=== PATIENT | female | born 1940 | race Caucasian/White ===

== ENCOUNTER 2020-09-16 14:15 | Outpatient (REF) | payer MEDICARE, SELFPAY ==
[2020-09-16 15:20] LABS: Anion Gap 13 (12-20); Blood Urea Nitrogen 13 mg/dL (9-16); Calcium 9.6 mg/dL (8.4-10.2); Carbon Dioxide 32 mmol/L (22-29); Chloride 101 mmol/L (96-108); Estimated Glomerular Filt Rate > 60; Glucose Random 81 mg/dL (60-115); Potassium 4.4 mmol/l (3.3-5.1); Sodium 142 mmol/L (135-145)
== END 2020-09-16 14:16 | disposition home or self-care (01) ==
LOC: HO.LAB 14:15
PROVIDERS: Visit Provider Hospitalist
DX: J44.9 Chronic obstructive pulmonary disease, unspecified (principal)
CPT/HCPCS: 80048

== ENCOUNTER 2020-09-23 14:44 | Outpatient (REF) | payer MEDICARE, SELFPAY ==
--- NOTE | 2020-09-23 14:46 | CT_ITS ---
EXAMINATION: CT CHEST WITH CONTRAST CLINICAL INFORMATION: Generalized enlarged lymph nodes. COMPARISON: CTA chest 05/30/2020. TECHNIQUE: Multidetector volumetric CT imaging of the chest was obtained after the administration of 65 mL of Omnipaque 350 intravenous contrast without immediate adverse reactions. Axial MIP volume rendering provided. Sagittal and coronal reformatted images were obtained. This CT examination was performed using dose optimization techniques as appropriate, variously including the following: Automated exposure control. Adjustment of mA and/or kV according to patient size (this includes techniques or standardized protocols for targeted exams where dose is matched to indication/reason for exam; i.e. extremities or head). Use of iterative reconstruction technique. DLP: 148 mGy-cm FINDINGS: [employer]ODUCTION: Well-expanded lungs are unremarkable. LUNGS: The lungs are well expanded and clear of acute pneumonic consolidation. There is a 2 mm calcified nodule right lung apex image 21/8. There is a tumor noncalcified nodule right upper lobe image 155/7. No additional nodules seen. MEDIASTINUM: The heart size and the great vessels are normal. The central trachea and the bronchi are widely patent. There is abnormal mediastinal adenopathy. The largest pretracheal lymph node measures 2.2 x 3.7 cm on axial image 22/3, it appears similar to previous study. A few smaller scattered subcarinal, precarinal and right hilar lymph nodes are noted. The heart size is normal. There are coronary artery and aortic valve calcifications. No pericardial effusion seen. PLEURA: There is no pleural effusion. No pleural mass or thickening. AXILLA: No abnormal lymph nodes or mass seen. The chest wall is unremarkable. UPPER ABDOMEN: Visualized liver, spleen, pancreas and bilateral adrenal glands are stable. OSSEOUS STRUCTURES: No lytic or sclerotic process seen. CT/CT chest w con IMPRESSION: Stable abnormal mediastinal adenopathy. Punctate calcified and noncalcified pulmonary nodules are also stable to previous study from 05/30/2020. No new findings.
[2020-09-23] MEDS: iohexoL 350 MG/ML 100 ML INFUS..BTL IV (15:34)
== END 2020-09-23 14:45 | disposition home or self-care (01) ==
LOC: HO.CT 14:44
PROVIDERS: Visit Provider Hospitalist
DX: R59.1 Generalized enlarged lymph nodes (principal)
CPT/HCPCS: 71260; Q9967

== ENCOUNTER → 2020-10-02 13:17 | Outpatient (BNVA) | payer MEDICARE, SELFPAY | PROVIDERS: PCP Emergency Medicine; Visit Provider Hospitalist | DX: R59.1 Generalized enlarged lymph nodes (principal) | CPT/HCPCS: 99212 ==

== ENCOUNTER → 2020-10-22 14:17 | Outpatient (BNVA) | payer MEDICARE, SELFPAY | PROVIDERS: PCP Emergency Medicine; Visit Provider Internal Medicine | DX: I49.1 Atrial premature depolarization (principal); I47.1 Supraventricular tachycardia; I49.3 Ventricular premature depolarization; I10 Essential (primary) hypertension; J44.9 Chronic obstructive pulmonary disease, unspecified | CPT/HCPCS: 93005; 99212 ==

== ENCOUNTER 2020-11-19 08:25 | Day surgery (SDC) | payer MEDICARE, SELFPAY ==
[2020-11-12 16:12] VITALS: BMI 27.9
--- NOTE | 2020-11-18 10:01 | HO.ANESPROP2 ---
Documented by User: Brinda Gonzalezney 11/18/20 10:17 HPI - Anesthesia Eval Consult details Narrative: 80yo F for Endoscopic Bronchial Ultrasound PMFSH Past Medical History Medical History Atrial tachycardia Chronic obstructive pulmonary disease, unspecified Essential hypertension Hypothyroid Lymphadenopathy Macular degeneration PAC (premature atrial contraction) Pneumonia PVC (premature ventricular contraction) Family History Family History Father No problems noted. Mother No problems noted. Surgical History Surgical History History of tonsillectomy and adenoidectomy Hx of cataract extraction Social History Social History Are you a primary human services care specialist to a significant other at home: No Do you presently have visiting nurse or other home services: No Smoking Status: Former smoker Tobacco Type: Cigarette Years Smoked: 50 years Smoking Quit Date: 2005 Use of substances other than those prescribed or required for medical reasons: No Have you been hit, kicked, punched, or otherwise hurt by someone within the past year? If so, by whom?: No Advance Directives: No Advance Directives Information Provided: No Advance Directives on File: No Recently lost weight without trying: No Narrative Narrative: Recent cardiology OV. Palps better with diltiazem. Stable with 6 month f/u. Meds Allergies Allergy/AdvReac Type Severity Reaction Status Date / Time peanut Allergy Severe Anaphylaxis Verified 11/12/20 16:07 Tetanus Vaccines and Toxoid Allergy Severe Anaphylaxis Verified 11/12/20 16:07 lovastatin AdvReac Severe Leg Cramps Verified 11/12/20 16:07 pravastatin AdvReac Severe Leg Cramps Verified 11/12/20 16:07 Home Medications Medication Instructions Recorded Confirmed Type B-complex with vitamin C 1 tab PO DAILY 10/02/20 11/12/20 History albuterol sulfate 90 mcg/actuation 2 puff INHALATION Q4-6H PRN 10/02/20 11/12/20 History aerosol inhaler diltiazem HCl 120 mg 120 mg PO DAILY 10/02/20 11/12/20 History capsule,extended release 24 hr, controlled flu vacc [id number](65yr up)-PF 240 ml IM 10/02/20 10/03/20 History mcg/0.7 mL intramuscular syringe levothyroxine 50 mcg tablet 50 mcg PO DAILY 10/02/20 11/12/20 History multivitamin 1 tab PO DAILY 10/02/20 11/12/20 History omega 1-thq-lbc-vitamin E 500 1 cap PO DAILY 10/02/20 11/12/20 History mg-139 mg-264 mg-5 unit capsule vit C 250 mg-vit E 200 unit-zinc 1 cap PO DAILY 10/22/20 11/12/20 History ox 12.5 ju-wqfkxv-vswfoo-zeax capsule cholecalciferol (vitamin D3) 25 mcg PO DAILY 11/12/20 11/12/20 History [Vitamin D3] qfuovshjfhr-lhfmqrcsg-waqhoini 1 inh INHALATION DIRECTED 11/12/20 11/12/20 History [Trelegy Ellipta] Exam Exam Date and Time: November 18, 2020 1001 Height,Weight and Vital Signs: Height 5 ft 4 in Weight 73.936 kg Pertinent Lab Results Pertinent Lab Results: EKG 09/2020 SR @ 98, premature supraventricular as well as ventricular complexes; probable LVH Assessment and Plan Assessment Anesthesia Assessment: Chart Reviewed Documented by User: Luis Martínez MD 11/19/20 09:02 [facility] Past Medical History Medical History Atrial tachycardia Chronic obstructive pulmonary disease, unspecified Essential hypertension Hypothyroid Lymphadenopathy Macular degeneration PAC (premature atrial contraction) Pneumonia PVC (premature ventricular contraction) Family History Family History Father No problems noted. Mother No problems noted. Surgical History Surgical History History of tonsillectomy and adenoidectomy Hx of cataract extraction Social History Social History Are you a primary human services care specialist to a significant other at home: No Do you presently have visiting nurse or other home services: No Smoking Status: Former smoker Tobacco Type: Cigarette Years Smoked: 50 years Smoking Quit Date: 2005 Use of substances other than those prescribed or required for medical reasons: No Have you been hit, kicked, punched, or otherwise hurt by someone within the past year? If so, by whom?: No Advance Directives: No Advance Directives Information Provided: No Advance Directives on File: No Recently lost weight without trying: No Meds Allergies Allergy/AdvReac Type Severity Reaction Status Date / Time peanut Allergy Severe Anaphylaxis Verified 11/12/20 16:07 Tetanus Vaccines and Toxoid Allergy Severe Anaphylaxis Verified 11/12/20 16:07 lovastatin AdvReac Severe Leg Cramps Verified 11/12/20 16:07 pravastatin AdvReac Severe Leg Cramps Verified 11/12/20 16:07 Home Medications Medication Instructions Recorded Confirmed Type B-complex with vitamin C 1 tab PO DAILY 10/02/20 11/12/20 History albuterol sulfate 90 mcg/actuation 2 puff INHALATION Q4-6H PRN 10/02/20 11/12/20 History aerosol inhaler diltiazem HCl 120 mg 120 mg PO DAILY 10/02/20 11/12/20 History capsule,extended release 24 hr, controlled flu vacc [id number](65yr up)-PF 240 ml IM 10/02/20 10/03/20 History mcg/0.7 mL intramuscular syringe levothyroxine 50 mcg tablet 50 mcg PO DAILY 10/02/20 11/12/20 History multivitamin 1 tab PO DAILY 10/02/20 11/12/20 History omega 0-mtx-lbw-vitamin E 500 1 cap PO DAILY 10/02/20 11/12/20 History mg-139 mg-264 mg-5 unit capsule vit C 250 mg-vit E 200 unit-zinc 1 cap PO DAILY 10/22/20 11/12/20 History ox 12.5 gw-bmywrv-lssyhy-zeax capsule cholecalciferol (vitamin D3) 25 mcg PO DAILY 11/12/20 11/12/20 History [Vitamin D3] eojujfuiylr-yuqkiubhb-sexdcmcm 1 inh INHALATION DIRECTED 11/12/20 11/12/20 History [Trelegy Ellipta] Exam Airway Mallampati Class: III TM Dist: >3cm Neck ROM: Full Denture: Upper Partial: Lower Loose/Missing/Broken Teeth: No Heart: PVCs, PACs, bigemini Lungs: nonlabored Assessment and Plan Assessment Anesthesia Assessment: Anesthesia Plan Discussed and Chart Reviewed Final Anesthetic Review NPO: Yes ASA Class: III Final Preanesthetic Review: No Changes in Pt Med Stat, Meds/Allgs Chart Reviewed, Consent Obtained/Reviewed and Anes Risks/Benef Reviewed Patient Risk: Intermediate Procedure Risk: Intermediate Anesthetic Plan Anesthetic Plan: GA Disposition: Standard PACU
[2020-11-19] VITALS (8 sets, daily range): BP systolic 133–166; BP diastolic 63–75; PULSE 86–98; RESP 16–20; TEMP 36.2–36.6; O2SAT 93–98
[2020-11-19] MEDS: Lactated Ringers 1,000 ML 50 ML IVCONT (09:30)
--- NOTE | 2020-11-19 09:59 | MHC.SHP ---
Pre-Procedural Eval Section B Chief Complaint: enlarged lymph nodes Allergies: Allergies Allergy/AdvReac Type Severity Reaction Status Date / Time peanut Allergy Severe Anaphylaxis Verified 11/12/20 16:07 Tetanus Vaccines and Toxoid Allergy Severe Anaphylaxis Verified 11/12/20 16:07 lovastatin AdvReac Severe Leg Cramps Verified 11/12/20 16:07 pravastatin AdvReac Severe Leg Cramps Verified 11/12/20 16:07 Plan I have reviewed the history and physical and performed a pertinent physical examination on my patient. No changes have occurred unless specified.
--- NOTE | 2020-11-19 18:17 | PM.OP ---
Brief Operative Note Date of Service: 11/19/20 Pre-op diagnosis: Lymphadenospathy Post-op diagnosis: other (Lymphadenopathy, cancer) Procedure: EBUS with TBNA Surgeon: Rik Kohler MD Anesthesia: GETA Estimated blood loss (mL): 0 Pathology: other (TBNA from station 4R and 7) Condition: stable Disposition: same day
--- NOTE | 2020-11-19 21:46 | OP_ITS ---
SURGEON: Rik Kohler MD PREOPERATIVE DIAGNOSIS: Lymphadenopathy. POSTOPERATIVE DIAGNOSIS: PROCEDURE PERFORMED: Endobronchial ultrasound bronchoscopy with transbronchial needle aspirations. ESTIMATED BLOOD LOSS: COMPLICATIONS: ANESTHESIA: General endotracheal anesthesia provided with an 8.5 ET tube. ASSISTANTS: None. SPECIMENS: POSTOPERATIVE DIAGNOSES: Lymphadenopathy and cancer. DESCRIPTION OF PROCEDURE: After the patient was adequately sedated and intubated, the flexible digital bronchoscope with endobronchial ultrasound bronchoscopy (EBUS) was introduced via the ET tube to the level of the main renée. Using the ultrasound guidance, the different stations were visualized. The patient did have a 2 cm 4R mediastinal lymph node and also had about 1 to 1.5 cm station 7 subcarinal lymph node. The patient also had lymph nodes enlarged in station 10L. Using the ultrasound guidance, the transbronchial needle aspirations were done in station 4R, five passes done. Specimen was given to the pathologist. Subsequent to that, the bronchoscope was navigated to station 7, where another 4 passes of the transbronchial needle aspirate was collected and sent to pathology. At that which point, the pathologist did document lesional cells concerning for cancer. The endobronchial ultrasound bronchoscopy was then removed and replaced with the regular bronchoscopy. The bronchoscope was introduced against the ET tube and the tracheobronchial tree that was examined up to the subsegmental level. No endobronchial lesions or masses noted. The patient did have some slight irritability at the site of the needle aspirations. Otherwise, no endobronchial lesions or masses noted. No evidence of any mucus secretions. Airways were within normal limits. The bronchoscope was then removed. The total endoscopic time approximately 45 minutes. The patient tolerated the procedure well. Vital signs were stable. INTERPRETATION: 1. Successful transbronchial needle aspiration via EBUS at station 4R and station 7 2. Bronchial washings bilaterally. Rik Kohler MD MR/MODL / [id number] MTDD
== END 2020-11-19 13:01 | disposition home or self-care (01) ==
PROVIDERS: Visit Provider Hospitalist
PROC: (CPT 31652; principal; 2020-11-19 10:00)
DX: R59.1 Generalized enlarged lymph nodes (principal); R91.1 Solitary pulmonary nodule; J44.9 Chronic obstructive pulmonary disease, unspecified; I10 Essential (primary) hypertension; I49.1 Atrial premature depolarization; I49.3 Ventricular premature depolarization; Z87.891 Personal history of nicotine dependence; Z87.01 Personal history of pneumonia (recurrent); Z79.51 Long term (current) use of inhaled steroids; Z79.899 Other long term (current) drug therapy; Z91.010 Allergy to peanuts; Z88.7 Allergy status to serum and vaccine; Z91.09 Other allergy status, other than to drugs and biological substances
CPT/HCPCS: 31652; 36415; 87071; 87205; 88112; 88172; 88173; 88177; 88184; 88185; 88300; 88305; 88341; 88342; J0171; J1100; J2370; J2405; J3010

== ENCOUNTER → 2020-11-26 09:42 | Outpatient (BNVA) | payer MEDICARE, SELFPAY | PROVIDERS: PCP Internal Medicine; Visit Provider Hospitalist | DX: Z13.89 Encounter for screening for other disorder (principal) | CPT/HCPCS: Q3014 ==

== ENCOUNTER 2020-12-04 13:13 | Outpatient (REF) | payer MEDICARE, SELFPAY ==
--- NOTE | ~2020-12-04 | MR_ITS ---
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 COMPARISON: None TECHNIQUE: MRI sequences of the brain were obtained without and following intravenous administration of 7.5 mL of Gadavist. FINDINGS: There is no abnormal restricted diffusion seen to suspect any acute ischemic changes. T2 diffuse signal changes are seen in the periventricular white matter of both cerebral hemispheres without mass effect or edema. The lateral ventricles are moderately enlarged but symmetrical. Mild prominence of the cortical sulci is seen. Post gadolinium, there is no abnormal enhancement seen in the brain parenchyma or the extra-axial soft tissues. Normal flow void signal is seen in the major cerebral vasculature. MR/MR head/brain w con IMPRESSION: No acute intracranial process seen. No abnormal enhancement seen to suspect any primary or metastatic lesion. Extensive chronic small vessel ischemic changes in both cerebral hemispheres with underlying mild cerebral volume loss.
== END 2020-12-04 13:14 | disposition home or self-care (01) ==
LOC: HO.MRI 13:13
PROVIDERS: Visit Provider Internal Medicine Medical Oncology
DX: C80.1 Malignant (primary) neoplasm, unspecified (principal)
CPT/HCPCS: 70552; A9585

== ENCOUNTER 2020-12-26 17:49 | Outpatient (REF) | payer MEDICARE, SELFPAY ==
--- NOTE | ~2020-12-26 | MR_ITS ---
EXAMINATION: MR ABDOMEN WITHOUT AND WITH CONTRAST CLINICAL INFORMATION: Right lower pole renal mass seen on PET scan at [facility] COMPARISON: No prior imaging available for comparison. Specifically, the PET CT from [facility] is not available for comparison. TECHNIQUE: MR abdomen was performed without and with use of 7.5 mL intravenous Gadavist gadolinium contrast. Postcontrast images are performed in multiphase dynamic sequences. Imaging was performed in 3 planes. Respiratory motion artifact degrades many of the sequences. FINDINGS: LUNG BASES: The visualized lung bases are unremarkable. LIVER, GALLBLADDER, AND BILIARY TREE: The liver is normal in size, smooth in contour, and normal in signal. No focal hepatic lesion or biliary ductal dilatation is present. The gallbladder is unremarkable with no evidence of gallbladder wall thickening, or obvious pericholecystic inflammatory changes. PANCREAS: The pancreatic duct is upper limits of normal in caliber but nondilated. There are tiny 1-2 mm cystic foci adjacent the pancreatic duct suggestive of ectatic side branches, for example images 9 and 10 of series 5. No solid pancreatic mass or peripancreatic inflammatory changes. SPLEEN: Normal. ADRENAL GLANDS: Normal. KIDNEYS AND URETERS: Symmetric bilateral renal enhancement. 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 There is a contour bulge of the lateral aspect of the right mid-lower kidney which could give the appearance of a pseudomass although there is no underlying mass lesion. GASTROINTESTINAL TRACT: No bowel obstruction. No ascites or fluid collection. ABDOMINAL WALL: No significant hernia is appreciated. LYMPH NODES: Normal sized retroperitoneal lymph nodes are present. No pathologically enlarged lymphadenopathy. VASCULAR: Normal caliber abdominal aorta. OSSEOUS STRUCTURES: Multilevel degenerative disc disease. Multilevel degenerative changes of the thoracolumbar spine. There is multilevel loss of disc height and disc desiccation throughout the visualized thoracolumbar spine. 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 No underlying renal mass.
== END 2020-12-26 17:50 | disposition home or self-care (01) ==
LOC: HO.MRI 17:49
PROVIDERS: Visit Provider Internal Medicine Medical Oncology
DX: N28.89 Other specified disorders of kidney and ureter (principal)
CPT/HCPCS: 74183; A9585

== ENCOUNTER 2021-01-01 06:55 | Day surgery (SDC) | payer MEDICARE, SELFPAY ==
[2021-01-01] VITALS (7 sets, daily range): BP systolic 142–160; BP diastolic 57–87; PULSE 17–108; RESP 17–18; TEMP 36.2–36.3; O2SAT 94–97
--- NOTE | ~2021-01-01 | IR_ITS ---
PROCEDURE: IR INSERTION OF TUNNEL CATHETER CLINICAL INFORMATION: Right lung cancer. Needs long-term IV chemotherapy. COMPARISON: CT chest 09/23/2020. TECHNIQUE: Following explaining ultrasound and fluoroscopy-guided placement of a left jugular inserted port catheter, procedure, benefits and risks, a written consent was obtained from the patient. All elements of maximal sterile barrier technique followed including use of cap, mask, sterile gown, sterile gloves, a sterile full body drape and hand hygiene. Also followed skin preparation with 2% chlorhexidine for cutaneous antisepsis, and sterile ultrasound preparation with sterile gel and probe cover when applicable. Under sterile ultrasound guidance a singlewall needle was utilized in the left jugular vein was punctured above the clavicle. After obtaining venous return, a thin guidewire was advanced over the needle and needle withdrawn. A 5 Serbian dilator sheath was inserted over the wire. The catheter was anchored to the drape with hemostat. Approximately one gauze length away from the next skin incision along the left ventricle chest wall, 1% lidocaine was administered and a small skin incision performed. The area under the incision was bluntly dissected for the port to be positioned within the pocket. The port was anchored in the pocket with two 3-0 nonabsorbable nylon sutures. 1% lidocaine was subsequently inserted from the anterior chest wall incision to the left neck incision. A attached to the catheter was then advanced from the anterior chest wall incision to the left neck incision and the catheter was pulled. The catheter was cut to the desired size. The 5 Serbian dilator was removed from the neck incision and a 0.35 J-wire was advanced through it under fluoroscopy and placed in the IVC. The 5 Serbian catheter was removed and the tract dilated to 7 Serbian dilator. A 7 Serbian dilator with sheath was inserted over the guidewire. The dilator and the guidewire removed. The catheter was then inserted through the peel-away sheath. The peel-away sheath was removed as the catheter was advanced and held in position. The final image was under fluoroscopy and revealed tip of the catheter positioned mid SVC. The anterior chest wall incision was sutured with 4-0 absorbable sutures. The left anterior neck incision was sutured with 3-0 absorbable sutures. Steri-Strips were applied at both sites and dressing placed. The port chamber was flushed. Initially after placing it in the pocket and subsequently at the end of the study, heparin flush was instilled through the catheter. Patient tolerated the procedure extremely well. Conscious sedation was utilized during exam. FINDINGS: On preliminary ultrasound imaging, a widely patent left jugular vein is noted. Ultrasound and fluoroscopy-guided placement of a 6.6 Serbian 24 cm long tunneled catheter insertion performed. IR/IR cvc insert tunnel w prt/stock drier tender IMPRESSION: Successful ultrasound and fluoroscopy-guided placement of a tunneled catheter via the left jugular vein.
[2021-01-01 07:37] LABS: Glucose, Whole Blood 118 mg/dL (60-115)
[2021-01-01 07:53] LABS: INTERNATIONAL NORM RATIO 1.1 (0.9-1.1); Prothrombin Time 12.9 SEC (10.8-13.0)
[2021-01-01 07:55] LABS: Partial Thromboplastin Time 32.7 SEC (24.1-38.0)
[2021-01-01] MEDS: Lidocaine HCl 1 % MPF 5 ML VIAL 10 ML SUBCUT (10:17)
== END 2021-01-01 15:00 ==
LOC: HO.SSS 06:56
PROVIDERS: Visit Provider Radiology Diagnostic Radiology
DX: Z45.2 Encounter for adjustment and management of vascular access device (principal); C34.91 Malignant neoplasm of unspecified part of right bronchus or lung
CPT/HCPCS: 36415; 36561; 76937; 82947; 85610; 85730; 99152; 99153; C1769; C1788; J0690; J1642; J2250; J3010

== ENCOUNTER → 2021-03-26 14:53 | Outpatient (REF) | payer MEDICARE, SELFPAY ==
--- NOTE | 2021-03-26 08:00 | ECG_ITS ---
Hook-up date: 2021-03-26 15:28:00 Duration: 22:01:00 Test Indications: VENTRICULAR PREMATURE BEATS Medications: 901058 QRS complexes 2610 Ventricular ectopics which represent 2 % of total QRS comp. 6224 Supraventricular ectopics which represent 5 % of total QRS comp. * Paced QRS complexs which represent % of total QRS comp. VENTRICULAR ECTOPY 2525 Isolated 3 Bigeminal Cycles 41 Couplets 1 Runs 3 Beats in Runs 3 Beats LONGEST at 120 BPM at 07:47:04 2021-03-27 3 Beats FASTEST at 120 BPM at 07:47:04 2021-03-27 SUPRAVENTRICULAR ECTOPY 3787 Isolated 624 Couplets 330 Runs 1189 Beats in Runs 10 Beats LONGEST at 125 BPM at 23:55:51 2021-03-26 3 Beats FASTEST at 163 BPM at 12:22:47 2021-03-27 HEART RATES 64 MIN at 09:10:08 2021-03-27 96 AVG 167 MAX at 20:50:12 2021-03-26 LONGEST RR 1.3120 secs at 11:08:41 2021-03-27 S-T LEVELS Channel 1 - 128 mm at 15:28:00 2021-03-26 - 128 mm at 15:28:00 2021-03-26 Channel 2 - 128 mm at 15:28:00 2021-03-26 - 128 mm at 15:28:00 2021-03-26 Channel 3 - 128 mm at 03:44:71 -- - 128 mm at 03:44:71 Underlying rhythm is sinus; Average rate 96/min; range 64-167/min; Frequent premature supraventricualr contractions (5%) of total; Mostly isolated beats, with couplets, bigeminy, short runs, longest 10 beats; Frequent premature ventricular contractions (2%) of total; Mostly isolated, some couplets, bigeminy, one run of 3 beats; Patient did not return diary Referred By: Andreas Shirley Overread By: ANDREAS SHIRLEY
== END ==
LOC: HO.CARD 14:53
PROVIDERS: Visit Provider Internal Medicine
DX: I49.3 Ventricular premature depolarization (principal)
CPT/HCPCS: 93226

== ENCOUNTER → 2021-04-16 13:05 | Outpatient (BNVA) | payer MEDICARE, SELFPAY | PROVIDERS: PCP Internal Medicine; Visit Provider Internal Medicine | DX: I49.1 Atrial premature depolarization (principal); I47.1 Supraventricular tachycardia; I49.3 Ventricular premature depolarization; I10 Essential (primary) hypertension; J44.9 Chronic obstructive pulmonary disease, unspecified | CPT/HCPCS: 99212 ==

== ENCOUNTER 2021-04-22 08:11 | Outpatient (REF) | payer MEDICARE, SELFPAY ==
--- NOTE | ~2021-04-22 | CT_ITS ---
EXAMINATION: CT CHEST, ABDOMEN AND PELVIS WITH IV CONTRAST CLINICAL INFORMATION: Small cell lung cancer. Followup after treatment. COMPARISON: Previous chest CT most recent September 2020 and MR of the abdomen December 2020 TECHNIQUE: Axial images through the chest, abdomen and pelvis following oral and 85 mL Omnipaque 350 intravenous contrast. Sagittal and coronal reconstructions on the technologist workstation were performed. Patient dose: 129+375 mGy-cm. This CT examination was performed using dose optimization techniques as appropriate, variously including the following: *Automated exposure control *Adjustment of mA and/or kV according to patient size (this includes techniques or standardized protocols for targeted exams where dose is matched to indication/reason for exam; i.e. extremities or head) *Use of iterative reconstruction technique FINDINGS: CHEST: There is interval decrease in mediastinal lymphadenopathy. Largest precarinal lymph node measures 1.3 x 1.7 cm axial image 26 series 3 compared to 2 x 2.7 cm September 2020 exam. There is interval decrease in the subcarinal mediastinal lymph node measuring 1.1 x 2.3 cm compared to 1.4 x 2.6 cm on previous exam. There are small bilateral hilar lymph nodes that appear stable. The heart does not appear enlarged. There is coronary artery calcification. There is no pericardial effusion. The thoracic aorta is normal in caliber. There is a left jugular port with tip projecting over the SVC. The visualized thyroid gland is unremarkable. There is a 2 mm calcified right upper lobe nodule axial image 108 series 7 that is stable. There is a 2 mm peripheral or subpleural right upper lobe nodule adjacent to the major fissure axial image 225 series 7 that is new. This may represent a subpleural lymph node. The lungs are otherwise clear. There is a trace right pleural effusion. There is no left pleural effusion. No chest wall mass or enlarged axillary lymph nodes are seen. There is a subcutaneous mass in the left posterior chest wall axial image 141 series 3 that measures 1 cm that is stable. There are surgical clips in the left breast. ABDOMEN AND PELVIS: The liver is low in attenuation suggestive of fatty infiltration. No focal liver lesion is seen. The spleen, pancreas, adrenal glands, kidneys and gallbladder are unremarkable. The bladder is not optimally distended. The uterus and adnexa are unremarkable. There is diverticulosis of the colon. Small and large bowel is otherwise unremarkable. The appendix and stomach are unremarkable. There is evidence of atherosclerotic disease. There is a small aneurysm or area of ectasia of the right common iliac artery measuring 1.8 cm. No ascites or adenopathy is seen. There are degenerative changes of the spine. There is a T11 vertebral body compression fracture that is new. CT/CT abdomen pelvis w con IMPRESSION: CHEST: Interval decrease in mediastinal lymphadenopathy. New 2 mm peripheral or subpleural right upper lobe nodule adjacent to the major fissure probably representing a subpleural lymph node. New tiny right pleural effusion. Atherosclerotic disease and coronary artery calcification. ABDOMEN AND PELVIS: Fatty liver. Diverticulosis. No evidence of metastatic disease. New T11 vertebral body compression fracture.
[2021-04-22] MEDS: iohexoL 350 MG/ML 100 ML INFUS..BTL IV (11:42)
== END 2021-04-22 08:12 | disposition home or self-care (01) ==
LOC: HO.CT 08:11
PROVIDERS: Visit Provider Internal Medicine Medical Oncology
DX: C80.1 Malignant (primary) neoplasm, unspecified (principal); K59.00 Constipation, unspecified
CPT/HCPCS: 71260; 74177; Q9967

== ENCOUNTER → 2021-04-30 10:37 | Outpatient (REF) | payer MEDICARE, SELFPAY ==
--- NOTE | ~2021-04-30 | NM_ITS ---
EXAMINATION: NM BONE SCAN OF THE WHOLE BODY CLINICAL INFORMATION: New T11 compression fracture. COMPARISON: CT abdomen and pelvis 04/22/2021. TECHNIQUE: Multiple gamma scintillation camera images of the whole body were performed 3 hours following the intravenous administration of 25 mCi Tc-99m MDP. FINDINGS: In the head, unremarkable. In the thoracic cage and upper extremities, unremarkable. In the spine, there is a horizontal area of abnormal activity in the T11 vertebra consistent with acute compression fracture. There is mild activity visualized in the superior endplate of T12 vertebra as well, likely ongoing or early acute fracture. No additional areas of abnormal activity seen in the rest of the spine. In the pelvis, unremarkable. In the lower extremities, unremarkable. No other definite bony abnormalities are noted. The urinary bladder and faint visualization of both kidneys are noted. NM/NM bone scan whole body IMPRESSION: Horizontal abnormal activity T11 vertebra consistent with acute compression fracture. Suspect early acute superior end plate fracture T12 vertebra.
== END ==
LOC: HO.NUCMED 10:37
PROVIDERS: Visit Provider Internal Medicine Medical Oncology
DX: M48.54XA Collapsed vertebra, not elsewhere classified, thoracic region, initial encounter for fracture (principal)
CPT/HCPCS: 78306; A9503

== ENCOUNTER 2021-05-11 10:38 | Day surgery (SDC) | payer MEDICARE, SELFPAY ==
[2021-05-11] VITALS (14 sets, daily range): BP systolic 111–201; BP diastolic 58–102; PULSE 74–121; RESP 16–19; TEMP 36.7–37.2; O2SAT 88–99; BMI 26.6
--- NOTE | ~2021-05-11 | IR_ITS ---
EXAMINATION: IR THORACIC VERTEBROPLASTY CLINICAL INFORMATION: Acute T11 and T12 compression fractures on recent bone scan 04/30/[address] chest exam 04/22/2021. Patient has significant acute pain with difficulty in mobility. COMPARISON: Bone scan 04/30/[address] chest/abdomen exam 04/22/2021 TECHNIQUE: Following explaining fluoroscopy-guided bipedicle approach T11 and T12 kyphoplasty procedure in details, benefits and risk, a written consent was obtained from the patient. Patient was placed prone on fluoroscopy table and low back area was cleaned and draped in usual sterile manner. 1% lidocaine was administered on the skin overlying the right pedicle T11 vertebra. There are small skin incision a 10-gauge Kyphon needle was inserted from the skin to the level of pedicle and through the pedicle into T11 vertebra. A second needle was advanced in a similar fashion to the left pedicle into posterior one thirds of T11 vertebra subsequently a third and fourth needle was advanced to the right and left T12 pedicles. A simple adrenal was advanced to the right and left T11 pedicle however there was significant resistance. A curet was then advanced through the right and left pedicle. Hypotensive balloons were then inserted to the T11 and T12 bilateral pedicles and inflated to 150 PSI of 5 minutes each. The balloons were deflated and removed and freshly mixed polymethylmethacrylate methacrylate was injected through the right followed by left T11 and right followed by left T12 vertebra. Cement was injected under continuous AP, oblique and lateral fluoroscopy monitoring. After a TV adequate amount of cement and observing no cement leaked after 10 minutes both pedicles were removed. Complete hemostasis achieved at puncture site. Sterile bandage applied at the puncture site. Conscious sedation was provided by anesthesia Department. FINDINGS: There is moderate loss of T11 vertebra at >50%. There is mild loss of superior endplate T12 vertebral height. Successful fluoroscopy-guided bipedicle T11 and T12 kyphoplasty performed without immediate convocations. FLUOROSCOPY TIME: 5 minutes. DOSE AREA PRODUCT: 17 74 uGy-m2 (microgray-meter squared) IR/IR kyphoplasty thoracic IMPRESSION: Successful fluoroscopy-guided bilateral pedicular approach T11-T12 kyphoplasty performed.
--- NOTE | ~2021-05-11 | CT_ITS ---
EXAMINATION: CT THORACIC SPINE CLINICAL INFORMATION: Post T11 and T12 kyphoplasty. COMPARISON: CT abdomen and pelvis 04/22/2021 TECHNIQUE: Axial 2 mm thin and reformatted 2 mm thin sagittal and coronal images of thoracic spine from superior endplate of G66-[id number] disc level are obtained. This CT examination was performed using dose optimization techniques as appropriate, variously including the following: *Automated exposure control *Adjustment of mA and/or kV according to patient size (this includes techniques or standardized protocols for targeted exams where dose is matched to indication/reason for exam; i.e. extremities or head) *Use of iterative reconstruction technique DLP: 197 mGy-cm FINDINGS: On sagittal reconstructed images there is adequate cement occupying the entire T11 and T12 vertebra with no extravasation of cement. Mild superior posterior bony component along the T11 vertebra is unchanged to the previous CT abdomen exam. The paravertebral soft tissues are normal. There is mild improvement in the T11 vertebral height post kyphoplasty. Mild deformity involving T11 and T12 superior endplates are visualized again. The adjacent T10 and L1 vertebral height is normal. The paravertebral soft tissues are normal. Visualized lung bases are clear. CT/CT thoracic spine post vert IMPRESSION: Adequate amount of cement occupying T11 and T12 compression fractures with no cement extravasation. There is no spinal canal compromise or neural foraminal narrowing.
[2021-05-11 12:36] LABS: MANUAL DIFF FLAG NO
[2021-05-11 12:40] LABS: Basophils Absolute Auto 0.1 X10*3/uL (0.0-0.2); Basophils Percent Auto 0.8 % (0-2); Eosinophils Percent Auto 0.1 % (0-4); Hematocrit 44.2 % (37-47); Hemoglobin 13.9 g/dl (12.0-16.0); Imm Gran Abs Auto 0.02 X10*3/uL (0.00-0.03); Imm Gran Pct Auto 0.3 % (0.0-0.4); Lymphocytes Absolute Auto 0.7 X10*3/uL (1.2-4.9); Lymphocytes Percent Auto 8.5 % (20-40); Mean Corpuscular HGB Conc 31.4 g/dl (31.0-35.0); Mean Corpuscular Hemoglobin 30.9 pg (27.0-33.0); Mean Corpuscular Volume 98.2 fL (80-98); Mean Platelet Volume 11.2 fL (9.4-12.3); Monocytes Absolute Auto 0.7 X10*3/uL (0.1-1.2); Monocytes Percent Auto 9.3 % (2-11); Neutrophils Absolute Auto 6.2 X10*3/uL (2.0-8.3); Platelet Count 214 X10*3/uL (160-400); Red Cell Distribution Width 13.3 % (11.0-16.0); White Blood Count 7.6 X10*3/uL (4.8-10.8)
[2021-05-11 12:46] LABS: INTERNATIONAL NORM RATIO 1.1 (0.9-1.1); Prothrombin Time 12.1 SEC (9.9-13.0)
[2021-05-11 12:49] LABS: Partial Thromboplastin Time 35.5 SEC (24.1-38.0)
--- NOTE | 2021-05-11 13:00 | HO.ANESPROP2 ---
[facility] Active Problems Active Problems: All Active Problems (Updated 04/16/21 @ 16:14 by Dougie Suazo MD) Small cell lung carcinoma (Acute) Small cell carcinoma (Acute) Cancer (Acute) Atrial tachycardia (Acute) Chronic obstructive pulmonary disease, unspecified (Acute) Essential hypertension (Acute) PAC (premature atrial contraction) (Acute) PVC (premature ventricular contraction) (Acute) Lymphadenopathy (Acute) Past Medical History Medical History Atrial tachycardia Cancer Chronic obstructive pulmonary disease, unspecified Essential hypertension Hypothyroid Lymphadenopathy Macular degeneration PAC (premature atrial contraction) Pneumonia PVC (premature ventricular contraction) Small cell carcinoma Family History Family History Father No problems noted. Mother No problems noted. Surgical History Surgical History History of tonsillectomy and adenoidectomy Hx of cataract extraction Social History Social History Are you a primary sub acute care nurse to a significant other at home: No Do you presently have visiting nurse or other home services: No Patient Tobacco Use Status: Former Tobacco user Cigarette Packs Per Day: 2 Years Smoked: 50 years Second Hand Smoke Exposure: No Use of substances other than those prescribed or required for medical reasons: No Are you DNR?: No Advance Directives: Yes Advance Directives Information Provided: No Advance Directives on File: Yes Advance Directives Date on File: 05/11/21 Nutrition Risks: No Nutritional Risk Meds Allergies Allergy/AdvReac Type Severity Reaction Status Date / Time peanut Allergy Severe Anaphylaxis Verified 05/11/21 10:15 Tetanus Vaccines and Toxoid Allergy Severe Anaphylaxis Verified 05/11/21 10:15 lovastatin AdvReac Severe Leg Cramps Verified 05/11/21 10:15 pravastatin AdvReac Severe Leg Cramps Verified 05/11/21 10:15 Home Medications Medication Instructions Recorded Confirmed Last Taken Type B-complex with vitamin C 1 tab PO DAILY 10/02/20 04/16/21 Unknown History albuterol sulfate 90 mcg/actuation 2 puff INHALATION Q4-6H PRN 10/02/20 04/16/21 Unknown History aerosol inhaler levothyroxine 50 mcg tablet 50 mcg PO DAILY 10/02/20 04/16/21 01/01/21 History multivitamin 1 tab PO DAILY 10/02/20 04/16/21 Unknown History vit C 250 mg-vit E 200 unit-zinc 1 cap PO BID 10/22/20 04/16/21 Unknown History ox 12.5 ys-hxjzmw-bswluw-zeax capsule cholecalciferol (vitamin D3) 25 mcg PO DAILY 11/12/20 04/16/21 Unknown History [Vitamin D3] omega 9-uaa-ocq-vitamin E [Systane See Rx Instructions .ROUTE .COMPLEX 12/29/20 04/16/21 Unknown History Vitamin] diltiazem HCl [DILT-XR] 1 cap PO DAILY 05/11/21 05/11/21 05/11/21 08:00 History Exam Exam Date and Time: May 11, 2021 1300 Height,Weight and Vital Signs: Height 5 ft 4 in Weight 70.307 kg Last Vital Signs Temp 98.2 F 05/11/21 12:24 Pulse 100 05/11/21 12:24 Resp 18 05/11/21 12:24 BP 180/81 H 05/11/21 12:24 Pulse Ox 93 05/11/21 12:24 Pertinent Lab Results Pertinent Lab Results: Laboratory Tests 05/11/21 05/11/21 12:33 12:33 WBC 7.6 RBC 4.50 Hgb 13.9 Hct 44.2 MCV 98.2 H MCH 30.9 MCHC 31.4 RDW 13.3 Plt Count 214 D MPV 11.2 Immature Gran % (Auto) 0.3 Neut % (Auto) 81.0 H Lymph % (Auto) 8.5 L Isabella % (Auto) 9.3 Eos % (Auto) 0.1 Baso % (Auto) 0.8 Lymph # (Auto) 0.7 L Isabella # (Auto) 0.7 Eos # (Auto) 0.0 Baso # (Auto) 0.1 Abs Immat Gran (auto) 0.02 Absolute Neuts (auto) 6.2 Absolute Nucleated RBC 0.000 Nucleated RBC % (auto) 0.0 PT 12.1 INR 1.1 APTT 35.5 Airway Mallampati Class: II TM Dist: <=3cm Neck ROM: Limited Assessment and Plan Assessment Anesthesia Assessment: Anesthesia Plan Discussed Final Anesthetic Review NPO: Yes ASA Class: III Final Preanesthetic Review: No Changes in Pt Med Stat, Meds/Allgs Chart Reviewed, Consent Obtained/Reviewed and Anes Risks/Benef Reviewed Patient Risk: Intermediate Procedure Risk: Low Assessment/Block/Sedation in SS: Assess/Block/Sedation-SS Anesthetic Plan Anesthetic Plan: MAC: Disposition: Standard PACU
[2021-05-11] MEDS: iohexoL 300 MG/ML 50 ML INFUS..BTL IV (14:54)
[2021-05-11] MEDS: Lidocaine HCl 1 % MPF 5 ML VIAL SUBCUT (14:54)
--- NOTE | 2021-05-11 16:32 | PC.NURSE ---
[id number] LEA FOR DC ORDERS, REPORT TO BRANDON SAINI
[2021-05-11] MEDS: Acetaminophen 325 MG TABLET 650 MG PO (18:02)
== END 2021-05-11 18:14 | disposition home or self-care (01) ==
PROVIDERS: Radiology Diagnostic Radiology; Visit Provider Internal Medicine Medical Oncology
DX: M80.88XA Other osteoporosis with current pathological fracture, vertebra(e), initial encounter for fracture (principal); J44.9 Chronic obstructive pulmonary disease, unspecified; I47.1 Supraventricular tachycardia; I49.1 Atrial premature depolarization; I49.3 Ventricular premature depolarization; C34.90 Malignant neoplasm of unspecified part of unspecified bronchus or lung; I10 Essential (primary) hypertension; Z87.891 Personal history of nicotine dependence; Z79.51 Long term (current) use of inhaled steroids; Z79.899 Other long term (current) drug therapy; Z88.8 Allergy status to other drugs, medicaments and biological substances; Z88.7 Allergy status to serum and vaccine; Z87.01 Personal history of pneumonia (recurrent)
CPT/HCPCS: 22513; 22515; 36415; 72128; 85025; 85610; 85730; 99212; J0690; Q9967

== ENCOUNTER 2021-05-21 11:41 | Outpatient (REF) | payer MEDICARE, SELFPAY ==
--- NOTE | ~2021-05-21 | MM_ITS ---
EXAMINATION: BONE DENSITOMETRY CLINICAL INDICATION: New T11 compression fracture. Status post vertebral augmentation T11 and T12. COMPARISON: None (current study represents initial baseline exam). TECHNIQUE: Using a uSamp DXA System (software version: 13.1) manufactured by [employer], dual-energy x-ray absorptiometry was performed of the lumbar spine and left hip. The images are of good technical quality. Summary results are attached. FINDINGS: AP SPINE L1-L4: BMD 1.096 g/cm2, Z-score 1.1, T-score -0.7, normal. LEFT FEMUR, NECK: BMD 0.682 g/cm2, Z-score -0.4, T-score -2.6, osteoporosis. LEFT FEMUR, TOTAL: BMD 0.807 g/cm2, Z-score 0.4, T-score -1.6, osteopenia. IDENTIFIED RISK FACTORS: Height loss, history of fracture (adult). Early menopause, secondary osteoporosis. HISTORY OF FRACTURE: Spine. MEDICATIONS: Calcium supplements or multivitamin, vitamin D. MM/XR DEXA axial skeleton IMPRESSION: 1. DIAGNOSIS: Severe osteoporosis based on the lowest T-score value of -2.6 in the femoral neck and fracture history applying World Health Organization criteria. 2. 10-YEAR FRACTURE RISK PREDICTION, FRAX: Major osteoporotic fracture (clinical spine, forearm, hip or shoulder) 28.6%. Hip fracture 9.7%. 3. Treatment Recommendations: NOF guidelines recommend consideration for treatment in postmenopausal women and men age 50 and older presenting with the following: -A hip or vertebral (clinical or morphometric) fracture. -T-score less than or equal to -2.5 at the femoral neck or spine after appropriate evaluation to exclude secondary causes. -Low bone mass at the hip or spine and a 10-year fracture probability by FRAX of greater than or equal to 3% for hip fracture or greater than or equal to 20% for major osteoporotic fracture based on the [place] adapted WHO algorithm. 4. Other Recommendations: All treatment decisions require clinical judgment and consideration of individual patient factors, including patient preferences, comorbidities, previous drug use, risk factors not captured in the FRAX model (e.g. frailty, falls, vitamin D deficiency, increased bone turnover, interval significant decline in bone density) and possible under or overestimation of fracture risk by FRAX. Additional medical evaluation for secondary cause of low bone mineral density may be appropriate. FUTURE SCAN RECOMMENDATION: People with diagnosed cases of osteoporosis or at high risk for fracture should have regular bone mineral density tests. For patients eligible for Medicare, routine testing is allowed once every 2 years. The testing frequency can be increased to one year for patients who have rapidly progressing disease, those who are receiving or discontinuing medical therapy to restore bone mass, or have additional risk factors.
== END 2021-05-21 11:42 | disposition home or self-care (01) ==
LOC: HO.MAMMO 11:41
PROVIDERS: Visit Provider Internal Medicine Medical Oncology
DX: Z13.820 Encounter for screening for osteoporosis (principal); M81.0 Age-related osteoporosis without current pathological fracture; M48.54XA Collapsed vertebra, not elsewhere classified, thoracic region, initial encounter for fracture; Z78.0 Asymptomatic menopausal state; Z79.899 Other long term (current) drug therapy; Z87.81 Personal history of (healed) traumatic fracture
CPT/HCPCS: 77080

== ENCOUNTER 2021-06-09 13:44 | Outpatient (REF) | payer MEDICARE, SELFPAY ==
[2021-06-09 14:45] LABS: D Dimer 387 NG/ML
[2021-06-09 15:09] LABS: Erythrocyte Sedimentation Rate 16 MM/HR (0-20)
[2021-06-09 15:29] LABS: B Type Natriuretic Peptide 571 pg/mL (<100); Troponin-I High Sensitivity 35.2 ng/L (<3.5-17.0)
== END 2021-06-09 13:45 | disposition home or self-care (01) ==
LOC: HO.LAB 13:44
PROVIDERS: Visit Provider Hospitalist
DX: M79.89 Other specified soft tissue disorders (principal)
CPT/HCPCS: 36415; 83880; 84484; 85379; 85652

== ENCOUNTER 2021-06-09 18:04 | Inpatient (IN) | payer MEDICARE, SELFPAY ==
--- NOTE | ~2021-06-09 | CT_ITS ---
EXAMINATION: CT ANGIOGRAM OF THE CHEST WITH AND WITHOUT CONTRAST (CT PULMONARY ANGIOGRAM FOR PE) CLINICAL INFORMATION: Reason for Exam Elevated D-dimer. FARIAS. On chemotherapy. Recent surgery COMPARISON: CT chest 04/22/2021 TECHNIQUE: Prior to contrast administration, noncontrast localization images were obtained. Subsequently, multidetector volumetric imaging was performed from the thoracic inlet to below the diaphragms following the administration of 80 mL Omnipaque 350 intravenous contrast. No contrast reaction reported Sagittal, coronal, and MIP oblique sagittal reformatted images were obtained on the CT workstation, uploaded to PACS, and reviewed. This CT examination was performed using dose optimization techniques as appropriate, variously including the following: *Automated exposure control *Adjustment of mA and/or kV according to patient size (this includes techniques or standardized protocols for targeted exams where dose is matched to indication/reason for exam; i.e. extremities or head) *Use of iterative reconstruction technique Total exam dose-length product of 248 mGy-cm FINDINGS: QUALITY OF STUDY/CONTRAST BOLUS: Satisfactory. PULMONARY ARTERIES: No central or segmental pulmonary emboli. THORACIC AORTA: No aneurysm or dissection. LUNG: Motion artifact degrades image quality. There is some mild bronchial wall thickening suggesting small airways disease. No dense consolidation. Some interlobular septal thickening is present. Some areas of patchy atelectasis. PLEURA: No pleural effusion or pneumothorax. MEDIASTINUM: Normal heart size, no pericardial effusion. There is some ill-defined soft tissue thickening in the right suprahilar region which is at the level of the azygos vein which is more conspicuous compared with prior, unclear if this represents true soft tissue versus unopacified azygous vein. Mediastinal lymph nodes appear similar to prior. No evidence of septal bowing or right heart strain. CHEST WALL/AXILLA: No axillary or internal mammary lymphadenopathy. Left-sided port OSSEOUS STRUCTURES: Status post vertebral augmentation at T11 and T12. There is a new compression deformity in the T10 vertebral body with some bony sclerosis. UPPER ABDOMEN: Small hiatal hernia. Diffusely decreased liver attenuation. No reflux of contrast into the hepatic veins to suggest elevated right heart pressures. CT/CT angio chest PE protocol IMPRESSION: 1. No evidence of pulmonary embolism. 2. There is a new compression deformity in the T10 vertebral body when compared with the thoracic spine CT following kyphoplasty on 05/11/2021. Some increased sclerosis suggests this may be subacute. Correlate with clinical exam to assess acuity. If clinically indicated, MRI could help to better assess acuity. 3. Mild bronchial wall thickening suggesting small airways disease. 4 Similar appearance to the mediastinal lymphadenopathy 5. Small hiatal hernia. Hepatic steatosis. VTE: negative
--- NOTE | ~2021-06-09 | XR_ITS ---
EXAMINATION: XR chest 1V CLINICAL INFORMATION: Shortness of breath COMPARISON: Prior chest x-ray 04/21/2020 TECHNIQUE: XR chest 1V Tubes and lines: Port-A-Cath embedded in the left chest wall properly positioned with its tip projecting over the SVC/RA junction. Lungs and pleura: There is mild vascular congestion, hazy opacity at left lung base obscuring the cardiac silhouette could be a pericardial fat pad. Heart and mediastinum: The mediastinum is within normal limits.. Bones/soft tissue: Skeletal structures included are normal for patient's age. XR/XR chest 1V IMPRESSION: Mild vascular congestion. Hazy opacity at left lung base obscuring the cardiophrenic angle might be a pericardial fat pad unchanged. Port-A-Cath remain in place properly positioned.
[2021-06-09 18:26] VITALS: BP 152/79; PULSE 145; RESP 24; TEMP 36.8; O2SAT 91; BMI 24.9
[2021-06-09 18:31] VITALS: O2SAT 96
--- NOTE | 2021-06-09 18:36 | ECG_ITS ---
Test Reason : SHORTNESS OF BREATH Blood Pressure : / mmHG Vent. Rate : 123 BPM Atrial Rate : 104 BPM P-R Int : 168 ms QRS Dur : 080 ms QT Int : 318 ms P-R-T Axes : 050 063 019 degrees QTc Int : 455 ms Sinus tachycardia with frequent Premature ventricular complexes Left ventricular hypertrophy with repolarization abnormality Abnormal ECG No previous ECGs available Referred By: Generic ED Physician Electronically Signed By:CECILY BUNDY
--- NOTE | 2021-06-09 19:44 | ED_ITS ---
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 Kohler for abnormal labs including troponin, BNP, and D- dimer. Patient reports increasing bilateral LE edema and FARIAS x6 weeks. Also reports abdominal bloating. Denies CP, fever, chills, cough, abdominal pain, nausea/vomiting, COVID-19 exposure, recent travel, history of blood clots Onset (ago): week(s) Related Data Home Medications Medication Instructions Recorded Confirmed albuterol sulfate 90 mcg/actuation 2 puff INHALATION Q4-6H PRN 10/02/20 06/09/21 aerosol inhaler levothyroxine 50 mcg tablet 50 mcg PO DAILY 10/02/20 06/09/21 diltiazem HCl 120 mg 1 cap PO DAILY 05/11/21 06/09/21 capsule,extended release 24 hr, controlled (DILT-XR) cyclobenzaprine 10 mg tablet 1 tab PO TID PRN 06/09/21 06/09/21 furosemide 20 mg tablet 1 tab PO DAILY 06/09/21 06/09/21 ibuprofen 200 mg tablet (Motrin IB) 400 mg PO TID 06/09/21 06/09/21 vit C 250 mg-vit E 200 unit-zinc 1 tab PO BID 06/09/21 06/09/21 12.5 mg-copper 1 [id number] tablet (ICaps AREDS2 (copper citrate)) Previous Rx's Medication Instructions Recorded umeclidinium 62.5 mcg-vilanterol 1 inh INHALATION DAILY #60 ea 05/11/21 25 mcg/actuation powdr for inhalation (Anoro Ellipta) Allergies Allergy/AdvReac Type Severity Reaction Status Date / Time peanut Allergy Severe Anaphylaxis Verified 06/09/21 18:24 Tetanus Vaccines and Toxoid Allergy Severe Anaphylaxis Verified 06/09/21 18:24 lovastatin AdvReac Severe Leg Cramps Verified 06/09/21 18:24 pravastatin AdvReac Severe Leg Cramps Verified 06/09/21 18:24 Review of Systems Review of Systems: Constitutional: No Fever, No Chills, No Night Sweats, No Fatigue, No Malaise ENT/Mouth: No Ear Pain, No Nasal Congestion, No sore throat, No Rhinorrhea, No Swallowing Difficulty Eyes: No Eye Pain, No Vision Changes Cardiovascular: No Chest Pain, + SOB, N+o Dyspnea on Exertion, No Orthopnea, + Edema, No Palpitations Respiratory: No Cough, No Sputum, No Dyspnea Gastrointestinal: No Nausea, No Vomiting, No Diarrhea, No Constipation, No Abdominal pain Genitourinary: No Dysuria, No Urinary Frequency, No Hematuria, No Flank Pain Musculoskeletal: No joint pain, No Myalgias Skin: No Skin Lesions, No rash Neuro: No Weakness, No Numbness, No Dizziness, No Headache Yes all other systems are reviewed and are negative [facility], [facility] Past Medical History Attestation statement: The following information was validated with the patient. Medical History (Updated 06/09/21 @ 22:45 by ABIODUN Garcia) Atrial tachycardia Cancer Chronic obstructive pulmonary disease, unspecified Essential hypertension Hypothyroid Limb swelling Lymphadenopathy Macular degeneration PAC (premature atrial contraction) Pneumonia Pulmonary nodule PVC (premature ventricular contraction) Small cell carcinoma Surgical History History of tonsillectomy and adenoidectomy Hx of cataract extraction Family History Family History (Updated 05/25/21 @ 14:50 by Manoj Bentley) Father Diabetes Mother Osteoporosis Social History Social History Are you a primary care transport nurse to a significant other at home: No Do you presently have visiting nurse or other home services: No Patient Tobacco Use Status: Former Tobacco user Cigarette Packs Per Day: 2 Years Smoked: 50 years Second Hand Smoke Exposure: No Advance Directives: Yes Advance Directives on File: Yes Advance Directives Date on File: 05/11/21 Physical Exam Vital Signs: Vital Signs: Last Vital Signs Temp 97.9 F 06/09/21 22:49 Pulse 94 06/09/21 22:49 Resp 20 06/09/21 22:49 BP 131/87 06/09/21 22:49 Pulse Ox 96 06/09/21 22:49 Body Mass Index 24.9 Const: General: cooperative and well developed Orientation/consciousness: patient oriented x3 Limitations: no limitations HENMT: Head: Yes normal to inspection Ears: hearing grossly normal bilaterally General nose exam: Normal external nose present Face and sinus: Yes normal facial exam Eyes: General: appearance normal, both eyes and all related structures EOM: EOMs intact bilaterally Neck: Neck: Yes normal visual inspection Resp: Effort & Inspection: normal respiratory effort Auscultation: clear to auscultation bilaterally and no wheezes Cardio: Rate: tachycardic Heart sounds: S1 normal heart sound present and S2 normal heart sound present GI: Inspection: Yes normal to inspection Palpation (GI): Soft to palpation, nontender, no guarding and not rigid : General: Yes no CVA tenderness Back/Spine/Pelvis: Back: no CVA tenderness Skin: Rashes: no rashes Wounds: no wounds Neuro: General: patient oriented x3, gait normal, tone normal and moves all extremities Extrem: General: Yes edema (+ bilateral lower extremity pitting edema) Course Course Course Narrative: -1953--no leukocytosis, H&H stable, D-dimer elevated to 387 > will obtain CTA to rule out PE -AST/ALT chronically elevated. Troponin 35.2 > will obtain 3 hour repeat, BNP elevated to 571 > 40mg IV Lasix ordered -lactic acid WNL -2125--repeat troponin without 50% rise, [place] unlikely XR chest 1V IMPRESSION: Mild vascular congestion. Hazy opacity at left lung base obscuring the cardiophrenic angle might be a pericardial fat pad unchanged. Port-A-Cath remain in place properly positioned. >> still low suspicion for severe sepsis/infectious etiology 2153--CT angio chest PE protocol IMPRESSION: 1. No evidence of pulmonary embolism. 2. There is a new compression deformity in the T10 vertebral body when compared with the thoracic spine CT following kyphoplasty on 05/11/2021. Some increased sclerosis suggests this may be subacute. Correlate with clinical exam to assess acuity. If clinically indicated, MRI could help to better assess acuity. 3. Mild bronchial wall thickening suggesting small airways disease. 4? Similar appearance to the mediastinal lymphadenopathy 5. Small hiatal hernia. Hepatic steatosis. 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 Kohler for abnormal labs including troponin, BNP, and D-dimer. Patient reports increasing bilateral LE edema and FARIAS x6 weeks. On exam initially tachycardic, tachypneic, satting 91% on RA, lungs CTA, bilateral LE pitting edema noted. Concern for CHF vs PE. Rule out ACS and infectious etiology including viral syndrome/COVID-19 Low concern for severe sepsis Plan: EKG, labs, CXR, COVID-19 testing, CTA to rule out PE Lab Data Labs: Lab Results 06/09/21 06/09/21 06/09/21 Range/Units 20:24 20:24 20:24 PT (9.9-13.0) SEC INR (0.9-1.1) APTT (24.1-38.0) SEC Lactic Acid 1.2 (0.5-2.0) mmol/L Troponin I High Sens 44.8 H* (<3.5-17.0) ng/L TSH (0.32-4.0) uIU/mL Urine Color Urine Appearance Urine pH (5.0-8.0) Ur Specific Hensley (1.005-1.025) Urine Protein (NEG-TRACE) MG/DL Urine Glucose (UA) (NEG) MG/DL Urine Ketones (NEG) MG/DL Urine Blood (NEG) Urine Nitrite (NEG) Ur Leukocyte Esterase (NEG) COVID-19 ([facility]) Negative (Negative) COVID-19 Clin Com See Note 06/09/21 06/09/21 06/09/21 Range/Units 20:24 20:24 22:38 PT 11.9 (9.9-13.0) SEC INR 1.0 (0.9-1.1) APTT 29.3 (24.1-38.0) SEC Lactic Acid (0.5-2.0) mmol/L Troponin I High Sens (<3.5-17.0) ng/L TSH 0.86 (0.32-4.0) uIU/mL Urine Color YELLOW Urine Appearance CLEAR Urine pH 5.5 (5.0-8.0) Ur Specific Hensley 1.010 (1.005-1.025) Urine Protein NEG (NEG-TRACE) MG/DL Urine Glucose (UA) NEG (NEG) MG/DL Urine Ketones NEG (NEG) MG/DL Urine Blood NEG (NEG) Urine Nitrite NEG (NEG) Ur Leukocyte Esterase NEG (NEG) COVID-19 ([facility]) (Negative) COVID-19 Clin Com ECG Data Attestation: I personally reviewed and interpreted this ECG as follows: Interpretation: EKG showing sinus tachycardia with frequent PVCs at a rate of 123, nonischemic/no STEMI Discharge Plan Discharge Clinical Impression: Atrial fibrillation, new onset, Congestive heart failure Patient Disposition: Admitted As Inpatient
--- NOTE | 2021-06-09 19:44 | PHA.MEDREC ---
Pharmacy Consult ? Medication Reconciliation Pharmacy has completed the medication reconciliation.
[2021-06-09] MEDS: Furosemide 40 MG/4 ML VIAL IVPUSH (20:35)
[2021-06-09] MEDS: iohexoL 350 MG/ML 100 ML INFUS..BTL IV (20:42)
--- NOTE | 2021-06-09 20:51 | PC.NURSE ---
IV PLACED TO RAC, LABS DRAWN TO LAB. PT RETURNS FROM CT. AND PT UP TO RESTROOM. WILL CONTINUE TO MONITOR PT. PT REMAINS ON MONITOR.
[2021-06-09 20:54] LABS: COVID-19 Test Negative (Negative)
[2021-06-09 20:55] LABS: Prothrombin Time 11.9 SEC (9.9-13.0)
[2021-06-09 20:57] LABS: Partial Thromboplastin Time 29.3 SEC (24.1-38.0)
[2021-06-09 20:59] LABS: Lactic Acid 1.2 mmol/L (0.5-2.0)
[2021-06-09 21:18] LABS: Troponin-I High Sensitivity 44.8 ng/L (<3.5-17.0)
[2021-06-09 21:37] VITALS: BP 174/97; PULSE 116; RESP 18; TEMP 36.6; O2SAT 94
--- NOTE | 2021-06-09 21:51 | ECG_ITS ---
Test Reason : REPEAT Blood Pressure : / mmHG Vent. Rate : 135 BPM Atrial Rate : 170 BPM P-R Int : 000 ms QRS Dur : 076 ms QT Int : 276 ms P-R-T Axes : 000 049 -43 degrees QTc Int : 414 ms Atrial fibrillation with rapid ventricular response with premature ventricular or aberrantly conducted complexes ST & T wave abnormality, consider inferior ischemia Abnormal ECG When compared with ECG of 09-JUN-2021 19:28, Atrial fibrillation has replaced Sinus rhythm Referred By: Allison Leonard Electronically Signed By:CECILY BUNDY
[2021-06-09 22:25] VITALS: BP 165/98; PULSE 120
[2021-06-09] MEDS: dilTIAZem HCL 50 MG/10 ML VIAL 16.44275 MG IVPUSH (22:25)
--- NOTE | 2021-06-09 22:30 | PC.NURSE ---
PT MEDICATED FOR IRREGULAR HR WHICH RANGES BETWEEN 101-140'S. NOW HR RANGING AROUND 89-109. PT DENIES CP OR SOB WITH PO 94% WITH 2L NC. PT USING C-PAP AT NIGHT D/T SLEEP APNEA. PT AGREEING TO GET ADMITTED AT THIS TIME. AWAITING FOR HOSPITALIST FOR EVAL. PT ALSO REQUESTING RECLINER CHAIR IN ROOM FOR ADMISSION. WILL CONTINUE TO MONITOR PT.
--- NOTE | 2021-06-09 22:34 | PC.NURSE ---
PT UP TO COMMODE AND URINE SAMPLE TO LAB.
[2021-06-09 22:46] LABS: TSH reflex Free T4 0.86 uIU/mL (0.32-4.0)
[2021-06-09 22:49] VITALS: BP 131/87; PULSE 94; RESP 20; TEMP 36.6; O2SAT 96
[2021-06-09 22:57] LABS: Appearance Urine CLEAR; Color Urine YELLOW; Glucose Urine UA NEG (NEG); Leukocyte Esterase Urine NEG (NEG); Nitrite Urine NEG (NEG); PH 5.5 (5.0-8.0); Urine Blood NEG (NEG); Urine Ketones NEG (NEG); Urine Protein NEG (NEG-TRACE)
[2021-06-10] VITALS (12 sets, daily range): BP systolic 115–154; BP diastolic 57–92; PULSE 80–144; RESP 18–20; TEMP 36.1–37; O2SAT 90–97; BMI 25.1
[2021-06-10] MEDS: dilTIAZem HCL 50 MG/10 ML VIAL 20 MG IVPUSH (00:12)
--- NOTE | 2021-06-10 02:49 | P.HPHOSP_ITS ---
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 History is from ED notes and from patient. Patient endorses that she has been experiencing bilateral lower extremity swelling for the past 6 weeks. She states she has been trying to seek medical attention for this from various doctors, but feels like nobody has taken her concerns seriously. Finally, she went to see her public transportation inspector (Dr. Kohler), who did perform some blood work. Patient endorses she got a call from Dr. Kohler office at about 430 on 06/09/2021, and was told to come to the ED because of lab abnormalities (including elevated D-dimer). Subsequently, she came to the ED. Otherwise, she endorses some nausea, chronic chills, back pain for the past 3-4 weeks. She denies chest pain, shortness of breath, fever, vomiting, abdominal pain. She states she has a history of chronic arrhythmias, which had been described as ?regularly regular ?, and specifically told that it is not atrial fibrillation. She followed with Dr. Lugo (cardiology) in the past. Review of Systems Constitutional: Constitutional: Denies chills, Denies fatigue, Denies fever(s), Denies headache(s), Denies weakness and Denies weight loss Eyes: Eyes: Denies blurry vision, Denies change in vision, Denies diplopia and Denies loss of vision ENT: Denies dysphagia, Denies vertigo, Denies dizziness, Denies headache(s), Denies hearing loss, Denies lip swelling and Denies sore throat Cardiovascular: Cardiovascular: Denies chest pain, Reports leg edema, Denies lightheadedness, Denies palpitations and Denies dyspnea Respiratory: Respiratory: Denies no additional respiratory complaints, Denies cough, Denies dyspnea and Denies wheezing Gastrointestinal: Gastrointestinal: Denies coffee ground emesis, Denies constipation, Denies dysphagia, Denies diarrhea, Denies nausea and Denies vomiting Genitourinary: Genitourinary: Denies dysuria Musculoskeletal: Musculoskeletal: Denies arthralgias, Denies muscle weakness, Denies numbness and Denies tingling Integumentary/Breasts: Skin/Breast: Denies bleeding lesions, Denies new lesions and Denies rash Neurologic: Denies vertigo, Denies dizziness, Denies headache(s), Denies loss of vision, Denies numbness, Denies tingling and Denies weakness Psychiatric: Psychiatric: Denies anxiety and Denies depression Endocrine: Endocrine: Denies cold intolerance, Denies fatigue, Denies heat intolerance and Denies palpitations Hematologic/Lymphatic: Hematologic/Lymphatic: Denies easy bleeding, Denies easy bruising and Denies lymphadenopathy Allergic/Immunologic: Allergic/Immunologic: Denies lip swelling and Denies wheezing [facility] Medical History Atrial tachycardia Cancer Chronic obstructive pulmonary disease, unspecified Essential hypertension Hypothyroid Limb swelling Lymphadenopathy Macular degeneration PAC (premature atrial contraction) Pneumonia Pulmonary nodule PVC (premature ventricular contraction) Small cell carcinoma Family History Father Diabetes Mother Osteoporosis Pertinent family history: Father with diabetes mellitus. Mother with osteoporo sis. Family history: reviewed and not pertinent Surgical History History of tonsillectomy and adenoidectomy Hx of cataract extraction Social History Are you a primary healthcare applications analyst to a significant other at home: No Do you presently have visiting nurse or other home services: No Patient Tobacco Use Status: Former Tobacco user Cigarette Packs Per Day: 2 Years Smoked: 50 years Second Hand Smoke Exposure: No Advance Directives: Yes Advance Directives on File: Yes Advance Directives Date on File: 05/11/21 Meds Allergies Allergy/AdvReac Type Severity Reaction Status Date / Time peanut Allergy Severe Anaphylaxis Verified 06/09/21 18:24 Tetanus Vaccines and Toxoid Allergy Severe Anaphylaxis Verified 06/09/21 18:24 lovastatin AdvReac Severe Leg Cramps Verified 06/09/21 18:24 pravastatin AdvReac Severe Leg Cramps Verified 06/09/21 18:24 Active Medications: Current Medications Generic Name Dose Route Start Last Admin Trade Name Freq PRN Reason Stop Dose Admin Acetaminophen 650 mg 06/10/21 02:18 Acetaminophen 325 Mg Tablet PO Q6H PRN Pain, Mild (Pain Scale 1-3) Albuterol Sulfate 2 puff 06/10/21 02:22 Albuterol Sulfate 90 Mcg 8 Gm Inhaler INHALE Q4H PRN Wheezing Cyclobenzaprine HCl 10 mg 06/10/21 02:22 Cyclobenzaprine Hcl 10 Mg Tablet PO TID PRN muscle spasm Diltiazem HCl 120 mg 06/10/21 09:00 Diltiazem Hcl Cd 120 Mg Cap.Er.Deg PO DAILY [facility] Protocol Enoxaparin Sodium 60 mg 06/10/21 08:00 Enoxaparin Sodium 80 Mg/0.8 Ml Syringe SUBCUT BID@0800,1500 [facility] Furosemide 20 mg 06/10/21 09:00 Furosemide 20 Mg Tablet PO DAILY [facility] Protocol Levothyroxine Sodium 50 mcg 06/10/21 09:00 Levothyroxine Sodium 50 Mcg Tablet PO DAILY [facility] Non-Formulary Medication 1 inhalation 06/10/21 09:00 Umeclidinium-Vilanterol [Anoro Ellipta] INHALE DAILY [facility] Pharmacy Consult 1 each 06/09/21 19:14 Consult Rx Perform Med Rec MISCELLANE ONCE PRN Consult order Sodium Chloride 3 ml 06/10/21 08:00 0.9 % Sodium Chloride Flush 3 Ml Syringe IVFLUSH QSHIFT [facility] Home Medications Medication Instructions Recorded Confirmed Last Taken Type albuterol sulfate 90 mcg/actuation 2 puff INHALATION Q4-6H PRN 10/02/20 06/09/21 Unknown History aerosol inhaler levothyroxine 50 mcg tablet 50 mcg PO DAILY 10/02/20 06/09/21 01/01/21 History diltiazem HCl 120 mg 1 cap PO DAILY 05/11/21 06/09/21 05/11/21 08:00 History capsule,extended release 24 hr, controlled (DILT-XR) cyclobenzaprine 10 mg tablet 1 tab PO TID PRN 06/09/21 06/09/21 Unknown History furosemide 20 mg tablet 1 tab PO DAILY 06/09/21 06/09/21 Unknown History ibuprofen 200 mg tablet (Motrin IB) 400 mg PO TID 06/09/21 06/09/21 Unknown History vit C 250 mg-vit E 200 unit-zinc 1 tab PO BID 06/09/21 06/09/21 Unknown History 12.5 mg-copper 1 [id number] tablet (ICaps AREDS2 (copper citrate)) Physical Exam Vital Signs and Narrative: Vital Signs: Last Vital Signs Temp 97.9 F 06/09/21 22:49 Pulse 144 H 06/10/21 00:12 Resp 20 06/09/21 22:49 BP 152/92 H 06/10/21 00:12 Pulse Ox 96 06/09/21 22:49 Body Mass Index 24.9 Const: General: no acute distress, well developed and alert HENMT: Face and sinus: Yes normal facial exam and Yes face symmetric Mouth: Normal oral and palatal mucosa present and moist mucous membranes Throat: Yes posterior oropharynx normal and Yes tonsils normal Eyes: General: appearance normal, both eyes and all related structures Alignment and Position: alignment normal and position normal Sclerae: sclerae normal Pupils: Equal, round and reactive pupils present EOM: EOMs intact bilaterally Neck: Yes normal visual inspection, Yes full ROM and Yes no lymphadenopathy Lymphatic: no lymphadenopathy noted Resp: Effort & Inspection: normal respiratory effort and able to speak in complete sentences Auscultation: clear to auscultation bilaterally, no crackles, no rales, no rhonchi and no wheezes Cardio: Rate: tachycardic Rhythm: abnormal rhythm irregularly irregular Heart sounds: S1 normal heart sound present, S2 normal heart sound present, no murmurs and no rubs GI: Inspection: No distended Palpation (GI): Soft to palpation and nontender Percussion: No tympanic to percussion Auscultation: normal bowel sounds Skin: Rashes: no rashes Trauma: no lacerations or abrasions Wounds: no wounds Neuro: Cranial nerves: Yes CN's II-XII intact bilaterally, Yes Equal, round and reactive pupils present and Yes Bilaterally intact EOM present Extrem: General: Yes full ROM and Yes pedal edema Right lower extremity: edema Left lower extremity: edema Psych: Appearance: grossly normal Mental Status: mental status grossly normal Speech and movement: Normal speech and movement present Affect: normal affect Thought process: Normal thought process present Results Labs Labs: Laboratory Results - last 24 hr 06/09/21 06/09/21 06/09/21 20:24 20:24 20:24 PT INR APTT Lactic Acid 1.2 Troponin I High Sens 44.8 H* TSH Urine Color Urine Appearance Urine pH Ur Specific [place] Urine Protein Urine Glucose (UA) Urine Ketones Urine Blood Urine Nitrite Ur Leukocyte Esterase COVID-19 ([facility]) Negative COVID-19 Clin Com See Note 06/09/21 06/09/21 06/09/21 20:24 20:24 22:38 PT 11.9 INR 1.0 APTT 29.3 Lactic Acid Troponin I High Sens TSH 0.86 Urine Color YELLOW Urine Appearance CLEAR Urine pH 5.5 Ur Specific [place] 1.010 Urine Protein NEG Urine Glucose (UA) NEG Urine Ketones NEG Urine Blood NEG Urine Nitrite NEG Ur Leukocyte Esterase NEG COVID-19 ([facility]) COVID-19 Clin Com ECG Interpretation: EKG with atrial fibrillation with RVR Imaging Radiologist's Impressions: Impressions Chest CTA 06/09/21 19:37 IMPRESSION: 1. No evidence of pulmonary embolism. 2. There is a new compression deformity in the T10 vertebral body when compared with the thoracic spine CT following kyphoplasty on 05/11/2021. Some increased sclerosis suggests this may be subacute. Correlate with clinical exam to assess acuity. If clinically indicated, MRI could help to better assess acuity. 3. Mild bronchial wall thickening suggesting small airways disease. 4 Similar appearance to the mediastinal lymphadenopathy 5. Small hiatal hernia. Hepatic steatosis. VTE: negative Chest X-Ray 06/09/21 19:41 IMPRESSION: Mild vascular congestion. Hazy opacity at left lung base obscuring the cardiophrenic angle might be a pericardial fat pad unchanged. Port-A-Cath remain in place properly positioned. Assessment and Plan (1) Atrial fibrillation, new onset: Status: Acute -in the ED, patient with atrial fibrillation with RVR, status post 2 doses of diltiazem -patient does not have a history of atrial fibrillation. Instead, she does have a history of atrial tachycardia and PACs -continue home diltiazem -cardiology consult placed -echocardiogram ordered -TSH within normal limits. -magnesium and phosphorus levels ordered for the morning -start patient on Lovenox 1 mg/kg b.i.d. (2) Elevated brain natriuretic peptide (BNP) level: Status: Acute -patient does not have a history of congestive heart failure up to this point -elevated BNP and lower extremity swelling could be secondary to atrial fibr illation with RVR, could also be new onset CHF -echocardiogram ordered -cardiology consult placed line-status post Lasix in the ED. -will wrap and elevate bilateral lower extremities to promote intravascular flow of subcutaneous fluid -2 troponin levels in the ED were performed with negative delta (3) Swelling of lower extremity: Status: Acute -likely secondary to above, with treatment and workup as per above (4) Compression fracture of T10 vertebra: Status: Acute -CT revealed: There is a new compression deformity in the T10 vertebral body when compared with the thoracic spine CT following kyphoplasty on 021. Some increased sclerosis suggests this may be subacute.Correlate with clinical exam to assess acuity. If clinically indicated, MRI could help to better assess acuity. -patient is complaining of some back pain, but likely can follow up with Neurosurgery as an outpatient (defer to morning team if Neurosurgery consult required) (5) Atrial tachycardia: Status: Acute -patient with known history of atrial tachycardia, continue home medications (6) PAC (premature atrial contraction): Status: Acute -patient with known history of PACs, continue home medications (7) Essential hypertension: Status: Acute -continue home medications (8) Chronic obstructive pulmonary disease, unspecified: Qualifiers: COPD type: unspecified COPD Qualified Code(s): J44.9 - Chronic obstructive pulmonary disease, unspecified Status: Acute -continue home medications (9) Small cell lung carcinoma: Status: Acute -patient follows with oncologist (Dr. Odom) all; last chemotherapy session was yesterday -morning team can consider Oncology consult (10) Osteoporosis: Status: Acute -noted, continue home medications FEN: Cardiac diet CODE STATUS: FULL CODE DISPO: Admit to Observation Quality Stroke Does the patient have a stroke diagnosis?: No VTE Prior VTE?: No VTE Risk Level:: Medical - moderate - high VTE Device Contraindication: Treatment Not Indicated VTE Drug Contraindication: N/A - Med Ordered
--- NOTE | 2021-06-10 03:00 | PC.NURSE ---
REPORT GIVEN TO FLOOR. AWAITING FOR TRANSFER TO FLOOR. PT EATING A SANDWICH AND DRINKING JUICE. PT DENIES ANY PAIN/CP. IV FLUSHES EASILY WITHOUT RESISTENCE. WILL CONTINUE TO MONITOR PT.
[2021-06-10 03:43] LABS: Hematocrit 42.8 % (37-47); Hemoglobin 13.8 g/dl (12.0-16.0); Mean Corpuscular HGB Conc 32.2 g/dl (31.0-35.0); Mean Corpuscular Hemoglobin 29.9 pg (27.0-33.0); Mean Corpuscular Volume 92.6 fL (80-98); Mean Platelet Volume 11.4 fL (9.4-12.3); Platelet Count 204 X10*3/uL (160-400); Red Blood Count 4.62 X10*6/uL (4.20-5.50); Red Cell Distribution Width 13.2 % (11.0-16.0); White Blood Count 6.6 X10*3/uL (4.8-10.8)
[2021-06-10 03:55] LABS: INTERNATIONAL NORM RATIO 1.1 (0.9-1.1); Prothrombin Time 12.1 SEC (9.9-13.0)
[2021-06-10 03:57] LABS: Partial Thromboplastin Time 33.1 SEC (24.1-38.0)
[2021-06-10 04:12] LABS: Anion Gap 13 (12-20); Blood Urea Nitrogen 7 mg/dL (9-16); Calcium 9.3 mg/dL (8.4-10.2); Carbon Dioxide 31 mmol/L (22-29); Chloride 103 mmol/L (96-108); Creatinine Clr Calc Pharmacy 61.5; Estimated Glomerular Filt Rate > 60; Glucose Random 139 mg/dL (60-115); Magnesium 1.8 mg/dL (1.6-2.6); Potassium 3.1 mmol/L (3.3-5.1); Sodium 144 mmol/L (135-145)
[2021-06-10 04:33] LABS: Thyroid Stimulating Hormone 1.13 uIU/mL (0.32-4.0)
[2021-06-10] MEDS: dilTIAZem HCL CD 120 MG CAP.ER.DEG PO (07:57)
[2021-06-10] MEDS: Levothyroxine Sodium 50 MCG TABLET PO (07:57)
[2021-06-10] MEDS: 0.9 % Sodium Chloride Flush 3 ML SYRINGE IVFLUSH ×3 (07:58→23:27)
[2021-06-10] MEDS: Cyclobenzaprine HCl 10 MG TABLET PO (07:58)
[2021-06-10] MEDS: Furosemide 20 MG TABLET PO (07:58)
[2021-06-10] MEDS: Enoxaparin Sodium 60 MG/0.6 ML SYRINGE SUBCUT ×2 (07:58→16:31)
--- NOTE | 2021-06-10 09:00 | CA_ITS ---
Transthoracic Echocardiogram Patient (Last, First, Middle): Lora Meadows E Gender: Female Date of : 1940 Age: 81 Procedure Date: 06/10/2021 Procedure Type: Transthoracic Echocardiogram [place] [facility] [place] Height: 162.56 cm Weight: 66.23 kg BSA: 1.71 m2 Heart Rate: bpm BP: 140 / 88 mmHg Retail Merchandising Manager: ERASTO Referring MD: Derrick Jenkins MD Symptoms: New Atrial fibrillation with RVR, New lower extremity swell Study Quality: Fair ECG Rhythm: Sinus tachycardia/PACs Conclusions: - Visually estimated LVEF about 40%. - There is mild posterior mitral annular calcification. - There is mild calcification of the aortic valve. Findings Left Ventricle Normal left ventricular cavity size. There is mildly increased left ventricular wall thickness. The left ventricular systolic function is mild to moderately decreased. Visually estimated LVEF about 40%. Globally hypokinetic. Right Ventricle Normal right ventricular cavity size and systolic function. TAPSE 2.8cm. Atria The left atrium is mildly dilated. The right atrium is normal in size. Aortic Valve There is a normal trileaflet aortic valve. There is mild calcification of the aortic valve. There is no aortic valve stenosis. There is trace (trivial) aortic valve regurgitation. Mitral Valve There is mild posterior mitral annular calcification. There is trace mitral valve regurgitation. There is no mitral valve stenosis. Pulmonic Valve The pulmonic valve was not well visualized. Tricuspid Valve Normal tricuspid valve structure. There is trace tricuspid valve regurgitation. Tricuspid regurgitation envelope is inadequate for calculation of right ventricular systolic pressure. Great Vessels The aortic annulus and sinuses of valsalva are normal in size. Venous The inferior vena cava is normal in size and collapses greater than 50% with inspiration. Pericardium/Pleural There is a trivial pericardial effusion. Prior Study Comparison Changes noted compared to prior study dated: 06/25/2020. LVEF reduced. Measurements 2D Linear Measurements IVSd: 1.02 0.6-0.9/0.6-1.0 cm LVIDd: 4.99 3.9-5.3/4.2-5.9 cm LVIDd Index: 2.92 2.4-3.2/2.2-3.1 cm/m2 LVIDs: 3.93 2.0-3.6 cm LVPWd: 1.06 0.7-1.1 cm Ao Root: 2.80 2.1-3.5 cm LA Diam: 4.20 2.7-3.8/3.0-4.0 cm LAIDs Index: 2.46 1.5-2.3 cm/m2 LV Mass: 238.31 67-162/88-224 g LV Mass Index: 139.36 43-95/49-115 g/m2 LVOT Diam: 2.10 3.0+(-)1.3 cm Aortic Valve AoV Pk Lenin: 1.12 AoV Mn Lenin: 0.71 AoV VTI: 0.22 AoV Pk Grad: 5.00 Aov Mn Grad: 2.00 VITA Cont.VTI: 2.40 LVOT LVOT Pk Lenin: 0.66 LVOT Mn Lenin: 0.43 LVOT VTI: 0.15 LVOT Pk Grad: 2.00 LVOT Mn Grad: 1.00 LVOT Diam: 2.10 LVOT Area: 3.46 Right Ventricle TAPSE (mm): 2.82 Tricuspid Valve RA Press: 3.00 Great Vessels Aorta Ao Root-2D: 2.80 2.0-3.7 cm Ao Asc: 3.30 2.1-3.4 cm Ao Arch: 2.40 Updated in Other Vendor System with Status of Final Dougie Suazo MD electronically signed on 06/10/2021 11:35:49 AM with status of Final
[2021-06-10] MEDS: Potassium Chloride Packet 20 MEQ PACKET 40 MEQ PO (09:29)
--- NOTE | 2021-06-10 09:41 | P.CONPL_ITS ---
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 In addition to that she has been noticing some increased dyspnea and nausea. She is very concerned because the symptoms are getting worse. She did consider going to the ER. She called our pulmonary office. Based on her symptoms the patient went to get blood work and did have critical result including an elevated brain atretic peptide, elevated cardiac enzymes and a significantly elevated D-dimer. Therefore, the patient was sent to the ER where she was found to have new onset atrial fibrillation. She did have a CTA that was personally viewed by me demonstrating some evidence mosaic pattern which is likely the beginning of pulmonary edema from the congestive heart failure and the atrial fibrillation. She also has a new compression fracture that needs to be addressed specially with history of lung cancer. At this point she is doing well from a respiratory status so therefore she will not need any additional pulmonary interventions. She will have an echocardiogram and also undergo further cardiac evaluation. Review of Systems Constitutional: Constitutional: Denies chills, Denies fatigue, Denies fever(s), Denies headache(s), Denies weakness and Denies weight loss Eyes: Eyes: Denies blurry vision, Denies change in vision, Denies diplopia and Denies loss of vision ENT: Denies dysphagia, Denies vertigo, Denies dizziness, Denies headache(s), Denies hearing loss, Denies lip swelling and Denies sore throat Cardiovascular: Cardiovascular: Denies chest pain, Reports leg edema, Denies lightheadedness, Denies palpitations and Denies dyspnea Respiratory: Respiratory: Denies no additional respiratory complaints, Denies cough, Denies dyspnea and Denies wheezing Gastrointestinal: Gastrointestinal: Denies coffee ground emesis, Denies constipation, Denies dysphagia, Denies diarrhea, Denies nausea and Denies vomiting Genitourinary: Genitourinary: Denies dysuria Musculoskeletal: Musculoskeletal: Denies arthralgias, Denies muscle weakness, Denies numbness and Denies tingling Integumentary/Breasts: Skin/Breast: Denies bleeding lesions, Denies new lesions and Denies rash Neurologic: Denies vertigo, Denies dizziness, Denies headache(s), Denies loss of vision, Denies numbness, Denies tingling and Denies weakness Psychiatric: Psychiatric: Denies anxiety and Denies depression Endocrine: Endocrine: Denies cold intolerance, Denies fatigue, Denies heat intolerance and Denies palpitations Hematologic/Lymphatic: Hematologic/Lymphatic: Denies easy bleeding, Denies ea sy bruising and Denies lymphadenopathy Allergic/Immunologic: Allergic/Immunologic: Denies lip swelling and Denies wheezing PMFSH Past Medical History Medical History Atrial tachycardia Cancer Chronic obstructive pulmonary disease, unspecified Essential hypertension Hypothyroid Limb swelling Lymphadenopathy Macular degeneration PAC (premature atrial contraction) Pneumonia Pulmonary nodule PVC (premature ventricular contraction) Small cell carcinoma Family History Family History Father Diabetes Mother Osteoporosis Family history: reviewed and not pertinent Surgical History Surgical History History of tonsillectomy and adenoidectomy Hx of cataract extraction Social History Social History Household Members: None Housing: House Are you a primary patient care secretary to a significant other at home: No Do you presently have visiting nurse or other home services: No Patient Tobacco Use Status: Former Tobacco user Quit Date: about 20 years ago Cigarette Packs Per Day: 2 Years Smoked: 50 years Second Hand Smoke Exposure: No Use of substances other than those prescribed or required for medical reasons: No Have you been hit, kicked, punched, or otherwise hurt by someone within the past year? If so, by whom?: No Do you feel safe in your current relationship?: No Current Relationship Is there a partner from a previous relationship who is making you feel unsafe n ow?: No Are you made to feel afraid or neglected: No Advance Directives: Yes Advance Directives on File: Yes Advance Directives Date on File: 05/11/21 Do you have thoughts of harming others: None Do you have a plan to hurt others: No Plan Recently lost weight without trying: Yes How much weight loss: 14-23 pounds Eating poorly because of decreased appetite: Yes Nutrition screen score: 5 Nutrition Risks: Poor intake 0-25% >4 days Patient : No : No Poor oral hygiene: No Meds Allergies Allergy/AdvReac Type Severity Reaction Status Date / Time peanut Allergy Severe Anaphylaxis Verified 06/09/21 18:24 Tetanus Vaccines and Toxoid Allergy Severe Anaphylaxis Verified 06/09/21 18:24 lovastatin AdvReac Severe Leg Cramps Verified 06/09/21 18:24 pravastatin AdvReac Severe Leg Cramps Verified 06/09/21 18:24 Active Medications: Current Medications Generic Name Dose Route Start Last Admin Trade Name Freq PRN Reason Stop Dose Admin Acetaminophen 650 mg 06/10/21 02:18 Acetaminophen 325 Mg Tablet PO Q6H PRN Pain, Mild (Pain Scale 1-3) Albuterol Sulfate 2 puff 06/10/21 02:22 Albuterol Sulfate 90 Mcg 8 Gm Inhaler INHALE Q4H PRN Wheezing Cyclobenzaprine HCl 10 mg 06/10/21 02:22 06/10/21 07:58 Cyclobenzaprine Hcl 10 Mg Tablet PO 10 mg TID PRN Administration muscle spasm Diltiazem HCl 120 mg 06/10/21 09:00 06/10/21 07:57 Diltiazem Hcl Cd 120 Mg Cap.Er.Deg PO 120 mg DAILY [facility] Administration Protocol Enoxaparin Sodium 60 mg 06/10/21 08:00 06/10/21 07:58 Enoxaparin Sodium 60 Mg/0.6 Ml Syringe SUBCUT 60 mg BID@0800,1500 [facility] Administration Furosemide 20 mg 06/10/21 09:00 06/10/21 07:58 Furosemide 20 Mg Tablet PO 20 mg DAILY [facility] Administration Protocol Levothyroxine Sodium 50 mcg 06/10/21 09:00 06/10/21 07:57 Levothyroxine Sodium 50 Mcg Tablet PO 50 mcg DAILY [facility] Administration Non-Formulary Medication 1 inhalation 06/10/21 09:00 Umeclidinium-Vilanterol [Anoro Ellipta] INHALE DAILY [facility] Pharmacy Consult 1 each 06/09/21 19:14 Consult Rx Perform Med Rec MISCELLANE ONCE PRN Consult order Sodium Chloride 3 ml 06/10/21 08:00 06/10/21 07:58 0.9 % Sodium Chloride Flush 3 Ml Syringe IVFLUSH 3 ml QSHIFT [facility] Administration Home Medications Medication Instructions Recorded Confirmed Last Taken Type albuterol sulfate 90 mcg/actuation 2 puff INHALATION Q4-6H PRN 10/02/20 06/09/21 Unknown History aerosol inhaler levothyroxine 50 mcg tablet 50 mcg PO DAILY 10/02/20 06/09/21 01/01/21 History diltiazem HCl 120 mg 1 cap PO DAILY 05/11/21 06/09/21 05/11/21 08:00 History capsule,extended release 24 hr, controlled (DILT-XR) cyclobenzaprine 10 mg tablet 1 tab PO TID PRN 06/09/21 06/09/21 Unknown History furosemide 20 mg tablet 1 tab PO DAILY 06/09/21 06/09/21 Unknown History ibuprofen 200 mg tablet (Motrin IB) 400 mg PO TID 06/09/21 06/09/21 Unknown History vit C 250 mg-vit E 200 unit-zinc 1 tab PO BID 06/09/21 06/09/21 Unknown History 12.5 mg-copper 1 [id number] tablet (ICaps AREDS2 (copper citrate)) Physical Exam Vital Signs: Vital Signs: Last Vital Signs Temp 98.6 F 06/10/21 07:45 Pulse 120 H 06/10/21 07:57 Resp 20 06/10/21 07:45 BP 150/70 H 06/10/21 07:57 Pulse Ox 97 06/10/21 07:45 Body Mass Index 25.1 Const: General: alert Neck: Neck: Yes normal visual inspection, Yes full ROM and Yes no lymphadenopathy Chest: Chest palpation & inspection: normal inspection of the chest Resp: Auscultation: diminished lung sounds Cardio: Rhythm: regular rhythm and abnormal rhythm Heart sounds: S1 normal heart sound present and S2 normal heart sound present GI: Palpation (GI): Soft to palpation and nontender Auscultation: normal bowel sounds Skin: General skin exam: rashes and/or lesions noted Extrem: Right upper extremity: edema Results Laboratory Findings CBC and BMP: 06/10/21 03:34 06/10/21 03:34 ABG, PT/INR, D-dimer: PT/INR, D-dimer PT 12.1 SEC (9.9-13.0) 06/10/21 03:34 INR 1.1 (0.9-1.1) 08/18/21 03:34 Abnormal lab findings: Abnormal Labs 06/09/21 06/10/21 20:24 03:34 Potassium 3.1 L Carbon Dioxide 31 H BUN 7 L Random Glucose 139 H Troponin I High Sens 44.8 H* Assessment and Plan (1) Swelling of lower extremity: Status: Acute (2) Small cell lung carcinoma: Status: Acute (3) Chronic obstructive pulmonary disease, unspecified: Qualifiers: COPD type: unspecified COPD Qualified Code(s): J44.9 - Chronic obstructive pulmonary disease, unspecified Status: Acute Continue with cardiac evaluation Continue Anoro The reasons as tolerated Will follow-up as needed Procedures Date of Service Date of Service: 06/10/21
--- NOTE | 2021-06-10 10:11 | P.CDIC_ITS ---
CDI Concurrent Query Service Date: 06/10/21 Documentation Clarification: Please clarify if you are treating a proba ble/suspected/likely or confirmed: Hypokalemia, treated Hypokalemia, ruled out Provider Response: Acute-Chronic Diastolic CHF PLEASE DO NOT DELETE/MODIFY EXISTING CONTENT Additional information is needed in order to code to the highest accuracy and appropriate Severity of Illness (SOI). Please clarify the information noted below in your progress notes and discharge summary. Risk Factors/Clinical Indicators/Treatments Potassium 3.1 Treated with Klor Con 40 meq po oral x1 CDS: Damaris Marquez RN Contact Number: [phone] Please Review the information above and exercise your independent professional judgment in responding to the query. If you concur, pleas document in the [facility] NOTES and DISCHARGE SUMMARY. If you do not agree with the query, please document in the query above. THIS QUERY IS PART OF THE PERMANENT MEDICAL RECORD
--- NOTE | 2021-06-10 10:57 | PM.CNCAR ---
History of Present Illness History of Present Illness Date of Service: 06/10/21 Consult reason: atrial fibrillation Chief complaint: New onset atrial fibrillation with RVR Narrative: This is a cardiology consultation regarding atrial arrhythmias. Current admission is for symptoms including lower extremity swelling and she was apparently asked by her aws developer to come to the ER for further workup. She has been having increasing leg swelling for the last few weeks. Otherwise, she also has some shortness of breath with activity but that is not new. No anginal-type symptoms. She has thought to have atrial fibrillation but based on our own documents she primarily has frequent PACs but not atrial fibrillation. We have been asked to follow her up and make further recommendations. Review of Systems Review of Systems: Yes all other systems are reviewed and are negative Cardiovascular: Cardiovascular: Reports as per HPI, Reports no additional cardiovascular complaints, Denies acrocyanosis, Denies cool extremities, Denies painful fingertips, Denies chest pain, Denies chest pain at rest, Denies diaphoresis, Denies syncope, Denies irregular heart rhythm, Denies claudication, Reports leg edema, Denies lightheadedness, Denies palpitations and Reports dyspnea Respiratory: Respiratory: Reports dyspnea Neurologic: Denies syncope Endocrine: Endocrine: Denies palpitations PMFSH Past Medical History Medical History Atrial tachycardia Cancer Chronic obstructive pulmonary disease, unspecified Essential hypertension Hypothyroid Limb swelling Lymphadenopathy Macular degeneration PAC (premature atrial contraction) Pneumonia Pulmonary nodule PVC (premature ventricular contraction) Small cell carcinoma Family History Family History Father Diabetes Mother Osteoporosis Family history: reviewed and not pertinent Surgical History Surgical History History of tonsillectomy and adenoidectomy Hx of cataract extraction Social History Social History Household Members: None Housing: House Are you a primary primary care pediatrician to a significant other at home: No Do you presently have visiting nurse or other home services: No Patient Tobacco Use Status: Former Tobacco user Quit Date: about 20 years ago Cigarette Packs Per Day: 2 Years Smoked: 50 years Second Hand Smoke Exposure: No Use of substances other than those prescribed or required for medical reasons: No Currently Displaying Signs/Symptoms of Drug Intoxication Withdrawal: No Have you been hit, kicked, punched, or otherwise hurt by someone within the past year? If so, by whom?: No Do you feel safe in your current relationship?: No Current Relationship Is there a partner from a previous relationship who is making you feel unsafe now?: No Are you made to feel afraid or neglected: No Advance Directives: Yes Advance Directives on File: Yes Advance Directives Date on File: 05/11/21 Do you have thoughts of harming others: None Do you have a plan to hurt others: No Plan Recently lost weight without trying: Yes How much weight loss: 14-23 pounds Eating poorly because of decreased appetite: Yes Nutrition screen score: 5 Nutrition Risks: Poor intake 0-25% >4 days Patient : No : No Poor oral hygiene: No Meds Allergies Allergy/AdvReac Type Severity Reaction Status Date / Time peanut Allergy Severe Anaphylaxis Verified 06/09/21 18:24 Tetanus Vaccines and Toxoid Allergy Severe Anaphylaxis Verified 06/09/21 18:24 lovastatin AdvReac Severe Leg Cramps Verified 06/09/21 18:24 pravastatin AdvReac Severe Leg Cramps Verified 06/09/21 18:24 Active Medications: Current Medications Generic Name Dose Route Start Last Admin Trade Name Freq PRN Reason Stop Dose Admin Acetaminophen 650 mg 06/10/21 02:18 Acetaminophen 325 Mg Tablet PO Q6H PRN Pain, Mild (Pain Scale 1-3) Albuterol Sulfate 2 puff 06/10/21 02:22 Albuterol Sulfate 90 Mcg 8 Gm Inhaler INHALE Q4H PRN Wheezing Cyclobenzaprine HCl 10 mg 06/10/21 02:22 06/10/21 07:58 Cyclobenzaprine Hcl 10 Mg Tablet PO 10 mg TID PRN Administration muscle spasm Diltiazem HCl 120 mg 06/10/21 09:00 06/10/21 07:57 Diltiazem Hcl Cd 120 Mg Cap.Er.Deg PO 120 mg DAILY [facility] Administration Protocol Enoxaparin Sodium 60 mg 06/10/21 08:00 06/10/21 07:58 Enoxaparin Sodium 60 Mg/0.6 Ml Syringe SUBCUT 60 mg BID@0800,1500 EUGEN[facility] Administration Furosemide 20 mg 06/10/21 09:00 06/10/21 07:58 Furosemide 20 Mg Tablet PO 20 mg DAILY [facility] Administration Protocol Levothyroxine Sodium 50 mcg 06/10/21 09:00 06/10/21 07:57 Levothyroxine Sodium 50 Mcg Tablet PO 50 mcg DAILY [facility] Administration Non-Formulary Medication 1 inhalation 06/10/21 09:00 Umeclidinium-Vilanterol [Anoro Ellipta] INHALE DAILY [facility] Pharmacy Consult 1 each 06/09/21 19:14 Consult Rx Perform Med Rec MISCELLANE ONCE PRN Consult order Sodium Chloride 3 ml 06/10/21 08:00 06/10/21 07:58 0.9 % Sodium Chloride Flush 3 Ml Syringe IVFLUSH 3 ml QSHIFT [facility] Administration Home Medications Medication Instructions Recorded Confirmed Last Taken Type albuterol sulfate 90 mcg/actuation 2 puff INHALATION Q4-6H PRN 10/02/20 06/09/21 Unknown History aerosol inhaler levothyroxine 50 mcg tablet 50 mcg PO DAILY 10/02/20 06/09/21 01/01/21 History diltiazem HCl 120 mg 1 cap PO DAILY 05/11/21 06/09/21 05/11/21 08:00 History capsule,extended release 24 hr, controlled (DILT-XR) cyclobenzaprine 10 mg tablet 1 tab PO TID PRN 06/09/21 06/09/21 Unknown History furosemide 20 mg tablet 1 tab PO DAILY 06/09/21 06/09/21 Unknown History ibuprofen 200 mg tablet (Motrin IB) 400 mg PO TID 06/09/21 06/09/21 Unknown History vit C 250 mg-vit E 200 unit-zinc 1 tab PO BID 06/09/21 06/09/21 Unknown History 12.5 mg-copper 1 [id number] tablet (ICaps AREDS2 (copper citrate)) Physical Exam Vital Signs: Vital Signs: Last Vital Signs Temp 98.6 F 06/10/21 07:45 Pulse 120 H 06/10/21 07:57 Resp 20 06/10/21 07:45 BP 150/70 H 06/10/21 07:57 Pulse Ox 97 06/10/21 07:45 Body Mass Index 25.1 Const: General: cooperative and no acute distress HENMT: Other: Unremarkable Neck: Neck: Yes normal visual inspection Chest: Chest palpation & inspection: normal inspection of the chest Resp: Auscultation: no crackles, no wheezes and diminished lung sounds Cardio: Jugular venous distension: no JVD Palpation: normal PMI Heart sounds: S1 normal heart sound present, S2 normal heart sound present, no gallops, no murmurs and no rubs GI: Palpation (GI): Soft to palpation Back/Spine/Pelvis: Other: unremarkable Skin: General skin exam: no rashes or lesions noted Neuro: Cranial nerves: Yes Other cranial nerve findings present Extrem: General: Yes pedal edema (1+ bilateral) Psych: Mental Status: other Results Labs and Meds Result diagrams: 06/10/21 03:34 06/10/21 03:34 Lab results: Laboratory Results - last 24 hr 06/09/21 06/09/21 06/09/21 20:24 20:24 20:24 WBC RBC Hgb Hct MCV MCH MCHC RDW Plt Count MPV Absolute Nucleated RBC Nucleated RBC % (auto) PT INR APTT Sodium Potassium Chloride Carbon Dioxide Anion Gap BUN Creatinine Estim Creat Clear Calc Estimated GFR Random Glucose Lactic Acid 1.2 Calcium Magnesium Troponin I High Sens 44.8 H* TSH Urine Color Urine Appearance Urine pH Ur Specific [place] Urine Protein Urine Glucose (UA) Urine Ketones Urine Blood Urine Nitrite Ur Leukocyte Esterase COVID-19 ([facility]) Negative COVID-19 Clin Com See Note 06/09/21 06/09/21 06/09/21 20:24 20:24 22:38 WBC RBC Hgb Hct MCV MCH MCHC RDW Plt Count MPV Absolute Nucleated RBC Nucleated RBC % (auto) PT 11.9 INR 1.0 APTT 29.3 Sodium Potassium Chloride Carbon Dioxide Anion Gap BUN Creatinine Estim Creat Clear Calc Estimated GFR Random Glucose Lactic Acid Calcium Magnesium Troponin I High Sens TSH 0.86 Urine Color YELLOW Urine Appearance CLEAR Urine pH 5.5 Ur Specific [place] 1.010 Urine Protein NEG Urine Glucose (UA) NEG Urine Ketones NEG Urine Blood NEG Urine Nitrite NEG Ur Leukocyte Esterase NEG COVID-19 ([facility]) COVID-19 Clin Com 06/10/21 06/10/21 06/10/21 03:34 03:34 03:34 WBC 6.6 RBC 4.62 Hgb 13.8 Hct 42.8 MCV 92.6 MCH 29.9 MCHC 32.2 RDW 13.2 Plt Count 204 MPV 11.4 Absolute Nucleated RBC 0.000 Nucleated RBC % (auto) 0.0 PT 12.1 INR 1.1 APTT 33.1 Sodium 144 Potassium 3.1 L Chloride 103 Carbon Dioxide 31 H Anion Gap 13 BUN 7 L Creatinine 0.68 Estim Creat Clear Calc 61.5 Estimated GFR > 60 Random Glucose 139 H Lactic Acid Calcium 9.3 Magnesium 1.8 Troponin I High Sens TSH 1.13 Urine Color Urine Appearance Urine pH Ur Specific [place] Urine Protein Urine Glucose (UA) Urine Ketones Urine Blood Urine Nitrite Ur Leukocyte Esterase COVID-19 ([facility]) COVID-19 Clin Com ECG Interpretation: EKGs reviewed. It primarilyshows sinus tachycardia with frequent premature atrial contractions. This could be multifocal atrial tachycardia. Imaging Radiologist's impression: Impressions Chest CTA 06/09/21 19:37 IMPRESSION: 1. No evidence of pulmonary embolism. 2. There is a new compression deformity in the T10 vertebral body when compared with the thoracic spine CT following kyphoplasty on 05/11/2021. Some increased sclerosis suggests this may be subacute. Correlate with clinical exam to assess acuity. If clinically indicated, MRI could help to better assess acuity. 3. Mild bronchial wall thickening suggesting small airways disease. 4 Similar appearance to the mediastinal lymphadenopathy 5. Small hiatal hernia. Hepatic steatosis. VTE: negative Chest X-Ray 06/09/21 19:41 IMPRESSION: Mild vascular congestion. Hazy opacity at left lung base obscuring the cardiophrenic angle might be a pericardial fat pad unchanged. Port-A-Cath remain in place properly positioned. Assessment and Plan (1) Acute congestive heart failure: Status: Acute (2) Atrial tachycardia: Status: Acute Leg swelling might be indicated of congestive heart failure are +/-venous insufficiency. With regard to atrial arrhythmias, I believe it is atrial tachycardia and not atrial fibrillation. Her rate is still in the faster side. Will review the echocardiogram that has been just completed. Then will adjustment of medications. Otherwise, empiric diuretics. Will follow up with you. Procedures Date of Service Date of Service: 06/10/21
--- NOTE | 2021-06-10 13:18 | MHC.CM.PN ---
khloe with pt pt reports not having services prior to admission ,she has been independent ,her car is in the parking lot she agrees to a referral to [facility] to help with the housework pt has a hcp at her home she says her nephew is her agent randal lacey she does not remember his phone number she has it at home he lives [facility]..dc plan home with new referral to [facility] ,she will drive herself home
[2021-06-10] MEDS: Digoxin 0.25 MG TABLET PO ×3 (13:20→23:27)
[2021-06-10] MEDS: Acetaminophen 325 MG TABLET 650 MG PO (13:27)
--- NOTE | 2021-06-10 13:42 | MHC.CM.PN ---
pts referral will go to [facility] as she lives in [place]
--- NOTE | 2021-06-10 14:31 | HO.PM.IMPN ---
Subjective Subjective Date of Service: 06/10/21 Interval History: acute on ch chf Review of Systems Patient shortness of breath seems improving denies any chest pain. Physical Exam Vital Signs: Vital Signs: Last Vital Signs Temp 97.0 F 06/10/21 11:17 Pulse 116 H 06/10/21 13:20 Resp 20 06/10/21 11:17 BP 154/84 H 06/10/21 11:17 Pulse Ox 95 06/10/21 11:17 Body Mass Index 25.1 Physical exam: Cvs: rrr, [id number] , no murmur res: clear to auscultation ,no rhonchii or wheezing abd: no rebound or guarding ,nt, bs present. ext pulses present , no cyanosis neuro: axo3 , nonfocal. Objective Data Current Medications Generic Name Dose Route Start Last Admin Trade Name Freq PRN Reason Stop Dose Admin Acetaminophen 650 mg 06/10/21 02:18 06/10/21 13:27 Acetaminophen 325 Mg Tablet PO 650 mg Q6H PRN Administration Pain, Mild (Pain Scale 1-3) Albuterol Sulfate 2 puff 06/10/21 02:22 Albuterol Sulfate 90 Mcg 8 Gm Inhaler INHALE Q4H PRN Wheezing Carvedilol 6.25 mg 06/10/21 21:00 Carvedilol 6.25 Mg Tablet PO BID [facility] Protocol Cyclobenzaprine HCl 10 mg 06/10/21 02:22 06/10/21 07:58 Cyclobenzaprine Hcl 10 Mg Tablet PO 10 mg TID PRN Administration muscle spasm Digoxin 0.25 mg 06/10/21 12:15 06/10/21 13:20 Digoxin 0.25 Mg Tablet PO 0.25 mg Q6H EUGENIO Administration Enoxaparin Sodium 60 mg 06/10/21 08:00 06/10/21 07:58 Enoxaparin Sodium 60 Mg/0.6 Ml Syringe SUBCUT 60 mg BID@0800,1500 EUGENIO Administration Furosemide 20 mg 06/10/21 09:00 06/10/21 07:58 Furosemide 20 Mg Tablet PO 20 mg DAILY EUGENIO Administration Protocol Furosemide 20 mg 06/11/21 09:00 Furosemide 20 Mg/2 Ml Vial IVPUSH DAILY [facility] Protocol Levothyroxine Sodium 50 mcg 06/10/21 09:00 06/10/21 07:57 Levothyroxine Sodium 50 Mcg Tablet PO 50 mcg DAILY [facility] Administration Non-Formulary Medication 1 inhalation 06/10/21 09:00 Umeclidinium-Vilanterol [Anoro Ellipta] INHALE DAILY [facility] Pharmacy Consult 1 each 06/09/21 19:14 Consult Rx Perform Med Rec MISCELLANE ONCE PRN Consult order Sodium Chloride 3 ml 06/10/21 08:00 06/10/21 07:58 0.9 % Sodium Chloride Flush 3 Ml Syringe IVFLUSH 3 ml QSHIFT [facility] Administration Labs CBC & Chem 7: 06/10/21 03:34 06/10/21 03:34 Labs: Laboratory Results - last 24 hr 06/09/21 06/09/21 06/09/21 20:24 20:24 20:24 MCV MCH MCHC RDW Plt Count MPV Absolute Nucleated RBC Nucleated RBC % (auto) PT INR APTT Anion Gap Estim Creat Clear Calc Estimated GFR Random Glucose Lactic Acid 1.2 Calcium Magnesium Troponin I High Sens 44.8 H* TSH Urine Color Urine Appearance Urine pH Ur Specific [place] Urine Protein Urine Glucose (UA) Urine Ketones Urine Blood Urine Nitrite Ur Leukocyte Esterase COVID-19 ([facility]) Negative COVID-19 Clin Com See Note 06/09/21 06/09/21 06/09/21 20:24 20:24 22:38 MCV MCH MCHC RDW Plt Count MPV Absolute Nucleated RBC Nucleated RBC % (auto) PT 11.9 INR 1.0 APTT 29.3 Anion Gap Estim Creat Clear Calc Estimated GFR Random Glucose Lactic Acid Calcium Magnesium Troponin I High Sens TSH 0.86 Urine Color YELLOW Urine Appearance CLEAR Urine pH 5.5 Ur Specific [place] 1.010 Urine Protein NEG Urine Glucose (UA) NEG Urine Ketones NEG Urine Blood NEG Urine Nitrite NEG Ur Leukocyte Esterase NEG COVID-19 ([facility]) COVID-19 Clin Com 06/10/21 06/10/21 06/10/21 03:34 03:34 03:34 MCV 92.6 MCH 29.9 MCHC 32.2 RDW 13.2 Plt Count 204 MPV 11.4 Absolute Nucleated RBC 0.000 Nucleated RBC % (auto) 0.0 PT 12.1 INR 1.1 APTT 33.1 Anion Gap 13 Estim Creat Clear Calc 61.5 Estimated GFR > 60 Random Glucose 139 H Lactic Acid Calcium 9.3 Magnesium 1.8 Troponin I High Sens TSH 1.13 Urine Color Urine Appearance Urine pH Ur Specific [place] Urine Protein Urine Glucose (UA) Urine Ketones Urine Blood Urine Nitrite Ur Leukocyte Esterase COVID-19 ([facility]) COVID-19 Clin Com Assessment and Plan (1) Acute congestive heart failure: Status: Acute Assessment and Plan: (1) Atrial fibrillation, new onset: ? ED-patient with atrial fibrillation with RVR, status post 2 doses of diltiazem TSH within normal limits. patient does not have a history of atrial fibrillation.? cardiology consult -hypokalemia replacement ordered, magnesium within normal limit. Added Coreg/p.o. digoxin lovenox (2) Elevated brain natriuretic peptide (BNP) level, leg edema : ? chf eiology unclear echo pending TROPS FLAT-probably related to chf/afib Received Lasix in the ED Continue the trial IV Lasix Echo pending (3) Compression fracture of T10 vertebra: ? ? ? -CT revealed:?There is a new compression deformity in the T10 vertebral body when compared with the thoracic spine CT following kyphoplasty on 05/11/2021. Some increased sclerosis suggests this may be subacute.Correlate with clinical exam to assess acuity. If clinically indicated, MRI could help to better assess acuity. -patient is complaining of some back pain, but likely can follow up with Neurosurgery as an outpatient (defer to morning team if Neurosurgery consult required) (4) Essential hypertension: ? -continue coreg. (5) Chronic obstructive pulmonary disease, unspecified: ? ? continue albuterol ? ? 6.?Small cell lung carcinoma -patient follows with oncologist (Dr. Odom) all; last chemotherapy session was 2 Days back. (7) Osteoporosis: ?Status:?Acute ? ? ? -noted, continue home medications Quality Stroke Does the patient have a stroke diagnosis?: No VTE Prior VTE?: No VTE Risk Level:: Medical - moderate - high VTE Device Contraindication: Treatment Not Indicated VTE Drug Contraindication: N/A - Med Ordered
--- NOTE | 2021-06-10 14:56 | MHC.CLN ---
RE; CONSULT PT TRIGGERS FOR 12% SIGNIFICANT WT LOSS X 6 MONTHS R/T CHEMO TX PT REPORTS POOR PO AND NAUSEA X 3 WEEKS DIET RX: CARDIAC-APPROPRIATE RECOMMEND ADDING ENSURE BID TO INCREASE KCALS SUPPLEMENT TO PROVIDE 700KCALS, 40G PROTEIN MONITOR PO INTAKE CLOSELY SEE ALSO CLINICAL NUTRITION ASSESSMENT
[2021-06-10] MEDS: Ibuprofen 200 MG TABLET PO (17:04)
[2021-06-10] MEDS: Lidocaine 4 % Patch ADH..PATCH 1 PATCH TRANSDERMA (17:04)
[2021-06-10] MEDS: Magnesium Sulfate/D5W 1 GM/100 ML PIGGYBACK IV (17:05)
[2021-06-10] MEDS: carvediloL 6.25 MG TABLET PO (20:28)
[2021-06-10] MEDS: Acetaminophen 325 MG TABLET 875 MG PO (23:25)
[2021-06-11 02:31] LABS: INTERNATIONAL NORM RATIO 1.1 (0.9-1.1); Prothrombin Time 12.5 SEC (9.9-13.0)
[2021-06-11 04:00] VITALS: BP 135/70; PULSE 80; RESP 20; TEMP 36.8; O2SAT 92
[2021-06-11 04:56] VITALS: PULSE 84
[2021-06-11] MEDS: Digoxin 0.25 MG TABLET PO (04:56)
[2021-06-11 06:00] VITALS: BMI 25.4
[2021-06-11 07:14] VITALS: BP 143/75; PULSE 92; RESP 20; TEMP 36.5; O2SAT 93
[2021-06-11 07:15] LABS: Hematocrit 39.4 % (37-47); Hemoglobin 12.6 g/dl (12.0-16.0); Mean Corpuscular Hemoglobin 29.7 pg (27.0-33.0); Mean Corpuscular Volume 92.9 fL (80-98); Mean Platelet Volume 12.5 fL (9.4-12.3); Platelet Count 181 X10*3/uL (160-400); Red Blood Count 4.24 X10*6/uL (4.20-5.50); Red Cell Distribution Width 13.2 % (11.0-16.0); White Blood Count 3.4 X10*3/uL (4.8-10.8)
[2021-06-11] MEDS: 0.9 % Sodium Chloride Flush 3 ML SYRINGE IVFLUSH (07:17)
[2021-06-11] MEDS: Lidocaine 4 % Patch ADH..PATCH 1 PATCH TRANSDERMA (07:20)
[2021-06-11] MEDS: Enoxaparin Sodium 60 MG/0.6 ML SYRINGE SUBCUT (07:22)
[2021-06-11] MEDS: Acetaminophen 325 MG TABLET 875 MG PO (07:24)
[2021-06-11 07:26] VITALS: BP 143/75; PULSE 92
[2021-06-11] MEDS: carvediloL 6.25 MG TABLET PO (07:26)
[2021-06-11] MEDS: Levothyroxine Sodium 50 MCG TABLET PO (07:27)
[2021-06-11] MEDS: Furosemide 20 MG TABLET PO (07:27)
[2021-06-11 07:43] LABS: Anion Gap 10 (12-20); Blood Urea Nitrogen 10 mg/dL (9-16); Calcium 8.9 mg/dL (8.4-10.2); Carbon Dioxide 31 mmol/L (22-29); Chloride 103 mmol/L (96-108); Creatinine Clr Calc Pharmacy 74.1; Estimated Glomerular Filt Rate > 60; Glucose Random 104 mg/dL (60-115); Potassium 3.7 mmol/L (3.3-5.1); Sodium 140 mmol/L (135-145)
[2021-06-11 07:44] LABS: B Type Natriuretic Peptide 358 pg/mL (<100)
--- NOTE | 2021-06-11 10:20 | PM.PNCARD ---
Subjective Subjective Date of Service: 06/11/21 Interval history: States that she is feeling better. No new complaints. Review of Systems Review of Systems Yes all other systems are reviewed and are negative Cardiovascular: Reports as per HPI, Reports no additional cardiovascular complaints, Denies acrocyanosis, Denies cool extremities, Denies painful fingertips, Denies chest pain, Denies chest pain at rest, Denies diaphoresis, Denies syncope, Denies irregular heart rhythm, Denies claudication, Reports leg edema, Denies lightheadedness, Denies palpitations and Reports dyspnea Respiratory: Reports dyspnea Denies syncope Endocrine: Denies palpitations Physical Exam Vital Signs: Last Vital Signs Temp 97.7 F 06/11/21 07:14 Pulse 92 06/11/21 07:26 Resp 20 06/11/21 07:14 BP 143/75 H 06/11/21 07:26 Pulse Ox 93 06/11/21 07:14 Body Mass Index 25.4 Const General: cooperative and no acute distress HENOR Other: Unremarkable Neck Neck: Yes normal visual inspection Chest Chest palpation & inspection: normal inspection of the chest Resp Auscultation: no crackles, no wheezes and diminished lung sounds Cardio Jugular venous distension: no JVD Palpation: normal PMI Heart sounds: S1 normal heart sound present, S2 normal heart sound present, no gallops, no murmurs and no rubs GI Palpation (GI): Soft to palpation Back/Spine/Pelvis Other: unremarkable Skin General skin exam: no rashes or lesions noted Neuro Cranial nerves: Yes Other cranial nerve findings present Extrem General: Yes pedal edema (1+ bilateral) Psych Mental Status: other Results Labs and Meds Result diagrams: 06/11/21 06:00 06/11/21 06:01 Lab results: Laboratory Results - last 24 hr 06/11/21 06/11/21 06/11/21 02:13 06:00 06:01 WBC 3.4 L RBC 4.24 Hgb 12.6 Hct 39.4 MCV 92.9 MCH 29.7 MCHC 32.0 RDW 13.2 Plt Count 181 MPV 12.5 H Absolute Nucleated RBC 0.000 Nucleated RBC % (auto) 0.0 PT 12.5 INR 1.1 Sodium 140 Potassium 3.7 Chloride 103 Carbon Dioxide 31 H Anion Gap 10 L BUN 10 Creatinine 0.57 Estim Creat Clear Calc 74.1 Estimated GFR > 60 Random Glucose 104 Calcium 8.9 B-Natriuretic Peptide 06/11/21 06:01 WBC RBC Hgb Hct MCV MCH MCHC RDW Plt Count MPV Absolute Nucleated RBC Nucleated RBC % (auto) PT INR Sodium Potassium Chloride Carbon Dioxide Anion Gap BUN Creatinine Estim Creat Clear Calc Estimated GFR Random Glucose Calcium B-Natriuretic Peptide 358 H Progress Note: A&P Assessment and plan (1) Acute congestive heart failure: Status: Acute (2) Atrial tachycardia: Status: Acute Assessment and Plan: Leg swelling might be indicative of congestive heart failure are +/-venous insufficiency. With regard to atrial arrhythmias, I believe it is atrial tachycardia and not atrial fibrillation. Seems improved from symptoms standpoint. May switch to oral diuretics. With regard to the atrial tachycardia/frequent PACs, off diltiazem. She had problems tolerating metoprolol. Now on carvedilol 6.25 mg b.i.d.. May remain on this. Also received digoxin load as today. Maintenance 125 mcg daily. Discharge planning. Digoxin level in a few days time. Follow-up in office. Fall Risk Details Current Medications: Current Medications Generic Name Dose Route Start Last Admin Trade Name Freq PRN Reason Stop Dose Admin Acetaminophen 875 mg 06/10/21 16:45 06/11/21 07:24 Acetaminophen 325 Mg Tablet PO 875 mg Q8H EUGENIO Administration Albuterol Sulfate 2 puff 06/10/21 02:22 Albuterol Sulfate 90 Mcg 8 Gm Inhaler INHALE Q4H PRN Wheezing Carvedilol 6.25 mg 06/10/21 21:00 06/11/21 07:26 Carvedilol 6.25 Mg Tablet PO 6.25 mg BID EUGENIO Administration Protocol Cyclobenzaprine HCl 10 mg 06/10/21 02:22 06/10/21 07:58 Cyclobenzaprine Hcl 10 Mg Tablet PO 10 mg TID PRN Administration muscle spasm Digoxin 0.25 mg 06/10/21 12:15 06/11/21 04:56 Digoxin 0.25 Mg Tablet PO 0.25 mg Q6H EUGENIO Administration Enoxaparin Sodium 60 mg 06/10/21 08:00 06/11/21 07:22 Enoxaparin Sodium 60 Mg/0.6 Ml Syringe SUBCUT 60 mg BID@0800,1500 EUGENIO Administration Furosemide 20 mg 06/10/21 09:00 06/11/21 07:27 Furosemide 20 Mg Tablet PO 20 mg DAILY EUGENIO Administration Protocol Furosemide 20 mg 06/11/21 09:00 06/11/21 07:48 Furosemide 20 Mg/2 Ml Vial IVPUSH Not Given DAILY EUGENIO Protocol Levothyroxine Sodium 50 mcg 06/10/21 09:00 06/11/21 07:27 Levothyroxine Sodium 50 Mcg Tablet PO 50 mcg DAILY EUGENIO Administration Lidocaine 1 patch 06/10/21 16:45 06/11/21 07:20 Lidocaine 4 % Patch Adh..Patch TRANSDERMA 1 patch DAILY EUGENIO Administration Protocol Non-Formulary Medication 1 inhalation 06/10/21 09:00 Umeclidinium-Vilanterol [Anoro Ellipta] INHALE DAILY [facility] Pharmacy Consult 1 each 06/09/21 19:14 Consult Rx Perform Med Rec MISCELLANE ONCE PRN Consult order Sodium Chloride 3 ml 06/10/21 08:00 06/11/21 07:17 0.9 % Sodium Chloride Flush 3 Ml Syringe IVFLUSH 3 ml QSHIFT EUGENIO Administration Time Spent With Patient Time: Total time spent is greater than 50% in coordination of care (as documented) at patient's floor/unit and/or counseling patient: Time with patient: less than 15 minutes Progress Note: Quality Stroke Does the patient have a stroke diagnosis?: No Procedures Date of Service Date of Service: 06/11/21
[2021-06-11 11:19] VITALS: BP 157/88; PULSE 80; RESP 20; TEMP 36.9; O2SAT 93
--- NOTE | 2021-06-11 12:35 | P.DS_ITS ---
DS: Providers Provider Date of Service: 06/11/21 Date of admission: 06/10/21 02:18 Primary care physician: Rik Kohler MD Consults: 06/10/21 02:21 Consult to Cardiology Routine Consulting Provider: Dougie Suazo Reason for consultation: New onset AFIB RVR, ? new CHF Has provider been notified: No DS: Diagnosis Discharge Diagnosis (1) Acute congestive heart failure: Status: Acute (2) Atrial tachycardia: Status: Acute DS: Medications Discharge Medications Home Medications: Home Medications Medication Instructions Recorded Confirmed albuterol sulfate 90 mcg/actuation 2 puff INHALATION Q4-6H PRN 10/02/20 06/09/21 aerosol inhaler levothyroxine 50 mcg tablet 50 mcg PO DAILY 10/02/20 06/09/21 cyclobenzaprine 10 mg tablet 1 tab PO TID PRN 06/09/21 06/09/21 furosemide 20 mg tablet 1 tab PO DAILY 06/09/21 06/09/21 ibuprofen 200 mg tablet (Motrin IB) 400 mg PO TID 06/09/21 06/09/21 vit C 250 mg-vit E 200 unit-zinc 1 tab PO BID 06/09/21 06/09/21 12.5 mg-copper 1 [id number] tablet (ICaps AREDS2 (copper citrate)) Previous Rx's Medication Instructions Recorded umeclidinium 62.5 mcg-vilanterol 1 inh INHALATION DAILY #60 ea 05/11/21 25 mcg/actuation powdr for inhalation (Anoro Ellipta) carvedilol 6.25 mg tablet 6.25 mg PO BID #60 tab 06/11/21 digoxin 125 mcg (0.125 mg) tablet 125 mcg PO DAILY #30 tab 06/11/21 DS: Summary Hospital Course Hospital Course: History of presenting illness Date of Service: 06/10/21 Chief Complaint: Lower extremity swelling 81-year-old female with history of atrial tachycardia, premature atrial contractions, small-cell carcinoma (currently undergoing chemotherapy with Dr. Odom), COPD, hypertension, hypothyroidism, macular degeneration, who presented because of lower extremity swelling and because her computer network and systems engineer told her to come to the ED for further workup.? History is from ED notes and from patient. Patient endorses that she has been experiencing bilateral lower extremity swelling for the past 6 weeks.? She states she has been trying to seek medical attention for this from various doctors, but feels like nobody has taken her concerns seriously.? Finally, she went to see her computer network and systems engineer (Dr.? Kohler), who did perform some blood work.? Patient endorses she got a call from Dr. Kohler office at about 430 on 06/09/2021, and was told to come to the ED because of lab abnormalities (including elevated D-dimer).? Subsequently, she came to the ED. Otherwise, she endorses some nausea, chronic chills, back pain for the past 3-4 weeks.? She denies chest pain, shortness of breath, fever, vomiting, abdominal pain.? She states she has a history of chronic arrhythmias, which had been described as ?regularly regular ?, and specifically told that it is not atrial fibrillation.? She followed with Dr. Lugo (cardiology) in the past. PMHX Atrial tachycardia Cancer Chronic obstructive pulmonary disease, unspecified Essential hypertension Hypothyroid Limb swelling Lymphadenopathy Macular degeneration PAC (premature atrial contraction) Pneumonia Pulmonary nodule PVC (premature ventricular contraction) Small cell carcinoma Hospital course Patient presented with symptoms of shortness of breath and lower extremity edema, EKG showed atrial tachycardia, initially read as atrial fibrillation, patient admitted with a diagnosis of acute congestive heart failure, treated with IV Lasix, Coreg and digoxin load, atrial tachycardia and CHF improved, and echocardiogram obtained today showed EF 40% with global hypokinesis, patient seen by Dr. Suazo he recommend to discharge patient on digoxin 0.125 mg daily, Coreg 6.25 mg b.i.d. and to discontinue diltiazem, patient has been recommended to continue Lasix 20 mg daily and to follow low-salt diet, recommend to check digoxin level in 1 week. CTA chest showed a new compression deformity in T10 vertebral body with some bony sclerosis, however patient denies any worsening of chronic back pain, she is status post vertebral augmentation of T11 and T12 vertebra in the past, and wants to follow-up with her PCP as outpatient regarding these new findings. Time Spent with Patient Time attestation: Total time spent providing and/or coordinating discharge services: Discharge coordination time: Greater than 30 minutes Quality: Stroke Does the patient have a stroke diagnosis?: No Physical Exam Vital Signs: Vital Signs: Last Vital Signs Temp 98.5 F 06/11/21 11:19 Pulse 80 08/19/21 11:19 Resp 20 06/11/21 11:19 BP 157/88 H 06/11/21 11:19 Pulse Ox 93 06/11/21 11:19 Body Mass Index 25.4 General no acute distress. Neck supple no JVD. CVS regular rate rhythm, Respiratory lungs clear to auscultation, no respiratory distress, no wheeze, no rhonchi. Gastrointestinal abdomen soft, nontender, bowel sounds audible Extremities b/l edema. Neuro nonfocal Skin no rash DS: Data Data Completed and Pending Labs on day of discharge: Laboratory Results - last 24 hr 06/11/21 06/11/21 06/11/21 02:13 06:00 06:01 WBC 3.4 L RBC 4.24 Hgb 12.6 Hct 39.4 MCV 92.9 MCH 29.7 MCHC 32.0 RDW 13.2 Plt Count 181 MPV 12.5 H Absolute Nucleated RBC 0.000 Nucleated RBC % (auto) 0.0 PT 12.5 INR 1.1 Sodium 140 Potassium 3.7 Chloride 103 Carbon Dioxide 31 H Anion Gap 10 L BUN 10 Creatinine 0.57 Estim Creat Clear Calc 74.1 Estimated GFR > 60 Random Glucose 104 Calcium 8.9 B-Natriuretic Peptide 06/11/21 06:01 WBC RBC Hgb Hct MCV MCH MCHC RDW Plt Count MPV Absolute Nucleated RBC Nucleated RBC % (auto) PT INR Sodium Potassium Chloride Carbon Dioxide Anion Gap BUN Creatinine Estim Creat Clear Calc Estimated GFR Random Glucose Calcium B-Natriuretic Peptide 358 H Preliminary micro results at discharge 06/09/21 20:24 Blood Culture - Preliminary Blood - Venous No growth after 24 hours. 06/09/21 20:24 Blood Culture - Preliminary Blood - Venous No growth after 24 hours. Discharge Plan Discharge Patient Disposition: Home, Self-Care Discharge Diagnosis: Acute systolic congestive heart failure Atrial tachycardia COPD Referrals: Rik Kohler MD [Primary Care Provider] - 1 Week Discharge Medications: New carvedilol 6.25 mg Tablet 6.25 mg PO BID Qty: 60 RF: 0 digoxin 125 mcg (0.125 mg) tablet 125 mcg PO DAILY Qty: 30 RF: 0 Continued cyclobenzaprine 10 mg tablet 1 tab PO TID PRN (Reason: muscle spasm) RF: 0 furosemide 20 mg tablet 1 tab PO DAILY RF: 0 ICaps AREDS2 (copper citrate) 250 mg-200 unit -12.5 mg-1 mg Tablet 1 tab PO BID RF: 0 ibuprofen [Motrin IB] 200 mg tablet 400 mg PO TID RF: 0 levothyroxine 50 mcg tablet 50 mcg PO DAILY RF: 0 albuterol sulfate 90 mcg/actuation HFA aerosol inhaler 2 puff inhalation Q4-6H PRN (Reason: Wheezing) RF: 0 Anoro Ellipta 62.5-25 mcg/actuation blister with device 1 inh inhalation DAILY Qty: 60 RF: 11 Discontinued diltiazem HCl [DILT-XR] 120 mg capsule,ext.rel 24h degradable 1 cap PO DAILY RF: 0 Discharge Orders: Discharge Order (Routine); Ordered 06/11/21 Ordered By: Tamara Boland Diet: low fat, low cholesterol Activity on Discharge: As tolerated Stand Alone Forms: Patient Portal Discharge page Other Ambulatory Orders: Digoxin (Routine) Timeframe: [id number] Facility: [facility] - Location: Laboratory Ordered By: Tamara Boland Care Plan Goals: Take digoxin 0.125 mg daily, check digoxin level in 1 week, start taking Coreg and stop Cardizem Health Concerns: COPD/CHF follow low-salt diet continue all home medication Plan of Treatment: Outpatient follow-up with primary care physician and Cardiology in next 7-10 days Assessment: As above
--- NOTE | 2021-06-11 13:19 | MHC.CM.PN ---
Patient has been medically cleared for dc to home today, no services. Last IMM addressed yesterday.
== END 2021-06-11 13:07 | disposition home or self-care (01) | DRG 292 ==
LOC: HO.ED 22:46 → HO.IMC 06-10 02:48
PROVIDERS: Internal Medicine; Physician Assistant; Admitting Provider Internal Medicine; Emergency Provider Student in an Organized Health Care Education/Training Program; PCP Hospitalist; Visit Provider Hospitalist
DX: I50.33 Acute on chronic diastolic (congestive) heart failure (principal); C34.90 Malignant neoplasm of unspecified part of unspecified bronchus or lung; M48.54XA Collapsed vertebra, not elsewhere classified, thoracic region, initial encounter for fracture; I47.1 Supraventricular tachycardia; I48.91 Unspecified atrial fibrillation; J44.9 Chronic obstructive pulmonary disease, unspecified; M81.0 Age-related osteoporosis without current pathological fracture; I49.1 Atrial premature depolarization; Z20.822 Contact with and (suspected) exposure to COVID-19; Z87.891 Personal history of nicotine dependence; Z79.1 Long term (current) use of non-steroidal anti-inflammatories (NSAID); Z79.890 Hormone replacement therapy; Z79.899 Other long term (current) drug therapy
CPT/HCPCS: 36415; 71045; 71275; 80048; 81003; 83605; 83735; 83880; 84443; 84484; 85027; 85379; 85610; 85652; 85730; 87040; 87635; 93005; 93306; 99220; 99284; J1650; J1940; J3475; Q9967

== ENCOUNTER 2021-06-22 14:00 | Outpatient (RCR) | payer MEDICARE, SELFPAY ==
--- NOTE | 2021-05-29 11:30 | MHC.PT.EP ---
[facility] [place] Office [place] Office [place] Office [address] Kyle Whitten [address] [phone] F: [phone] F: [phone] F: [phone] F: [phone] Physical Therapy Plan of Care Date of Evaluation: Date of Surgery: 05/11/21 Diagnosis: S/P kyphoplasty T11-12 Assessment: Lora presents s/p kyphoplasty following T11-12 compression fracture. She was recently diagnosed with cancer (lymphoma) and has undergone chemo and radiation treatment. She is currently on maintenance chemo every three weeks. Upon exam impairments include decreased trunk mobility, decreased upper extremity and upper back strength, altered posture, increased soft tissue tension and pain. Functional limitations include decreased ability to perform homemaking and self care tasks, decreased ability to perform lifting reaching, pushing and pulling, decreased ability to participate in community and recreational activities and disrupted sleep. Frequency and Duration: The patient will be seen 2 x week for 6 weeks Short Term Goals: initiate HEP and promote self management of symptoms in 2 visits Breaker Table Worker Goals: To perform all homemaking activities without pain greater than 2/10 in 6 weeks To return to sleeping in bed versus couch with minimally decreased sleep in [address] 5# object on shelf above shoulder height without pain greater than 2/10 in 6 weeks. Treatment Plan: Modalities to reduce pain, spasms and effusion. Manual therapy to restore motion and function. Therapeutic exercise to improve strength and flexibility. Neuromuscular re-education for posture and balance. Therapeutic activities to return to functional activities of daily living. Electronically signed by: Lisa Lemus PT, DPT Please sign and return to therapist. Thank you for your referral.
== END 2021-07-03 10:51 | disposition home or self-care (01) ==
LOC: HO.PT 14:00
PROVIDERS: Visit Provider Internal Medicine Medical Oncology
DX: M54.6 Pain in thoracic spine (principal); Z98.890 Other specified postprocedural states
CPT/HCPCS: 97110; 97140; 97162; 97535

== ENCOUNTER → 2021-06-24 15:00 | Outpatient (REF) | payer MEDICARE, SELFPAY ==
--- NOTE | 2021-06-24 15:35 | HM_ITS ---
Total monitoring time 3 days and 21 hours. Underlying rhythm is sinus. Minimum heart rate 47/Min. Maximum 125/Min. Average 89/Min. About 16% of the time, rate >100/Min. No atrial fibrillation or flutter. Frequent supraventricular ectopy with a burden of almost 10%. Longest run was about 11 beats. Occasional ventricular ectopy with a burden of about 2%. 3 morphologies noted. 2-3 beat runs but nothing sustained. No patient events. MTDD
== END ==
LOC: HO.CARD 15:00
PROVIDERS: Visit Provider Internal Medicine
DX: I47.1 Supraventricular tachycardia (principal)
CPT/HCPCS: 93242

== ENCOUNTER → 2021-07-07 12:33 | Outpatient (BNVA) | payer MEDICARE, SELFPAY | PROVIDERS: PCP Hospitalist; Visit Provider Internal Medicine | DX: I47.1 Supraventricular tachycardia (principal); I49.3 Ventricular premature depolarization; I50.32 Chronic diastolic (congestive) heart failure | CPT/HCPCS: 93005; 99212 ==

== ENCOUNTER 2021-07-09 15:54 | Outpatient (REF) | payer MEDICARE, SELFPAY ==
[2021-07-09 16:33] LABS: Anion Gap 16 (12-20); Blood Urea Nitrogen 9 mg/dL (9-16); Calcium 9.7 mg/dL (8.4-10.2); Carbon Dioxide 27 mmol/L (22-29); Chloride 104 mmol/L (96-108); Estimated Glomerular Filt Rate > 60; Glucose Random 119 mg/dL (60-115); Potassium 3.5 mmol/L (3.3-5.1); Sodium 143 mmol/L (135-145)
[2021-07-09 16:57] LABS: Digoxin < 0.3 ng/mL (0.8-2.0)
== END 2021-07-09 15:55 | disposition home or self-care (01) ==
LOC: HO.LAB 15:54
PROVIDERS: Visit Provider Internal Medicine
DX: I47.1 Supraventricular tachycardia (principal)
CPT/HCPCS: 36415; 80048; 80162

== ENCOUNTER 2021-07-23 06:48 | Day surgery (SDC) | payer MEDICARE, SELFPAY ==
[2021-07-20 10:42] VITALS: BMI 23.3
--- NOTE | 2021-07-22 09:30 | P.CONAN_ITS ---
Documented by User: Brinda Mcmahan NP 07/22/21 10:49 HPI - Anesthesia Eval Consult details Narrative: 81yo F for Kyphoplasty Recent cardiac visit - digoxin d/c'd carvedilol increased s/p kypho 04/2021 with MAC (anesth record unavail) K low @ 2.7 07/21/21. Given PO supplement at Dr Odom appointment. Also rx sent for supplement. Case reviewed with Dr Carranza. OK to proceed if K wnl DOS. Pt to have IV K+ at oncology 07/22/21 with recheck of labs. PMFSH Active Problems Active Problems: All Active Problems (Updated 07/21/21 @ 13:11 by Dontae Odom MD) Small cell lung carcinoma (Acute) Osteoporosis (Acute) Congestive heart failure (Acute) Elevated brain natriuretic peptide (BNP) level (Acute) Swelling of lower extremity (Acute) Compression fracture of T10 vertebra (Acute) Chronic diastolic (congestive) heart failure (Acute) Limb swelling (Acute) Pulmonary nodule (Acute) Small cell carcinoma (Acute) Cancer (Acute) PVC (premature ventricular contraction) (Acute) Lymphadenopathy (Acute) Past Medical History Medical History Atrial tachycardia Cancer Chronic obstructive pulmonary disease, unspecified Essential hypertension Hypothyroid Limb swelling Lymphadenopathy Macular degeneration PAC (premature atrial contraction) Pneumonia Port-A-Cath in place Pulmonary nodule PVC (premature ventricular contraction) Small cell carcinoma Family History Family History Father Diabetes Mother Osteoporosis Surgical History Surgical History History of kyphoplasty History of surgery History of tonsillectomy and adenoidectomy Hx of cataract extraction Social History Social History Household Members: None Housing: House Are you a primary personal care home administrator to a significant other at home: No Do you presently have visiting nurse or other home services: No Patient Tobacco Use Status: Former Tobacco user Quit Date: about 20 years ago Cigarette Packs Per Day: 2 Years Smoked: 50 years Second Hand Smoke Exposure: No Use of substances other than those prescribed or required for medical reasons: No Are you DNR?: No Advance Directives: Yes Advance Directives on File: Yes Advance Directives Date on File: 05/11/21 service: No Meds Allergies Allergy/AdvReac Type Severity Reaction Status Date / Time peanut Allergy Severe Anaphylaxis Verified 07/23/21 07:05 Tetanus Vaccines and Toxoid Allergy Severe Anaphylaxis Verified 07/23/21 07:05 lovastatin AdvReac Severe Leg Cramps Verified 07/23/21 07:05 pravastatin AdvReac Severe Leg Cramps Verified 07/23/21 07:05 Home Medications Medication Instructions Recorded Confirmed Last Taken Type albuterol sulfate 90 mcg/actuation 2 puff INHALATION Q4-6H PRN 10/02/20 07/20/21 Unknown History aerosol inhaler levothyroxine 50 mcg tablet 50 mcg PO DAILY 10/02/20 07/20/21 07/23/21 06:00 History cyclobenzaprine 10 mg tablet 1 tab PO TID PRN 06/09/21 07/20/21 Unknown History ibuprofen 200 mg tablet (Motrin IB) 400 mg PO TID 06/09/21 07/20/21 07/18/21 09:00 History vit C 250 mg-vit E 200 unit-zinc 1 tab PO BID 06/09/21 07/20/21 Unknown History 12.5 mg-copper 1 [id number] tablet (ICaps AREDS2 (copper citrate)) furosemide 20 mg tablet 20 mg PO DAILY 07/07/21 07/20/21 Unknown History umeclidinium 62.5 mcg-vilanterol 1 puff INHALATION DAILY 07/23/21 07/23/21 Unknown History 25 mcg/actuation powdr for inhalation (Anoro Ellipta) Exam Exam Date and Time: July 22, 2021 0930 Height,Weight and Vital Signs: Height 5 ft 4 in Weight 61.689 kg Pertinent Lab Results Pertinent Lab Results: Laboratory Tests 07/21/21 07/21/21 13:31 13:31 WBC 7.2 Hgb 15.3 Hct 47.3 H Plt Count 197 Sodium 144 Potassium 2.7 L D Chloride 102 Carbon Dioxide 30 H BUN 9 Creatinine 0.67 Narrative Narrative: EKG 06/2021 sinus tachycardia at 127/Min; premature atrial contractions; inferior, lateral downsloping STs; possible digoxin effect Echocardiogram-05/2021-LVEF 40%? Echocardiogram-06/2020-LVEF 60-65%; moderate aortic valve calcification but no stenosis; mild mitral annular calcification Holter-03/2021-sinus rhythm with an average rate of 96/Min; frequent PACs-5% burden; frequent PVCs-2% burden Holter-06/2020-frequent PACs-11% burden; frequent Myocardial perfusion imaging-06/2020- normal perfusion Assessment and Plan Assessment Anesthesia Assessment: Chart Reviewed Documented by User: Kay Patten MD 07/23/21 10:19 [facility] Active Problems Active Problems: All Active Problems (Updated 07/21/21 @ 13:11 by Dontae Odom MD) Small cell lung carcinoma (Acute) Osteoporosis (Acute) Congestive heart failure (Acute) Elevated brain natriuretic peptide (BNP) level (Acute) Swelling of lower extremity (Acute) Compression fracture of T10 vertebra (Acute) Chronic diastolic (congestive) heart failure (Acute) Limb swelling (Acute) Pulmonary nodule (Acute) Small cell carcinoma (Acute) Cancer (Acute) PVC (premature ventricular contraction) (Acute) Lymphadenopathy (Acute) Atrial tachycardia- Seen in 05/2021 in heart failure ?atrial fibrillation/ flutter. Holter monitor showed underlying sinus rhythm. No flutter/fibrillation. Runs of SVT/VT Problems with rate control -up to 140s today. Not sustained. BP 160s/90s Hypoxia with high of 91 in room air. Not on O2 @ home. Sats increased to 95% with 2L O2 Hypokalemia 2.7 on 07/21- received IV K+ yesterday. K+ today 3.5 Past Medical History Medical History Atrial tachycardia Cancer Chronic obstructive pulmonary disease, unspecified Essential hypertension Hypothyroid Limb swelling Lymphadenopathy Macular degeneration PAC (premature atrial contraction) Pneumonia Port-A-Cath in place Pulmonary nodule PVC (premature ventricular contraction) Small cell carcinoma Family History Family History Father Diabetes Mother Osteoporosis Family history of problems with anesthesia: No Surgical History Surgical History History of kyphoplasty History of surgery History of tonsillectomy and adenoidectomy Hx of cataract extraction History of Problems with Anesthesia: No Social History Social History Household Members: None Housing: House Are you a primary personal care home administrator to a significant other at home: No Do you presently have visiting nurse or other home services: No Patient Tobacco Use Status: Former Tobacco user Quit Date: about 20 years ago Cigarette Packs Per Day: 2 Years Smoked: 50 years Second Hand Smoke Exposure: No Use of substances other than those prescribed or required for medical reasons: No Are you DNR?: No Advance Directives: Yes Advance Directives on File: Yes Advance Directives Date on File: 05/11/21 service: No Meds Allergies Allergy/AdvReac Type Severity Reaction Status Date / Time peanut Allergy Severe Anaphylaxis Verified 07/23/21 07:05 Tetanus Vaccines and Toxoid Allergy Severe Anaphylaxis Verified 07/23/21 07:05 lovastatin AdvReac Severe Leg Cramps Verified 07/23/21 07:05 pravastatin AdvReac Severe Leg Cramps Verified 07/23/21 07:05 Home Medications Medication Instructions Recorded Confirmed Last Taken Type albuterol sulfate 90 mcg/actuation 2 puff INHALATION Q4-6H PRN 10/02/20 07/20/21 Unknown History aerosol inhaler levothyroxine 50 mcg tablet 50 mcg PO DAILY 10/02/20 07/20/21 07/23/21 06:00 History cyclobenzaprine 10 mg tablet 1 tab PO TID PRN 06/09/21 07/20/21 Unknown History ibuprofen 200 mg tablet (Motrin IB) 400 mg PO TID 06/09/21 07/20/21 07/18/21 09:00 History vit C 250 mg-vit E 200 unit-zinc 1 tab PO BID 06/09/21 07/20/21 Unknown History 12.5 mg-copper 1 [id number]-[id number]-vrkzhj tablet (ICaps AREDS2 (copper citrate)) furosemide 20 mg tablet 20 mg PO DAILY 07/07/21 07/20/21 Unknown History umeclidinium 62.5 mcg-vilanterol 1 puff INHALATION DAILY 07/23/21 07/23/21 Unknown History 25 mcg/actuation powdr for inhalation (Anoro Ellipta) Exam Height,Weight and Vital Signs: Height 5 ft 4 in Weight 61.689 kg Vital Signs Temp Pulse Resp BP Pulse Ox 07/23/21 07:31 97.4 F 128 H 18 160/74 H 91 L Pertinent Lab Results Pertinent Lab Results: Laboratory Tests 07/21/21 07/21/21 13:31 13:31 WBC 7.2 Hgb 15.3 Hct 47.3 H Plt Count 197 Sodium 144 Potassium 2.7 L D Chloride 102 Carbon Dioxide 30 H BUN 9 Creatinine 0.67 Lab Results 07/23/21 07/23/21 Range/Units 07:09 07:09 PT 11.2 (9.9-13.0) SEC INR 1.0 (0.9-1.1) APTT 32.4 (24.1-38.0) SEC Sodium 144 (135-145) mmol/L Potassium 3.5 D (3.3-5.1) mmol/L Chloride 103 (96-108) mmol/L Carbon Dioxide 31 H (22-29) mmol/L Anion Gap 14 (12-20) Narrative Narrative: EKG 06/2021 sinus tachycardia at 127/Min; premature atrial contractions; inferior, lateral downsloping STs; possible digoxin effect Echocardiogram-05/2021-LVEF 40%? Echocardiogram-06/2020-LVEF 60-65%; moderate aortic valve calcification but no stenosis; mild mitral annular calcification Holter-03/2021-sinus rhythm with an average rate of 96/Min; frequent PACs-5% burden; frequent PVCs-2% burden Holter-06/2020-frequent PACs-11% burden; frequent Myocardial perfusion imaging-06/2020- normal perfusion Patient with conpression fracture T10. In a lot of pain. Seen by cardiology- stable from cardiac standpoint Airway Mallampati Class: III TM Dist: >3cm Neck ROM: Full Denture: Upper and Lower Heart: Irregular Lungs: Diminished. No crackles Assessment and Plan Assessment Anesthesia Assessment: Anesthesia Plan Discussed Final Anesthetic Review Family History of Problems with Anesthesia: No History of Problems with Anesthesia: No NPO: Yes ASA Class: IV Final Preanesthetic Review: No Changes in Pt Med Stat, Meds/Allgs Chart Reviewed, Consent Obtained/Reviewed and Anes Risks/Benef Reviewed Patient Risk: High Procedure Risk: Intermediate Assessment/Block/Sedation in SS: Assess/Block/Sedation-SS Anesthetic Plan Anesthetic Plan: MAC: and Other Disposition: Extended PACU
[2021-07-23] VITALS (8 sets, daily range): BP systolic 136–164; BP diastolic 52–97; PULSE 81–128; RESP 16–18; TEMP 36.3–37.4; O2SAT 91–97
--- NOTE | ~2021-07-23 | IR_ITS ---
EXAMINATION: IR THORACIC VERTEBROPLASTY CLINICAL INFORMATION: Compression fracture T10 vertebra COMPARISON: None TECHNIQUE: Following explaining fluoroscopy-guided T12 bipedicle approach kyphoplasty procedure, benefits and risks, a written consent was obtained. Patient was placed prone on fluoroscopy table and T10 vertebra is identified on the posterior thoracic cavity. 1% lidocaine was injected at the puncture site overlying the right T10 pedicle. A 25-gauge spinal needle was then inserted from the skin to the level of pedicle and 0.25% Marcaine was injected and needle withdrawn. A small skin incision a 10-gauge Kyphon needle was inserted from the skin through the pedicle into posterior one-third of T10 vertebra. A second needle was advanced in a similar fashion. Initially hand drill was advanced through the right and left needle. However, the bone was felt to be hard hence advanced to the right and left pedicle and cavity created. The curette was removed and high tensile balloons were inserted through the right and left needle and balloon inflated to 500 psi for 5 minutes. The balloons were deflated and removed and freshly prepared polymethylmethacrylate was initial injection left side followed by right side under continuous AP, oblique and lateral fluoroscopy monitoring. After achieving adequate amount of cement and observing no cement leak, both needles were withdrawn after 10 minutes. Complete hemostasis achieved at puncture site. Sterile dressing applied postprocedure. Patient tolerated procedure extremely well. Sedation was provided by anesthesia department. FINDINGS: On preliminary fluoroscopy imaging, there is evidence of previous T11 and T12 compression fracture with cement augmentation. There is a T10 compression fracture Fluoroscopy-guided bi-pedicle approach T10 needle insertion followed by hand drill, curette and high tensile balloons, a cavity was created. Polymethylmethacrylate was injected through the left and right needles and adequate cement was achieved. No cement extravasation seen. FLUOROSCOPY TIME: 12.6 minutes DOSE AREA PRODUCT: 1967 uGy-m2 (microgray-meter squared) IR/IR kyphoplasty thoracic IMPRESSION: Successful bi-pedicular approach T10 kyphoplasty performed without immediate complications.
--- NOTE | ~2021-07-23 | CT_ITS ---
EXAMINATION: CT THORACIC SPINE CLINICAL INFORMATION: Post T10 kyphoplasty COMPARISON: CT thoracic spine pre-kyphoplasty performed earlier today. TECHNIQUE: 2 mm thin and reformatted 2 mm thin sagittal and coronal images of thoracic spine were obtained without contrast. This CT examination was performed using dose optimization techniques as appropriate, variously including the following: *Automated exposure control *Adjustment of mA and/or kV according to patient size (this includes techniques or standardized protocols for targeted exams where dose is matched to indication/reason for exam; i.e. extremities or head) *Use of iterative reconstruction technique DLP: 158 mGy-cm FINDINGS: On sagittal reconstructed images, there is maintained thoracic kyphosis. Mild loss of T10, T11, and T12 vertebral height with cement augmentation seen. There is no extravasation cement seen at any of the disc levels including newly placed cement at the T10 vertebra. There are degenerative disc changes of vacuum disc phenomena at T10-T11, T11-T12 disc levels. No lytic or sclerotic process seen. Incidental finding of a small right pleural effusion is noted. CT/CT thoracic spine post vert IMPRESSION: 1. Adequate amount of cement occupying the T10 vertebra post cement kyphoplasty. No cement extravasation seen. 2. There is a small right pleural effusion.
--- NOTE | ~2021-07-23 | CT_ITS ---
EXAMINATION: CT THORACIC SPINE WITHOUT CONTRAST CLINICAL INFORMATION: Acute compression fracture T10 vertebra with significant back pain. Pre-kyphoplasty evaluation. COMPARISON: None. TECHNIQUE: Axial 2 mm thin and reformatted 2 mm thin images of thoracic spine from mid T8-T12-L1 disc level were obtained. This CT examination was performed using dose optimization techniques as appropriate, variously including the following: *Automated exposure control *Adjustment of mA and/or kV according to patient size (this includes techniques or standardized protocols for targeted exams where dose is matched to indication/reason for exam; i.e. extremities or head) *Use of iterative reconstruction technique DLP: 195 mGy-cm. FINDINGS: On sagittal reconstructed images, there is normal thoracic kyphosis. There is loss of T10 vertebral height, approximately 25%. There are old compression fractures T11 and T12 vertebrae with cement augmentation. The T9 and partially visualized T8 vertebral heights are normal. There is mild posterior spondylosis T8-T9, T9-T10 and T10-T11 disc levels. No spinal canal stenosis seen. The neural foramina are patent bilaterally. There is a small right pleural effusion. CT/CT thoracic spine wo con IMPRESSION: T10 acute compression fracture with approximately 25% loss of vertebral height. There is no spinal canal stenosis or posterior bony fragment. No other fracture seen. There are old T11 and T12 compression fractures with cement augmentation. Moderate posterior spondylosis T8-T9 through T10-T11 disc levels.
[2021-07-23 07:21] LABS: Prothrombin Time 11.2 SEC (9.9-13.0)
[2021-07-23 07:23] LABS: Partial Thromboplastin Time 32.4 SEC (24.1-38.0)
[2021-07-23 07:27] LABS: Anion Gap 14 (12-20); Carbon Dioxide 31 mmol/L (22-29); Chloride 103 mmol/L (96-108); Potassium 3.5 mmol/L (3.3-5.1); Sodium 144 mmol/L (135-145)
[2021-07-23] MEDS: Lactated Ringers 1,000 ML 20 ML IVCONT (07:49)
[2021-07-23] MEDS: Acetaminophen 325 MG TABLET 650 MG PO (11:51)
[2021-07-23] MEDS: fentaNYL citrate/PF 100 MCG/2 ML VIAL 25 MCG IVPUSH (11:55)
== END 2021-07-23 13:28 | disposition home or self-care (01) ==
PROVIDERS: Nurse Practitioner; Visit Provider Radiology Diagnostic Radiology
DX: M80.88XA Other osteoporosis with current pathological fracture, vertebra(e), initial encounter for fracture (principal); M54.9 Dorsalgia, unspecified; J44.9 Chronic obstructive pulmonary disease, unspecified; I11.0 Hypertensive heart disease with heart failure; I50.32 Chronic diastolic (congestive) heart failure; Z79.899 Other long term (current) drug therapy
CPT/HCPCS: 22513; 36415; 72128; 80051; 85610; 85730; J0690; J3010; Q9967

== ENCOUNTER → 2021-07-28 13:07 | Outpatient (BNVA) | payer MEDICARE, SELFPAY | PROVIDERS: PCP Internal Medicine; Visit Provider Hospitalist | DX: J44.9 Chronic obstructive pulmonary disease, unspecified (principal); R59.1 Generalized enlarged lymph nodes; R91.1 Solitary pulmonary nodule; C34.90 Malignant neoplasm of unspecified part of unspecified bronchus or lung | CPT/HCPCS: 99212 ==

== ENCOUNTER → 2021-08-10 13:54 | Outpatient (BNVA) | payer MEDICARE, SELFPAY | PROVIDERS: Visit Provider Internal Medicine | DX: I47.1 Supraventricular tachycardia (principal); I49.3 Ventricular premature depolarization; I50.32 Chronic diastolic (congestive) heart failure | CPT/HCPCS: 93005; 99212 ==

== ENCOUNTER → 2021-08-14 09:53 | Outpatient (BNVA) | payer MEDICARE, SELFPAY | PROVIDERS: PCP Internal Medicine; Visit Provider Internal Medicine | DX: R94.31 Abnormal electrocardiogram [ECG] [EKG] (principal) | CPT/HCPCS: 93005 ==

== ENCOUNTER 2021-08-31 07:37 | Outpatient (REF) | payer MEDICARE, SELFPAY ==
--- NOTE | ~2021-08-31 | CT_ITS ---
EXAMINATION: CT THORACIC SPINE WITHOUT CONTRAST CLINICAL INFORMATION: Back pain in the thoracic region. History of fracture. COMPARISON: Chest CT from 06/09/2021. Limited CT images through the thoracic spine obtained on 07/23/2021. TECHNIQUE: Noncontrast multidetector CT imaging examination of the thoracic spine. Axial images and multiplanar reformatted images are reviewed. This CT examination was performed using dose optimization techniques as appropriate, variously including the following: *Automated exposure control *Adjustment of mA and/or kV according to patient size (this includes techniques or standardized protocols for targeted exams where dose is matched to indication/reason for exam; i.e. extremities or head) *Use of iterative reconstruction technique DLP: 359 mGy-cm FINDINGS: The bones are diffusely osteoporotic. Again noted are old compression fractures and cement augmentation of T10, T11 and T12 vertebral bodies. No cement extrusion. There has been interval development of a T6 vertebral body compression fracture with approximately 40% anterior height loss and 25% posterior height loss. There is no significant retropulsion of the posterior vertebral body wall. A fracture line that involves the superior endplate of T6 contains gas, and small amount of gas also present within the mildly degenerated T5-T6 disc. The thoracic vertebral alignment is maintained. No other new abnormalities within the degenerated thoracic spine. No lytic destructive lesion or paraspinal soft tissue mass. There is degenerative disc disease of the partially visualized lower cervical spine. There is an old L1 vertebral body compression fracture. A fracture line (just inferior to the L1 superior endplate) was present on 06/09/2021. There has been interval development of approximately 20% anterior height loss of the L1 vertebral body. No acute abnormalities in the partially visualized lungs. No pleural effusion or pneumothorax. There is three-vessel coronary artery atherosclerotic calcification. There is atherosclerosis of the thoracic aorta without aneurysm. No pericardial effusion. A precarinal lymph node that measures approximately 1.2 cm AP is unchanged compared to 06/09/2021. No enlarging lymph nodes. CT/CT thoracic spine wo con IMPRESSION: * Bones are diffusely osteoporotic. * Again noted is cement augmentation of prior compression fractures of T10, T11 and T12 vertebral bodies. * Interval development of mild anterior height loss of the previously fractured L1 vertebral body. * Compared to 06/09/2021, there is a new T6 compression fracture with approximately 40% anterior height loss.
== END 2021-08-31 07:38 | disposition home or self-care (01) ==
LOC: HO.CT 07:37
PROVIDERS: Visit Provider Internal Medicine Medical Oncology
DX: S22.070A Wedge compression fracture of T9-T10 vertebra, initial encounter for closed fracture (principal); M81.0 Age-related osteoporosis without current pathological fracture
CPT/HCPCS: 72128

== ENCOUNTER → 2021-09-07 11:05 | Outpatient (BNVA) | payer MEDICARE, SELFPAY | PROVIDERS: PCP Internal Medicine; Visit Provider Hospitalist | DX: J44.9 Chronic obstructive pulmonary disease, unspecified (principal); C34.90 Malignant neoplasm of unspecified part of unspecified bronchus or lung; R59.1 Generalized enlarged lymph nodes; R91.1 Solitary pulmonary nodule | CPT/HCPCS: 99212 ==

== ENCOUNTER 2021-09-10 06:50 | Day surgery (SDC) | payer MEDICARE, SELFPAY ==
[2021-09-09 11:57] VITALS: BMI 23.8
[2021-09-10] VITALS (11 sets, daily range): BP systolic 114–154; BP diastolic 54–77; PULSE 63–115; RESP 18–20; TEMP 36.9–37.1; O2SAT 91–99
--- NOTE | ~2021-09-10 | CT_ITS ---
EXAMINATION: CT THORACIC SPINE WITHOUT CONTRAST (LIMITED) CLINICAL INFORMATION: Acute fracture of T5 and T6. COMPARISON: CT thoracic spine from 08/31/2021. TECHNIQUE: Multidetector helical imaging of a limited dissection of the thoracic spine was obtained from T4-T7 without intravenous contrast. Multiple axial reformats and coronal/sagittal reconstructions were created the technologist workstation for review. This CT examination was performed using dose optimization techniques as appropriate, variously including the following: *Automated exposure control *Adjustment of mA and/or kV according to patient size (this includes techniques or standardized protocols for targeted exams where dose is matched to indication/reason for exam; i.e. extremities or head) *Use of iterative reconstruction technique DLP: 77 mGy-cm FINDINGS: Generalized demineralization. Redemonstrated anterior wedge deformity of the T6 vertebral body with 40% loss of anterior body height and 20% loss of posterior body height. Similar to prior exam, there is a linear region of intraosseous gas beneath the superior endplate of T6. No demonstrated significant retropulsion of the posterior body wall. Mild degenerative disc disease at T5-T6 and T6-T7. No evidence of additional acute fracture or traumatic subluxation. [employer] imaging redemonstrated anterior wedge deformities of T10-L1 with vertebral augmentation cement in place within the T10, T11, and T12 vertebral bodies. Moderate calcific atherosclerotic disease of the visualized aortic arch and descending thoracic aorta. Mild central peribronchial wall thickening. No additional demonstrated significant abnormalities of the visualized structures of the chest. CT/CT thoracic spine wo con IMPRESSION: Anterior wedge deformity of the T6 vertebral body with 40% loss of anterior body height. No significant change compared to exam from 08/31/2021.
--- NOTE | ~2021-09-10 | IR_ITS ---
EXAMINATION: IR THORACIC VERTEBROPLASTY CLINICAL INFORMATION: Acute T6 compression fracture. COMPARISON: CT thoracic spine performed 09/10/2021 and 09/12/2021. TECHNIQUE: Following explaining fluoroscopy-guided bipedicle approach T6 kyphoplasty procedure, benefits and risk, a written consent was obtained. Patient was placed prone on fluoroscopy table and T6 pedicles were localized on the skin. 1% lidocaine was injected at puncture site initially in the right side. A 22-gauge spinal needle was then advanced from the skin to the level of right periosteum of T6 pedicle and 0.25% Sensorcaine injected. Through a small skin incision a 10-gauge Kyphon needle was advanced from the skin to the level of right pedicle and through the pedicle into the posterior one thirds of T6 vertebra. A second 10-gauge needle was advanced in a similar fashion from the left pedicle into the posterior one thirds of T6 vertebra. The stylet was removed and drill introduced to the right followed by left needle and a tract was created. Subsequently high tensile balloons were inserted and inflated to 250 psi for 5 minutes. The balloons were deflated and freshly prepared polymethyl methacrylate was injected through the right needle followed by the left needle under continuous AP, oblique and lateral fluoroscopy. After achieving adequate amount of cement concentration in the T6 vertebra and observing no cement leak, both needles were withdrawn and complete hemostasis achieved at puncture site. FINDINGS: There is moderate compression fracture T6 vertebra approximately 50% loss of vertebral height. There is adequate amount of cement occupying the T6 vertebra with no extravasation identified. The adjacent T5, T7, T8 and T9 vertebra are normal. There is previous cement augmentation of T10, T11 and T12 vertebra for fractures. FLUOROSCOPY TIME: 13.6 minutes DOSE AREA PRODUCT: 1724 uGy-m2 (microgray-meter squared) IR/IR kyphoplasty thoracic IMPRESSION: Successful fluoroscopy-guided bipedicle approach T6 kyphoplasty performed without immediate complications.
--- NOTE | ~2021-09-10 | CT_ITS ---
EXAMINATION: CT THORACIC SPINE CLINICAL INFORMATION: Post kyphoplasty T6. COMPARISON: Thoracic spine CT 09/10/2021. TECHNIQUE: Limited CT of the mid thoracic spine was performed. Multiplanar reformats were rendered and reviewed. This CT examination was performed using dose optimization techniques as appropriate, variously including the following: *Automated exposure control *Adjustment of mA and/or kV according to patient size (this includes techniques or standardized protocols for targeted exams where dose is matched to indication/reason for exam; i.e. extremities or head) *Use of iterative reconstruction technique DLP: 102 mGy-cm FINDINGS: A compression fracture is demonstrated within a thoracic vertebral body which is now status post vertebral augmentation. Cement is seen throughout the anterior and midportion of the vertebral body. There is no extraosseous cement. The alignment appears normal. There is no significant retropulsion. No spinal canal or neural foraminal stenosis is seen on these images. The visualized portions of the lungs are clear. CT/CT thoracic spine post vert IMPRESSION: Status post vertebral augmentation of a fractured thoracic vertebral body. No acute abnormality.
--- NOTE | 2021-09-10 06:55 | P.CONAN_ITS ---
HPI - Anesthesia Eval Consult details Narrative: 81 F p/f kyphoplasty. Medically at baseline; being treated for atrial tachycardia [facility] Active Problems Active Problems: All Active Problems (Updated 09/07/21 @ 21:51 by Rik Kohler MD) COPD (chronic obstructive pulmonary disease) (Acute) Small cell lung carcinoma (Acute) Osteoporosis (Acute) Congestive heart failure (Acute) Elevated brain natriuretic peptide (BNP) level (Acute) Swelling of lower extremity (Acute) Compression fracture of T10 vertebra (Acute) Chronic diastolic (congestive) heart failure (Acute) Limb swelling (Acute) Pulmonary nodule (Acute) Small cell carcinoma (Acute) Cancer (Acute) PVC (premature ventricular contraction) (Acute) Lymphadenopathy (Acute) Past Medical History Medical History Atrial tachycardia Cancer Chronic obstructive pulmonary disease, unspecified COPD (chronic obstructive pulmonary disease) Essential hypertension Hypothyroid Limb swelling Lymphadenopathy Macular degeneration PAC (premature atrial contraction) Pneumonia Port-A-Cath in place Pulmonary nodule PVC (premature ventricular contraction) Small cell carcinoma Family History Family History Father Diabetes Mother Osteoporosis Family history of problems with anesthesia: No Surgical History Surgical History History of kyphoplasty History of surgery History of tonsillectomy and adenoidectomy Hx of cataract extraction History of Problems with Anesthesia: No Social History Social History Household Members: None Housing: House Are you a primary rn home care to a significant other at home: No Do you presently have visiting nurse or other home services: No Patient Tobacco Use Status: Former Tobacco user Quit Date: 17 yrs ago Cigarette Packs Per Day: 2 Years Smoked: 50 years Second Hand Smoke Exposure: No Use of substances other than those prescribed or required for medical reasons: No Are you DNR?: No Advance Directives: Yes Advance Directives on File: Yes Advance Directives Date on File: 05/11/21 service: No Meds Allergies Allergy/AdvReac Type Severity Reaction Status Date / Time peanut Allergy Severe Anaphylaxis Verified 09/10/21 07:22 Tetanus Vaccines and Toxoid Allergy Severe Anaphylaxis Verified 09/10/21 07:22 lovastatin AdvReac Severe Leg Cramps Verified 09/10/21 07:22 pravastatin AdvReac Severe Leg Cramps Verified 09/10/21 07:22 Home Medications Medication Instructions Recorded Confirmed Last Taken Type albuterol sulfate 90 mcg/actuation 2 puff INHALATION Q4-6H PRN 10/02/20 09/01/21 Unknown History aerosol inhaler levothyroxine 50 mcg tablet 50 mcg PO DAILY 10/02/20 09/01/21 07/23/21 06:00 History ibuprofen 200 mg tablet (Motrin IB) 400 mg PO TID PRN 06/09/21 09/01/21 09/07/21 History vit C 250 mg-vit E 200 unit-zinc 1 tab PO BID 06/09/21 09/01/21 Unknown History 12.5 mg-copper 1 [id number] tablet (ICaps AREDS2 (copper citrate)) umeclidinium 62.5 mcg-vilanterol 1 puff INHALATION DAILY 07/23/21 09/01/21 Unknown History 25 mcg/actuation powdr for inhalation (Anoro Ellipta) diltiazem HCl 120 mg 240 mg PO BID 09/01/21 09/01/21 09/07/21 History capsule,extended release 12 hr Exam Exam Date and Time: September 10, 2021 0655 Height,Weight and Vital Signs: Height 5 ft 2 in Weight 58.967 kg Airway Mallampati Class: II TM Dist: >3cm Neck ROM: Full Denture: Upper and Lower Assessment and Plan Assessment Anesthesia Assessment: Anesthesia Plan Discussed and Chart Reviewed Final Anesthetic Review Family History of Problems with Anesthesia: No History of Problems with Anesthesia: No NPO: Yes ASA Class: III Final Preanesthetic Review: No Changes in Pt Med Stat, Meds/Allgs Chart Reviewed, Consent Obtained/Reviewed and Anes Risks/Benef Reviewed Patient Risk: Low Procedure Risk: Low Anesthetic Plan Anesthetic Plan: MAC: Disposition: Standard PACU
[2021-09-10 07:24] LABS: MANUAL DIFF FLAG NO
[2021-09-10 07:27] LABS: Basophils Absolute Auto 0.1 X10*3/uL (0.0-0.2); Basophils Percent Auto 1.5 % (0-2); Eosinophils Percent Auto 0.4 % (0-4); Hematocrit 47.8 % (37.0-47.0); Hemoglobin 15.7 g/dl (12.0-16.0); Imm Gran Abs Auto 0.01 X10*3/uL (0.00-0.03); Imm Gran Pct Auto 0.2 % (0.0-0.4); Lymphocytes Absolute Auto 0.8 X10*3/uL (1.2-4.9); Lymphocytes Percent Auto 16.6 % (20-40); Mean Corpuscular HGB Conc 32.8 g/dl (31.0-35.0); Mean Corpuscular Hemoglobin 29.7 pg (27.0-33.0); Mean Corpuscular Volume 90.4 fL (80.0-98.0); Mean Platelet Volume 10.3 fL (9.4-12.3); Monocytes Absolute Auto 0.6 X10*3/uL (0.1-1.2); Monocytes Percent Auto 12.4 % (2-11); Neutrophils Absolute Auto 3.1 x10*3/uL (2.0-8.3); Neutrophils Percent Auto 68.9 % (45-73); Platelet Count 233 X10*3/uL (160-400); Red Blood Count 5.29 X10*6/uL (4.20-5.50); Red Cell Distribution Width 16.5 % (11.0-16.0); White Blood Count 4.5 X10*3/uL (4.8-10.8)
[2021-09-10 07:46] LABS: Prothrombin Time 10.9 SEC (9.9-13.0)
[2021-09-10 07:49] LABS: Partial Thromboplastin Time 32.6 SEC (24.1-38.0)
== END 2021-09-10 15:05 | disposition home or self-care (01) ==
PROVIDERS: Visit Provider Radiology Diagnostic Radiology
DX: S22.050A Wedge compression fracture of T5-T6 vertebra, initial encounter for closed fracture (principal); M81.0 Age-related osteoporosis without current pathological fracture; R60.0 Localized edema; C34.90 Malignant neoplasm of unspecified part of unspecified bronchus or lung; R59.0 Localized enlarged lymph nodes; I10 Essential (primary) hypertension; J44.9 Chronic obstructive pulmonary disease, unspecified; Z92.3 Personal history of irradiation; Z87.891 Personal history of nicotine dependence; Z79.1 Long term (current) use of non-steroidal anti-inflammatories (NSAID); Z79.899 Other long term (current) drug therapy; Z88.8 Allergy status to other drugs, medicaments and biological substances
CPT/HCPCS: 22513; 36415; 72128; 85025; 85610; 85730; J0690; J2250; J2370; J3010; Q9967

== ENCOUNTER → 2021-09-29 15:01 | Outpatient (BNVA) | payer MEDICARE, SELFPAY | PROVIDERS: PCP Internal Medicine; Visit Provider Internal Medicine | DX: I50.32 Chronic diastolic (congestive) heart failure (principal); I49.3 Ventricular premature depolarization; I47.1 Supraventricular tachycardia | CPT/HCPCS: 99212 ==

== ENCOUNTER → 2021-10-08 12:43 | Outpatient (BNVA) | payer MEDICARE, SELFPAY | PROVIDERS: PCP Internal Medicine; Visit Provider Nurse Practitioner Family | DX: I47.1 Supraventricular tachycardia (principal); I49.3 Ventricular premature depolarization; I50.9 Heart failure, unspecified | CPT/HCPCS: 93005; 99212 ==

== ENCOUNTER 2021-12-03 11:18 | Outpatient (REF) | payer MEDICARE, SELFPAY ==
[2021-12-03 13:21] LABS: MANUAL DIFF FLAG NO
[2021-12-03 13:27] LABS: Basophils Percent Auto 0.9 % (0-2); Eosinophils Percent Auto 0.7 % (0-4); Hematocrit 51.4 % (37.0-47.0); Hemoglobin 16.4 g/dl (12.0-16.0); Lymphocytes Absolute Auto 0.5 X10*3/uL (1.2-4.9); Lymphocytes Percent Auto 12.3 % (20-40); Mean Corpuscular HGB Conc 31.9 g/dl (31.0-35.0); Mean Corpuscular Hemoglobin 30.1 pg (27.0-33.0); Mean Corpuscular Volume 94.3 fL (80.0-98.0); Monocytes Absolute Auto 0.5 X10*3/uL (0.1-1.2); Monocytes Percent Auto 11.6 % (2-11); Neutrophils Absolute Auto 3.2 x10*3/uL (2.0-8.3); Neutrophils Percent Auto 74.5 % (45-73); Platelet Count 197 X10*3/uL (160-400); Red Blood Count 5.45 X10*6/uL (4.20-5.50); Red Cell Distribution Width 14.7 % (11.0-16.0); White Blood Count 4.3 X10*3/uL (4.8-10.8)
[2021-12-03 14:00] LABS: Estimated Average Glucose 117 mg/dL; Hemoglobin A1c % 5.7 %
[2021-12-03 14:01] LABS: B Type Natriuretic Peptide 451 pg/mL (<100)
[2021-12-03 14:12] LABS: Alanine Aminotransferase 35 U/L (0-31); Albumin Level 4.1 g/dL (3.5-5.0); Alkaline Phosphatase 60 U/L (39-117); Anion Gap 15 (12-20); Aspartate Amino Transferase 40 U/L (5-31); Blood Urea Nitrogen 9 mg/dL (9-16); Calcium 9.5 mg/dL (8.4-10.2); Carbon Dioxide 29 mmol/L (22-29); Chloride 102 mmol/L (96-108); Cholesterol 222 mg/dL; Estimated Glomerular Filt Rate > 60; Glucose Random 105 mg/dL (60-115); HDL Cholesterol 71 mg/dL; LDL Cholesterol Calculated 131 mg/dl; Potassium 3.9 mmol/L (3.3-5.1); Sodium 142 mmol/L (135-145); Total Protein 6.9 g/dL (6.5-8.0); Triglycerides 103 mg/dL; Uric Acid 5.4 mg/dL (2.4-5.7)
[2021-12-03 14:25] LABS: Free T4 (Free Thyroxine) 1.29 ng/dL (0.71-1.85); Thyroid Stimulating Hormone 1.19 uIU/mL (0.32-4.0); Vitamin D 25-OH Total 25.4 ng/mL (>30)
[2021-12-03 14:43] LABS: Folate 7.3 ng/mL (> or = 4.0); Vitamin B12 296 pg/mL (200-900)
== END 2021-12-03 11:19 | disposition home or self-care (01) ==
LOC: HO.10HDL 11:18
PROVIDERS: Visit Provider Internal Medicine
DX: E78.00 Pure hypercholesterolemia, unspecified (principal); G62.9 Polyneuropathy, unspecified
CPT/HCPCS: 36415; 80053; 80061; 82306; 82607; 82746; 83036; 83880; 84439; 84443; 84550; 85025

== ENCOUNTER 2021-12-17 13:13 | Outpatient (REF) | payer MEDICARE, SELFPAY ==
--- NOTE | 2021-12-17 17:26 | PFT_ITS ---
INDICATION: Dyspnea. SPIROMETRY: FEV1 to FVC of 49% with FEV1 of 0.71 L, which is 37% predicted and an FVC of 1.45 L, which is 56% predicted. No significant response to bronchodilators noted. The patient's small airways are significantly decreased at 18% predicted. Maximum voluntary ventilation 37% predicted. LUNG VOLUMES: Total lung capacity 92% predicted with a residual volume 130% predicted. DIFFUSION CAPACITY: DLCO 42% predicted. COMPARISONS: None available. INTERPRETATION: There is an obstructive ventilatory defect consistent with severe COPD. No significant response to bronchodilators noted. Significant small airways disease noted. Severe decrease in maximum voluntary ventilation secondary to deconditioning and also worsening dynamic inspiratory capacity. Lung volumes demonstrate significant air trapping due to the COPD and there is also severe diffusion impairment. Clinical correlation warranted. Rik Kohler MD MR/MODL / [id number]
== END 2021-12-17 13:14 | disposition home or self-care (01) ==
LOC: HO.RESP 13:13
PROVIDERS: PCP Internal Medicine; Visit Provider Hospitalist
DX: R06.00 Dyspnea, unspecified (principal); J44.9 Chronic obstructive pulmonary disease, unspecified
CPT/HCPCS: 94060; 94727; 94729

== ENCOUNTER → 2021-12-23 14:12 | Outpatient (BNVA) | payer MEDICARE, SELFPAY | PROVIDERS: PCP Internal Medicine; Visit Provider Nurse Practitioner Family | DX: I47.1 Supraventricular tachycardia (principal); I49.3 Ventricular premature depolarization; I50.9 Heart failure, unspecified; I49.1 Atrial premature depolarization; I42.9 Cardiomyopathy, unspecified | CPT/HCPCS: 99212 ==

== ENCOUNTER 2022-01-01 09:50 | Outpatient (REF) | payer MEDICARE, SELFPAY | END 2022-01-01 09:51 | disposition home or self-care (01) | LOC: HO.XRAY 09:50 | PROVIDERS: PCP Internal Medicine; Visit Provider Internal Medicine | DX: Z13.89 Encounter for screening for other disorder (principal) ==

== ENCOUNTER 2022-01-06 13:00 | Outpatient (RCR) | payer MEDICARE, SELFPAY ==
[2021-12-21 13:00] VITALS: BP 152/73; PULSE 94
--- NOTE | 2021-12-21 14:01 | MHC.PT.EP ---
[facility] [place] Office [place] Office [place] Office [address] Kyle Whitten [address] [phone] F: [phone] F: [phone] F: [phone] F: [phone] Physical Therapy Plan of Care Date of Evaluation: Date of Surgery: 09/10/21 Diagnosis: Wedge compression fracture of T9 and T10 vertebra, initial encounter for closed fracture Assessment: Lora is a 81 year old female who is referred to PT for Wedge compression fracture of T9 and T10 vertebra, initial encounter for closed fracture . She has had 3 cement surgery- at T6, T10-11, T11-12 level. Her last surgery was on 09/10/21. On PT examination she reported of having 6/10 soreness in her back, no TTP, decreased trunk and B shoulder ROM, decreased muscle strength, altered posture, and gait. Due to these impairments she notes of increased fatigue with standing and walking, and tiredness with ADLS requiring her to lift heavy weights. She is retired. She is a good candidate for PT based on her age, goals, structural impairments and functional limitations. She would benefit from skilled PT to address the aforementioned impairments and improve tolerance to functional activities. Frequency and Duration: The patient will be seen 2/week for 5 weeks Short Term Goals: 1. Pt will have 50% decrease in pain which will enable her to stand and cook in 2 weeks 2. Pt will be able to move trunk through all planes of motion without limitation in 3 weeks Shelter Goals: 1. Pt will be demonstrate an increase in muscle strength by 1 grade which will enable her to carry weights in 4 weeks. 2. Pt will be independent with HEP for symptom management and maintenance following d/c in 5 weeks. Treatment Plan: Modalities to reduce pain, spasms and effusion. Manual therapy to restore motion and function. Therapeutic exercise to improve strength and flexibility. Neuromuscular re-education for posture and balance. Therapeutic activities to return to functional activities of daily living. Electronically signed by: Estefania Slater PT DPT Please sign and return to therapist. Thank you for your referral.
--- NOTE | 2022-02-04 08:17 | MHC.PT.DC ---
[facility] [place] Office [place] Office [place] Office [address] Kyle Whitten [address] [phone] F: [phone] F: [phone] F: [phone] F: [phone] Physical Therapy Discharge Report Diagnosis: Wedge compression fracture of T9 and T10 vertebra, initial encounter for closed fracture Date of Surgery: 09/10/21 Date of Evaluation: 12/21/21 Date of Discharge: 02/04/22 Treatments to Date: 0 Cancellations to Date: 2 No Shows to Date: Discharge Status: Discharge Summary: Lora has been having difficulty breathing and other health issues. Due to this PT has been d/c and she was advised to perform her HEP as tolerated for her back pain. Electronically signed by: Estefania Slater PT DPT Please sign and return to therapist. Thank you for your referral.
== END 2022-02-04 08:17 | disposition home or self-care (01) ==
LOC: HO.PT 13:00
PROVIDERS: PCP Internal Medicine; Visit Provider Internal Medicine
DX: S22.070D Wedge compression fracture of T9-T10 vertebra, subsequent encounter for fracture with routine healing (principal)
CPT/HCPCS: 97110; 97112; 97161

== ENCOUNTER → 2022-01-08 12:33 | Outpatient (BNVA) | payer MEDICARE, SELFPAY | PROVIDERS: PCP Internal Medicine; Visit Provider Hospitalist | DX: J41.8 Mixed simple and mucopurulent chronic bronchitis (principal); R91.1 Solitary pulmonary nodule; R59.1 Generalized enlarged lymph nodes; C34.90 Malignant neoplasm of unspecified part of unspecified bronchus or lung | CPT/HCPCS: 99212 ==

== ENCOUNTER → 2022-01-19 13:51 | Outpatient (BNVA) | payer MEDICARE, SELFPAY | PROVIDERS: PCP Internal Medicine; Referring Provider Internal Medicine; Visit Provider Nurse Practitioner Family | DX: R06.00 Dyspnea, unspecified (principal); R00.0 Tachycardia, unspecified; I49.3 Ventricular premature depolarization; I49.1 Atrial premature depolarization; I50.32 Chronic diastolic (congestive) heart failure; I42.9 Cardiomyopathy, unspecified; I10 Essential (primary) hypertension; J44.9 Chronic obstructive pulmonary disease, unspecified; Z87.891 Personal history of nicotine dependence; Z88.7 Allergy status to serum and vaccine; Z88.8 Allergy status to other drugs, medicaments and biological substances; Z91.010 Allergy to peanuts; Z79.899 Other long term (current) drug therapy | CPT/HCPCS: 99212 ==

== ENCOUNTER 2022-01-21 10:48 | Outpatient (REF) | payer MEDICARE, SELFPAY ==
--- NOTE | ~2022-01-21 | CT_ITS ---
EXAMINATION: CT CHEST WITHOUT CONTRAST CLINICAL INFORMATION: Generalized enlarged lymph nodes COMPARISON: Previous chest CT May 2021 TECHNIQUE: Multidetector volumetric CT imaging of the chest was done. Axial MIP volume rendering provided. Sagittal and coronal reformatted images were obtained. This CT examination was performed using dose optimization techniques as appropriate, variously including the following: *Automated exposure control *Adjustment of mA and/or kV according to patient size (this includes techniques or standardized protocols for targeted exams where dose is matched to indication/reason for exam; i.e. extremities or head) *Use of iterative reconstruction technique DLP: 120 mGy-cm FINDINGS: LUNGS: There are several small clustered 1 to 2 mm nodules in the left upper lobe for example axial image 128 and 153 series 7. This is similar to previous exam. There is slight soft tissue thickening seen surrounding the right mainstem bronchus. Similar to previous exam as well. No endobronchial or endotracheal lesion is seen. MEDIASTINUM: No enlarged mediastinal lymph nodes are seen. Evaluation for hilar adenopathy is limited without contrast. The heart is upper normal in size. There is a small pericardial effusion. This is similar to previous exam. There is coronary artery calcification. Thoracic aorta is normal in caliber. There is a left jugular port with tip projecting over the SVC. PLEURA: There is a new small right pleural effusion. There is no left pleural effusion. AXILLA: There is a subcutaneous nodule in the left posterior lateral chest wall measuring 1.6 cm. This is low in attenuation and may represent a sebaceous cyst or epidermoid. This is gradually increasing in size compared to older exams. No breast mass or enlarged axillary lymph nodes. UPPER ABDOMEN: Unremarkable. OSSEOUS STRUCTURES: There are kyphoplasty changes of the T6, T10 and T11 and T12 vertebral bodies. T6 and T10 kyphoplasty changes are new in the interval from May 2021. There is increased sclerosis of the T7 vertebral body and mild compression fracture. It is uncertain whether this represents a benign or pathologic compression fracture. There is a new mild compression fracture of the inferior endplate of the T5 vertebral body as well. There is a mild compression fracture of the superior endplate of the L1 vertebral body that is new CT/CT chest wo con IMPRESSION: No hilar or mediastinal adenopathy. Stable small left upper lobe nodules. Stable prominent soft tissue surrounding the right mainstem bronchus. Atherosclerotic disease. Stable small pericardial effusion. New small right pleural effusion. Multiple vertebral body compression fractures and kyphoplasty changes as described above. It is uncertain whether a new T7 vertebral body compression fracture could represent a pathologic fracture or represents a benign compression fracture.. Fleischner guidelines were followed.
== END 2022-01-21 10:49 | disposition home or self-care (01) ==
LOC: HO.CT 10:48
PROVIDERS: Visit Provider Hospitalist
DX: C34.90 Malignant neoplasm of unspecified part of unspecified bronchus or lung (principal); R59.1 Generalized enlarged lymph nodes
CPT/HCPCS: 71250

== ENCOUNTER 2022-02-01 10:09 | Outpatient (REF) | payer MEDICARE, SELFPAY ==
--- NOTE | ~2022-02-01 | FL_ITS ---
EXAMINATION: FL UPPER GI AIR WITH BARIUM SWALLOW CLINICAL INFORMATION: Dysphagia. COMPARISON: None TECHNIQUE: Routine upper GI air-contrast study was performed in upright and lying position. In addition, barium-coated turkey was administered orally in upright standing view. FINDINGS: Following oral administration of thick barium and effervescent granules in upright view, there is normal propagation of bolus from the oral cavity through the pharynx, esophagus into the stomach without any evidence of obstruction, narrowing or stricture. On placing patient supine and prone lying, the course, caliber and peristalsis of the stomach, duodenal bulb and sweep are normal. The mucosal pattern of the esophagus, stomach and the duodenum is normal. There is no gastroesophageal reflux or hiatal hernia. On oral administration of thick barium in upright view, there is normal but slow propagation of solid food such as turkey with barium from the oral cavity through the pharynx, esophagus into stomach. No esophageal obstruction seen. FL/FL upper GI w air w Ba Swallow IMPRESSION: Unremarkable upper GI exam. Unremarkable barium swallow with thick barium and barium-coated turkey.
--- NOTE | 2022-02-01 11:15 | CA_ITS ---
Transthoracic Echocardiogram Patient (Last, First, Middle): Lora Meadows E Gender: Female Date of : 1940 Age: 82 Procedure Date: 02/01/2022 Procedure Type: Transthoracic Echocardiogram Location: OP Height: 162.56 cm Weight: 58.97 kg BSA: 1.63 m2 Heart Rate: bpm BP: 142 / 70 mmHg Health And Safety Inspector: YR/TO Referring MD: Melissa Ocasio CASINO MANAGERMoodyC Symptoms: I42.9 - Cardiomyopathy, unspecified Study Quality: Fair ECG Rhythm: Sinus, PACs Conclusions: - The left ventricular systolic function is mildly decreased. The calculated ejection fraction is 49% by biplane method - There is mild calcification of the aortic valve. - There is moderate mitral annular calcification. - There is a small pericardial effusion. Findings Left Ventricle Normal left ventricular cavity size. There is normal left ventricular wall thickness. The left ventricular systolic function is mildly decreased. The calculated ejection fraction is 49% by biplane method. There is mild global hypokinesis. Evidence suggests grade I (mild) diastolic dysfunction. Right Ventricle Normal right ventricular cavity size and systolic function. Atria Both atria are normal in size. Aortic Valve There is a normal trileaflet aortic valve. There is mild calcification of the aortic valve. There is no aortic valve stenosis. There is trace (trivial) aortic valve regurgitation. Mitral Valve There is moderate mitral annular calcification. There is trace mitral valve regurgitation. There is no mitral valve stenosis. Pulmonic Valve The pulmonic valve is likely normal. Tricuspid Valve Normal tricuspid valve structure. There is no tricuspid valve regurgitation. The pulmonary artery systolic pressure is normal. Great Vessels The aortic annulus, sinuses of valsalva, and asc aorta are normal in size. Venous The inferior vena cava is normal in size and collapses greater than 50% with inspiration. Pericardium/Pleural There is a small pericardial effusion. Prior Study Comparison Changes noted compared to prior study dated: 06/10/2021. LVEF slightly higher. Pericardial effusion with minimal increase in size. Measurements 2D Linear Measurements IVSd: 0.94 0.6-0.9/0.6-1.0 cm LVIDd: 5.08 3.9-5.3/4.2-5.9 cm LVIDd Index: 3.12 2.4-3.2/2.2-3.1 cm/m2 LVIDs: 3.96 2.0-3.6 cm LVPWd: 0.95 0.7-1.1 cm LA Diam: 4.80 2.7-3.8/3.0-4.0 cm LAIDs Index: 2.94 1.5-2.3 cm/m2 LV Mass: 214.75 67-162/88-224 g LV Mass Index: 131.75 43-95/49-115 g/m2 LVOT Diam: 2.10 3.0+(-)1.3 cm 2D Systolic Function EF 4C: 48.40 >55% EF 2C: 46.70 >55% EF BiP: 48.60 >55% Aortic Valve AoV Pk Lenin: 1.42 AoV Mn Lenin: 0.94 AoV VTI: 0.27 AoV Pk Grad: 8.00 Aov Mn Grad: 4.00 VITA Cont.VTI: 1.91 LVOT LVOT Pk Lenin: 0.79 LVOT Mn Lenin: 0.57 LVOT VTI: 0.15 LVOT Pk Grad: 2.00 LVOT Mn Grad: 1.00 LVOT Diam: 2.10 LVOT Area: 3.46 Right Ventricle TAPSE (mm): 22.20 TVS' Lenin: 15.60 Tricuspid Valve RA Press: 3.00 Great Vessels Aorta Ao Asc: 2.90 2.1-3.4 cm Updated in Other Vendor System with Status of Final Dougie Suazo MD electronically signed on 02/02/2022 11:50:53 AM with status of Final
== END 2022-02-01 10:10 | disposition home or self-care (01) ==
LOC: HO.XRAY 10:09
PROVIDERS: Visit Provider Nurse Practitioner Family
DX: R13.10 Dysphagia, unspecified (principal); I42.9 Cardiomyopathy, unspecified
CPT/HCPCS: 74246; 93306

== ENCOUNTER → 2022-02-16 10:31 | Outpatient (BNVA) | payer MEDICARE, SELFPAY | PROVIDERS: PCP Internal Medicine; Visit Provider Hospitalist | DX: J41.8 Mixed simple and mucopurulent chronic bronchitis (principal); R59.1 Generalized enlarged lymph nodes; C34.90 Malignant neoplasm of unspecified part of unspecified bronchus or lung; I47.1 Supraventricular tachycardia; R91.1 Solitary pulmonary nodule | CPT/HCPCS: 94618; 99212 ==

== ENCOUNTER 2022-02-18 13:00 | Outpatient (RCR) | payer MEDICARE, SELFPAY ==
[2020-11-27 09:06] VITALS: BP 161/70; PULSE 98; RESP 18; TEMP 36.9; O2SAT 96; BMI 28.2
--- NOTE | 2020-11-27 09:15 | P.CNHO_ITS ---
Subjective - Subjective Chief complaint: Consult for: Small cell cancer. Patient: new to practice Consult date: 11/27/20 Requesting Physician: Rik Kohler Primary Care Provider: Ina Kc MD Medical Summary: DIAGNOSIS: SMALL CELL CARCINOMA OF THE LUNG. HPI - Consult Narrative Reason for consult: CONSULT FOR SMALL CELL CARCINOMA OF THE LUNG. Narrative: Lora Meadows is a pleasant 80 year old lady, with a known history of COPD history of tobacco use in the past and quit 15 years ago. In September 2019, she started developing worsening shortness of breath and she went to an urgent care. She was found to be hypoxic and she was admitted to [facility] which was placed on oxygen. She also required BiPAP briefly.She was then given a diagnosis of COPD exacerbation. Patient has been followed closely there. She started pulmonary rehabilitation as an outpatient 3 times a week. She was able to get off the oxygen. Subsequently, COVID was discovered, in October. So looking back she must have had that infection. She had some lingering symptoms over the past year. She saw Dr. Gifford, for allergies/sinus infection. He referred her to Dr. Kohler. In May, she presented to Pulmonary with significant shortness of breath with minimal activity. She also feels significant palpitations. In the office, a brief walking oximetry was done. She maintain initially a pulse ox above 90% but then at the end of the walk she became very short of breath and dyspneic. She did desaturate below 88% and heart rate was 150 beats per minute. It appeared to be irregular. EKG revealed sinus tach with multiple PVCs along with what appears to be ST depressions in the precordial lateral leads and also in the inferior leads. The patient denied chest pain at the time, denied any palpitations at this time. ER referral was offered, with her abnormal EKG, but she did not want to do that. She was advised to take aspirin on a daily basis and was referred for urgent cardiac consultation. She was under the care of Dr. Suazo. 07/03/2020 she was seen by pulmonary. Overall she felt better. She seem to be responding to the inhaler. She stated that she does get episodes of the shortness of breath and tachycardia. She did undergo a CT scan of the chest which revealed: Mediastinal adenopathy. There is a 2.5 cm lymph node in the subcarina. There is an enlarged pretracheal retro vascular lymph node and a right pretracheal lymph node. 1.3 cm peripherally calcified nodule in the right lobe of thyroid. Impression: 1. No evidence of pulmonary embolism. 2. Mediastinal lymphadenopathy. Significant lymphadenopathy with a station 7 lymph node measuring more than 3 cm and station 4R lymph node measuring 2.5 cm. It was explained to her that this is concerning because of the size. She was recovering from her cardiac issues and was being worked up from a cardiac standpoint regarding the tachyarrhythmia. Therefore, it was deemed reasonable to wait. The plan was if the patient developed any constitutional symptoms of any concern or new symptom whatsoever she was to call back and then consider sampling this lymph nodes sooner rather later. To proceed with transbronchial needle aspiration via EBUS . 10/02/2020 the patient went for pulmonary follow-up. Overall she felt a lot better. Her respiratory status had improved dramatically. She was able to do the activities of daily living including laundry and going up and down the stairs. She would get a little winded but not much. Her pulse ox was stable. In the meantime she did have a repeat CT scan of the chest to assess her lymphadenopathy. It appeared that the lungs were expanding just fine. She had a small 2 mm calcified nodule still. However, she continued to have enlarged medi astinal lymph nodes. These were pretty much unchanged from 3 months prior. Therefore the different ial including malignancy/ lymphoma, were discussed. At this point she was willing to undergo a endobronchial ultrasound bronchoscopy. However, because of the pandemic it was pushed out. 11/26/2020 the patient had a telephone visit. She is status post bronchoscopy with endobronchial ultrasound transbronchial needle aspirations. Initially sampling the station 4R and also station 7. Indeed she did have some lesional cells concerning for malignancy. We did call pathology to get further data but the immunohistochemical stainings are still pending. This point the patient has cancer within unclear primary. The immunohistochemical stainings are consistent with small cell cancer. I did talk to the patient she is aware of the findings. 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 REVIEW OF SYSTEMS: She denies easy fatigability. No fever nor chills. Her appetite is way too good. Her weight has been stable. After her stay at [facility] she lost about 12 lb but she was able to regain it over the past year. She used to get headaches but not any more. No dizziness. She denies chest pain. She gets shortness of breath but she attributes that to her allergies. No cough nor sputum. She denies abdominal pain nausea vomiting heartburn indigestion. Her bowels are working without any gross blood in it. She enjoys a good appetite. Weight is stable. She has frequency of micturition. The patient denies any major joint pain however she does complain of significant back pain. Moderate severity. Sometimes radiating into her left hip Denies any focal weakness. Denies depression. . Review of Systems - Constitutional Reports system reviewed and no additional complaints, except as documented, Den ies night sweats, Denies weakness, Denies weight loss - Eyes Reports system reviewed and no additional complaints, except as documented - ENT Reports system reviewed and no additional complaints, except as documented - Cardiovascular Reports system reviewed and no additional complaints, except as documented, Reports shortness of breath, Denies chest pain at rest, Denies chest pain with activity - Respiratory Reports no additional respiratory complaints, Denies cough - Gastrointestinal Reports system reviewed and no additional complaints, except as documented, Maxx es abdominal pain, Denies black, tarry stools - Genitourinary Reports no additional female genitourinary complaints, Denies abnormal periods - Musculoskeletal Reports system reviewed and no additional complaints, except as documented, Reports back pain, Denies abnormal walking - Integumentary/Breasts Skin/Breast: Reports no additional skin complaints - Neurologic Reports system reviewed and no additional complaints, except as documented - Psychiatric Reports system reviewed and no additional complaints, except as documented - Endocrine Reports no additional endocrine complaints - Hematologic/Lymphatic Reports system reviewed and no additional complaints, except as documented - Allergic/Immunologic Reports system reviewed and no additional complaints, except as documented PMFSH Medical History: Medical History (Last Updated 11/26/20 @ 18:36 by Rik Kohler MD) Atrial tachycardia Cancer Chronic obstructive pulmonary disease, unspecified Essential hypertension Hypothyroid Lymphadenopathy Macular degeneration PAC (premature atrial contraction) Pneumonia PVC (premature ventricular contraction) Small cell carcinoma Functional capacity: independent ambulation Patient : No Family History: Family History (Last Reviewed 11/19/20 @ 09:00 by Luis Martínez MD) Father No problems noted. Mother No problems noted. Surgical History: Surgical History (Last Reviewed 11/19/20 @ 09:00 by Luis Martínez MD) History of tonsillectomy and adenoidectomy Hx of cataract extraction Social History: Social History (Last Updated 11/27/20 @ 09:26 by Riya Livingston RN) Tobacco History: Smoking Status: Former smoker Tobacco Type: Cigarette Smokeless Tobacco Use: Former smokeless tobacco user: Yes Packs Per Day: 2 Years Smoked: 50 years Smoked in Last 30 Days: No Smoking Quit Date: 15 years ago Nutrition Assessment: Patient : No Home Medications and Allergies Home Medications Medication Instructions Recorded Confirmed Type B-complex with vitamin C 1 tab PO DAILY 10/02/20 11/27/20 History albuterol sulfate 90 mcg/actuation 2 puff INHALATION Q4-6H PRN 10/02/20 11/27/20 History aerosol inhaler levothyroxine 50 mcg tablet 50 mcg PO DAILY 10/02/20 11/27/20 History multivitamin 1 tab PO DAILY 10/02/20 11/27/20 History vit C 250 mg-vit E 200 unit-zinc 1 cap PO BID 10/22/20 11/27/20 History ox 12.5 kt-dmcjxb-lreffa-zeax capsule cholecalciferol (vitamin D3) 25 mcg PO DAILY 11/12/20 11/27/20 History [Vitamin D3] uyuansgjyds-thhznrkjs-seraitdu 1 inh INHALATION DIRECTED 11/12/20 11/27/20 History [Trelegy Ellipta] Allergies Allergy/AdvReac Type Severity Reaction Status Date / Time peanut Allergy Severe Anaphylaxis Verified 11/26/20 18:33 Tetanus Vaccines and Toxoid Allergy Severe Anaphylaxis Verified 11/26/20 18:33 lovastatin AdvReac Severe Leg Cramps Verified 11/26/20 18:33 pravastatin AdvReac Severe Leg Cramps Verified 11/26/20 18:33 Physical Exam Vital signs: Vital Signs Temp 98.4 F 11/27/20 09:06 Pulse 98 11/27/20 09:06 Resp 18 11/27/20 09:06 BP 161/70 H 11/27/20 09:06 Pulse Ox 96 11/27/20 09:06 Intake & Output 11/26/20 11/27/20 11/27/20 18:59 06:59 18:59 Other: Weight 74.6 kg Weight 74.6 kg - Constitutional Present: no acute distress - Routine HEENT Exam Head: Present: normal inspection ENT: Present: mucous membranes moist - Routine Neck Exam Present: supple - Routine Respiratory Exam Present: CTAB - Routine Cardiovascular Exam Cardiovascular: Present: RRR, S1, S2 - Routine Abdominal Exam Present: normal bowel sounds, nontender - Routine Rectal Exam Patient deferred: digital exam - Routine Extremities Exam Present: nontender - Routine Skin Exam Present: intact - Routine Neurological Exam Present: alert, oriented X3 - Detailed Neurological Exam: Coma Scale Eye Opening: Spontaneous (4) Verbal Response: Oriented (5) Motor Response: Obeys commands (6) Brandi Coma Scale Total: 15 - Routine Psychiatric Exam Present: normal affect Hem/Onc Consult Result - Labs CBC & Chem 7: 11/27/20 10:05 11/27/20 10:05 Assessment and Plan (1) Small cell carcinoma Status: Acute This is a pleasant 80-year-old lady, with recent diagnosis of small cell carcinoma of the lung. She underwent EBUS on November 19. Pathology: Station 4 lymph node: Negative. Station 7 lymph node: Positive for malignant cells consistent with small-cell carcinoma. Immuno stains: Positive for synaptophysin, chromogranin, CD 56 and ann cytokeratin. Negative for chromogranin and CD 45. I shared the details of the pathology with her today. I went over the disease course and treatment options including systemic chemotherapy, with or without radiation based upon her exact stage. PLAN: To proceed with staging workup. I will check baseline labs including LDH which is a tumor marker for small cell. (199.) Will check a PET scan to see if there is any evidence of metastatic disease especially with history of chronic back and hip pain. Will check MRI of the brain, to look for any possible brain metastases. She will return in a couple of weeks for a follow-up visit. Will decide about treatment based upon the above workup. Thank you, CC: Dr. Ina Kc. Dr. Rik Kohler.
[2020-11-27 10:10] LABS: MANUAL DIFF FLAG NO
[2020-11-27 10:19] LABS: Basophils Absolute Auto 0.1 X10*3/uL (0.0-0.2); Basophils Percent Auto 0.6 % (0-2); Eosinophils Percent Auto 0.4 % (0-4); Hematocrit 44.9 % (37-47); Hemoglobin 15.2 g/dl (12.0-16.0); Imm Gran Abs Auto 0.03 X10*3/uL (0.00-0.03); Imm Gran Pct Auto 0.4 % (0.0-0.4); Lymphocytes Absolute Auto 1.5 X10*3/uL (1.2-4.9); Lymphocytes Percent Auto 19.3 % (20-40); Mean Corpuscular HGB Conc 33.9 g/dl (31.0-35.0); Mean Corpuscular Hemoglobin 31.3 pg (27.0-33.0); Mean Corpuscular Volume 92.4 fL (80-98); Mean Platelet Volume 10.9 fL (9.4-12.3); Monocytes Absolute Auto 0.7 X10*3/uL (0.1-1.2); Monocytes Percent Auto 8.7 % (2-11); Neutrophils Absolute Auto 5.6 X10*3/uL (2.0-8.3); Neutrophils Percent Auto 70.6 % (45-73); Platelet Count 233 X10*3/uL (160-400); Red Blood Count 4.86 X10*6/uL (4.20-5.50); Red Cell Distribution Width 13.2 % (11.0-16.0)
--- NOTE | 2020-11-27 10:38 | MHC.HEMONCSW ---
KARLIE BLUNT FAXED MD ORDERS/CLINICALS FOR SCAN 12/02/20. MEDICARE INSURANCE. THEY WILL SCHEDULE PATIENT.
--- NOTE | 2020-11-27 10:39 | MHC.HEMONCSW ---
MRI BRAIN W&WO C IS PLACED IN O.F FOR ONE WEEK.
[2020-11-27 10:53] LABS: Alanine Aminotransferase 54 U/L (0-31); Albumin Level 4.3 g/dL (3.5-5.0); Alkaline Phosphatase 69 U/L (39-117); Anion Gap 15 (12-20); Aspartate Amino Transferase 36 U/L (5-31); Bilirubin Total 0.6 mg/dL (0.0-1.0); Blood Urea Nitrogen 13 mg/dL (9-16); Calcium 9.4 mg/dL (8.4-10.2); Carbon Dioxide 27 mmol/L (22-29); Chloride 101 mmol/L (96-108); Creatinine Clr Calc Pharmacy 64.4; Estimated Glomerular Filt Rate > 60; Glucose Random 125 mg/dL (60-115); Lactate Dehydrogenase 199 U/L (122-220); Potassium 4.1 mmol/L (3.3-5.1); Sodium 139 mmol/L (135-145); Total Protein 7.3 g/dL (6.5-8.0)
--- NOTE | 2020-11-27 15:39 | MHC.HEMONC ---
Oncology consult completed. Plan for MRI and PET scan. Cynthia given order for PA. Follow up in two weeks. Labs obtained. Patient prefers [facility] Radiation if possible.
--- NOTE | 2020-11-27 16:15 | MHC.HEMONCSW ---
PATIENT IS A SINGLE 80 YEAR OLD FEMALE. INDEPENDENT, ABLE TO MAKE NEEDS KNOWN. DIAGNOSIS IS LUNG CANCER. REPORTS COPING FAIRLY WELL BECAUSE MD TOLD HER IT IS TREATABLE RESIDES ALONE, NO CHILDREN. HAS A BEST FRIEND WHO IS ALSO A HEALTH CARE PROXY MEDICAL WORK UP CONTINUES. TREATMENT WILL DEPEND ON OUTCOME. REASSURANCE, GUIDANCE, EDUCATION AND SUPPORT PROVIDED. SHE IS AWARE OF MY AVAILABILITY.
[2020-12-16 14:24] VITALS: BP 140/82; PULSE 110; RESP 12; TEMP 37.6; O2SAT 92; BMI 28.1
--- NOTE | 2020-12-16 15:01 | P.PNHO_ITS ---
Medical Summary - Medical Summary Date of Service: 12/16/20 Date of Service: 12/16/20 Chief complaint: F/U for Small cell Lung Cancer Medical Summary: DIAGNOSIS: SMALL CELL CARCINOMA OF THE LUNG. Undergoing staging work up. Interval History Interval history: Lora Meadows is a pleasant 80 year old lady, here for a follow up visit. She has had a pain, on the right side of chest, into the shoulder, into the muscles of the spine, into the back of leg. She had the MRI of the brain which was negative. Unfortunately, the PET scan got resheduled, two weeks in a row, on account of the weather. Previous History: with a known history of COPD history of tobacco use in the past and quit 15 years ago. In September 2019, she started developing worsening shortness of breath and she went to an urgent care. She was found to be hypoxic and she was admitted to [facility] which was placed on oxygen. She also required BiPAP briefly.She was then given a diagnosis of COPD exacerbation. Patient has been followed closely there. She started pulmonary rehabilitation as an outpatient 3 times a week. She was able to get off the oxygen. Subsequently, COVID was discovered, in October. So looking back she must have had that infection. She had some lingering symptoms over the past year. She saw Dr. Gifford, for allergies/sinus infection. He referred her to Dr. Kohler. In May, she presented to Pulmonary with significant shortness of breath with minimal activity. She also feels significant palpitations. In the office, a brief walking oximetry was done. She maintain initially a pulse ox above 90% but then at the end of the walk she became very short of breath and dyspneic. She did desaturate below 88% and heart rate was 150 beats per minute. It appeared to be irregular. EKG revealed sinus tach with multiple PVCs along with what appears to be ST depressions in the precordial lateral leads and also in the inferior leads. The patient denied chest pain at the time, denied any palpitations at this time. ER referral was offered, with her abnormal EKG, but she did not want to do that. She was advised to take aspirin on a daily basis and was referred for urge nt cardiac consultation. She was under the care of Dr. Suazo. 07/03/2020 she was seen by pulmonary. Overall she felt better. She seem to be responding to the inhaler. She stated that she does get episodes of the shortness of breath and tachycardia. She did undergo a CT scan of the chest which revealed: Mediastinal adenopathy. There is a 2.5 cm lymph node in the subcarina. There is an enlarged pretracheal retro vascular lymph node and a right pretracheal lymph node. 1.3 cm peripherally calcified nodule in the right lobe of thyroid. Impression: 1. No evidence of pulmonary embolism. 2. Mediastinal lymphadenopathy. Significant lymphadenopathy with a station 7 lymph node measuring more than 3 cm and station 4R lymph node measuring 2.5 cm. It was explained to her that this is concerning because of the size. She was recovering from her cardiac issues and was being worked up from a cardiac standpoint regarding the tachyarrhythmia. Therefore, it was deemed reasonable to wait. The plan was if the patient developed any constitutional symptoms of any concern or new symptom whatsoever she was to call back and then consider sampling this lymph nodes sooner rather later. To proceed with transbronchial needle aspiration via EBUS . 10/02/2020 the patient went for pulmonary follow-up. Overall she felt a lot better. Her respiratory status had improved dramatically. She was able to do the activities of daily living including laundry and going up and down the stairs. She would get a little winded but not much. Her pulse ox was stable. In the meantime she did have a repeat CT scan of the chest to assess her lymphadenopathy. It appeared that the lungs were expanding just fine. She had a small 2 mm calcified nodule still. However, she continued to have enlarged mediastinal lymph nodes. These were pretty much unchanged from 3 months prior. Therefore the differential including malignancy/ lymphoma, were discussed. At this point she was willing to undergo a endobronchial ultrasound bronchoscopy. However, because of the pandemic it was pushed out. 11/26/2020 the patient had a telephone visit. She is status post bronchoscopy with endobronchial ultrasound transbronchial needle aspirations. Initially sampling the station 4R and also station 7. Indeed she did have some lesional cells concerning for malignancy. We did call pathology to get further data but the immunohistochemical stainings are still pending. This point the patient has cancer within unclear primary. The immunohistochemical stainings are consistent with small cell cancer. I did talk to the patient she is aware of the findings. 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 REVIEW OF SYSTEMS: She denies easy fatigability. No fever nor chills. Her appetite is way too go od. Her weight has been stable. After her stay at [facility] she lost about 12 lb but she was able to regain it over the past year. She used to get headaches but not any more. No dizziness. She denies chest pain. She gets shortness of breath but she attributes that to her allergies. No cough nor sputum. She denies abdominal pain nausea vomiting heartburn indigestion. Her bowels are working without any gross blood in it. She enjoys a good appetite. Weight is stable. She has frequency of micturition. The patient denies any major joint pain however she does complain of significant back pain. Moderate severity. Sometimes radiating into her left hip Denies any focal weakness. Denies depression. . Review of Systems - Constitutional Reports system reviewed and no additional complaints, except as documented, Denies body ache(s) - Eyes Reports system reviewed and no additional complaints, except as documented, Denies blurry vision - ENT Reports system reviewed and no additional complaints, except as documented - Cardiovascular Reports system reviewed and no additional complaints, except as documented, Reports chest pain at rest, Reports leg pain with activity - Respiratory Reports no additional respiratory complaints, Reports cough - Gastrointestinal Reports system reviewed and no additional complaints, except as documented, Denies abdominal pain, Denies black, tarry stools - Genitourinary Reports no additional female genitourinary complaints, Denies abnormal vaginal bleeding - Musculoskeletal Reports system reviewed and no additional complaints, except as documented, Reports back pain - Integumentary/Breasts Skin/Breast: Reports no additional skin complaints, Denies bleeding lesions - Neurologic Reports system reviewed and no additional complaints, except as documented, Denies abnormal gait, Denies weakness - Psychiatric Reports system reviewed and no additional complaints, except as documented - Endocrine Reports no additional endocrine complaints - Hematologic/Lymphatic Reports system reviewed and no additional complaints, except as documented - Allergic/Immunologic Reports system reviewed and no additional complaints, except as documented [facility] Medical History: Medical History (Last Updated 11/26/20 @ 18:36 by Rik Kohler MD) Atrial tachycardia Cancer Chronic obstructive pulmonary disease, unspecified Essential hypertension Hypothyroid Lymphadenopathy Macular degeneration PAC (premature atrial contraction) Pneumonia PVC (premature ventricular contraction) Small cell carcinoma Functional capacity: independent ambulation Patient : No Family History: Family History (Last Reviewed 11/19/20 @ 09:00 by Luis Martínez MD) Father No problems noted. Mother No problems noted. Surgical History: Surgical History (Last Reviewed 11/19/20 @ 09:00 by Luis Martínez MD) History of tonsillectomy and adenoidectomy Hx of cataract extraction Social History: Social History (Last Updated 11/27/20 @ 09:26 by Riya Livingston RN) Tobacco History: Tobacco Type: Cigarette Packs Per Day: 2 Advance Directives: Advance Directives: No Advance Directives Information Provided: Yes Smoking status: Former smoker Oncology Screenings - ECOG Performance Status ECOG Performance Status: 0 Home Medications and Allergies Home Medications Medication Instructions Recorded Confirmed Type B-complex with vitamin C 1 tab PO DAILY 10/02/20 11/27/20 History albuterol sulfate 90 mcg/actuation 2 puff INHALATION Q4-6H PRN 10/02/20 11/27/20 History aerosol inhaler levothyroxine 50 mcg tablet 50 mcg PO DAILY 10/02/20 11/27/20 History multivitamin 1 tab PO DAILY 10/02/20 11/27/20 History vit C 250 mg-vit E 200 unit-zinc 1 cap PO BID 10/22/20 11/27/20 History ox 12.5 bh-bxbwkd-juquxh-zeax capsule cholecalciferol (vitamin D3) 25 mcg PO DAILY 11/12/20 11/27/20 History [Vitamin D3] aayjvvxeqnf-lptvaddij-gpawjnjn 1 inh INHALATION DIRECTED 11/12/20 11/27/20 History [Trelegy Ellipta] omega 1-yxl-gxh-vitamin E [Systane See Rx Instructions .ROUTE .COMPLEX 12/29/20 12/29/20 History Vitamin] Allergies Allergy/AdvReac Type Severity Reaction Status Date / Time peanut Allergy Severe Anaphylaxis Verified 01/01/21 07:07 Tetanus Vaccines and Toxoid Allergy Severe Anaphylaxis Verified 01/01/21 07:07 lovastatin AdvReac Severe Leg Cramps Verified 01/01/21 07:07 pravastatin AdvReac Severe Leg Cramps Verified 01/01/21 07:07 Exam Vital signs: Vital Signs Temp 99.6 F 12/16/20 14:24 Pulse 110 H 12/16/20 14:24 Resp 12 12/16/20 14:24 BP 140/82 H 12/16/20 14:24 Pulse Ox 92 12/16/20 14:24 Intake & Output 12/15/20 12/16/20 12/16/20 18:59 06:59 18:59 Other: Weight 74.5 kg [place] Weight in Grams 00319 Weight 74.5 kg Body Mass Index 28.1 - Constitutional Present: no acute distress - Routine HEENT Exam Head: Present: normal inspection Eye: Present: normal appearance ENT: Present: mucous membranes moist - Routine Neck Exam Present: full ROM - Routine Respiratory Exam Present: CTAB - Routine Cardiovascular Exam Cardiovascular: Present: RRR, S1, S2 - Routine Abdominal Exam Present: normal bowel sounds, nontender - Routine Rectal Exam Patient deferred: digital exam - Routine Extremities Exam Present: nontender - Routine Back/Spine/Pelvis Exam Back/Spine: Present: full ROM - Routine Skin Exam Present: intact - Routine Neurological Exam Present: alert, oriented X3 - Detailed Neurological Exam: Coma Scale Eye Opening: Spontaneous (4) - Routine Psychiatric Exam Present: normal affect Data - Labs CBC & Chem 7: 12/29/20 09:27 12/29/20 09:27 Labs: 11/27/20 10:05 Complete Blood Count Auto Diff Routine Comprehensive Met. Panel Routine LDH [Lactate Dehydrogenase] Routine Laboratory Last Values WBC 8.0 X10*3/uL (4.8-10.8) 11/27/20 10:05 RBC 4.86 X10*6/uL (4.20-5.50) 11/27/20 10:05 Hgb 15.2 g/dl (12.0-16.0) 11/27/20 10:05 Hct 44.9 % (37-47) 11/27/20 10:05 MCV 92.4 fL (80-98) 11/27/20 10:05 MCH 31.3 pg (27.0-33.0) 11/27/20 10:05 MCHC 33.9 g/dl (31.0-35.0) 11/27/20 10:05 RDW 13.2 % (11.0-16.0) 11/27/20 10:05 Plt Count 233 X10*3/uL (160-400) 11/27/20 10:05 MPV 10.9 fL (9.4-12.3) 11/27/20 10:05 Immature Gran % (Auto) 0.4 % (0.0-0.4) 11/27/20 10:05 Neut % (Auto) 70.6 % (45-73) 11/27/20 10:05 Lymph % (Auto) 19.3 % (20-40) L 11/27/20 10:05 [place] % (Auto) 8.7 % (2-11) 11/27/20 10:05 Eos % (Auto) 0.4 % (0-4) 11/27/20 10:05 Baso % (Auto) 0.6 % (0-2) 11/27/20 10:05 Lymph # (Auto) 1.5 X10*3/uL (1.2-4.9) 11/27/20 10:05 [place] # (Auto) 0.7 X10*3/uL (0.1-1.2) 11/27/20 10:05 Eos # (Auto) 0.0 X10*3/uL (0.0-0.4) 11/27/20 10:05 Baso # (Auto) 0.1 X10*3/uL (0.0-0.2) 11/27/20 10:05 Abs Immat Gran (auto) 0.03 X10*3/uL (0.00-0.03) 11/27/20 10:05 Absolute Neuts (auto) 5.6 X10*3/uL (2.0-8.3) 11/27/20 10:05 Absolute Nucleated RBC 0.000 X10*3/uL (0.0-0.012) 11/27/20 10:05 Nucleated RBC % (auto) 0.0 /100WBC (0.0-0.2) 11/27/20 10:05 Sodium 139 mmol/L (135-145) 11/27/20 10:05 Potassium 4.1 mmol/L (3.3-5.1) 11/27/20 10:05 Chloride 101 mmol/L (96-108) 11/27/20 10:05 Carbon Dioxide 27 mmol/L (22-29) 11/27/20 10:05 Anion Gap 15 (12-20) 11/27/20 10:05 BUN 13 mg/dL (9-16) 11/27/20 10:05 Creatinine 0.70 mg/dL (0.5-1.4) 11/27/20 10:05 Estim Creat Clear Calc 64.4 11/27/20 10:05 Estimated GFR > 60 11/27/20 10:05 Random Glucose 125 mg/dL (60-115) H D 11/27/20 10:05 Calcium 9.4 mg/dL (8.4-10.2) 11/27/20 10:05 Total Bilirubin 0.6 mg/dL (0.0-1.0) 11/27/20 10:05 AST 36 U/L (5-31) H 11/27/20 10:05 ALT 54 U/L (0-31) H 11/27/20 10:05 Alkaline Phosphatase 69 U/L (39-117) 11/27/20 10:05 Lactate Dehydrogenase 199 U/L (122-220) 11/27/20 10:05 Total Protein 7.3 g/dL (6.5-8.0) 11/27/20 10:05 Albumin 4.3 g/dL (3.5-5.0) 11/27/20 10:05 Progress Note: A/P (1) Small cell carcinoma Status: Acute Assessment and plan: This is a pleasant 80-year-old lady, with recent diagnosis of small cell carcinoma of the lung. She underwent EBUS on November 19. Pathology: Station 4 lymph node: Negative. Station 7 lymph node: Positive for malignant cells consistent with small-cell carcinoma. Immuno stains: Positive for synaptophysin, chromogranin, CD 56 and ann cytokeratin. Negative for chromogranin and CD 45. I shared the details of the pathology with her today. I went over the disease course and treatment options including systemic chemotherapy, with or without radiation based upon her exact stage. PLAN: To proceed with staging workup. I will check baseline labs including LDH which is a tumor marker for small cell. (199.) Will check a PET scan to see if there is any evidence of metastatic disease especially with history of chronic back and hip pain. It had to postponed twice, due to the weather. This was done at [facility] on 12/22 and revealed: FDG avid mediastinal adenopathy, compatible with malignancy. There is no evidence of FDG avid lung cancer outside of the mediastinum. Possible right lower pole renal mass. Recommend correlation with outside imaging of the abdomen. If none is available consider renal ultrasound/dedicated renal mass MRI for further evaluation. Will check MRI of the brain, to look for any possible brain metastases. This revealed: No acute intracranial process seen. No abnormal enhancement seen to suspect any primary or metastatic lesion. Extensive chronic small vessel ischemic changes in both cerebral hemispheres with underlying mild cerebral volume loss. PLAN: She will return in a couple of weeks for a follow-up visit. Will decide about treatment based upon the above workup. If she proves to have limited stage disease, will recommend combined modality therapy. Will use Carbo/Etoposide and Atezolizumab. Would like to start RT, with second cycle of treatment. Will refer to [facility] RT, as per her request. 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 No underlying renal mass. Thank you, CC: Dr. Ina Kc. Dr. Rik Kohler. - Time Spent With Patient Total time spent is greater than 50% in coordination of care (as documented) at patient's floor/unit and/or counseling patient: 25 - 35 minutes
--- NOTE | 2020-12-16 15:27 | MHC.HEMONCMA ---
Patient present to follow up on lymphadenopathy and cancer. History reviewed and patient didn't need labs drawn today.
--- NOTE | 2020-12-17 09:06 | MHC.HEMONCSW ---
PET REQUEST FOR SHEILDS INSTEAD OF KARLIE. FAXED MD ORDER/CLINICALS TO [facility], THEY WILL SCHEDULE PATIENT.
--- NOTE | 2020-12-17 14:25 | MHC.HEMONCSW ---
[facility] PET SCAN WILL BE 12/22/20 AT 6:30PM. THEY NOTIFIED PATIENT.
--- NOTE | 2020-12-25 15:18 | MHC.HEMONCMA ---
Order printed and given to Kiya for PA and order fascilitator.
[2020-12-29 09:22] VITALS: BP 173/85; PULSE 105; RESP 12; TEMP 36.6; O2SAT 96; BMI 27.8
[2020-12-29 09:59] LABS: MANUAL DIFF FLAG NO
[2020-12-29 10:07] LABS: Basophils Absolute Auto 0.1 X10*3/uL (0.0-0.2); Basophils Percent Auto 0.8 % (0-2); Eosinophils Percent Auto 0.4 % (0-4); Hematocrit 46.4 % (37-47); Hemoglobin 15.5 g/dl (12.0-16.0); Imm Gran Abs Auto 0.03 X10*3/uL (0.00-0.03); Imm Gran Pct Auto 0.4 % (0.0-0.4); Lymphocytes Absolute Auto 1.6 X10*3/uL (1.2-4.9); Lymphocytes Percent Auto 21.5 % (20-40); Mean Corpuscular HGB Conc 33.4 g/dl (31.0-35.0); Mean Corpuscular Hemoglobin 30.9 pg (27.0-33.0); Mean Corpuscular Volume 92.4 fL (80-98); Monocytes Absolute Auto 0.6 X10*3/uL (0.1-1.2); Monocytes Percent Auto 8.3 % (2-11); Neutrophils Percent Auto 68.6 % (45-73); Platelet Count 248 X10*3/uL (160-400); Red Blood Count 5.02 X10*6/uL (4.20-5.50); Red Cell Distribution Width 12.9 % (11.0-16.0); White Blood Count 7.3 X10*3/uL (4.8-10.8)
[2020-12-29 10:26] LABS: Alanine Aminotransferase 52 U/L (0-31); Albumin Level 4.2 g/dL (3.5-5.0); Alkaline Phosphatase 60 U/L (39-117); Anion Gap 11 (12-20); Aspartate Amino Transferase 38 U/L (5-31); Blood Urea Nitrogen 9 mg/dL (9-16); Calcium 9.5 mg/dL (8.4-10.2); Carbon Dioxide 31 mmol/L (22-29); Chloride 100 mmol/L (96-108); Creatinine Clr Calc Pharmacy 61.5; Estimated Glomerular Filt Rate > 60; Glucose Random 123 mg/dL (60-115); Lactate Dehydrogenase 189 U/L (122-220); Potassium 3.8 mmol/L (3.3-5.1); Sodium 138 mmol/L (135-145); Total Protein 7.2 g/dL (6.5-8.0)
--- NOTE | 2020-12-29 11:16 | P.PNHO_ITS ---
Medical Summary - Medical Summary Date of Service: 12/29/20 Chief complaint: Follow-up for small cell carcinoma. Medical Summary: DIAGNOSIS: SMALL CELL CARCINOMA OF THE LUNG. Undergoing staging work up. Interval History Interval history: Lora Meadows is a pleasant 80 year old lady, here for a follow up visit. She has had a pain, on the right side of chest, into the shoulder, into the muscles of the spine, into the back of leg. Sometimes she has to sit down because of it. She has not taken any analgesics. She denies easy fatigability. Appetite is good. Weight is stable. He denies headache no dizziness. She had the MRI of the brain which was negative. Unfortunately, the PET scan got resheduled, two weeks in a row, on account of the weather. No trouble breathing. She is in good spirits. Rest of the review of systems is unremarkable. REVIEW OF SYSTEMS: She denies easy fatigability. No fever nor chills. Her appetite is way too good. Her weight has been stable. After her stay at [facility] she lost about 12 lb but she was able to regain it over the past year. She used to get headaches but not any more. No dizziness. She denies chest pain. She gets shortness of breath but she attributes that to her allergies. No cough nor sputum. She denies abdominal pain nausea vomiting heartburn indigestion. Her bowels are working without any gross blood in it. She enjoys a good appetite. Weight is stable. She has frequency of micturition. The patient denies any major joint pain however she does complain of significant back pain. Moderate severity. Sometimes radiating into her left hip Denies any focal weakness. Denies depression. Previous History: with a known history of COPD history of tobacco use in the past and quit 15 years ago. In September 2019, she started developing worsening shortness of breath and she went to an urgent care. She was found to be hypoxic and she was admitted to [facility] which was placed on oxygen. She also required BiPAP briefly.She was then given a diagnosis of COPD exacerbation. Patient has been fo llowed closely there. She started pulmonary rehabilitation as an outpatient 3 times a week. She was able to get off the oxygen. Subsequently, COVID was discovered, in October. So looking back she must have had that infection. She had some lingering symptoms over the past year. She saw Dr. Gifford, for allergies/sinus infection. He referred her to Dr. Kohler. In May, she presented to Pulmonary with significant shortness of breath with minimal activity. She also feels significant palpitations. In the office, a brief walking oximetry was done. She maintain initially a pulse ox above 90% but then at the end of the walk she became very short of breath and dyspneic. She did desaturate below 88% and heart rate was 150 beats per minute. It appeared to be irregular. EKG revealed sinus tach with multiple PVCs along with what appears to be ST depressions in the precordial lateral leads and also in the inferior leads. The patient denied chest pain at the time, denied any palpitations at this time. ER referral was offered, with her abnormal EKG, but she did not want to do that. She was advised to take aspirin on a daily basis and was referred for urgent cardiac consultation. She was under the care of Dr. Suazo. 07/03/2020 she was seen by pulmonary. Overall she felt better. She seem to be responding to the inhaler. She stated that she does get episodes of the shortness of breath and tachycardia. She did undergo a CT scan of the chest which revealed: Mediastinal adenopathy. There is a 2.5 cm lymph node in the subcarina. There is an enlarged pretracheal retro vascular lymph node and a right pretracheal lymph node. 1.3 cm peripherally calcified nodule in the right lobe of thyroid. Impression: 1. No evidence of pulmonary embolism. 2. Mediastinal lymphadenopathy. Significant lymphadenopathy with a station 7 lymph node measuring more than 3 cm and station 4R lymph node measuring 2.5 cm. It was explained to her that this is concerning because of the size. She was recovering from her cardiac issues and was being worked up from a cardiac standpoint regarding the tachyarrhythmia. Therefore, it was deemed reasonable to wait. The plan was if the patient developed any constitutional symptoms of any concern or new symptom whatsoever she was to call back and then consider sampling this lymph nodes sooner rather later. To proceed with transbronchial needle asp iration via EBUS . 10/02/2020 the patient went for pulmonary follow-up. Overall she felt a lot better. Her respiratory status had improved dramatically. She was able to do the activities of daily living including laundry and going up and down the stairs. She would get a little winded but not much. Her pulse ox was stable. In the meantime she did have a repeat CT scan of the chest to assess her lymphadenopathy. It appeared that the lungs were expanding just fine. She had a small 2 mm calcified nodule still. However, she continued to have enlarged mediastinal lymph nodes. These were pretty much unchanged from 3 months prior. Therefore the differential including malignancy/ lymphoma, were discussed. At this point she was willing to undergo a endobronchial ultrasound bronchoscopy. However, because of the pandemic it was pushed out. 11/26/2020 the patient had a telephone visit. She is status post bronchoscopy with endobronchial ultrasound transbronchial needle aspirations. Initially sampling the station 4R and also station 7. Indeed she did have some lesional cells concerning for malignancy. We did call pathology to get further data but the immunohistochemical stainings are still pending. This point the patient has cancer within unclear primary. The immunohistochemical stainings are consistent with small cell cancer. I did talk to the patient she is aware of the findings. 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 . Review of Systems - Constitutional Reports no additional constitutional complaints, Reports weakness, Reports weight loss - Eyes Reports no additional eye complaints - ENT Reports no additional ear, nose, mouth, and throat complaints - Cardiovascular Reports no additional cardiovascular complaints, Reports chest pain - Respiratory Reports no additional respiratory complaints, Denies cough - Gastrointestinal Reports no additional gastrointestinal complaints - Genitourinary Reports no additional female genitourinary complaints - Musculoskeletal Reports no additional musculoskeletal complaints - Integumentary/Breasts Skin/Breast: Reports no additional skin complaints - Neurologic Reports no additional neurologic complaints, Denies abnormal gait, Denies weakness - Psychiatric Reports no additional psychiatric complaints - Endocrine Reports no additional endocrine complaints - Hematologic/Lymphatic Reports no additional hematologic/lymphatic complaints - Allergic/Immunologic Reports no additional allergic/immunologic complaints [facility] Medical History: Medical History (Last Updated 11/26/20 @ 18:36 by Rik Kohler MD) Atrial tachycardia Cancer Chronic obstructive pulmonary disease, unspecified Essential hypertension Hypothyroid Lymphadenopathy Macular degeneration PAC (premature atrial contraction) Pneumonia PVC (premature ventricular contraction) Small cell carcinoma Functional capacity: independent ambulation Patient : No Family History: Family History (Last Reviewed 11/19/20 @ 09:00 by Luis Martínez MD) Father No problems noted. Mother No problems noted. Surgical History: Surgical History (Last Reviewed 11/19/20 @ 09:00 by Luis Martínez MD) History of tonsillectomy and adenoidectomy Hx of cataract extraction Social History: Social History (Last Updated 11/27/20 @ 09:26 by Riya Livingston RN) Tobacco History: Tobacco Type: Cigarette Packs Per Day: 2 Smoking status: Former smoker Oncology Screenings - ECOG Performance Status ECOG Performance Status: 0 Home Medications and Allergies Home Medications Medication Instructions Recorded Confirmed Type B-complex with vitamin C 1 tab PO DAILY 10/02/20 11/27/20 History albuterol sulfate 90 mcg/actuation 2 puff INHALATION Q4-6H PRN 10/02/20 11/27/20 History aerosol inhaler levothyroxine 50 mcg tablet 50 mcg PO DAILY 10/02/20 11/27/20 History multivitamin 1 tab PO DAILY 10/02/20 11/27/20 History vit C 250 mg-vit E 200 unit-zinc 1 cap PO BID 10/22/20 11/27/20 History ox 12.5 jf-ccedtt-vhukcl-zeax capsule cholecalciferol (vitamin D3) 25 mcg PO DAILY 11/12/20 11/27/20 History [Vitamin D3] efwnhdrlhhk-xaehsyenl-ctlyxttw 1 inh INHALATION DIRECTED 11/12/20 11/27/20 History [Trelegy Ellipta] omega 4-qcx-oad-vitamin E [Systane See Rx Instructions .ROUTE .COMPLEX 12/29/20 12/29/20 History Vitamin] Allergies Allergy/AdvReac Type Severity Reaction Status Date / Time peanut Allergy Severe Anaphylaxis Verified 11/26/20 18:33 Tetanus Vaccines and Toxoid Allergy Severe Anaphylaxis Verified 11/26/20 18:33 lovastatin AdvReac Severe Leg Cramps Verified 11/26/20 18:33 pravastatin AdvReac Severe Leg Cramps Verified 11/26/20 18:33 Exam Vital signs: Vital Signs Temp 97.8 F 12/29/20 09:22 Pulse 105 H 12/29/20 09:22 Resp 12 12/29/20 09:22 BP 173/85 H 12/29/20 09:22 Pulse Ox 96 12/29/20 09:22 Intake & Output 12/28/20 12/29/20 12/29/20 18:59 06:59 18:59 Other: Weight 73.7 kg Weight in Grams [id number] Weight 73.7 kg Body Mass Index 27.8 - Constitutional Present: no acute distress - Routine HEENT Exam Head: Present: normal inspection Eye: Present: normal appearance ENT: Present: mucous membranes moist - Routine Neck Exam Present: full ROM - Routine Respiratory Exam Present: CTAB - Routine Cardiovascular Exam Cardiovascular: Present: RRR, S1, S2 - Routine Abdominal Exam Present: normal bowel sounds, nontender - Routine Rectal Exam Patient deferred: digital exam - Routine Extremities Exam Present: nontender - Routine Back/Spine/Pelvis Exam Back/Spine: Present: full ROM - Routine Skin Exam Present: intact - Routine Neurological Exam Present: alert, oriented X3 - Detailed Neurological Exam: Coma Scale Eye Opening: Spontaneous (4) - Routine Psychiatric Exam Present: normal affect Data - Labs CBC & Chem 7: 12/29/20 09:27 12/29/20 09:27 Labs: 11/27/20 10:05 Complete Blood Count Auto Diff Routine Comprehensive Met. Panel Routine LDH [Lactate Dehydrogenase] Routine Laboratory Last Values WBC 8.0 X10*3/uL (4.8-10.8) 11/27/20 10:05 RBC 4.86 X10*6/uL (4.20-5.50) 11/27/20 10:05 Hgb 15.2 g/dl (12.0-16.0) 11/27/20 10:05 Hct 44.9 % (37-47) 11/27/20 10:05 MCV 92.4 fL (80-98) 11/27/20 10:05 MCH 31.3 pg (27.0-33.0) 11/27/20 10:05 MCHC 33.9 g/dl (31.0-35.0) 11/27/20 10:05 RDW 13.2 % (11.0-16.0) 11/27/20 10:05 Plt Count 233 X10*3/uL (160-400) 11/27/20 10:05 MPV 10.9 fL (9.4-12.3) 11/27/20 10:05 Immature Gran % (Auto) 0.4 % (0.0-0.4) 11/27/20 10:05 Neut % (Auto) 70.6 % (45-73) 11/27/20 10:05 Lymph % (Auto) 19.3 % (20-40) L 11/27/20 10:05 [place] % (Auto) 8.7 % (2-11) 11/27/20 10:05 Eos % (Auto) 0.4 % (0-4) 11/27/20 10:05 Baso % (Auto) 0.6 % (0-2) 11/27/20 10:05 Lymph # (Auto) 1.5 X10*3/uL (1.2-4.9) 11/27/20 10:05 [place] # (Auto) 0.7 X10*3/uL (0.1-1.2) 11/27/20 10:05 Eos # (Auto) 0.0 X10*3/uL (0.0-0.4) 11/27/20 10:05 Baso # (Auto) 0.1 X10*3/uL (0.0-0.2) 11/27/20 10:05 Abs Immat Gran (auto) 0.03 X10*3/uL (0.00-0.03) 11/27/20 10:05 Absolute Neuts (auto) 5.6 X10*3/uL (2.0-8.3) 11/27/20 10:05 Absolute Nucleated RBC 0.000 X10*3/uL (0.0-0.012) 11/27/20 10:05 Nucleated RBC % (auto) 0.0 /100WBC (0.0-0.2) 11/27/20 10:05 Sodium 139 mmol/L (135-145) 11/27/20 10:05 Potassium 4.1 mmol/L (3.3-5.1) 11/27/20 10:05 Chloride 101 mmol/L (96-108) 11/27/20 10:05 Carbon Dioxide 27 mmol/L (22-29) 11/27/20 10:05 Anion Gap 15 (12-20) 11/27/20 10:05 BUN 13 mg/dL (9-16) 11/27/20 10:05 Creatinine 0.70 mg/dL (0.5-1.4) 11/27/20 10:05 Estim Creat Clear Calc 64.4 11/27/20 10:05 Estimated GFR > 60 11/27/20 10:05 Random Glucose 125 mg/dL (60-115) H D 11/27/20 10:05 Calcium 9.4 mg/dL (8.4-10.2) 11/27/20 10:05 Total Bilirubin 0.6 mg/dL (0.0-1.0) 11/27/20 10:05 AST 36 U/L (5-31) H 11/27/20 10:05 ALT 54 U/L (0-31) H 11/27/20 10:05 Alkaline Phosphatase 69 U/L (39-117) 11/27/20 10:05 Lactate Dehydrogenase 199 U/L (122-220) 11/27/20 10:05 Total Protein 7.3 g/dL (6.5-8.0) 11/27/20 10:05 Albumin 4.3 g/dL (3.5-5.0) 11/27/20 10:05 Progress Note: A/P (1) Small cell carcinoma Status: Acute Assessment and plan: This is a pleasant 80-year-old lady, with recent diagnosis of small cell carcinoma of the lung. She underwent EBUS on November 19. Pathology: Station 4 lymph node: Negative. Station 7 lymph node: Positive for malignant cells consistent with small-cell carcinoma. Immuno stains: Positive for synaptophysin, chromogranin, CD 56 and ann cytokeratin. Negative for chromogranin and CD 45. I shared the details of the pathology with her. I went over the disease course and treatment options including systemic chemotherapy, with radiation based upon her limited stage. Her baseline labs including LDH, a tumor marker for small cell: 199. l checked a PET scan to see if there is any evidence of metastatic disease especially with history of chronic back and hip pain. It had to postponed twice, due to the weather. This was finally done at [facility] on 12/22 and revealed: FDG avid mediastinal adenopathy, compatible with malignancy. There is no evidence of FDG avid lung cancer outside of the mediastinum. Possible right lower pole renal mass. Recommend correlation with outside imaging of the abdomen. If none is available consider renal ultrasound/dedicated renal mass MRI for further evaluation. 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 No underlying renal mass. l checked MRI of the brain, to look for any possible brain metastases. This was done on 12/04 and revealed: No acute intracranial process seen. No abnormal enhancement seen to suspect any primary or metastatic lesion. Extensive chronic small vessel ischemic changes in both cerebral hemispheres with underlying mild cerebral volume loss. PLAN: She appears to have limited stage disease, so will recommend combined modality therapy. Will use Carbo/Etoposide and Atezolizumab. She underwent chemotherapy teaching today. Would like to start RT, with second cycle of treatment. Will refer to [facility] RT, as per her request. Will arrange for a Port-A-Cath placement to facilitate the treatment. She will get started on the treatment, Friday 01/05. Thank you, CC: Dr. Ina Kc. Dr. Rik Kohler. Dr. Nimesh Morales. - Time Spent With Patient Total time spent is greater than 50% in coordination of care (as documented) at patient's floor/unit and/or counseling patient: 25 - 35 minutes
--- NOTE | 2020-12-29 11:16 | MHC.HEMONCMA ---
Patient presents to f/u on recent MRI results. History reviewed, labs drawn and pt will be referred to radiation therapy at [facility] per pts request and also set up port placement. I will notify patient of this when scheduled.
--- NOTE | 2020-12-29 12:19 | MHC.HEMONC ---
Pt seen by Charu Lam and Dr Avalos. At Dr Odom request I did chemo education on Atezolizumab, Carboplatin and Etoposide. I reviewed plan, common side effects of drugs and when to call Clinic. She was given written information and educational book and she signed consent. She is awaiting appt for port and Radiation Consult.
--- NOTE | 2020-12-29 13:45 | MHC.HEMONCMA ---
Radiation therapy scheduled with Dr Funez at the [facility]. on 01/07/21 @ 10 am pt notified.
--- NOTE | 2020-12-29 14:01 | MHC.HEMONCMA ---
Request for port placement made and nurse will call me back with information.
--- NOTE | 2020-12-29 16:07 | MHC.HEMONCMA ---
Port appointment has been scheduled for 01/01/21 @ 8:30. Pt was given information and instructions not to eat 6 hrs prior to procedure.
--- NOTE | 2020-12-29 16:24 | MHC.HEMONCSW ---
PATIENT HAD CHEMO TEACH TODAY AND REFERRAL MADE TO [facility] [place]. REPORTS COPING FAIRLY WELL. EDUCATION AND SUPPORT PROVIDED.
--- NOTE | 2021-01-02 15:50 | MHC.HEMONCSW ---
NO PA REQUIRED FOR CHEMO OR RELATED MEDS INSURANCE IS MEDICARE PRIMARY.
[2021-01-12 09:04] LABS: MANUAL DIFF FLAG NO
[2021-01-12 09:11] VITALS: BMI 27.1
[2021-01-12 09:12] VITALS: BP 158/72; PULSE 106; RESP 18; TEMP 37.1; O2SAT 96
[2021-01-12 09:17] LABS: Basophils Absolute Auto 0.1 X10*3/uL (0.0-0.2); Basophils Percent Auto 0.9 % (0-2); Eosinophils Percent Auto 0.4 % (0-4); Hematocrit 46.7 % (37-47); Hemoglobin 15.2 g/dl (12.0-16.0); Imm Gran Abs Auto 0.02 X10*3/uL (0.00-0.03); Imm Gran Pct Auto 0.3 % (0.0-0.4); Lymphocytes Absolute Auto 1.3 X10*3/uL (1.2-4.9); Lymphocytes Percent Auto 17.1 % (20-40); Mean Corpuscular HGB Conc 32.5 g/dl (31.0-35.0); Mean Corpuscular Hemoglobin 30.6 pg (27.0-33.0); Mean Platelet Volume 10.9 fL (9.4-12.3); Monocytes Absolute Auto 0.6 X10*3/uL (0.1-1.2); Monocytes Percent Auto 7.8 % (2-11); Neutrophils Absolute Auto 5.7 X10*3/uL (2.0-8.3); Neutrophils Percent Auto 73.5 % (45-73); Platelet Count 229 X10*3/uL (160-400); Red Blood Count 4.97 X10*6/uL (4.20-5.50); Red Cell Distribution Width 12.7 % (11.0-16.0); White Blood Count 7.8 X10*3/uL (4.8-10.8)
[2021-01-12 09:40] LABS: Alanine Aminotransferase 41 U/L (0-31); Albumin Level 4.2 g/dL (3.5-5.0); Alkaline Phosphatase 58 U/L (39-117); Anion Gap 12 (12-20); Aspartate Amino Transferase 33 U/L (5-31); Bilirubin Total 0.6 mg/dL (0.0-1.0); Blood Urea Nitrogen 7 mg/dL (9-16); Calcium 9.2 mg/dL (8.4-10.2); Carbon Dioxide 32 mmol/L (22-29); Chloride 100 mmol/L (96-108); Creatinine Clr Calc Pharmacy 59.7; Estimated Glomerular Filt Rate > 60; Glucose Random 161 mg/dL (60-115); Lactate Dehydrogenase 198 U/L (122-220); Potassium 3.9 mmol/L (3.3-5.1); Sodium 140 mmol/L (135-145); Total Protein 7.1 g/dL (6.5-8.0)
[2021-01-12] MEDS: ondansetron HCL/NS 16 MG/50 ML PIGGYBACK 200 MG IV (10:48)
[2021-01-12] MEDS: dexAMETHasone sod phosphate/NS 12 MG/50 ML PIGGYBACK 200 MG IV (11:07)
[2021-01-12] MEDS: Atezolizumab 1,200 MG in 0.9 % Sodium Chloride 250 ML 270 MG IV (11:36)
--- NOTE | 2021-01-12 15:39 | MHC.HEMONC ---
CYCLE 1 DAY 1: ATEZOLIZUMAB/CARBO/ETOPOSIDE well tolerated, no signs of transfusion reaction noted. Port accessed, steri strips still in place, site clean and dry. Positive blood return, labs reviewed. VSS. Port remains accessed for day #2. All questions and concerns addressed with patient. Patient verbalizes understanding. Chemotherapy plan faxed to [facility]. Patient is scheduled for SIM on 01/30/21 at 1130. phone # [phone].
[2021-01-13 13:08] VITALS: BMI 27.4
[2021-01-13 13:09] VITALS: BP 131/92; PULSE 131; RESP 18; TEMP 36.3; O2SAT 95
[2021-01-13] MEDS: dexAMETHasone 4 MG TABLET 8 MG PO (13:16)
--- NOTE | 2021-01-13 15:59 | MHC.HEMONC ---
Pt here for Cycle 1 day 2 Etoposide IV. Port accessed yesterday 01/12/21, flushes easily with NS. 0.9% NS infusing. Pt states she feels well today. Labs drawn 01/12/21 reviewed. Pre medicated with zofran 8mg, decadron 8mg orally. Etoposide IV given as ordered. Pt has appointment tomorrow 01/14/21. Port capped and taped. Pt declined discharge instructions
[2021-01-14] MEDS: dexAMETHasone 4 MG TABLET 8 MG PO (13:07)
[2021-01-14 13:17] VITALS: BP 190/77; PULSE 114; RESP 18; TEMP 35.9; O2SAT 96
[2021-01-14 13:31] VITALS: BP 148/71; PULSE 76; RESP 18
[2021-01-14] MEDS: Heparin Sodium,Porcine Flush 500 UNIT/5 ML SYRINGE IVFLUSH (14:52)
--- NOTE | 2021-01-14 15:29 | MHC.HEMONC ---
CYCLE 1 DAY 3: ETOPOSIDE well tolerated. VSS. No complaints at this time. Port de-accessed with heparin. Patient to return next week for follow up labs.
--- NOTE | 2021-01-15 16:17 | MHC.HEMONC ---
pt has RT consult on 01/30/21 at 11:30 at [facility].
--- NOTE | 2021-01-16 12:01 | MHC.HEMONC ---
pt called to c/o constipation x 3 days. No other c/o. Is not uncomfortable. Suggested Senna and stool softener daily. She may also try Miralax which she has on hand. She will call later if needed and was told to feel free to call over weekend if no results.
[2021-01-20 13:33] LABS: Neutrophils Absolute Auto 4.1 X10*3/uL (2.0-8.3)
[2021-01-20 13:35] LABS: Basophils Percent Auto 0.6 % (0-2); Eosinophils Percent Auto 0.8 % (0-4); Hematocrit 41.6 % (37-47); Imm Gran Abs Auto 0.09 X10*3/uL (0.00-0.03); Imm Gran Pct Auto 1.7 % (0.0-0.4); Lymphocytes Absolute Auto 0.9 X10*3/uL (1.2-4.9); Lymphocytes Percent Auto 17.1 % (20-40); Mean Corpuscular HGB Conc 33.7 g/dl (31.0-35.0); Mean Corpuscular Hemoglobin 31.2 pg (27.0-33.0); Mean Corpuscular Volume 92.7 fL (80-98); Mean Platelet Volume 10.9 fL (9.4-12.3); Monocytes Absolute Auto 0.1 X10*3/uL (0.1-1.2); Neutrophils Percent Auto 78.8 % (45-73); Red Blood Count 4.49 X10*6/uL (4.20-5.50); Red Cell Distribution Width 12.3 % (11.0-16.0); White Blood Count 5.2 X10*3/uL (4.8-10.8)
[2021-01-20 13:40] LABS: MANUAL DIFF FLAG NO; Platelet Count 130 X10*3/uL (160-400)
[2021-01-20 14:01] LABS: Alanine Aminotransferase 54 U/L (0-31); Albumin Level 4.1 g/dL (3.5-5.0); Alkaline Phosphatase 67 U/L (39-117); Anion Gap 15 (12-20); Aspartate Amino Transferase 32 U/L (5-31); Bilirubin Total 0.8 mg/dL (0.0-1.0); Blood Urea Nitrogen 12 mg/dL (9-16); Calcium 9.5 mg/dL (8.4-10.2); Carbon Dioxide 31 mmol/L (22-29); Chloride 97 mmol/L (96-108); Creatinine Clr Calc Pharmacy 57.5; Estimated Glomerular Filt Rate > 60; Glucose Random 116 mg/dL (60-115); Potassium 4.3 mmol/L (3.3-5.1); Sodium 139 mmol/L (135-145); Total Protein 6.7 g/dL (6.5-8.0)
--- NOTE | 2021-01-26 14:36 | MHC.HEMONC ---
pt in for weekly labs day#14 in cycle. She reports urinary sx over weekend with pain on urination. She called PCP and was started on antibiotic. She is feeling better. No fevers. Will monitor labs.
[2021-01-26 14:41] LABS: Basophils Percent Auto 1.4 % (0-2); Eosinophils Percent Auto 1.9 % (0-4); Hematocrit 41.6 % (37-47); Hemoglobin 13.7 g/dl (12.0-16.0); Imm Gran Abs Auto 0.01 X10*3/uL (0.00-0.03); Imm Gran Pct Auto 0.5 % (0.0-0.4); Lymphocytes Absolute Auto 1.1 X10*3/uL (1.2-4.9); Lymphocytes Percent Auto 49.8 % (20-40); MANUAL DIFF FLAG SCAN; Mean Corpuscular HGB Conc 32.9 g/dl (31.0-35.0); Mean Corpuscular Hemoglobin 30.6 pg (27.0-33.0); Mean Corpuscular Volume 93.1 fL (80-98); Monocytes Absolute Auto 0.6 X10*3/uL (0.1-1.2); Monocytes Percent Auto 29.1 % (2-11); Neutrophils Absolute Auto 0.4 X10*3/uL (2.0-8.3); Neutrophils Percent Auto 17.3 % (45-73); Platelet Count 171 X10*3/uL (160-400); Red Blood Count 4.47 X10*6/uL (4.20-5.50); Red Cell Distribution Width 12.5 % (11.0-16.0); SCAN SMEAR FLAG 1
[2021-01-26 14:45] LABS: White Blood Count 2.1 X10*3/uL (4.8-10.8)
[2021-01-26 15:01] LABS: SLIDE REVIEW VERIFIED
[2021-01-26 15:08] LABS: Alanine Aminotransferase 42 U/L (0-31); Albumin Level 4.3 g/dL (3.5-5.0); Alkaline Phosphatase 79 U/L (39-117); Anion Gap 12 (12-20); Aspartate Amino Transferase 30 U/L (5-31); Bilirubin Total 0.3 mg/dL (0.0-1.0); Blood Urea Nitrogen 8 mg/dL (9-16); Calcium 9.1 mg/dL (8.4-10.2); Carbon Dioxide 32 mmol/L (22-29); Chloride 98 mmol/L (96-108); Creatinine Clr Calc Pharmacy 57.5; Estimated Glomerular Filt Rate > 60; Glucose Random 107 mg/dL (60-115); Potassium 3.7 mmol/L (3.3-5.1); Sodium 138 mmol/L (135-145); Total Protein 7.2 g/dL (6.5-8.0)
[2021-02-02 08:44] VITALS: BP 199/83; PULSE 102; RESP 18; TEMP 37; O2SAT 94; BMI 27.1
[2021-02-02 10:03] LABS: MANUAL DIFF FLAG NO
[2021-02-02 10:04] LABS: Basophils Percent Auto 0.6 % (0-2); Hematocrit 40.9 % (37-47); Hemoglobin 13.8 g/dl (12.0-16.0); Imm Gran Abs Auto 0.03 X10*3/uL (0.00-0.03); Imm Gran Pct Auto 0.6 % (0.0-0.4); Lymphocytes Absolute Auto 1.1 X10*3/uL (1.2-4.9); Lymphocytes Percent Auto 22.4 % (20-40); Mean Corpuscular HGB Conc 33.7 g/dl (31.0-35.0); Mean Corpuscular Hemoglobin 31.4 pg (27.0-33.0); Mean Platelet Volume 9.7 fL (9.4-12.3); Monocytes Absolute Auto 0.6 X10*3/uL (0.1-1.2); Neutrophils Absolute Auto 3.3 X10*3/uL (2.0-8.3); Neutrophils Percent Auto 65.4 % (45-73); Platelet Count 261 X10*3/uL (160-400); Red Cell Distribution Width 13.2 % (11.0-16.0)
[2021-02-02] MEDS: Alteplase Cath Clear 2 MG VIAL INTRAARTER (10:25)
[2021-02-02 10:36] LABS: Alanine Aminotransferase 66 U/L (0-31); Albumin Level 4.1 g/dL (3.5-5.0); Alkaline Phosphatase 64 U/L (39-117); Anion Gap 15 (12-20); Aspartate Amino Transferase 51 U/L (5-31); Bilirubin Total 0.4 mg/dL (0.0-1.0); Blood Urea Nitrogen 7 mg/dL (9-16); Calcium 9.2 mg/dL (8.4-10.2); Carbon Dioxide 30 mmol/L (22-29); Chloride 100 mmol/L (96-108); Creatinine Clr Calc Pharmacy 63.1; Estimated Glomerular Filt Rate > 60; Glucose Random 109 mg/dL (60-115); Potassium 4.1 mmol/L (3.3-5.1); Sodium 141 mmol/L (135-145); Total Protein 6.8 g/dL (6.5-8.0)
[2021-02-02 10:55] VITALS: BP 154/60
[2021-02-02] MEDS: ondansetron HCL/NS 16 MG/50 ML PIGGYBACK 200 MG IV (11:04)
[2021-02-02] MEDS: dexAMETHasone sod phosphate/NS 12 MG/50 ML PIGGYBACK 200 MG IV (11:21)
[2021-02-02] MEDS: Atezolizumab 1,200 MG in 0.9 % Sodium Chloride 250 ML 540 MG IV (11:56)
[2021-02-02 11:59] LABS: Thyroid Stimulating Hormone 0.55 uIU/mL (0.32-4.0)
--- NOTE | 2021-02-02 13:42 | MHC.HEMONCSW ---
MET WITH PATIENT WHILE RECEIVING TREATMENT. REPORTS COPING WELL. BEGINS RADIATION AT [facility] TODAY, SLIGHTLY ANXIOUS. DISCUSSED LIVING WITH CANCER, AND EMOTIONAL HEALTH. DENIED ANY DISTRESS, NO CONCERNS AT THIS TIME. PATIENT IS AWARE OF MY AVAILABILITY.
--- NOTE | 2021-02-02 15:07 | MHC.HEMONC ---
Pt here for c2d1 chemo. She had recently been rx for UTI. No further sx. Appetite is good. Labs drawn peripherally whil waiting for CathFlo to work on port with no blood return. She had good blood return prior to chemo. She melly all of meds today. Port capped for use tomorrow. She has [place] first appt [place] [facility] this [place]. I faxed labs to [facility].
[2021-02-03 13:06] VITALS: BP 161/88; PULSE 101; RESP 20; TEMP 36.4; O2SAT 97; BMI 27.0
[2021-02-03] MEDS: dexAMETHasone 4 MG TABLET PO (13:09)
--- NOTE | 2021-02-03 16:05 | PM.HEMONCPN ---
Medical Summary - Medical Summary Date of Service: 02/03/21 Chief complaint: Follow-up for: Small cell carcinoma of the lung. Medical Summary: DIAGNOSIS: SMALL CELL CARCINOMA OF THE LUNG. CURRENT THERAPY: Carbo etoposide and atezolizumab here for cycle 2, day 2. Interval History Interval history: Lora Meadows is a pleasant 80 year old lady, here for a follow up visit. She has been doing very well. The pain, she used to have on the right side of chest, into the muscles of the spine, and then into the back of leg, has resolved. She is tolerating the chemotherapy very well. She denies easy fatigability, although sometimes she gets it in spurts. No fever nor chills. She is sleeping well. After her stay at [facility] she lost about 12 lb but she was able to regain it over the past year. She used to get headaches but not any more. No dizziness. She denies chest pain. She gets shortness of breath but she attributes that to her allergies. No cough nor sputum. She denies abdominal pain nausea vomiting heartburn indigestion. Her bowels are working without any gross blood in it. Her appetite is way too good. Her weight has been stable. She has frequency of micturition. She actually came down with a UTI over the weekend. She was started on antibiotic by her primary. The patient denies any major joint pain however she does complain of significant back pain. Moderate severity. Sometimes radiating into her left hip Denies any focal weakness. Denies depression. Previous History: with a known history of COPD history of tobacco use in the past and quit 15 years ago. In September 2019, she started developing worsening shortness of breath and she went to an urgent care. She was found to be hypoxic and she was admitted to [facility] which was placed on oxygen. She also required BiPAP briefly.She was then given a diagnosis of COPD exacerbation. Patient has been followed closely there. She started pulmonary rehabilitation as an outpatient 3 times a week. She was able to get off the oxygen. Subsequently, COVID was discovered, in October. So looking back she must have had that infection. She had some lingering symptoms over the past year. She saw Dr. Gifford, for allergies/sinus infection. He referred her to Dr. Kohler. In May, she presented to Pulmonary with significant shortness of breath with minimal activity. She also feels significant palpitations. In the office, a brief walking oximetry was done. She maintain initially a pulse ox above 90% but then at the end of the walk she became very short of breath and dyspneic. She did desaturate below 88% and heart rate was 150 beats per minute. It appeared to be irregular. EKG revealed sinus tach with multiple PVCs along with what appears to be ST depressions in the precordial lateral leads and also in the inferior leads. The patient denied chest pain at the time, denied any palpitations at this time. ER referral was offered, with her abnormal EKG, but she did not want to do that. She was advised to take aspirin on a daily basis and was referred for urgent cardiac consultation. She was under the care of Dr. Suazo. 07/03/2020 she was seen by pulmonary. Overall she felt better. She seem to be responding to the inhaler. She stated that she does get episodes of the shortness of breath and tachycardia. She did undergo a CT scan of the chest which revealed: Mediastinal adenopathy. There is a 2.5 cm lymph node in the subcarina. There is an enlarged pretracheal retro vascular lymph node and a right pretracheal lymph node. 1.3 cm peripherally calcified nodule in the right lobe of thyroid. Impression: 1. No evidence of pulmonary embolism. 2. Mediastinal lymphadenopathy. Significant lymphadenopathy with a station 7 lymph node measuring more than 3 cm and station 4R lymph node measuring 2.5 cm. It was explained to her that this is concerning because of the size. She was recovering from her cardiac issues and was being worked up from a cardiac standpoint regarding the tachyarrhythmia. Therefore, it was deemed reasonable to wait. The plan was if the patient developed any constitutional symptoms of any concern or new symptom whatsoever she was to call back and then consider sampling this lymph nodes sooner rather later. To proceed with transbronchial needle aspiration via EBUS . 10/02/2020 the patient went for pulmonary follow-up. Overall she felt a lot better. Her respiratory status had improved dramatically. She was able to do the activities of daily living including laundry and going up and down the stairs. She would get a little winded but not much. Her pulse ox was stable. In the meantime she did have a repeat CT scan of the chest to assess her lymphadenopathy. It appeared that the lungs were expanding just fine. She had a small 2 mm calcified nodule still. However, she continued to have enlarged mediastinal lymph nodes. These were pretty much unchanged from 3 months prior. Therefore the differential including malignancy/ lymphoma, were discussed. At this point she was willing to undergo a endobronchial ultrasound bronchoscopy. However, because of the pandemic it was pushed out. 11/26/2020 the patient had a telephone visit. She is status post bronchoscopy with endobronchial ultrasound transbronchial needle aspirations. Initially sampling the station 4R and also station 7. Indeed she did have some lesional cells concerning for malignancy. We did call pathology to get further data but the immunohistochemical stainings are still pending. This point the patient has cancer within unclear primary. The immunohistochemical stainings are consistent with small cell cancer. I did talk to the patient she is aware of the findings. 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 She had the MRI of the brain which was negative. Unfortunately, the PET scan got resheduled, two weeks in a row, on account of the weather. . Review of Systems - Constitutional Reports system reviewed and no additional complaints, except as documented - Eyes Reports system reviewed and no additional complaints, except as documented - ENT Reports system reviewed and no additional complaints, except as documented - Cardiovascular Reports system reviewed and no additional complaints, except as documented - Respiratory Reports no additional respiratory complaints - Gastrointestinal Reports system reviewed and no additional complaints, except as documented - Genitourinary Reports no additional female genitourinary complaints - Musculoskeletal Reports system reviewed and no additional complaints, except as documented - Integumentary/Breasts Skin/Breast: Reports no additional skin complaints - Neurologic Reports system reviewed and no additional complaints, except as documented, Reports weakness, Denies abnormal gait - Psychiatric Reports system reviewed and no additional complaints, except as documented - Endocrine Reports no additional endocrine complaints - Hematologic/Lymphatic Reports system reviewed and no additional complaints, except as documented - Allergic/Immunologic Reports system reviewed and no additional complaints, except as documented [facility] Medical History: Medical History (Last Updated 11/26/20 @ 18:36 by Rik Kohler MD) Atrial tachycardia Cancer Chronic obstructive pulmonary disease, unspecified Essential hypertension Hypothyroid Lymphadenopathy Macular degeneration PAC (premature atrial contraction) Pneumonia PVC (premature ventricular contraction) Small cell carcinoma Functional capacity: independent ambulation Patient : No Family History: Family History (Last Reviewed 11/19/20 @ 09:00 by Luis Martínez MD) Father No problems noted. Mother No problems noted. Surgical History: Surgical History (Last Reviewed 11/19/20 @ 09:00 by Luis Martínez MD) History of tonsillectomy and adenoidectomy Hx of cataract extraction Social History: Social History (Last Updated 11/27/20 @ 09:26 by Riya Livingston RN) Tobacco History: Smoking Status: Former smoker Tobacco Type: Cigarette Smokeless Tobacco Use: Former smokeless tobacco user: Yes Packs Per Day: 2 Years Smoked: 50 years Smoked in Last 30 Days: No Smoking Quit Date: 15 years ago Nutrition Assessment: Patient : No Smoking status: Former smoker Oncology Screenings - ECOG Performance Status ECOG Performance Status: 0 Home Medications and Allergies Current Medications: Current Medications Generic Name Dose Route Start Last Admin Trade Name Freq PRN Reason Stop Dose Admin Heparin Sodium (Porcine) 500 unit 02/03/21 00:00 Heparin Sodium,Porcine Flush 500 Unit/5 Ml Syringe IVFLUSH 02/03/21 23:59 ONCE EUGENIO Etoposide 180 mg/ Sodium 509 mls @ 509 mls/hr 02/03/21 00:00 02/03/21 14:55 Chloride IV 02/03/21 23:59 Infused ONCE EUGENIO Infusion Home Medications Medication Instructions Recorded Confirmed Type B-complex with vitamin C 1 tab PO DAILY 10/02/20 11/27/20 History albuterol sulfate 90 mcg/actuation 2 puff INHALATION Q4-6H PRN 10/02/20 11/27/20 History aerosol inhaler levothyroxine 50 mcg tablet 50 mcg PO DAILY 10/02/20 11/27/20 History multivitamin 1 tab PO DAILY 10/02/20 11/27/20 History vit C 250 mg-vit E 200 unit-zinc 1 cap PO BID 10/22/20 11/27/20 History ox 12.5 vw-imykfl-jifkuf-zeax capsule cholecalciferol (vitamin D3) 25 mcg PO DAILY 11/12/20 11/27/20 History [Vitamin D3] ohgysfrlcnx-fxvmhlhpd-rtwrdpax 1 inh INHALATION DIRECTED 11/12/20 11/27/20 History [Trelegy Ellipta] omega 5-qbt-ddv-vitamin E [Systane See Rx Instructions .ROUTE .COMPLEX 12/29/20 12/29/20 History Vitamin] Allergies Allergy/AdvReac Type Severity Reaction Status Date / Time peanut Allergy Severe Anaphylaxis Verified 01/01/21 07:07 Tetanus Vaccines and Toxoid Allergy Severe Anaphylaxis Verified 01/01/21 07:07 lovastatin AdvReac Severe Leg Cramps Verified 01/01/21 07:07 pravastatin AdvReac Severe Leg Cramps Verified 01/01/21 07:07 Exam Vital signs: Vital Signs Temp 97.6 F 02/03/21 13:06 Pulse 101 H 02/03/21 13:06 Resp 20 02/03/21 13:06 BP 161/88 H 02/03/21 13:06 Pulse Ox 97 02/03/21 13:06 Intake & Output 02/02/21 02/03/21 02/03/21 18:59 06:59 18:59 Intake Total 1175 / 1175 509 / 509 Balance 1175 / 1175 509 / 509 Intake: Intake, IV Amount 1175 / 1175 509 / 509 Atezolizumab 1,200 mg In 0.9 % 270 / 270 Sodium Chloride 250 ml @ 540 mls/hr IV ONCE EUGENIO Rx#: [id number] CARBOplatin 460 mg In 0.9 % 296 / 296 Sodium Chloride 250 ml @ 592 mls/hr IV ONCE EUGENIO Rx#: [id number] Etoposide 180 mg In 0.9 % 509 / 509 509 / 509 Sodium Chloride PVC Free 500 ml @ 509 mls/hr IV ONCE EUGENIO Rx#: [id number] dexAMETHasone sod phosphate/NS 50 / 50 12 mg In 50 ml @ 200 mls/hr IV ONCE EUGENIO Rx#:[id number] ondansetron HCL/NS 16 mg In 50 50 / 50 ml @ 200 mls/hr IV ONCE EUGENIO Rx# :[id number] Other: Weight 71.6 kg 71.5 kg [place] Weight in Grams [id number] Weight 71.5 kg Body Mass Index 27.0 - Constitutional Present: no acute distress - Routine HEENT Exam Head: Present: normal inspection Eye: Present: normal appearance ENT: Present: mucous membranes moist - Routine Neck Exam Present: full ROM - Routine Respiratory Exam Present: CTAB - Routine Cardiovascular Exam Cardiovascular: Present: RRR, S1, S2 - Routine Abdominal Exam Present: normal bowel sounds, nontender - Routine Rectal Exam Patient deferred: digital exam - Routine Extremities Exam Present: nontender - Routine Back/Spine/Pelvis Exam Back/Spine: Present: full ROM - Routine Skin Exam Present: intact - Routine Neurological Exam Present: alert, oriented X3 - Detailed Neurological Exam: Coma Scale Eye Opening: Spontaneous (4) - Routine Psychiatric Exam Present: normal affect Data - Labs CBC & Chem 7: 02/02/21 09:55 02/02/21 09:55 Labs: 11/27/20 10:05 Complete Blood Count Auto Diff Routine Comprehensive Met. Panel Routine LDH [Lactate Dehydrogenase] Routine Laboratory Last Values WBC 8.0 X10*3/uL (4.8-10.8) 11/27/20 10:05 RBC 4.86 X10*6/uL (4.20-5.50) 11/27/20 10:05 Hgb 15.2 g/dl (12.0-16.0) 11/27/20 10:05 Hct 44.9 % (37-47) 11/27/20 10:05 MCV 92.4 fL (80-98) 11/27/20 10:05 MCH 31.3 pg (27.0-33.0) 11/27/20 10:05 MCHC 33.9 g/dl (31.0-35.0) 11/27/20 10:05 RDW 13.2 % (11.0-16.0) 11/27/20 10:05 Plt Count 233 X10*3/uL (160-400) 11/27/20 10:05 MPV 10.9 fL (9.4-12.3) 11/27/20 10:05 Immature Gran % (Auto) 0.4 % (0.0-0.4) 11/27/20 10:05 Neut % (Auto) 70.6 % (45-73) 11/27/20 10:05 Lymph % (Auto) 19.3 % (20-40) L 11/27/20 10:05 Carver % (Auto) 8.7 % (2-11) 11/27/20 10:05 Eos % (Auto) 0.4 % (0-4) 11/27/20 10:05 Baso % (Auto) 0.6 % (0-2) 11/27/20 10:05 Lymph # (Auto) 1.5 X10*3/uL (1.2-4.9) 11/27/20 10:05 Carver # (Auto) 0.7 X10*3/uL (0.1-1.2) 11/27/20 10:05 Eos # (Auto) 0.0 X10*3/uL (0.0-0.4) 11/27/20 10:05 Baso # (Auto) 0.1 X10*3/uL (0.0-0.2) 11/27/20 10:05 Abs Immat Gran (auto) 0.03 X10*3/uL (0.00-0.03) 11/27/20 10:05 Absolute Neuts (auto) 5.6 X10*3/uL (2.0-8.3) 11/27/20 10:05 Absolute Nucleated RBC 0.000 X10*3/uL (0.0-0.012) 11/27/20 10:05 Nucleated RBC % (auto) 0.0 /100WBC (0.0-0.2) 11/27/20 10:05 Sodium 139 mmol/L (135-145) 11/27/20 10:05 Potassium 4.1 mmol/L (3.3-5.1) 11/27/20 10:05 Chloride 101 mmol/L (96-108) 11/27/20 10:05 Carbon Dioxide 27 mmol/L (22-29) 11/27/20 10:05 Anion Gap 15 (12-20) 11/27/20 10:05 BUN 13 mg/dL (9-16) 11/27/20 10:05 Creatinine 0.70 mg/dL (0.5-1.4) 11/27/20 10:05 Estim Creat Clear Calc 64.4 11/27/20 10:05 Estimated GFR > 60 11/27/20 10:05 Random Glucose 125 mg/dL (60-115) H D 11/27/20 10:05 Calcium 9.4 mg/dL (8.4-10.2) 11/27/20 10:05 Total Bilirubin 0.6 mg/dL (0.0-1.0) 11/27/20 10:05 AST 36 U/L (5-31) H 11/27/20 10:05 ALT 54 U/L (0-31) H 11/27/20 10:05 Alkaline Phosphatase 69 U/L (39-117) 11/27/20 10:05 Lactate Dehydrogenase 199 U/L (122-220) 11/27/20 10:05 Total Protein 7.3 g/dL (6.5-8.0) 11/27/20 10:05 Albumin 4.3 g/dL (3.5-5.0) 11/27/20 10:05 Progress Note: A/P (1) Small cell carcinoma Status: Acute Assessment and plan: This is a pleasant 81 year-old lady, with recent diagnosis of small cell carcinoma of the lung. She underwent EBUS on November 19. Pathology: Station 4 lymph node: Negative. Station 7 lymph node: Positive for malignant cells consistent with small-cell carcinoma. Immuno stains: Positive for synaptophysin, chromogranin, CD 56 and ann cytokeratin. Negative for chromogranin and CD 45. I shared the details of the pathology with her. I went over the disease course and treatment options including systemic chemotherapy, with or without radiation based upon her exact stage. I proceeded with staging workup. I checked baseline labs including LDH: 199. Check a PET scan to see if there is any evidence of metastatic disease especially with history of chronic back and hip pain. (It had to postponed twice, due to the weather). This was done at [facility] on 12/22 and revealed: FDG avid mediastinal adenopathy, compatible with malignancy. There is no evidence of FDG avid lung cancer outside of the mediastinum. Possible right lower pole renal mass. Recommend correlation with outside imaging of the abdomen. If none is available consider renal ultrasound/dedicated renal mass MRI for further evaluation. 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 No underlying renal mass. l checked MRI of the brain, to look for any possible brain metastases. This revealed: No acute intracranial process seen. No abnormal enhancement seen to suspect any primary or metastatic lesion. Extensive chronic small vessel ischemic changes in both cerebral hemispheres with underlying mild cerebral volume loss. She was started on carbo etoposide and Atizolizumab.. She is tolerating it well. She is on cycle 2 day 2. She has been started on radiation since yesterday. PLAN: To give her another couple of cycles and then re-stage her with imaging. Will continue to monitor labs. I am so glad she is tolerating the treatment very well. Thank you, CC: Dr. Ina Kc. Dr. Rik Kohler. - Time Spent With Patient Total time spent is greater than 50% in coordination of care (as documented) at patient's floor/unit and/or counseling patient: 25 - 35 minutes
[2021-02-04 13:10] VITALS: BP 139/66; PULSE 88; RESP 18; TEMP 36.6; O2SAT 94; BMI 27.3
[2021-02-04] MEDS: dexAMETHasone 4 MG TABLET PO (13:16)
[2021-02-04] MEDS: Heparin Sodium,Porcine Flush 500 UNIT/5 ML SYRINGE IVFLUSH (14:47)
[2021-02-10 11:23] LABS: MANUAL DIFF FLAG NO
[2021-02-10 11:27] LABS: Basophils Absolute Auto 0.1 X10*3/uL (0.0-0.2); Basophils Percent Auto 1.8 % (0-2); Eosinophils Percent Auto 0.3 % (0-4); Hematocrit 39.1 % (37-47); Hemoglobin 12.9 g/dl (12.0-16.0); Imm Gran Abs Auto 0.09 X10*3/uL (0.00-0.03); Imm Gran Pct Auto 2.3 % (0.0-0.4); Lymphocytes Absolute Auto 0.7 X10*3/uL (1.2-4.9); Lymphocytes Percent Auto 17.8 % (20-40); Mean Corpuscular Hemoglobin 30.6 pg (27.0-33.0); Mean Corpuscular Volume 92.9 fL (80-98); Mean Platelet Volume 10.5 fL (9.4-12.3); Monocytes Absolute Auto 0.1 X10*3/uL (0.1-1.2); Neutrophils Percent Auto 75.8 % (45-73); Platelet Count 205 X10*3/uL (160-400); Red Blood Count 4.21 X10*6/uL (4.20-5.50); Red Cell Distribution Width 12.8 % (11.0-16.0)
[2021-02-10 11:53] LABS: Alanine Aminotransferase 73 U/L (0-31); Albumin Level 4.1 g/dL (3.5-5.0); Alkaline Phosphatase 72 U/L (39-117); Anion Gap 12 (12-20); Aspartate Amino Transferase 35 U/L (5-31); Bilirubin Total 1.4 mg/dL (0.0-1.0); Blood Urea Nitrogen 11 mg/dL (9-16); Calcium 9.4 mg/dL (8.4-10.2); Carbon Dioxide 30 mmol/L (22-29); Chloride 100 mmol/L (96-108); Creatinine Clr Calc Pharmacy 66.3; Estimated Glomerular Filt Rate > 60; Glucose Random 119 mg/dL (60-115); Potassium 4.3 mmol/L (3.3-5.1); Sodium 138 mmol/L (135-145); Total Protein 6.7 g/dL (6.5-8.0)
--- NOTE | 2021-02-10 16:08 | MHC.HEMONC ---
pt labs reviewed on d8 of cycle and WNL. LFT elevated. Will re-check next week.
[2021-02-16 11:38] LABS: Basophils Percent Auto 2.1 % (0-2); Hematocrit 38.4 % (37-47); Hemoglobin 12.6 g/dl (12.0-16.0); Imm Gran Abs Auto 0.01 X10*3/uL (0.00-0.03); Lymphocytes Absolute Auto 0.6 X10*3/uL (1.2-4.9); Lymphocytes Percent Auto 57.7 % (20-40); MANUAL DIFF FLAG SCAN; Mean Corpuscular HGB Conc 32.8 g/dl (31.0-35.0); Mean Corpuscular Hemoglobin 30.7 pg (27.0-33.0); Mean Corpuscular Volume 93.4 fL (80-98); Mean Platelet Volume 10.1 fL (9.4-12.3); Monocytes Absolute Auto 0.2 X10*3/uL (0.1-1.2); Monocytes Percent Auto 16.5 % (2-11); Neutrophils Absolute Auto 0.2 X10*3/uL (2.0-8.3); Neutrophils Percent Auto 21.7 % (45-73); Red Blood Count 4.11 X10*6/uL (4.20-5.50); Red Cell Distribution Width 12.8 % (11.0-16.0); SCAN SMEAR FLAG 1
[2021-02-16 11:58] LABS: Alanine Aminotransferase 44 U/L (0-31); Albumin Level 4.2 g/dL (3.5-5.0); Alkaline Phosphatase 67 U/L (39-117); Anion Gap 13 (12-20); Aspartate Amino Transferase 31 U/L (5-31); Bilirubin Total 0.9 mg/dL (0.0-1.0); Blood Urea Nitrogen 8 mg/dL (9-16); Calcium 9.3 mg/dL (8.4-10.2); Carbon Dioxide 29 mmol/L (22-29); Chloride 102 mmol/L (96-108); Creatinine Clr Calc Pharmacy 62.5; Estimated Glomerular Filt Rate > 60; Glucose Random 154 mg/dL (60-115); Lactate Dehydrogenase 183 U/L (122-220); Platelet Count 92 X10*3/uL (160-400); Potassium 3.7 mmol/L (3.3-5.1); Sodium 140 mmol/L (135-145); Total Protein 6.9 g/dL (6.5-8.0)
[2021-02-16 12:15] LABS: SLIDE REVIEW VERIFIED
--- NOTE | 2021-02-16 15:46 | MHC.HEMONC ---
Labs reviewed, Dr. Odom aware. Patient called with results, instructed on neutropenic precautions and to call with any signs of possible infection. Patient is asymptomatic and offers no complaints at this time. Faxed labs to [facility].
[2021-02-23 08:59] VITALS: BP 148/62; PULSE 88; RESP 18; TEMP 36.8; O2SAT 95; BMI 26.8
[2021-02-23 09:22] LABS: Basophils Percent Auto 0.6 % (0-2); Eosinophils Percent Auto 0.3 % (0-4); Hematocrit 37.3 % (37-47); Hemoglobin 12.3 g/dl (12.0-16.0); Imm Gran Abs Auto 0.03 X10*3/uL (0.00-0.03); Imm Gran Pct Auto 0.9 % (0.0-0.4); Lymphocytes Absolute Auto 0.6 X10*3/uL (1.2-4.9); Lymphocytes Percent Auto 18.2 % (20-40); MANUAL DIFF FLAG SCAN; Mean Corpuscular Hemoglobin 31.1 pg (27.0-33.0); Mean Corpuscular Volume 94.2 fL (80-98); Mean Platelet Volume 9.6 fL (9.4-12.3); Monocytes Absolute Auto 0.5 X10*3/uL (0.1-1.2); Monocytes Percent Auto 14.8 % (2-11); Neutrophils Absolute Auto 2.2 X10*3/uL (2.0-8.3); Neutrophils Percent Auto 65.2 % (45-73); Platelet Count 274 X10*3/uL (160-400); Red Blood Count 3.96 X10*6/uL (4.20-5.50); Red Cell Distribution Width 14.6 % (11.0-16.0); SCAN SMEAR FLAG 1; White Blood Count 3.3 X10*3/uL (4.8-10.8)
[2021-02-23 09:48] LABS: Alanine Aminotransferase 47 U/L (0-31); Albumin Level 4.1 g/dL (3.5-5.0); Alkaline Phosphatase 63 U/L (39-117); Anion Gap 15 (12-20); Aspartate Amino Transferase 44 U/L (5-31); Bilirubin Total 0.4 mg/dL (0.0-1.0); Blood Urea Nitrogen 7 mg/dL (9-16); Calcium 9.7 mg/dL (8.4-10.2); Carbon Dioxide 28 mmol/L (22-29); Chloride 102 mmol/L (96-108); Creatinine Clr Calc Pharmacy 60.2; Estimated Glomerular Filt Rate > 60; Glucose Random 141 mg/dL (60-115); Sodium 141 mmol/L (135-145); Total Protein 6.9 g/dL (6.5-8.0)
[2021-02-23 10:08] LABS: SLIDE REVIEW VERIFIED
--- NOTE | 2021-02-23 10:13 | HE.PHANOTE ---
[facility] RECALCULATED CARBOPLATIN DOSE TO BE 425MG USING ADJUSTED BODY WEIGHT. [facility] DOES NOT ACCOUNT FOR ADJBW IN CALCULATIONS; CURRENT DOSE OF 425MG IS 100% OF DOSE, NOT 89% MEDITECH IS SHOWING.
[2021-02-23] MEDS: ondansetron HCL/NS 16 MG/50 ML PIGGYBACK 200 MG IV (11:26)
[2021-02-23] MEDS: Alteplase Cath Clear 2 MG VIAL INTRACATH (11:49)
[2021-02-23] MEDS: dexAMETHasone sod phosphate/NS 12 MG/50 ML PIGGYBACK 200 MG IV (11:50)
[2021-02-23] MEDS: Atezolizumab 1,200 MG in 0.9 % Sodium Chloride 250 ML 540 MG IV (12:28)
--- NOTE | 2021-02-23 15:10 | MHC.HEMONC ---
Pt here for C3 D1 of treatment. Labs drawn and reviewed. Port accessed, no blood return. Flushes well. Reported to Dr Odom. Cathflo ordered and injected into port. IV started right forearm for premeds. After 30 min, good blood return noted. Treatment infused and pt tolerated well. Now going to [facility] for radiation treatment. Will return tomorrow for D2.
[2021-02-24 12:57] VITALS: BP 195/81; PULSE 119; RESP 12; TEMP 36.8; O2SAT 95; BMI 27.1
[2021-02-24] MEDS: ondansetron HCL/NS 16 MG/50 ML PIGGYBACK 200 MG IV (14:01)
[2021-02-24] MEDS: dexAMETHasone sod phosphate/NS 12 MG/50 ML PIGGYBACK 200 MG IV (14:26)
--- NOTE | 2021-02-24 16:18 | MHC.HEMONC ---
Pt here for C3 D2 of treatment. States had a good night last night, feels good today. Port flushed, good blood return noted. Premeds given as ordered. Etoposide given and pt tolerated well. Will return 02/25 for D3. Lab results from 02/23 faxed to [facility].
[2021-02-25 13:04] VITALS: BP 140/88; PULSE 90; RESP 18; TEMP 36.7; O2SAT 94; BMI 27.5
[2021-02-25] MEDS: ondansetron HCL/NS 16 MG/50 ML PIGGYBACK 200 MG IV (13:10)
[2021-02-25] MEDS: dexAMETHasone sod phosphate/NS 12 MG/50 ML PIGGYBACK 200 MG IV (13:10)
[2021-02-25] MEDS: Heparin Sodium,Porcine Flush 500 UNIT/5 ML SYRINGE IVFLUSH (13:10)
[2021-03-02 11:20] VITALS: BP 159/83; PULSE 91; RESP 12; TEMP 36.2; O2SAT 100; BMI 27.1
[2021-03-02 11:41] LABS: Basophils Percent Auto 0.8 % (0-2); Eosinophils Percent Auto 0.3 % (0-4); Hematocrit 36.3 % (37-47); Hemoglobin 11.8 g/dl (12.0-16.0); Imm Gran Abs Auto 0.16 X10*3/uL (0.00-0.03); Imm Gran Pct Auto 4.4 % (0.0-0.4); Lymphocytes Absolute Auto 0.3 X10*3/uL (1.2-4.9); Lymphocytes Percent Auto 9.4 % (20-40); MANUAL DIFF FLAG SCAN; Mean Corpuscular HGB Conc 32.5 g/dl (31.0-35.0); Mean Corpuscular Hemoglobin 30.9 pg (27.0-33.0); Mean Platelet Volume 10.3 fL (9.4-12.3); Monocytes Percent Auto 0.8 % (2-11); Neutrophils Absolute Auto 3.1 X10*3/uL (2.0-8.3); Neutrophils Percent Auto 84.3 % (45-73); Platelet Count 225 X10*3/uL (160-400); Red Blood Count 3.82 X10*6/uL (4.20-5.50); Red Cell Distribution Width 14.5 % (11.0-16.0); SCAN SMEAR FLAG 1; White Blood Count 3.6 X10*3/uL (4.8-10.8)
--- NOTE | 2021-03-02 11:52 | MHC.HEMONC ---
in for labs one week following chemo. Results of cbc wnl. Will fax to [facility]
[2021-03-02 12:01] LABS: Alanine Aminotransferase 99 U/L (0-31); Alkaline Phosphatase 64 U/L (39-117); Anion Gap 11 (12-20); Aspartate Amino Transferase 57 U/L (5-31); Bilirubin Total 0.9 mg/dL (0.0-1.0); Blood Urea Nitrogen 10 mg/dL (9-16); Calcium 9.3 mg/dL (8.4-10.2); Carbon Dioxide 31 mmol/L (22-29); Chloride 101 mmol/L (96-108); Creatinine Clr Calc Pharmacy 70.3; Estimated Glomerular Filt Rate > 60; Glucose Random 104 mg/dL (60-115); Potassium 4.2 mmol/L (3.3-5.1); Sodium 139 mmol/L (135-145); Total Protein 6.5 g/dL (6.5-8.0)
[2021-03-02 12:25] LABS: SLIDE REVIEW VERIFIED
[2021-03-09 11:45] LABS: Basophils Percent Auto 1.2 % (0-2); Eosinophils Percent Auto 1.2 % (0-4); Hematocrit 35.8 % (37-47); Hemoglobin 11.9 g/dl (12.0-16.0); Imm Gran Abs Auto 0.01 X10*3/uL (0.00-0.03); Imm Gran Pct Auto 1.2 % (0.0-0.4); Lymphocytes Absolute Auto 0.3 X10*3/uL (1.2-4.9); Lymphocytes Percent Auto 32.1 % (20-40); MANUAL DIFF FLAG SCAN; Mean Corpuscular HGB Conc 33.2 g/dl (31.0-35.0); Mean Corpuscular Hemoglobin 32.1 pg (27.0-33.0); Mean Corpuscular Volume 96.5 fL (80-98); Mean Platelet Volume 10.4 fL (9.4-12.3); Monocytes Absolute Auto 0.3 X10*3/uL (0.1-1.2); Monocytes Percent Auto 35.8 % (2-11); Neutrophils Absolute Auto 0.2 X10*3/uL (2.0-8.3); Neutrophils Percent Auto 28.5 % (45-73); Red Blood Count 3.71 X10*6/uL (4.20-5.50); Red Cell Distribution Width 15.6 % (11.0-16.0); SCAN SMEAR FLAG 1
[2021-03-09 11:50] LABS: Platelet Count 92 X10*3/uL (160-400); White Blood Count 0.8 X10*3/uL (4.8-10.8)
[2021-03-09 12:10] LABS: Alanine Aminotransferase 44 U/L (0-31); Albumin Level 4.2 g/dL (3.5-5.0); Alkaline Phosphatase 62 U/L (39-117); Anion Gap 12 (12-20); Aspartate Amino Transferase 30 U/L (5-31); Bilirubin Total 0.5 mg/dL (0.0-1.0); Blood Urea Nitrogen 7 mg/dL (9-16); Calcium 9.3 mg/dL (8.4-10.2); Carbon Dioxide 30 mmol/L (22-29); Chloride 103 mmol/L (96-108); Creatinine Clr Calc Pharmacy 62.3; Estimated Glomerular Filt Rate > 60; Glucose Random 119 mg/dL (60-115); Potassium 4.2 mmol/L (3.3-5.1); Sodium 141 mmol/L (135-145); Total Protein 6.8 g/dL (6.5-8.0)
[2021-03-09 12:20] LABS: SLIDE REVIEW VERIFIED
--- NOTE | 2021-03-09 12:31 | MHC.HEMONC ---
pt called and RT at [facility] called with critically low wbc0.8. anc 0.2. Awaiting pt call back. All labs faxed to [facility].
[2021-03-16 09:00] VITALS: BP 155/86; PULSE 112; RESP 20; TEMP 36.9; O2SAT 95; BMI 26.6
[2021-03-16 10:38] LABS: Alanine Aminotransferase 30 U/L (0-31); Albumin Level 3.9 g/dL (3.5-5.0); Alkaline Phosphatase 60 U/L (39-117); Anion Gap 14 (12-20); Aspartate Amino Transferase 32 U/L (5-31); Bilirubin Total 0.6 mg/dL (0.0-1.0); Blood Urea Nitrogen 8 mg/dL (9-16); Calcium 8.9 mg/dL (8.4-10.2); Carbon Dioxide 26 mmol/L (22-29); Chloride 105 mmol/L (96-108); Creatinine Clr Calc Pharmacy 67.5; Estimated Glomerular Filt Rate > 60; Glucose Random 129 mg/dL (60-115); Potassium 3.7 mmol/L (3.3-5.1); Sodium 141 mmol/L (135-145); Total Protein 6.4 g/dL (6.5-8.0)
[2021-03-16 10:49] LABS: Basophils Percent Auto 0.6 % (0-2); Eosinophils Percent Auto 0.3 % (0-4); Hematocrit 31.9 % (37-47); Hemoglobin 10.5 g/dl (12.0-16.0); Imm Gran Abs Auto 0.03 X10*3/uL (0.00-0.03); Imm Gran Pct Auto 0.8 % (0.0-0.4); Lymphocytes Absolute Auto 0.5 X10*3/uL (1.2-4.9); Lymphocytes Percent Auto 15.3 % (20-40); MANUAL DIFF FLAG SCAN; Mean Corpuscular HGB Conc 32.9 g/dl (31.0-35.0); Mean Corpuscular Hemoglobin 31.6 pg (27.0-33.0); Mean Corpuscular Volume 96.1 fL (80-98); Monocytes Absolute Auto 0.6 X10*3/uL (0.1-1.2); Neutrophils Absolute Auto 2.3 X10*3/uL (2.0-8.3); Platelet Count 223 X10*3/uL (160-400); Red Blood Count 3.32 X10*6/uL (4.20-5.50); Red Cell Distribution Width 16.4 % (11.0-16.0); SCAN SMEAR FLAG 1; White Blood Count 3.5 X10*3/uL (4.8-10.8)
[2021-03-16] MEDS: Acetaminophen 325 MG TABLET 650 MG PO (11:23)
[2021-03-16] MEDS: ondansetron HCL/NS 16 MG/50 ML PIGGYBACK 200 MG IV (11:24)
[2021-03-16] MEDS: dexAMETHasone sod phosphate/NS 12 MG/50 ML PIGGYBACK 200 MG IV (11:24)
[2021-03-16] MEDS: diphenhydrAMINE HCL 50 MG/ML VIAL 25 MG IVPUSH (11:24)
[2021-03-16] MEDS: Atezolizumab 1,200 MG in 0.9 % Sodium Chloride 250 ML 540 MG IV (12:58)
[2021-03-16 13:29] LABS: SLIDE REVIEW VERIFIED
[2021-03-17 12:31] VITALS: BP 149/82; PULSE 116; RESP 18; TEMP 37; O2SAT 97; BMI 27.0
[2021-03-17] MEDS: dexAMETHasone sod phosphate/NS 12 MG/50 ML PIGGYBACK 200 MG IV (13:21)
[2021-03-17] MEDS: ondansetron HCL/NS 16 MG/50 ML PIGGYBACK 200 MG IV (13:42)
--- NOTE | 2021-03-17 14:38 | MHC.HEMONC ---
Pt here for Cycle 4 day 2 Etoposide IV. Labs drawn 03/16/21 reviewed. Port uncapped and flushed with 0.9% NS-Patent with blood return. 0.9% NS infusing at 100ml hour. Pt states she feels well today-however states did not sleep well last pm. Pre medicated with zofran 16mg IV and decadron 12mg IV. Etoposide IV given as ordered. Tolerated well. Pt to return tomorrow 03/18/21 for chemotherapy. Port capped and taped in place. Declines discharge chemo literature. Discharged home.
[2021-03-18] MEDS: ondansetron HCL/NS 16 MG/50 ML PIGGYBACK 200 MG IV (13:08)
[2021-03-18] MEDS: Heparin Sodium,Porcine Flush 500 UNIT/5 ML SYRINGE IVFLUSH (13:09)
[2021-03-18] MEDS: dexAMETHasone sod phosphate/NS 12 MG/50 ML PIGGYBACK 200 MG IV (13:29)
--- NOTE | 2021-03-18 13:37 | PM.HEMONCPN ---
Medical Summary - Medical Summary Date of Service: 03/18/21 Chief complaint: Follow-up for: Small cell carcinoma of the lung. Medical Summary: DIAGNOSIS: SMALL CELL CARCINOMA OF THE LUNG. CURRENT THERAPY: Carboplatin/Etoposide and Atezolizumab, here for cycle 4, day 3. Completed radiation, today. Received 33 sessions. Interval History Interval history: Lora Meadows is a pleasant 81 year old lady, here for a follow up visit. She has been doing extremely well. She tells me she graduated from radiation today. She denies easy fatigability. The pain, she used to have on the right side of chest, into the muscles of the spine, and then into the back of leg, has resolved. She is tolerating the chemotherapy very well. No fever nor chills. She is sleeping well. She used to get headaches but not any more. No dizziness. She denies chest pain. She gets shortness of breath but she attributes that to her allergies. No cough nor sputum. She denies abdominal pain nausea vomiting heartburn indigestion. Her bowels are working without any gross blood in it. Her appetite is way too good. Her weight has been stable. She has frequency of micturition. She actually came down with a UTI over the weekend. She was started on antibiotic by her primary. The patient denies any major joint pain however she does complain of significant back pain. Moderate severity. Sometimes radiating into her left hip Denies any focal weakness. Denies depression. After her stay at [facility] she lost about 12 lb but she was able to regain it over the past year. Previous History: with a known history of COPD history of tobacco use in the past and quit 15 years ago. In September 2019, she started developing worsening shortness of breath and she went to an urgent care. She was found to be hypoxic and she was admitted to [facility] which was placed on oxygen. She also required BiPAP briefly.She was then given a diagnosis of COPD exacerbation. Patient has been followed closely there. She started pulmonary rehabilitation as an outpatient 3 times a week. She was able to get off the oxygen. Subsequently, COVID was discovered, in October. So looking back she must have had that infection. She had some lingering symptoms over the past year. She saw Dr. Gifford, for allergies/sinus infection. He referred her to Dr. Kohler. In May, she presented to Pulmonary with significant shortness of breath with minimal activity. She also feels significant palpitations. In the office, a brief walking oximetry was done. She maintain initially a pulse ox above 90% but then at the end of the walk she became very short of breath and dyspneic. She did desaturate below 88% and heart rate was 150 beats per minute. It appeared to be irregular. EKG revealed sinus tach with multiple PVCs along with what appears to be ST depressions in the precordial lateral leads and also in the inferior leads. The patient denied chest pain at the time, denied any palpitations at this time. ER referral was offered, with her abnormal EKG, but she did not want to do that. She was advised to take aspirin on a daily basis and was referred for urgent cardiac consultation. She was under the care of Dr. Suazo. 07/03/2020 she was seen by pulmonary. Overall she felt better. She seem to be responding to the inhaler. She stated that she does get episodes of the shortness of breath and tachycardia. She did undergo a CT scan of the chest which revealed: Mediastinal adenopathy. There is a 2.5 cm lymph node in the subcarina. There is an enlarged pretracheal retro vascular lymph node and a right pretracheal lymph node. 1.3 cm peripherally calcified nodule in the right lobe of thyroid. Impression: 1. No evidence of pulmonary embolism. 2. Mediastinal lymphadenopathy. Significant lymphadenopathy with a station 7 lymph node measuring more than 3 cm and station 4R lymph node measuring 2.5 cm. It was explained to her that this is concerning because of the size. She was recovering from her cardiac issues and was being worked up from a cardiac standpoint regarding the tachyarrhythmia. Therefore, it was deemed reasonable to wait. The plan was if the patient developed any constitutional symptoms of any concern or new symptom whatsoever she was to call back and then consider sampling this lymph nodes sooner rather later. To proceed with transbronchial needle aspiration via EBUS . 10/02/2020 the patient went for pulmonary follow-up. Overall she felt a lot better. Her respiratory status had improved dramatically. She was able to do the activities of daily living including laundry and going up and down the stairs. She would get a little winded but not much. Her pulse ox was stable. In the meantime she did have a repeat CT scan of the chest to assess her lymphadenopathy. It appeared that the lungs were expanding just fine. She had a small 2 mm calcified nodule still. However, she continued to have enlarged mediastinal lymph nodes. These were pretty much unchanged from 3 months prior. Therefore the differential including malignancy/ lymphoma, were discussed. At this point she was willing to undergo a endobronchial ultrasound bronchoscopy. However, because of the pandemic it was pushed out. 11/26/2020 the patient had a telephone visit. She is status post bronchoscopy with endobronchial ultrasound transbronchial needle aspirations. Initially sampling the station 4R and also station 7. Indeed she did have some lesional cells concerning for malignancy. We did call pathology to get further data but the immunohistochemical stainings are still pending. This point the patient has cancer within unclear primary. The immunohistochemical stainings are consistent with small cell cancer. I did talk to the patient she is aware of the findings. 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 She had the MRI of the brain which was negative. Unfortunately, the PET scan got resheduled, two weeks in a row, on account of the weather. . Review of Systems - Constitutional Reports no additional constitutional complaints - Eyes Reports no additional eye complaints - ENT Reports no additional ear, nose, mouth, and throat complaints - Cardiovascular Reports no additional cardiovascular complaints - Respiratory Reports no additional respiratory complaints - Gastrointestinal Reports no additional gastrointestinal complaints - Genitourinary Reports no additional female genitourinary complaints - Musculoskeletal Reports no additional musculoskeletal complaints - Integumentary/Breasts Skin/Breast: Reports no additional skin complaints - Neurologic Reports no additional neurologic complaints, Denies abnormal gait, Reports weakness - Psychiatric Reports no additional psychiatric complaints - Endocrine Reports no additional endocrine complaints - Hematologic/Lymphatic Reports no additional hematologic/lymphatic complaints - Allergic/Immunologic Reports no additional allergic/immunologic complaints [facility] Medical History: Medical History (Last Updated 11/26/20 @ 18:36 by Rik Kohler MD) Atrial tachycardia Cancer Chronic obstructive pulmonary disease, unspecified Essential hypertension Hypothyroid Lymphadenopathy Macular degeneration PAC (premature atrial contraction) Pneumonia PVC (premature ventricular contraction) Small cell carcinoma Functional capacity: independent ambulation Patient : No Family History: Family History (Last Reviewed 11/19/20 @ 09:00 by Luis Martínez MD) Father No problems noted. Mother No problems noted. Surgical History: Surgical History (Last Reviewed 11/19/20 @ 09:00 by Luis Martínez MD) History of tonsillectomy and adenoidectomy Hx of cataract extraction Social History: Social History (Last Updated 11/27/20 @ 09:26 by Riya Livingston RN) Living Situation History: Are you a primary career and guidance counselor to a significant other at home: No Do you presently have visiting nurse or other home services: No Tobacco History: Cigarette Packs Per Day: 2 Years Smoked: 50 years Smoked in Last 30 Days: No Nutrition Assessment: Patient : No Oncology Screenings - ECOG Performance Status ECOG Performance Status: 0 Home Medications and Allergies Current Medications: Current Medications Generic Name Dose Route Start Last Admin Trade Name Freq PRN Reason Stop Dose Admin Heparin Sodium (Porcine) 500 unit 03/18/21 00:00 03/18/21 13:09 Heparin Sodium,Porcine Flush 500 Unit/5 Ml Syringe IVFLUSH 03/18/21 23:59 500 unit ONCE EUGENIO Administration Ondansetron HCl 16 mg in 50 mls @ 200 mls/hr 02/24/21 14:00 02/24/21 14:16 Zofran IV Infused ONCE EUGENIO Infusion Ondansetron HCl 16 mg in 50 mls @ 200 mls/hr 02/25/21 09:30 02/25/21 13:25 Zofran IV Infused ONCE EUGENIO Infusion Ondansetron HCl 16 mg in 50 mls @ 200 mls/hr 03/17/21 13:15 03/17/21 13:57 Zofran IV Infused ONCE EUGENIO Infusion Ondansetron HCl 16 mg in 50 mls @ 200 mls/hr 03/19/21 11:00 03/18/21 13:23 Zofran IV 03/19/21 11:14 Infused ONCE EUGENIO Infusion Dexamethasone Sodium Phosphate 12 mg in 50 mls @ 200 mls/hr 03/19/21 11:00 03/18/21 13:29 Decadron IV 03/19/21 11:14 200 mls/hr ONCE EUGENIO Administration Etoposide 180 mg/ Sodium 509 mls @ 509 mls/hr 03/18/21 00:00 Chloride IV 03/18/21 23:59 ONCE EUGENIO Home Medications Medication Instructions Recorded Confirmed Type B-complex with vitamin C 1 tab PO DAILY 10/02/20 03/16/21 History albuterol sulfate 90 mcg/actuation 2 puff INHALATION Q4-6H PRN 10/02/20 03/16/21 History aerosol inhaler levothyroxine 50 mcg tablet 50 mcg PO DAILY 10/02/20 03/16/21 History multivitamin 1 tab PO DAILY 10/02/20 03/16/21 History vit C 250 mg-vit E 200 unit-zinc 1 cap PO BID 10/22/20 03/16/21 History ox 12.5 [id number]-uryved-zeax capsule cholecalciferol (vitamin D3) 25 mcg PO DAILY 11/12/20 03/16/21 History [Vitamin D3] vpjtibiepiw-oquchmulc-ukqelvvl 1 inh INHALATION DIRECTED 11/12/20 03/16/21 History [Trelegy Ellipta] omega 3-cis-dge-vitamin E [Systane See Rx Instructions .ROUTE .COMPLEX 12/29/20 03/16/21 History Vitamin] Allergies Allergy/AdvReac Type Severity Reaction Status Date / Time peanut Allergy Severe Anaphylaxis Verified 01/01/21 07:07 Tetanus Vaccines and Toxoid Allergy Severe Anaphylaxis Verified 01/01/21 07:07 lovastatin AdvReac Severe Leg Cramps Verified 01/01/21 07:07 pravastatin AdvReac Severe Leg Cramps Verified 01/01/21 07:07 Exam Vital signs: Vital Signs Temp 98.6 F 03/17/21 12:31 Pulse 116 H 03/17/21 12:31 Resp 18 03/17/21 12:31 BP 149/82 H 03/17/21 12:31 Pulse Ox 97 03/17/21 12:31 Intake & Output 03/17/21 03/18/21 03/18/21 18:59 06:59 18:59 Intake Total 609 / 609 50 / 50 Balance 609 / 609 50 / 50 Intake: Intake, IV Amount 609 / 609 50 / 50 Etoposide 180 mg In 0.9 % 509 / 509 Sodium Chloride PVC Free 500 ml @ 509 mls/hr IV ONCE [facility] Rx#: [id number] dexAMETHasone sod phosphate/NS 50 / 50 12 mg In 50 ml @ 200 mls/hr IV ONCE EUGENIO Rx#:[id number] ondansetron HCL/NS 16 mg In 50 50 / 50 50 / 50 ml @ 200 mls/hr IV ONCE EUGENIO Rx# :[id number] Other: Weight 71.5 kg [place] Weight in Grams 65460 Weight 71.5 kg Body Mass Index 27.0 - Constitutional Present: no acute distress - Routine HEENT Exam Head: Present: normal inspection Eye: Present: normal appearance ENT: Present: mucous membranes moist - Routine Neck Exam Present: full ROM - Routine Respiratory Exam Present: CTAB - Routine Cardiovascular Exam Cardiovascular: Present: RRR, S1, S2 - Routine Abdominal Exam Present: normal bowel sounds, nontender - Routine Rectal Exam Patient deferred: digital exam - Routine Extremities Exam Present: nontender - Routine Back/Spine/Pelvis Exam Back/Spine: Present: full ROM - Routine Skin Exam Present: intact - Routine Neurological Exam Present: alert, oriented X3 - Detailed Neurological Exam: Coma Scale Eye Opening: Spontaneous (4) - Routine Psychiatric Exam Present: normal affect Data - Labs CBC & Chem 7: 03/16/21 10:40 03/16/21 09:00 Labs: 11/27/20 10:05 Complete Blood Count Auto Diff Routine Comprehensive Met. Panel Routine LDH [Lactate Dehydrogenase] Routine Laboratory Last Values WBC 8.0 X10*3/uL (4.8-10.8) 11/27/20 10:05 RBC 4.86 X10*6/uL (4.20-5.50) 11/27/20 10:05 Hgb 15.2 g/dl (12.0-16.0) 11/27/20 10:05 Hct 44.9 % (37-47) 11/27/20 10:05 MCV 92.4 fL (80-98) 11/27/20 10:05 MCH 31.3 pg (27.0-33.0) 11/27/20 10:05 MCHC 33.9 g/dl (31.0-35.0) 11/27/20 10:05 RDW 13.2 % (11.0-16.0) 11/27/20 10:05 Plt Count 233 X10*3/uL (160-400) 11/27/20 10:05 MPV 10.9 fL (9.4-12.3) 11/27/20 10:05 Immature Gran % (Auto) 0.4 % (0.0-0.4) 11/27/20 10:05 Neut % (Auto) 70.6 % (45-73) 11/27/20 10:05 Lymph % (Auto) 19.3 % (20-40) L 11/27/20 10:05 [place] % (Auto) 8.7 % (2-11) 11/27/20 10:05 Eos % (Auto) 0.4 % (0-4) 11/27/20 10:05 Baso % (Auto) 0.6 % (0-2) 11/27/20 10:05 Lymph # (Auto) 1.5 X10*3/uL (1.2-4.9) 11/27/20 10:05 [place] # (Auto) 0.7 X10*3/uL (0.1-1.2) 11/27/20 10:05 Eos # (Auto) 0.0 X10*3/uL (0.0-0.4) 11/27/20 10:05 Baso # (Auto) 0.1 X10*3/uL (0.0-0.2) 11/27/20 10:05 Abs Immat Gran (auto) 0.03 X10*3/uL (0.00-0.03) 11/27/20 10:05 Absolute Neuts (auto) 5.6 X10*3/uL (2.0-8.3) 11/27/20 10:05 Absolute Nucleated RBC 0.000 X10*3/uL (0.0-0.012) 11/27/20 10:05 Nucleated RBC % (auto) 0.0 /100WBC (0.0-0.2) 11/27/20 10:05 Sodium 139 mmol/L (135-145) 11/27/20 10:05 Potassium 4.1 mmol/L (3.3-5.1) 11/27/20 10:05 Chloride 101 mmol/L (96-108) 11/27/20 10:05 Carbon Dioxide 27 mmol/L (22-29) 11/27/20 10:05 Anion Gap 15 (12-20) 11/27/20 10:05 BUN 13 mg/dL (9-16) 11/27/20 10:05 Creatinine 0.70 mg/dL (0.5-1.4) 11/27/20 10:05 Estim Creat Clear Calc 64.4 11/27/20 10:05 Estimated GFR > 60 11/27/20 10:05 Random Glucose 125 mg/dL (60-115) H D 11/27/20 10:05 Calcium 9.4 mg/dL (8.4-10.2) 11/27/20 10:05 Total Bilirubin 0.6 mg/dL (0.0-1.0) 11/27/20 10:05 AST 36 U/L (5-31) H 11/27/20 10:05 ALT 54 U/L (0-31) H 11/27/20 10:05 Alkaline Phosphatase 69 U/L (39-117) 11/27/20 10:05 Lactate Dehydrogenase 199 U/L (122-220) 11/27/20 10:05 Total Protein 7.3 g/dL (6.5-8.0) 11/27/20 10:05 Albumin 4.3 g/dL (3.5-5.0) 11/27/20 10:05 Progress Note: A/P (1) Small cell carcinoma Status: Acute Assessment and plan: This is a pleasant 81 year-old lady, with recent diagnosis of small cell carcinoma of the lung. She underwent EBUS on November 19. Pathology: Station 4 lymph node: Negative. Station 7 lymph node: Positive for malignant cells consistent with small-cell carcinoma. Immuno stains: Positive for synaptophysin, chromogranin, CD 56 and ann cytokeratin. Negative for chromogranin and CD 45. I shared the details of the pathology with her. I went over the disease course and treatment options including systemic chemotherapy, with or without radiation based upon her exact stage. I proceeded with staging workup. I checked baseline labs including LDH: 199. Check a PET scan to see if there is any evidence of metastatic disease especially with history of chronic back and hip pain. (It had to postponed twice, due to the weather). This was done at [facility] on 12/22 and revealed: FDG avid mediastinal adenopathy, compatible with malignancy. There is no evidence of FDG avid lung cancer outside of the mediastinum. Possible right lower pole renal mass. Recommend correlation with outside imaging of the abdomen. If none is available consider renal ultrasound/dedicated renal mass MRI for further evaluation. 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 No underlying renal mass. l checked MRI of the brain, to look for any possible brain metastases. This revealed: No acute intracranial process seen. No abnormal enhancement seen to suspect any primary or metastatic lesion. Extensive chronic small vessel ischemic changes in both cerebral hemispheres with underlying mild cerebral volume loss. She was started on carbo etoposide and Atizolizumab.. She is tolerating it well. She is on cycle 4 day 3. She has completed radiation therapy today. She has done very well. PLAN: To wait a month and then re-stage her with imaging. She will now go on to the maintenance phase with Atizolizumab, q 2 weeks. Will continue to monitor labs. I am so glad she has tolerated the treatment very well. Thank you, CC: Dr. Ina Kc. Dr. Rik Kohler. - Time Spent With Patient Total time spent is greater than 50% in coordination of care (as documented) at patient's floor/unit and/or counseling patient: 25 - 35 minutes
[2021-03-18 14:35] VITALS: BP 164/71; PULSE 104; RESP 18; TEMP 36.9; O2SAT 93
[2021-03-18 14:40] VITALS: BMI 27.1
--- NOTE | 2021-03-18 15:32 | MHC.HEMONC ---
Cycle 4 Day 3: Etoposide well tolerated. Port was accessed, positive blood return. VSS. Exam with Dr. Odom. Patient will return in 2 weeks for maintenance Atezolizumab. Labs scheduled for next week.
[2021-03-25 13:32] LABS: Basophils Absolute Auto 0.1 X10*3/uL (0.0-0.2); Basophils Percent Auto 2.6 % (0-2); Eosinophils Percent Auto 0.9 % (0-4); Hematocrit 32.2 % (37-47); Hemoglobin 10.8 g/dl (12.0-16.0); Imm Gran Abs Auto 0.02 X10*3/uL (0.00-0.03); Imm Gran Pct Auto 0.9 % (0.0-0.4); Lymphocytes Absolute Auto 0.4 X10*3/uL (1.2-4.9); Lymphocytes Percent Auto 15.5 % (20-40); MANUAL DIFF FLAG SCAN; Mean Corpuscular HGB Conc 33.5 g/dl (31.0-35.0); Mean Corpuscular Hemoglobin 32.3 pg (27.0-33.0); Mean Corpuscular Volume 96.4 fL (80-98); Mean Platelet Volume 10.3 fL (9.4-12.3); Monocytes Absolute Auto 0.2 X10*3/uL (0.1-1.2); Monocytes Percent Auto 6.4 % (2-11); Neutrophils Absolute Auto 1.7 X10*3/uL (2.0-8.3); Neutrophils Percent Auto 73.7 % (45-73); Platelet Count 175 X10*3/uL (160-400); Red Blood Count 3.34 X10*6/uL (4.20-5.50); Red Cell Distribution Width 15.7 % (11.0-16.0); SCAN SMEAR FLAG 1
[2021-03-25 13:35] LABS: White Blood Count 2.3 X10*3/uL (4.8-10.8)
[2021-03-25 13:53] LABS: Alanine Aminotransferase 74 U/L (0-31); Albumin Level 4.1 g/dL (3.5-5.0); Alkaline Phosphatase 73 U/L (39-117); Anion Gap 11 (12-20); Aspartate Amino Transferase 50 U/L (5-31); Bilirubin Total 0.7 mg/dL (0.0-1.0); Blood Urea Nitrogen 10 mg/dL (9-16); Calcium 9.8 mg/dL (8.4-10.2); Carbon Dioxide 32 mmol/L (22-29); Chloride 102 mmol/L (96-108); Creatinine Clr Calc Pharmacy 54.5; Estimated Glomerular Filt Rate > 60; Glucose Random 114 mg/dL (60-115); Potassium 4.4 mmol/L (3.3-5.1); Sodium 141 mmol/L (135-145); Total Protein 6.6 g/dL (6.5-8.0)
[2021-03-25 13:55] LABS: SLIDE REVIEW VERIFIED
--- NOTE | 2021-03-30 08:45 | MHC.HEMONC ---
pt called to c/o constipation x 5 days. She tried suppository yesterday per Dr Funez at [facility] without results. She has been also on Mirilax. She is eating and drinking and is afebrile. She is due in this afternoon for maintenance Atezolizumab. I recommended she get Mag Citrate and take 1/2 bottle followed by other half if no results after 6 hr. She will try.
--- NOTE | 2021-03-30 09:59 | MHC.HEMONC ---
Telephone call from pharmacist Usman. Pt is not due for her chemo treatment until 04/06 due to change in dose ordered. Pt called and rescheduled to next week.
--- NOTE | 2021-04-01 14:15 | MHC.HEMONC ---
Pt called with excellent results from Miralax, however she is having some lower back pain that feels muscular . It is now more on one side but is bothersome. It does hurt more when she twists or gets up from chair. I suggested she try Alleve or Ibuprofen with food for a couple of days and to call if it worsens or she develops fever. She is not having any difficulty or changes with urination. She will try this and call us prn. Pt coming in for treatment on Tuesday.
[2021-04-06 13:25] VITALS: BP 151/80; PULSE 110; RESP 17; TEMP 36.8; O2SAT 94; BMI 26.6
[2021-04-06 13:30] LABS: Basophils Percent Auto 0.7 % (0-2); Eosinophils Percent Auto 0.7 % (0-4); Hematocrit 35.2 % (37-47); Hemoglobin 11.5 g/dl (12.0-16.0); Imm Gran Abs Auto 0.05 X10*3/uL (0.00-0.03); Imm Gran Pct Auto 1.2 % (0.0-0.4); Lymphocytes Absolute Auto 0.6 X10*3/uL (1.2-4.9); Lymphocytes Percent Auto 13.6 % (20-40); MANUAL DIFF FLAG SCAN; Mean Corpuscular HGB Conc 32.7 g/dl (31.0-35.0); Mean Corpuscular Hemoglobin 31.9 pg (27.0-33.0); Mean Corpuscular Volume 97.8 fL (80-98); Monocytes Absolute Auto 0.9 X10*3/uL (0.1-1.2); Monocytes Percent Auto 20.8 % (2-11); Neutrophils Absolute Auto 2.7 X10*3/uL (2.0-8.3); Platelet Count 289 X10*3/uL (160-400); Red Cell Distribution Width 16.3 % (11.0-16.0); SCAN SMEAR FLAG 1; White Blood Count 4.3 X10*3/uL (4.8-10.8)
[2021-04-06 13:50] LABS: SLIDE REVIEW VERIFIED
[2021-04-06 13:57] LABS: Anion Gap 14 (12-20)
--- NOTE | 2021-04-06 14:00 | PM.HEMONCPN ---
Medical Summary - Medical Summary Date of Service: 04/06/21 Chief complaint: Follow-up for: Small cell carcinoma of the lung. Medical Summary: DIAGNOSIS: SMALL CELL CARCINOMA OF THE LUNG. CURRENT THERAPY: Carboplatin/Etoposide and Atezolizumab, here for cycle 4, day 3. Completed radiation 03/18. Received 33 sessions. Here for Atezolizumab. Interval History Interval history: Lora Meadows is a pleasant 81 year old lady, here for a follow up visit. She has not been doing too well. She has been bothered by constipation lately. She was rather bloated. Mag citrate did not work too well. She has been taking MiraLax and suppository. Finally Dulcolax tablets worked. She tells me she graduated from radiation today. She has had some low back pain. Has tried local heat and Motrin. They do appear to be helping. She is feeling somewhat fatigued. No fever nor chills. She is sleeping well. She denies headaches. No dizziness. She denies chest pain. She gets shortness of breath but she attributes that to her allergies. No cough nor sputum. She denies abdominal pain nausea vomiting heartburn indigestion. Her appetite is way too good. Her weight has been stable. Denies any focal weakness. Denies depression. She has noted some lower extremity edema. Previous History: with a known history of COPD history of tobacco use in the past and quit 15 years ago. In September 2019, she started developing worsening shortness of breath and she went to an urgent care. She was found to be hypoxic and she was admitted to [facility] which was placed on oxygen. She also required BiPAP briefly.She was then given a diagnosis of COPD exacerbation. Patient has been followed closely there. She started pulmonary rehabilitation as an outpatient 3 times a week. She was able to get off the oxygen. Subsequently, COVID was discovered, in October. So looking back she must have had that infection. She had some lingering symptoms over the past year. She saw Dr. Gifford, for allergies/sinus infection. He referred her to Dr. Kohler. In May, she presented to Pulmonary with significant shortness of breath with minimal activity. She also feels significant palpitations. In the office, a brief walking oximetry was done. She maintain initially a pulse ox above 90% but then at the end of the walk she became very short of breath and dyspneic. She did desaturate below 88% and heart rate was 150 beats per minute. It appeared to be irregular. EKG revealed sinus tach with multiple PVCs along with what appears to be ST depressions in the precordial lateral leads and also in the inferior leads. The patient denied chest pain at the time, denied any palpitations at this time. ER referral was offered, with her abnormal EKG, but she did not want to do that. She was advised to take aspirin on a daily basis and was referred for urgent cardiac consultation. She was under the care of Dr. Suazo. 07/03/2020 she was seen by pulmonary. Overall she felt better. She seem to be responding to the inhaler. She stated that she does get episodes of the shortness of breath and tachycardia. She did undergo a CT scan of the chest which revealed: Mediastinal adenopathy. There is a 2.5 cm lymph node in the subcarina. There is an enlarged pretracheal retro vascular lymph node and a right pretracheal lymph node. 1.3 cm peripherally calcified nodule in the right lobe of thyroid. Impression: 1. No evidence of pulmonary embolism. 2. Mediastinal lymphadenopathy. Significant lymphadenopathy with a station 7 lymph node measuring more than 3 cm and station 4R lymph node measuring 2.5 cm. It was explained to her that this is concerning because of the size. She was recovering from her cardiac issues and was being worked up from a cardiac standpoint regarding the tachyarrhythmia. Therefore, it was deemed reasonable to wait. The plan was if the patient developed any constitutional symptoms of any concern or new symptom whatsoever she was to call back and then consider sampling this lymph nodes sooner rather later. To proceed with transbronchial needle aspiration via EBUS . 10/02/2020 the patient went for pulmonary follow-up. Overall she felt a lot better. Her respiratory status had improved dramatically. She was able to do the activities of daily living including laundry and going up and down the stairs. She would get a little winded but not much. Her pulse ox was stable. In the meantime she did have a repeat CT scan of the chest to assess her lymphadenopathy. It appeared that the lungs were expanding just fine. She had a small 2 mm calcified nodule still. However, she continued to have enlarged mediastinal lymph nodes. These were pretty much unchanged from 3 months prior. Therefore the differential including malignancy/ lymphoma, were discussed. At this point she was willing to undergo a endobronchial ultrasound bronchoscopy. However, because of the pandemic it was pushed out. 11/26/2020 the patient had a telephone visit. She is status post bronchoscopy with endobronchial ultrasound transbronchial needle aspirations. Initially sampling the station 4R and also station 7. Indeed she did have some lesional cells concerning for malignancy. We did call pathology to get further data but the immunohistochemical stainings are still pending. This point the patient has cancer within unclear primary. The immunohistochemical stainings are consistent with small cell cancer. I did talk to the patient she is aware of the findings. 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 She had the MRI of the brain which was negative. Unfortunately, the PET scan got resheduled, two weeks in a row, on account of the weather. . Review of Systems - Constitutional Reports system reviewed and no additional complaints, except as documented - Eyes Reports system reviewed and no additional complaints, except as documented, Denies change in vision - ENT Reports system reviewed and no additional complaints, except as documented - Cardiovascular Reports system reviewed and no additional complaints, except as documented, Denies chest pain with activity - Respiratory Reports no additional respiratory complaints, Denies change in phlegm color - Gastrointestinal Reports system reviewed and no additional complaints, except as documented, Reports constipation, Denies abdominal pain - Genitourinary Reports no additional female genitourinary complaints, Denies abnormal vaginal bleeding - Musculoskeletal Reports system reviewed and no additional complaints, except as documented, Reports back pain, Denies body aches - Integumentary/Breasts Skin/Breast: Reports no additional skin complaints - Neurologic Reports system reviewed and no additional complaints, except as documented, Reports weakness, Denies abnormal gait - Psychiatric Reports system reviewed and no additional complaints, except as documented, Denies abnormal sleep pattern - Endocrine Reports no additional endocrine complaints, Denies excessive sweating - Hematologic/Lymphatic Reports system reviewed and no additional complaints, except as documented, Denies easy bruising - Allergic/Immunologic Reports system reviewed and no additional complaints, except as documented, Denies lip swelling PMFSH Medical History: Medical History (Last Updated 11/26/20 @ 18:36 by Rik Kohler MD) Atrial tachycardia Cancer Chronic obstructive pulmonary disease, unspecified Essential hypertension Hypothyroid Lymphadenopathy Macular degeneration PAC (premature atrial contraction) Pneumonia PVC (premature ventricular contraction) Small cell carcinoma Functional capacity: independent ambulation Family History: Family History (Last Reviewed 11/19/20 @ 09:00 by Luis Martínez MD) Father No problems noted. Mother No problems noted. Surgical History: Surgical History (Last Reviewed 11/19/20 @ 09:00 by Luis Martínez MD) History of tonsillectomy and adenoidectomy Hx of cataract extraction Social History: Social History (Last Updated 11/27/20 @ 09:26 by Riya Livingston RN) Living Situation History: Are you a primary rn progressive care unit to a significant other at home: No Do you presently have visiting nurse or other home services: No Tobacco History: Cigarette Packs Per Day: 2 Years Smoked: 50 years Smoked in Last 30 Days: No Nutrition Assessment: Patient : No Oncology Screenings - ECOG Performance Status ECOG Performance Status: 1 Home Medications and Allergies Current Medications: Current Medications Generic Name Dose Route Start Last Admin Trade Name Freq PRN Reason Stop Dose Admin Heparin Sodium (Porcine) 500 unit 04/06/21 00:00 Heparin Sodium,Porcine Flush 500 Unit/5 Ml Syringe IVFLUSH 04/06/21 23:59 ONCE EUGENIO Ondansetron HCl 16 mg in 50 mls @ 200 mls/hr 02/24/21 14:00 02/24/21 14:16 Zofran IV Infused ONCE EUGENIO Infusion Ondansetron HCl 16 mg in 50 mls @ 200 mls/hr 02/25/21 09:30 02/25/21 13:25 Zofran IV Infused ONCE EUGENIO Infusion Ondansetron HCl 16 mg in 50 mls @ 200 mls/hr 03/17/21 13:15 03/17/21 13:57 Zofran IV Infused ONCE EUGENIO Infusion Home Medications Medication Instructions Recorded Confirmed Type B-complex with vitamin C 1 tab PO DAILY 10/02/20 03/16/21 History albuterol sulfate 90 mcg/actuation 2 puff INHALATION Q4-6H PRN 10/02/20 03/16/21 History aerosol inhaler levothyroxine 50 mcg tablet 50 mcg PO DAILY 10/02/20 03/16/21 History multivitamin 1 tab PO DAILY 10/02/20 03/16/21 History vit C 250 mg-vit E 200 unit-zinc 1 cap PO BID 10/22/20 03/16/21 History ox 12.5 db-vfcazx-fgzopv-zeax capsule cholecalciferol (vitamin D3) 25 mcg PO DAILY 11/12/20 03/16/21 History [Vitamin D3] oiyrpmmrvrs-zzhddtgen-deqazlmd 1 inh INHALATION DIRECTED 11/12/20 03/16/21 History [Trelegy Ellipta] omega 3-pye-hzu-vitamin E [Systane See Rx Instructions .ROUTE .COMPLEX 12/29/20 03/16/21 History Vitamin] Allergies Allergy/AdvReac Type Severity Reaction Status Date / Time peanut Allergy Severe Anaphylaxis Verified 01/01/21 07:07 Tetanus Vaccines and Toxoid Allergy Severe Anaphylaxis Verified 01/01/21 07:07 lovastatin AdvReac Severe Leg Cramps Verified 01/01/21 07:07 pravastatin AdvReac Severe Leg Cramps Verified 01/01/21 07:07 Exam Vital signs: Vital Signs Temp 98.3 F 04/06/21 13:25 Pulse 110 H 04/06/21 13:25 Resp 17 04/06/21 13:25 BP 151/80 H 04/06/21 13:25 Pulse Ox 94 04/06/21 13:25 Intake & Output 04/05/21 04/06/21 04/06/21 18:59 06:59 18:59 Other: Weight 70.5 kg Weight in Grams [id number] Weight 70.5 kg Body Mass Index 26.6 - Constitutional Present: no acute distress - Routine HEENT Exam Head: Present: normal inspection Eye: Present: normal appearance ENT: Present: mucous membranes moist - Routine Neck Exam Present: full ROM - Routine Respiratory Exam Present: CTAB - Routine Cardiovascular Exam Cardiovascular: Present: RRR, S1, S2 - Routine Abdominal Exam Present: normal bowel sounds, nontender - Routine Rectal Exam Patient deferred: digital exam - Routine Extremities Exam Present: nontender - Routine Back/Spine/Pelvis Exam Back/Spine: Present: full ROM - Routine Skin Exam Present: intact - Routine Neurological Exam Present: alert, oriented X3 - Detailed Neurological Exam: Coma Scale Eye Opening: Spontaneous (4) - Routine Psychiatric Exam Present: normal affect Data - Labs CBC & Chem 7: 04/06/21 13:20 04/06/21 13:20 Labs: 11/27/20 10:05 Complete Blood Count Auto Diff Routine Comprehensive Met. Panel Routine LDH [Lactate Dehydrogenase] Routine Laboratory Last Values WBC 8.0 X10*3/uL (4.8-10.8) 11/27/20 10:05 RBC 4.86 X10*6/uL (4.20-5.50) 11/27/20 10:05 Hgb 15.2 g/dl (12.0-16.0) 11/27/20 10:05 Hct 44.9 % (37-47) 11/27/20 10:05 MCV 92.4 fL (80-98) 11/27/20 10:05 MCH 31.3 pg (27.0-33.0) 11/27/20 10:05 MCHC 33.9 g/dl (31.0-35.0) 11/27/20 10:05 RDW 13.2 % (11.0-16.0) 11/27/20 10:05 Plt Count 233 X10*3/uL (160-400) 11/27/20 10:05 MPV 10.9 fL (9.4-12.3) 11/27/20 10:05 Immature Gran % (Auto) 0.4 % (0.0-0.4) 11/27/20 10:05 Neut % (Auto) 70.6 % (45-73) 11/27/20 10:05 Lymph % (Auto) 19.3 % (20-40) L 11/27/20 10:05 [place] % (Auto) 8.7 % (2-11) 11/27/20 10:05 Eos % (Auto) 0.4 % (0-4) 11/27/20 10:05 Baso % (Auto) 0.6 % (0-2) 11/27/20 10:05 Lymph # (Auto) 1.5 X10*3/uL (1.2-4.9) 11/27/20 10:05 [place] # (Auto) 0.7 X10*3/uL (0.1-1.2) 11/27/20 10:05 Eos # (Auto) 0.0 X10*3/uL (0.0-0.4) 11/27/20 10:05 Baso # (Auto) 0.1 X10*3/uL (0.0-0.2) 11/27/20 10:05 Abs Immat Gran (auto) 0.03 X10*3/uL (0.00-0.03) 11/27/20 10:05 Absolute Neuts (auto) 5.6 X10*3/uL (2.0-8.3) 11/27/20 10:05 Absolute Nucleated RBC 0.000 X10*3/uL (0.0-0.012) 11/27/20 10:05 Nucleated RBC % (auto) 0.0 /100WBC (0.0-0.2) 11/27/20 10:05 Sodium 139 mmol/L (135-145) 11/27/20 10:05 Potassium 4.1 mmol/L (3.3-5.1) 11/27/20 10:05 Chloride 101 mmol/L (96-108) 11/27/20 10:05 Carbon Dioxide 27 mmol/L (22-29) 11/27/20 10:05 Anion Gap 15 (12-20) 11/27/20 10:05 BUN 13 mg/dL (9-16) 11/27/20 10:05 Creatinine 0.70 mg/dL (0.5-1.4) 11/27/20 10:05 Estim Creat Clear Calc 64.4 11/27/20 10:05 Estimated GFR > 60 11/27/20 10:05 Random Glucose 125 mg/dL (60-115) H D 11/27/20 10:05 Calcium 9.4 mg/dL (8.4-10.2) 11/27/20 10:05 Total Bilirubin 0.6 mg/dL (0.0-1.0) 11/27/20 10:05 AST 36 U/L (5-31) H 11/27/20 10:05 ALT 54 U/L (0-31) H 11/27/20 10:05 Alkaline Phosphatase 69 U/L (39-117) 11/27/20 10:05 Lactate Dehydrogenase 199 U/L (122-220) 11/27/20 10:05 Total Protein 7.3 g/dL (6.5-8.0) 11/27/20 10:05 Albumin 4.3 g/dL (3.5-5.0) 11/27/20 10:05 Progress Note: A/P (1) Small cell carcinoma Status: Acute Assessment and plan: This is a pleasant 81 year-old lady, with recent diagnosis of small cell carcinoma of the lung. She underwent EBUS on November 19. Pathology: Station 4 lymph node: Negative. Station 7 lymph node: Positive for malignant cells consistent with small-cell carcinoma. Immuno stains: Positive for synaptophysin, chromogranin, CD 56 and ann cytokeratin. Negative for chromogranin and CD 45. I shared the details of the pathology with her. I went over the disease course and treatment options including systemic chemotherapy, with or without radiation based upon her exact stage. I proceeded with staging workup. I checked baseline labs including LDH: 199. Check a PET scan to see if there is any evidence of metastatic disease especially with history of chronic back and hip pain. (It had to postponed twice, due to the weather). This was done at [facility] on 12/22 and revealed: FDG avid mediastinal adenopathy, compatible with malignancy. There is no evidence of FDG avid lung cancer outside of the mediastinum. Possible right lower pole renal mass. Recommend correlation with outside imaging of the abdomen. If none is available consider renal ultrasound/dedicated renal mass MRI for further evaluation. 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 No underlying renal mass. l checked MRI of the brain, to look for any possible brain metastases. This revealed: No acute intracranial process seen. No abnormal enhancement seen to suspect any primary or metastatic lesion. Extensive chronic small vessel ischemic changes in both cerebral hemispheres with underlying mild cerebral volume loss. She was started on carbo etoposide and Atizolizumab.. She is tolerating it well. She has complete cycle 4.. She has completed radiation therapy. She has done very well. She is currently on atezolizumab. She has had some side effects including ankle edema. PLAN: I advised her to keep her feet elevated most of the time. Will try to avoid diuretics if it all possible. My plan is to re-stage her with imaging. She will continue maintenance phase with Atizolizumab, q 2 weeks. Will continue to monitor labs. I am so glad she has tolerated the treatment very well. Thank you, CC: Dr. Ina Kc. Dr. Rik Kohler. - Time Spent With Patient Total time spent is greater than 50% in coordination of care (as documented) at patient's floor/unit and/or counseling patient: 25 - 35 minutes
[2021-04-06 14:03] LABS: Alanine Aminotransferase 30 U/L (0-31); Alkaline Phosphatase 81 U/L (39-117); Aspartate Amino Transferase 33 U/L (5-31); Bilirubin Total 0.4 mg/dL (0.0-1.0); Blood Urea Nitrogen 7 mg/dL (9-16); Calcium 9.5 mg/dL (8.4-10.2); Carbon Dioxide 27 mmol/L (22-29); Chloride 106 mmol/L (96-108); Creatinine Clr Calc Pharmacy 65.5; Estimated Glomerular Filt Rate > 60; Glucose Random 101 mg/dL (60-115); Potassium 3.8 mmol/L (3.3-5.1); Sodium 143 mmol/L (135-145); Total Protein 6.4 g/dL (6.5-8.0)
[2021-04-06] MEDS: ondansetron HCL/NS 16 MG/50 ML PIGGYBACK 200 MG IV (14:46)
[2021-04-06] MEDS: dexAMETHasone 4 MG TABLET 12 MG PO (14:48)
[2021-04-06] MEDS: Atezolizumab 1,200 MG in 0.9 % Sodium Chloride 250 ML 540 MG IV (15:11)
--- NOTE | 2021-04-06 15:29 | MHC.HEMONC ---
Pt here for Cycle 5 day 1 Atezolizumab IV. Port accessed with blood return. Lab specimen obtained from port and sent to lab. 0.9% NS infusing. Bilateral pedal and ankle edema noted, pt c/o constipation and back pain. States she has tried fleets enema, dulcolax pills, citrate of magnesia, miralax and suppositories. Last BM yesterday. Dr Odom notified of above. MD into see pt. Lab results reviewed. Pre medicated with Zofran 16mg IV and decadron 12 mg orally. Atezolizumab given as ordered. Tolerated well. Port flushed with heparin and de accessed. Follow up appointment made and given to pt. Discharge packet given with post chemo care instructions given. Discharged home
[2021-04-06] MEDS: Heparin Sodium,Porcine Flush 500 UNIT/5 ML SYRINGE IVFLUSH (15:46)
--- NOTE | 2021-04-09 13:24 | MHC.HEMONC ---
PT has CT ordered and order given to Danay to put into Linen Aide.
--- NOTE | 2021-04-10 09:03 | MHC.HEMONCMA ---
CT chest with contrast placed in order career guidance counselor.
--- NOTE | 2021-04-17 08:44 | MHC.HEMONC ---
I have been in touch with pt twice this week. She continues to struggle with constipation despite laxatives and suppositories. I advised she call PCP for GI referral. She states she has one and will call. She also has back pain which she attributes to her trying to have bowel movements. She has been using Ibuprofen with slight relief. i advised she also speak with her PCP re: this as she may require imaging. She will see us on Tuesday for maint Atezolizumab.
[2021-04-20 13:09] VITALS: BP 120/72; PULSE 97; RESP 18; TEMP 36.9; O2SAT 96; BMI 27.1
--- NOTE | 2021-04-20 13:25 | PM.HEMONCPN ---
Medical Summary - Medical Summary Date of Service: 04/20/21 Chief complaint: follow-up for: Small cell carcinoma of the lung. Medical Summary: DIAGNOSIS: SMALL CELL CARCINOMA OF THE LUNG. CURRENT THERAPY: Carboplatin/Etoposide and Atezolizumab, here for cycle 4, day 3. Completed radiation 03/18. Received 33 sessions. To receive Atezolizumab, next week. Interval History Interval history: Lora Meadows is a pleasant 81 year old lady, here for an unscheduled visit. She has not been doing too well. She has had some low back pain, that started 3 and a half weeks ago. Has tried local heat and Motrin. They do appear to be helping. It is localized to the lower back towards the left side, previously it would radiate to both sides but not any more. It is moderate in intensity. She grades it at level 5, initially the pain was at and level of 11. She has been bothered by constipation lately. She was rather bloated. She tried taking MiraLax and suppository. Mag citrate did not work too well. Finally Dulcolax tablets worked. She tells me she graduated from radiation. She is feeling somewhat fatigued. No fever nor chills. She is sleeping well. She denies headaches. No dizziness. She denies chest pain. She gets shortness of breath but she attributes that to her allergies. No cough nor sputum. She denies abdominal pain nausea vomiting heartburn indigestion. Her appetite is way too good. Her weight has been stable. Denies any focal weakness. Denies depression. She has noted some lower extremity edema. Previous History: with a known history of COPD history of tobacco use in the past and quit 15 years ago. In September 2019, she started developing worsening shortness of breath and she went to an urgent care. She was found to be hypoxic and she was admitted to [facility] which was placed on oxygen. She also required BiPAP briefly.She was then given a diagnosis of COPD exacerbation. Patient has been followed closely there. She started pulmonary rehabilitation as an outpatient 3 times a week. She was able to get off the oxygen. Subsequently, COVID was discovered, in October. So looking back she must have had that infection. She had some lingering symptoms over the past year. She saw Dr. Gifford, for allergies/sinus infection. He referred her to Dr. Kohler. In May, she presented to Pulmonary with significant shortness of breath with minimal activity. She also feels significant palpitations. In the office, a brief walking oximetry was done. She maintain initially a pulse ox above 90% but then at the end of the walk she became very short of breath and dyspneic. She did desaturate below 88% and heart rate was 150 beats per minute. It appeared to be irregular. EKG revealed sinus tach with multiple PVCs along with what appears to be ST depressions in the precordial lateral leads and also in the inferior leads. The patient denied chest pain at the time, denied any palpitations at this time. ER referral was offered, with her abnormal EKG, but she did not want to do that. She was advised to take aspirin on a daily basis and was referred for urgent cardiac consultation. She was under the care of Dr. uSazo. 07/03/2020 she was seen by pulmonary. Overall she felt better. She seem to be responding to the inhaler. She stated that she does get episodes of the shortness of breath and tachycardia. She did undergo a CT scan of the chest which revealed: Mediastinal adenopathy. There is a 2.5 cm lymph node in the subcarina. There is an enlarged pretracheal retro vascular lymph node and a right pretracheal lymph node. 1.3 cm peripherally calcified nodule in the right lobe of thyroid. Impression: 1. No evidence of pulmonary embolism. 2. Mediastinal lymphadenopathy. Significant lymphadenopathy with a station 7 lymph node measuring more than 3 cm and station 4R lymph node measuring 2.5 cm. It was explained to her that this is concerning because of the size. She was recovering from her cardiac issues and was being worked up from a cardiac standpoint regarding the tachyarrhythmia. Therefore, it was deemed reasonable to wait. The plan was if the patient developed any constitutional symptoms of any concern or new symptom whatsoever she was to call back and then consider sampling this lymph nodes sooner rather later. To proceed with transbronchial needle aspiration via EBUS . 10/02/2020 the patient went for pulmonary follow-up. Overall she felt a lot better. Her respiratory status had improved dramatically. She was able to do the activities of daily living including laundry and going up and down the stairs. She would get a little winded but not much. Her pulse ox was stable. In the meantime she did have a repeat CT scan of the chest to assess her lymphadenopathy. It appeared that the lungs were expanding just fine. She had a small 2 mm calcified nodule still. However, she continued to have enlarged mediastinal lymph nodes. These were pretty much unchanged from 3 months prior. Therefore the differential including malignancy/ lymphoma, were discussed. At this point she was willing to undergo a endobronchial ultrasound bronchoscopy. However, because of the pandemic it was pushed out. 11/26/2020 the patient had a telephone visit. She is status post bronchoscopy with endobronchial ultrasound transbronchial needle aspirations. Initially sampling the station 4R and also station 7. Indeed she did have some lesional cells concerning for malignancy. We did call pathology to get further data but the immunohistochemical stainings are still pending. This point the patient has cancer within unclear primary. The immunohistochemical stainings are consistent with small cell cancer. I did talk to the patient she is aware of the findings. 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 She had the MRI of the brain which was negative. Unfortunately, the PET scan got resheduled, two weeks in a row, on account of the weather. . Review of Systems - Neurologic Reports system reviewed and no additional complaints, except as documented, Reports weakness, Denies abnormal gait [facility] Medical History: Medical History (Last Updated 11/26/20 @ 18:36 by Rik Kohler MD) Atrial tachycardia Cancer Chronic obstructive pulmonary disease, unspecified Essential hypertension Hypothyroid Lymphadenopathy Macular degeneration PAC (premature atrial contraction) Pneumonia PVC (premature ventricular contraction) Small cell carcinoma Functional capacity: independent ambulation Family History: Family History (Last Reviewed 04/16/21 @ 13:07 by JM Hu) Father No problems noted. Mother No problems noted. Surgical History: Surgical History (Last Reviewed 04/16/21 @ 13:07 by JM Hu) History of tonsillectomy and adenoidectomy Hx of cataract extraction Social History: Social History (Last Updated 04/16/21 @ 13:08 by JM Hu) Living Situation History: Are you a primary healthcare science specialist to a significant other at home: No Do you presently have visiting nurse or other home services: No Tobacco History: Patient Tobacco Use Status: Former Tobacco user Cigarette Packs Per Day: 2 Years Smoked: 50 years Home Medications and Allergies Current Medications: Current Medications Generic Name Dose Route Start Last Admin Trade Name Freq PRN Reason Stop Dose Admin Ondansetron HCl 16 mg in 50 mls @ 200 mls/hr 02/24/21 14:00 02/24/21 14:16 Zofran IV Infused ONCE EUGENIO Infusion Ondansetron HCl 16 mg in 50 mls @ 200 mls/hr 02/25/21 09:30 02/25/21 13:25 Zofran IV Infused ONCE EUGENIO Infusion Ondansetron HCl 16 mg in 50 mls @ 200 mls/hr 03/17/21 13:15 03/17/21 13:57 Zofran IV Infused ONCE EUGENIO Infusion Home Medications Medication Instructions Recorded Confirmed Type B-complex with vitamin C 1 tab PO DAILY 10/02/20 04/16/21 History albuterol sulfate 90 mcg/actuation 2 puff INHALATION Q4-6H PRN 10/02/20 04/16/21 History aerosol inhaler levothyroxine 50 mcg tablet 50 mcg PO DAILY 10/02/20 04/16/21 History multivitamin 1 tab PO DAILY 10/02/20 04/16/21 History vit C 250 mg-vit E 200 unit-zinc 1 cap PO BID 10/22/20 04/16/21 History ox 12.5 es-xhjldg-iuqoxp-zeax capsule cholecalciferol (vitamin D3) 25 mcg PO DAILY 11/12/20 04/16/21 History [Vitamin D3] aweggzavzmo-ujbzpdylb-ljdtlrqt 1 inh INHALATION DIRECTED 11/12/20 04/16/21 History [Trelegy Ellipta] omega 3-mpg-vzt-vitamin E [Systane See Rx Instructions .ROUTE .COMPLEX 12/29/20 04/16/21 History Vitamin] Allergies Allergy/AdvReac Type Severity Reaction Status Date / Time peanut Allergy Severe Anaphylaxis Verified 04/16/21 13:08 Tetanus Vaccines and Toxoid Allergy Severe Anaphylaxis Verified 04/16/21 13:08 lovastatin AdvReac Severe Leg Cramps Verified 04/16/21 13:08 pravastatin AdvReac Severe Leg Cramps Verified 04/16/21 13:08 Exam Vital signs: Vital Signs Temp 98.5 F 04/20/21 13:09 Pulse 97 04/20/21 13:09 Resp 18 04/20/21 13:09 BP 120/72 04/20/21 13:09 Pulse Ox 96 04/20/21 13:09 Intake & Output 04/19/21 04/20/21 04/20/21 18:59 06:59 18:59 Other: Weight 71.9 kg Weight in Grams [id number] Weight 71.9 kg Body Mass Index 27.1 - Constitutional Present: no acute distress - Routine HEENT Exam Head: Present: normal inspection - Routine Neck Exam Present: full ROM - Routine Respiratory Exam Present: CTAB - Routine Cardiovascular Exam Cardiovascular: Present: RRR, S1, S2 - Routine Abdominal Exam Present: normal bowel sounds, nontender - Routine Rectal Exam Patient deferred: digital exam - Routine Extremities Exam Present: nontender - Routine Back/Spine/Pelvis Exam Back/Spine: Present: full ROM - Routine Skin Exam Present: intact - Routine Neurological Exam Present: alert, oriented X3 - Detailed Neurological Exam: Coma Scale Eye Opening: Spontaneous (4) - Routine Psychiatric Exam Present: normal affect Data - Labs CBC & Chem 7: 04/20/21 13:43 04/20/21 13:43 Labs: 11/27/20 10:05 Complete Blood Count Auto Diff Routine Comprehensive Met. Panel Routine LDH [Lactate Dehydrogenase] Routine Laboratory Last Values WBC 8.0 X10*3/uL (4.8-10.8) 11/27/20 10:05 RBC 4.86 X10*6/uL (4.20-5.50) 11/27/20 10:05 Hgb 15.2 g/dl (12.0-16.0) 11/27/20 10:05 Hct 44.9 % (37-47) 11/27/20 10:05 MCV 92.4 fL (80-98) 11/27/20 10:05 MCH 31.3 pg (27.0-33.0) 11/27/20 10:05 MCHC 33.9 g/dl (31.0-35.0) 11/27/20 10:05 RDW 13.2 % (11.0-16.0) 11/27/20 10:05 Plt Count 233 X10*3/uL (160-400) 11/27/20 10:05 MPV 10.9 fL (9.4-12.3) 11/27/20 10:05 Immature Gran % (Auto) 0.4 % (0.0-0.4) 11/27/20 10:05 Neut % (Auto) 70.6 % (45-73) 11/27/20 10:05 Lymph % (Auto) 19.3 % (20-40) L 11/27/20 10:05 [place] % (Auto) 8.7 % (2-11) 11/27/20 10:05 Eos % (Auto) 0.4 % (0-4) 11/27/20 10:05 Baso % (Auto) 0.6 % (0-2) 11/27/20 10:05 Lymph # (Auto) 1.5 X10*3/uL (1.2-4.9) 11/27/20 10:05 [place] # (Auto) 0.7 X10*3/uL (0.1-1.2) 11/27/20 10:05 Eos # (Auto) 0.0 X10*3/uL (0.0-0.4) 11/27/20 10:05 Baso # (Auto) 0.1 X10*3/uL (0.0-0.2) 11/27/20 10:05 Abs Immat Gran (auto) 0.03 X10*3/uL (0.00-0.03) 11/27/20 10:05 Absolute Neuts (auto) 5.6 X10*3/uL (2.0-8.3) 11/27/20 10:05 Absolute Nucleated RBC 0.000 X10*3/uL (0.0-0.012) 11/27/20 10:05 Nucleated RBC % (auto) 0.0 /100WBC (0.0-0.2) 11/27/20 10:05 Sodium 139 mmol/L (135-145) 11/27/20 10:05 Potassium 4.1 mmol/L (3.3-5.1) 11/27/20 10:05 Chloride 101 mmol/L (96-108) 11/27/20 10:05 Carbon Dioxide 27 mmol/L (22-29) 11/27/20 10:05 Anion Gap 15 (12-20) 11/27/20 10:05 BUN 13 mg/dL (9-16) 11/27/20 10:05 Creatinine 0.70 mg/dL (0.5-1.4) 11/27/20 10:05 Estim Creat Clear Calc 64.4 11/27/20 10:05 Estimated GFR > 60 11/27/20 10:05 Random Glucose 125 mg/dL (60-115) H D 11/27/20 10:05 Calcium 9.4 mg/dL (8.4-10.2) 11/27/20 10:05 Total Bilirubin 0.6 mg/dL (0.0-1.0) 11/27/20 10:05 AST 36 U/L (5-31) H 11/27/20 10:05 ALT 54 U/L (0-31) H 11/27/20 10:05 Alkaline Phosphatase 69 U/L (39-117) 11/27/20 10:05 Lactate Dehydrogenase 199 U/L (122-220) 11/27/20 10:05 Total Protein 7.3 g/dL (6.5-8.0) 11/27/20 10:05 Albumin 4.3 g/dL (3.5-5.0) 11/27/20 10:05 Progress Note: A/P (1) Small cell carcinoma Status: Acute Assessment and plan: This is a pleasant 81 year-old lady, with recent diagnosis of small cell carcinoma of the lung. She underwent EBUS on November 19. Pathology: Station 4 lymph node: Negative. Station 7 lymph node: Positive for malignant cells consistent with small-cell carcinoma. Immuno stains: Positive for synaptophysin, chromogranin, CD 56 and ann cytokeratin. Negative for chromogranin and CD 45. I shared the details of the pathology with her. I went over the disease course and treatment options including systemic chemotherapy, with or without radiation based upon her exact stage. I proceeded with staging workup. I checked baseline labs including LDH: 199. Check a PET scan to see if there is any evidence of metastatic disease especially with history of chronic back and hip pain. (It had to postponed twice, due to the weather). This was done at [facility] on 12/22 and revealed: FDG avid mediastinal adenopathy, compatible with malignancy. There is no evidence of FDG avid lung cancer outside of the mediastinum. Possible right lower pole renal mass. Recommend correlation with outside imaging of the abdomen. If none is available consider renal ultrasound/dedicated renal mass MRI for further evaluation. 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 No underlying renal mass. l checked MRI of the brain, to look for any possible brain metastases. This revealed: No acute intracranial process seen. No abnormal enhancement seen to suspect any primary or metastatic lesion. Extensive chronic small vessel ischemic changes in both cerebral hemispheres with underlying mild cerebral volume loss. She was started on carbo etoposide and Atizolizumab.. She is tolerating it well. She has complete cycle 4.. She has completed radiation therapy. She is currently on atezolizumab. She had done well, up until now. She has recently noted back pain. In addition she has refractory constipation. I was concerned about cord compression however she does not have any neurological symptoms. No urinary complaints. Her back pain is actually better than before. PLAN: My plan is to re-stage her with imaging. she is scheduled for a CT scan of the chest on Tuesday. I will add CT scan of the abdomen pelvis in addition in view of the above symptoms. I will review the above results and plan further management. She will continue maintenance phase with Atizolizumab, q 2 weeks. Will continue to monitor labs. Thank you, CC: Dr. Ina Kc. Dr. Rik Kohler. - Time Spent With Patient 25 - 35 minutes
[2021-04-20 13:47] LABS: MANUAL DIFF FLAG NO
[2021-04-20 13:51] LABS: Basophils Percent Auto 0.6 % (0-2); Eosinophils Percent Auto 0.5 % (0-4); Hematocrit 36.9 % (37-47); Hemoglobin 11.8 g/dl (12.0-16.0); Imm Gran Abs Auto 0.02 X10*3/uL (0.00-0.03); Imm Gran Pct Auto 0.3 % (0.0-0.4); Lymphocytes Absolute Auto 0.7 X10*3/uL (1.2-4.9); Lymphocytes Percent Auto 11.1 % (20-40); Mean Corpuscular Hemoglobin 31.9 pg (27.0-33.0); Mean Corpuscular Volume 99.7 fL (80-98); Mean Platelet Volume 11.1 fL (9.4-12.3); Monocytes Absolute Auto 1.1 X10*3/uL (0.1-1.2); Monocytes Percent Auto 17.7 % (2-11); Neutrophils Absolute Auto 4.4 X10*3/uL (2.0-8.3); Neutrophils Percent Auto 69.8 % (45-73); Platelet Count 192 X10*3/uL (160-400); Red Cell Distribution Width 14.7 % (11.0-16.0); White Blood Count 6.2 X10*3/uL (4.8-10.8)
[2021-04-20] MEDS: Alteplase Cath Clear 2 MG VIAL INTRACATH (14:07)
[2021-04-20 14:22] LABS: Alanine Aminotransferase 32 U/L (0-31); Alkaline Phosphatase 97 U/L (39-117); Anion Gap 10 (12-20); Aspartate Amino Transferase 35 U/L (5-31); Bilirubin Total 0.7 mg/dL (0.0-1.0); Blood Urea Nitrogen 9 mg/dL (9-16); Calcium 9.2 mg/dL (8.4-10.2); Carbon Dioxide 32 mmol/L (22-29); Chloride 104 mmol/L (96-108); Creatinine Clr Calc Pharmacy 64.1; Estimated Glomerular Filt Rate > 60; Glucose Random 113 mg/dL (60-115); Potassium 3.8 mmol/L (3.3-5.1); Sodium 142 mmol/L (135-145); Total Protein 6.5 g/dL (6.5-8.0)
--- NOTE | 2021-04-20 15:40 | MHC.HEMONC ---
Pt in today to f/u with Dr Odom re: constipation issues and pain in back. She has been using multiple laxatives with minimal relief. She has been passing gas and is not nauseous. Appetite is slightly diminished but she is maintaining her weight. She required CathFlo for her port which was accessed with no blood return. It worked well. Labs were drawn peripherally and were WNL. Dr Odom added CT of abdomen to previously booked CT of chest this Tuesday. Pt is aware of time per Danay FORREST.
--- NOTE | 2021-04-28 16:40 | MHC.HEMONC ---
pt called to see if something more could be ordered for her back pain. Dr Odom ordered Oxycodone but she is reluctant to take it. Dr Odom ordered rx for ibuprofen at her request. I suggested she pear picker both and use the oxycodone at bedtime if needed. She is coming in tomorrow for treatment and having bone scan on . We will follow up on all of those things.
[2021-04-29 12:52] LABS: MANUAL DIFF FLAG NO
[2021-04-29 12:58] LABS: Basophils Absolute Auto 0.1 X10*3/uL (0.0-0.2); Basophils Percent Auto 0.9 % (0-2); Eosinophils Percent Auto 0.6 % (0-4); Hematocrit 40.9 % (37-47); Hemoglobin 13.2 g/dl (12.0-16.0); Imm Gran Abs Auto 0.04 X10*3/uL (0.00-0.03); Imm Gran Pct Auto 0.6 % (0.0-0.4); Lymphocytes Absolute Auto 0.6 X10*3/uL (1.2-4.9); Lymphocytes Percent Auto 9.8 % (20-40); Mean Corpuscular HGB Conc 32.3 g/dl (31.0-35.0); Mean Corpuscular Hemoglobin 31.7 pg (27.0-33.0); Mean Corpuscular Volume 98.1 fL (80-98); Mean Platelet Volume 10.8 fL (9.4-12.3); Monocytes Absolute Auto 0.8 X10*3/uL (0.1-1.2); Monocytes Percent Auto 12.4 % (2-11); Neutrophils Absolute Auto 4.9 X10*3/uL (2.0-8.3); Neutrophils Percent Auto 75.7 % (45-73); Platelet Count 291 X10*3/uL (160-400); Red Blood Count 4.17 X10*6/uL (4.20-5.50); Red Cell Distribution Width 14.1 % (11.0-16.0); White Blood Count 6.4 X10*3/uL (4.8-10.8)
[2021-04-29 13:12] VITALS: BP 150/70; PULSE 108; RESP 18; TEMP 37.1; O2SAT 94; BMI 26.8
[2021-04-29 13:38] LABS: Alanine Aminotransferase 30 U/L (0-31); Albumin Level 4.1 g/dL (3.5-5.0); Alkaline Phosphatase 105 U/L (39-117); Anion Gap 15 (12-20); Aspartate Amino Transferase 36 U/L (5-31); Bilirubin Total 0.8 mg/dL (0.0-1.0); Blood Urea Nitrogen 7 mg/dL (9-16); Calcium 9.8 mg/dL (8.4-10.2); Carbon Dioxide 29 mmol/L (22-29); Chloride 102 mmol/L (96-108); Creatinine Clr Calc Pharmacy 61.8; Estimated Glomerular Filt Rate > 60; Glucose Random 118 mg/dL (60-115); Potassium 3.8 mmol/L (3.3-5.1); Sodium 142 mmol/L (135-145); Total Protein 6.9 g/dL (6.5-8.0)
--- NOTE | 2021-04-29 13:46 | HE.PHANOTE ---
PATIENT'S LAST TSH WAS IN JANUARY 2021; PLEASE DRAW NEW LEVEL AT NEXT TREATMENT (05/20/21)
[2021-04-29] MEDS: Heparin Sodium,Porcine Flush 500 UNIT/5 ML SYRINGE IVFLUSH (13:51)
[2021-04-29] MEDS: dexAMETHasone sod phosphate/NS 12 MG/50 ML PIGGYBACK 200 MG IV (13:51)
[2021-04-29] MEDS: Atezolizumab 1,200 MG in 0.9 % Sodium Chloride 250 ML 540 MG IV (14:28)
--- NOTE | 2021-05-06 10:30 | MHC.HEMONC ---
pt informed of kyphoplasty planned for Tuesday 05/08 at 10:30. Arrival at 9 a.m. NPO after mn and no blood thinning agents. 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 She has questions that will be ansered by IR nurses and MD prior to procedure.
--- NOTE | 2021-05-06 11:44 | MHC.HEMONC ---
time of kyphoplasty changed to Tuesday05/11/21 at 1:30. Pt advised of prep and arrival time.
[2021-05-19 13:15] LABS: MANUAL DIFF FLAG NO
[2021-05-19 13:16] VITALS: BMI 25.3
[2021-05-19 13:18] VITALS: BP 154/54; PULSE 64; RESP 18; TEMP 36.8; O2SAT 91
[2021-05-19 13:18] LABS: Basophils Percent Auto 0.3 % (0-2); Eosinophils Percent Auto 0.2 % (0-4); Hematocrit 44.3 % (37-47); Hemoglobin 14.4 g/dl (12.0-16.0); Imm Gran Abs Auto 0.01 X10*3/uL (0.00-0.03); Imm Gran Pct Auto 0.2 % (0.0-0.4); Lymphocytes Absolute Auto 0.4 X10*3/uL (1.2-4.9); Mean Corpuscular HGB Conc 32.5 g/dl (31.0-35.0); Mean Corpuscular Hemoglobin 30.8 pg (27.0-33.0); Mean Corpuscular Volume 94.9 fL (80-98); Mean Platelet Volume 10.7 fL (9.4-12.3); Monocytes Absolute Auto 0.6 X10*3/uL (0.1-1.2); Monocytes Percent Auto 10.1 % (2-11); Neutrophils Percent Auto 82.2 % (45-73); Platelet Count 214 X10*3/uL (160-400); Red Blood Count 4.67 X10*6/uL (4.20-5.50); Red Cell Distribution Width 13.1 % (11.0-16.0)
[2021-05-19 13:47] LABS: Alanine Aminotransferase 48 U/L (0-31); Albumin Level 4.2 g/dL (3.5-5.0); Alkaline Phosphatase 99 U/L (39-117); Anion Gap 14 (12-20); Aspartate Amino Transferase 53 U/L (5-31); Bilirubin Total 0.6 mg/dL (0.0-1.0); Blood Urea Nitrogen 12 mg/dL (9-16); Carbon Dioxide 33 mmol/L (22-29); Chloride 98 mmol/L (96-108); Creatinine Clr Calc Pharmacy 58.7; Estimated Glomerular Filt Rate > 60; Glucose Random 171 mg/dL (60-115); Potassium 3.3 mmol/L (3.3-5.1); Sodium 142 mmol/L (135-145)
[2021-05-19 13:51] LABS: B Type Natriuretic Peptide 185 pg/mL (<100)
[2021-05-19] MEDS: dexAMETHasone sod phosphate/NS 12 MG/50 ML PIGGYBACK 200 MG IV (14:43)
[2021-05-19] MEDS: Atezolizumab 1,200 MG in 0.9 % Sodium Chloride 250 ML 540 MG IV (15:11)
[2021-05-19] MEDS: Heparin Sodium,Porcine Flush 500 UNIT/5 ML SYRINGE IVFLUSH (15:47)
--- NOTE | 2021-05-19 16:01 | MHC.HEMONC ---
pt here for main Atezolizumab. She recently had kyphoplasty and is recovering. She has pain mainly with motion. She denies other sx but has had decreased appetite and has lost close to 10 lbs. She will be seeing Dr Odom in f/u next week.
--- NOTE | 2021-05-25 14:20 | P.PNHO_ITS ---
Medical Summary - Medical Summary Date of Service: 05/25/21 Chief complaint: Follow-up for: Small cell carcinoma of the lung. Medical Summary: DIAGNOSIS: SMALL CELL CARCINOMA OF THE LUNG. CURRENT THERAPY: Carboplatin/Etoposide and Atezolizumab, here for cycle 4, day 3. Completed radiation 03/18. Received 33 sessions. To receive Atezolizumab, next week. Interval History Interval history: Lora Meadows is a pleasant 81 year old lady, here for a follow-up visit. She had not been doing too well. She had some low back pain, that started a month and a half weeks ago. She tried local heat and Motrin. It was localized to the lower back towards the left side, previously it would radiate to both sides. It was moderate in intensity. Level 5. CT scan of the chest from 04/22 revealed: CHEST: Interval decrease in mediastinal lymphadenopathy. New 2 mm peripheral or subpleural right upper lobe nodule adjacent to the major fissure probably representing a subpleural lymph node. New tiny right pleural effusion. Atherosclerotic disease and coronary artery calcification. ABDOMEN AND PELVIS: Fatty liver. Diverticulosis. No evidence of metastatic disease. New T11 vertebral body compression fracture. I reviewed with the radiologist to see if kyphoplasty would be possible. Proceeded with a bone scan, it was done on 05/01 and it revealed: Horizontal abnormal activity T11 vertebra consistent with acute compression fracture. Suspect early acute superior end plate fracture T12 vertebra. Post KYPHOPLASTY CT scan from 05/12: Adequate amount of cement occupying T11 and T12 compression fractures with no cement extravasation. There is no spinal canal compromise or neural foraminal narrowing. She had a more density on 05/22 which revealed: 1. DIAGNOSIS: Severe osteoporosis based on the lowest T-score value of -2.6 in the femoral neck and fracture history applying World Health Organization criteria. She is feeling better, somewhat fatigued. She has back pain especially towards the left side which she attributes to muscle spasm. She has been taking muscle relaxer which is helping. She would like to go for physical therapy. No fever nor chills. She is sleeping well. She denies headaches. No dizziness. She denies chest pain. She gets shortness of breath but she attributes that to her allergies. No cough nor sputum. She denies abdominal pain nausea vomiting heartburn indigestion. She has been bothered by constipation lately. She was rather bloated. She tried taking MiraLax and suppository. Mag citrate did not work too well. Finally Dulcolax tablets worked. She tells me she graduated from radiation. Her appetite is way too good. Her weight has been stable. Denies any focal weakness. Denies depression. She has noted some lower extremity edema. Previous History: with a known history of COPD history of tobacco use in the past and quit 15 years ago. In September 2019, she started developing worsening shortness of breath and she went to an urgent care. She was found to be hypoxic and she was admitted to [facility] which was placed on oxygen. She also required BiPAP briefly.She was then given a diagnosis of COPD exacerbation. Patient has been followed closely there. She started pulmonary rehabilitation as an outpatient 3 times a week. She was able to get off the oxygen. Subsequently, COVID was discovered, in October. So looking back she must have had that infection. She had some lingering symptoms over the past year. She saw Dr. Gifford, for allergies/sinus infection. He referred her to Dr. Kohler. In May, she presented to Pulmonary with significant shortness of breath with minimal activity. She also feels significant palpitations. In the office, a brief walking oximetry was done. She maintain initially a pulse ox above 90% but then at the end of the walk she became very short of breath and dyspneic. She did desaturate below 88% and heart rate was 150 beats per minute. It appeared to be irregular. EKG revealed sinus tach with multiple PVCs along with what appears to be ST depressions in the precordial lateral leads and also in the inferior leads. The patient denied chest pain at the time, denied any palpitations at this time. ER referral was offered, with her abnormal EKG, but she did not want to do that. She was advised to take aspirin on a daily basis and was referred for urgent cardiac consultation. She was under the care of Dr. Suazo. 07/03/2020 she was seen by pulmonary. Overall she felt better. She seem to be responding to the inhaler. She stated that she does get episodes of the shortness of breath and tachycardia. She did undergo a CT scan of the chest which revealed: Mediastinal adenopathy. There is a 2.5 cm lymph node in the subcarina. There is an enlarged pretracheal retro vascular lymph node and a right pretracheal lymph node. 1.3 cm peripherally calcified nodule in the right lobe of thyroid. Impression: 1. No evidence of pulmonary embolism. 2. Mediastinal lymphadenopathy. Significant lymphadenopathy with a station 7 lymph node measuring more than 3 cm and station 4R lymph node measuring 2.5 cm. It was explained to her that this is concerning because of the size. She was recovering from her cardiac issues and was being worked up from a cardiac shira dpoint regarding the tachyarrhythmia. Therefore, it was deemed reasonable to wait. The plan was if the patient developed any constitutional symptoms of any concern or new symptom whatsoever she was to call back and then consider sampling this lymph nodes sooner rather later. To proceed with transbronchial needle aspiration via EBUS . 10/02/2020 the patient went for pulmonary follow-up. Overall she felt a lot better. Her respiratory status had improved dramatically. She was able to do the activities of daily living including laundry and going up and down the stairs. She would get a little winded but not much. Her pulse ox was stable. In the meantime she did have a repeat CT scan of the chest to assess her lymphadenopathy. It appeared that the lungs were expanding just fine. She had a small 2 mm calcified nodule still. However, she continued to have enlarged mediastinal lymph nodes. These were pretty much unchanged from 3 months prior. Therefore the differential including malignancy/ lymphoma, were discussed. At this point she was willing to undergo a endobronchial ultrasound bronchoscopy. However, because of the pandemic it was pushed out. 11/26/2020 the patient had a telephone visit. She is status post bronchoscopy with endobronchial ultrasound transbronchial nee dle aspirations. Initially sampling the station 4R and also station 7. Indeed she did have some lesional cells concerning for malignancy. We did call pathology to get further data but the immunohistochemical stainings are still pending. This point the patient has cancer within unclear primary. The immunohistochemical stainings are consistent with small cell cancer. I did talk to the patient she is aware of the findings. 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 She had the MRI of the brain which was negative. Unfortunately, the PET scan got resheduled, two weeks in a row, on account of the weather. . Review of Systems - Constitutional Reports no additional constitutional complaints - Eyes Reports no additional eye complaints - ENT Reports no additional ear, nose, mouth, and throat complaints - Cardiovascular Reports no additional cardiovascular complaints - Respiratory Reports no additional respiratory complaints - Gastrointestinal Reports no additional gastrointestinal complaints - Genitourinary Reports no additional female genitourinary complaints - Musculoskeletal Reports no additional musculoskeletal complaints - Integumentary/Breasts Skin/Breast: Reports no additional skin complaints - Neurologic Reports no additional neurologic complaints, Denies abnormal gait, Reports weakness - Psychiatric Reports no additional psychiatric complaints - Endocrine Reports no additional endocrine complaints - Hematologic/Lymphatic Reports no additional hematologic/lymphatic complaints - Allergic/Immunologic Reports no additional allergic/immunologic complaints [facility] Medical History: Medical History (Last Reviewed 05/25/21 @ 14:47 by Manoj Bentley) Atrial tachycardia Cancer Chronic obstructive pulmonary disease, unspecified Essential hypertension Hypothyroid Lymphadenopathy Macular degeneration PAC (premature atrial contraction) Pneumonia Pulmonary nodule PVC (premature ventricular contraction) Small cell carcinoma Functional capacity: independent ambulation Patient : No Family History: Family History (Last Updated 05/25/21 @ 14:50 by Manoj Bentley) Father Diabetes Mother Osteoporosis Surgical History: Surgical History (Last Reviewed 05/25/21 @ 14:49 by Manoj Bentley) History of tonsillectomy and adenoidectomy Hx of cataract extraction Social History: Social History (Last Reviewed 05/25/21 @ 14:50 by Manoj Bentley) Living Situation History: Are you a primary skin care technician to a significant other at home: No Do you presently have visiting nurse or other home services: No Alcohol History Details: Alcohol intake frequency: 0-2 drinks per day Tobacco History: Patient Tobacco Use Status: Former Tobacco user Cigarette Packs Per Day: 2 Years Smoked: 50 years Second Hand Smoke Exposure: No Advance Directives: Advance Directives Date on File: 05/11/21 Oncology Screenings - ECOG Performance Status ECOG Performance Status: 0 Home Medications and Allergies Home Medications Medication Instructions Recorded Confirmed Type B-complex with vitamin C 1 tab PO DAILY 10/02/20 05/25/21 History albuterol sulfate 90 mcg/actuation 2 puff INHALATION Q4-6H PRN 10/02/20 05/25/21 History aerosol inhaler levothyroxine 50 mcg tablet 50 mcg PO DAILY 10/02/20 05/25/21 History multivitamin 1 tab PO DAILY 10/02/20 05/25/21 History vit C 250 mg-vit E 200 unit-zinc 1 cap PO BID 10/22/20 05/25/21 History ox 12.5 eg-yulitp-xzazni-zeax capsule (ICaps AREDS2) cholecalciferol (vitamin D3) 25 25 mcg PO DAILY 11/12/20 05/25/21 History mcg (1,000 unit) capsule (Vitamin D3) omega 3-jab-umd-vitamin E 500 See Rx Instructions .ROUTE .COMPLEX 12/29/20 05/25/21 History mg-139 mg-264 mg-5 unit capsule diltiazem HCl 120 mg 1 cap PO DAILY 05/11/21 05/25/21 History capsule,extended release 24 hr, controlled (DILT-XR) furosemide 20 mg PO DAILY 05/19/21 05/25/21 History Allergies Allergy/AdvReac Type Severity Reaction Status Date / Time peanut Allergy Severe Anaphylaxis Verified 05/11/21 20:19 Tetanus Vaccines and Toxoid Allergy Severe Anaphylaxis Verified 05/11/21 20:19 lovastatin AdvReac Severe Leg Cramps Verified 05/11/21 20:19 pravastatin AdvReac Severe Leg Cramps Verified 05/11/21 20:19 Exam Vital signs: Vital Signs Temp 98.3 F 05/19/21 13:18 Pulse 64 05/19/21 13:18 Resp 18 05/19/21 13:18 BP 154/54 H 05/19/21 13:18 Pulse Ox 91 L 05/19/21 13:18 Weight 67 kg Body Mass Index 25.3 - Constitutional Present: no acute distress - Routine HEENT Exam Head: Present: normal inspection Eye: Present: normal appearance ENT: Present: mucous membranes moist - Routine Neck Exam Present: full ROM - Routine Respiratory Exam Present: CTAB - Routine Cardiovascular Exam Cardiovascular: Present: RRR, S1, S2 - Routine Abdominal Exam Present: normal bowel sounds, nontender - Routine Rectal Exam Patient deferred: digital exam - Routine Extremities Exam Present: nontender - Routine Back/Spine/Pelvis Exam Back/Spine: Present: full ROM - Routine Skin Exam Present: intact - Routine Neurological Exam Present: alert, oriented X3 - Detailed Neurological Exam: Coma Scale Eye Opening: Spontaneous (4) - Routine Psychiatric Exam Present: normal affect Data - Labs CBC & Chem 7: 05/25/21 14:39 05/25/21 14:39 Labs: 11/27/20 10:05 Complete Blood Count Auto Diff Routine Comprehensive Met. Panel Routine LDH [Lactate Dehydrogenase] Routine Laboratory Last Values WBC 8.0 X10*3/uL (4.8-10.8) 11/27/20 10:05 RBC 4.86 X10*6/uL (4.20-5.50) 11/27/20 10:05 Hgb 15.2 g/dl (12.0-16.0) 11/27/20 10:05 Hct 44.9 % (37-47) 11/27/20 10:05 MCV 92.4 fL (80-98) 11/27/20 10:05 MCH 31.3 pg (27.0-33.0) 11/27/20 10:05 MCHC 33.9 g/dl (31.0-35.0) 11/27/20 10:05 RDW 13.2 % (11.0-16.0) 11/27/20 10:05 Plt Count 233 X10*3/uL (160-400) 11/27/20 10:05 MPV 10.9 fL (9.4-12.3) 11/27/20 10:05 Immature Gran % (Auto) 0.4 % (0.0-0.4) 11/27/20 10:05 Neut % (Auto) 70.6 % (45-73) 11/27/20 10:05 Lymph % (Auto) 19.3 % (20-40) L 11/27/20 10:05 [place] % (Auto) 8.7 % (2-11) 11/27/20 10:05 Eos % (Auto) 0.4 % (0-4) 11/27/20 10:05 Baso % (Auto) 0.6 % (0-2) 11/27/20 10:05 Lymph # (Auto) 1.5 X10*3/uL (1.2-4.9) 11/27/20 10:05 [place] # (Auto) 0.7 X10*3/uL (0.1-1.2) 11/27/20 10:05 Eos # (Auto) 0.0 X10*3/uL (0.0-0.4) 11/27/20 10:05 Baso # (Auto) 0.1 X10*3/uL (0.0-0.2) 11/27/20 10:05 Abs Immat Gran (auto) 0.03 X10*3/uL (0.00-0.03) 11/27/20 10:05 Absolute Neuts (auto) 5.6 X10*3/uL (2.0-8.3) 11/27/20 10:05 Absolute Nucleated RBC 0.000 X10*3/uL (0.0-0.012) 11/27/20 10:05 Nucleated RBC % (auto) 0.0 /100WBC (0.0-0.2) 11/27/20 10:05 Sodium 139 mmol/L (135-145) 11/27/20 10:05 Potassium 4.1 mmol/L (3.3-5.1) 11/27/20 10:05 Chloride 101 mmol/L (96-108) 11/27/20 10:05 Carbon Dioxide 27 mmol/L (22-29) 11/27/20 10:05 Anion Gap 15 (12-20) 11/27/20 10:05 BUN 13 mg/dL (9-16) 11/27/20 10:05 Creatinine 0.70 mg/dL (0.5-1.4) 11/27/20 10:05 Estim Creat Clear Calc 64.4 11/27/20 10:05 Estimated GFR > 60 11/27/20 10:05 Random Glucose 125 mg/dL (60-115) H D 11/27/20 10:05 Calcium 9.4 mg/dL (8.4-10.2) 11/27/20 10:05 Total Bilirubin 0.6 mg/dL (0.0-1.0) 11/27/20 10:05 AST 36 U/L (5-31) H 11/27/20 10:05 ALT 54 U/L (0-31) H 11/27/20 10:05 Alkaline Phosphatase 69 U/L (39-117) 11/27/20 10:05 Lactate Dehydrogenase 199 U/L (122-220) 11/27/20 10:05 Total Protein 7.3 g/dL (6.5-8.0) 11/27/20 10:05 Albumin 4.3 g/dL (3.5-5.0) 11/27/20 10:05 Progress Note: A/P (1) Small cell carcinoma Status: Acute Assessment and plan: This is a pleasant 81 year-old lady, with recent diagnosis of small cell carci noma of the lung. She underwent EBUS on November 19. Pathology: Station 4 lymph node: Negative. Station 7 lymph node: Positive for malignant cells consistent with small-cell carcinoma. Immuno stains: Positive for synaptophysin, chromogranin, CD 56 and ann cytokeratin. Negative for chromogranin and CD 45. I shared the details of the pathology with her. I went over the disease course and treatment options including systemic chemotherapy, with or without radiation based upon her exact stage. I proceeded with staging workup. I checked baseline labs including LDH: 199. Check a PET scan to see if there is any evidence of metastatic disease especially with history of chronic back and hip pain. (It had to postponed twice, due to the weather). This was done at [facility] on 12/22 and revealed: FDG avid mediastinal adenopathy, compatible with malignancy. There is no evidence of FDG avid lung cancer outside of the mediastinum. Possible right lower pole renal mass. Recommend correlation with outside imaging of the abdomen. If none is available consider renal ultras ound/dedicated renal mass MRI for further evaluation. 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 No underlying renal mass. l checked MRI of the brain, to look for any possible brain metastases. This revealed: No acute intracranial process seen. No abnormal enhancement seen to suspect any primary or metastatic lesion. Extensive chronic small vessel ischemic changes in both cerebral hemispheres with underlying mild cerebral volume loss. She was started on carbo etoposide and Atizolizumab.. She is tolerating it well. She has complete cycle 4.. She has completed radiation therapy. She is currently on atezolizumab. She had done well, up until now. She has recently noted back pain. In addition she has refractory constipation. I was concerned about cord compression however she does not have any neurological symptoms. No urinary complaints. Her back pain is actually better than before. I proceeded to re-stage her with imaging. She had a CT scan of the chest on 04/22, it revealed: CHEST: Interval decrease in mediastinal lymphadenopathy. New 2 mm peripheral or subpleural right upper lobe nodule adjacent to the major fissure probably representing a subpleural lymph node. New tiny right pleural effusion. Atherosclerotic disease and coronary artery calcification. ABDOMEN AND PELVIS: Fatty liver. Diverticulosis. No evidence of metastatic di sease. New T11 vertebral body compression fracture. I reviewed with the radiologist to see if kyphoplasty would be possible. Proceeded with a bone scan, it was done on 05/01 and it revealed: Horizontal abnormal activity T11 vertebra consistent with acute compression fracture. Suspect early acute superior end plate fracture T12 vertebra. Post KYPHOPLASTY CT scan from 05/12: Adequate amount of cement occupying T11 and T12 compression fractures with no cement extravasation. There is no spinal canal compromise or neural foraminal narrowing. She had a more density on 05/22 which revealed: 1. DIAGNOSIS: Severe osteoporosis based on the lowest T-score value of -2.6 in the femoral neck and fracture history applying World Health Organization criteria. I shared the above results with her today. PLAN: She underwent kyphoplasty on 05/11. She has started feeling better after that. She complains of some back spasms. She will be referred for physical therapy for that. She will be started on denosumab for treatment of her osteoporosis. She was given the information. She will review that. Will start on it in a couple we eks time. She will continue maintenance phase with Atizolizumab, q 2 weeks. Will continue to monitor labs. Thank you, CC: Dr. Ina Kc. Dr. Rik Kohler. - Time Spent With Patient Time Spent with Patient (in minutes): 30
[2021-05-25 14:43] VITALS: BP 140/73; PULSE 115; RESP 20; TEMP 36.9; O2SAT 93; BMI 25.7
[2021-05-25 14:43] LABS: MANUAL DIFF FLAG NO
[2021-05-25 15:02] LABS: Basophils Percent Auto 0.6 % (0-2); Eosinophils Absolute Auto 0.1 X10*3/uL (0.0-0.4); Eosinophils Percent Auto 0.7 % (0-4); Hematocrit 45.2 % (37-47); Hemoglobin 14.7 g/dl (12.0-16.0); Imm Gran Abs Auto 0.03 X10*3/uL (0.00-0.03); Imm Gran Pct Auto 0.4 % (0.0-0.4); Lymphocytes Absolute Auto 0.7 X10*3/uL (1.2-4.9); Lymphocytes Percent Auto 10.4 % (20-40); Mean Corpuscular HGB Conc 32.5 g/dl (31.0-35.0); Mean Corpuscular Hemoglobin 30.4 pg (27.0-33.0); Mean Corpuscular Volume 93.6 fL (80-98); Mean Platelet Volume 11.4 fL (9.4-12.3); Monocytes Absolute Auto 0.6 X10*3/uL (0.1-1.2); Monocytes Percent Auto 8.6 % (2-11); Neutrophils Absolute Auto 5.4 X10*3/uL (2.0-8.3); Neutrophils Percent Auto 79.3 % (45-73); Platelet Count 230 X10*3/uL (160-400); Red Blood Count 4.83 X10*6/uL (4.20-5.50); Red Cell Distribution Width 12.8 % (11.0-16.0); White Blood Count 6.8 X10*3/uL (4.8-10.8)
[2021-05-25 15:09] LABS: Alanine Aminotransferase 56 U/L (0-31); Alkaline Phosphatase 117 U/L (39-117); Anion Gap 13 (12-20); Aspartate Amino Transferase 49 U/L (5-31); Bilirubin Total 0.5 mg/dL (0.0-1.0); Blood Urea Nitrogen 10 mg/dL (9-16); Calcium 9.9 mg/dL (8.4-10.2); Carbon Dioxide 33 mmol/L (22-29); Chloride 101 mmol/L (96-108); Creatinine Clr Calc Pharmacy 59.8; Estimated Glomerular Filt Rate > 60; Glucose Random 136 mg/dL (60-115); Potassium 3.3 mmol/L (3.3-5.1); Sodium 144 mmol/L (135-145); Total Protein 6.7 g/dL (6.5-8.0)
[2021-05-25 16:09] LABS: Vitamin D 25-OH Total 50.4 ng/mL (>30)
--- NOTE | 2021-05-25 16:29 | HO.HEMONCPA ---
PA FOR DENOSUMAB NOT REQUIRED. DRUG IS COVERED UNDER MEDICAL BENEFITS.
--- NOTE | 2021-05-25 16:30 | MHC.HEMONCMA ---
Pt came in for onc follow up and states she is doing well. clinical summary was updated and labs were drawn. pt will schedule follow up appointment.
[2021-06-09 13:35] VITALS: BP 162/108; PULSE 127; RESP 14; TEMP 36.9; O2SAT 92; BMI 25.6
[2021-06-09 14:19] LABS: MANUAL DIFF FLAG NO
[2021-06-09 14:21] LABS: Basophils Percent Auto 0.7 % (0-2); Eosinophils Percent Auto 0.3 % (0-4); Hematocrit 42.5 % (37-47); Hemoglobin 13.9 g/dl (12.0-16.0); Imm Gran Abs Auto 0.01 X10*3/uL (0.00-0.03); Imm Gran Pct Auto 0.2 % (0.0-0.4); Lymphocytes Absolute Auto 0.6 X10*3/uL (1.2-4.9); Lymphocytes Percent Auto 10.3 % (20-40); Mean Corpuscular HGB Conc 32.7 g/dl (31.0-35.0); Mean Corpuscular Volume 91.8 fL (80-98); Mean Platelet Volume 11.7 fL (9.4-12.3); Monocytes Absolute Auto 0.6 X10*3/uL (0.1-1.2); Monocytes Percent Auto 10.6 % (2-11); Neutrophils Absolute Auto 4.5 X10*3/uL (2.0-8.3); Neutrophils Percent Auto 77.9 % (45-73); Platelet Count 196 X10*3/uL (160-400); Red Blood Count 4.63 X10*6/uL (4.20-5.50); Red Cell Distribution Width 13.2 % (11.0-16.0); White Blood Count 5.7 X10*3/uL (4.8-10.8)
[2021-06-09 14:55] LABS: Alanine Aminotransferase 34 U/L (0-31); Albumin Level 3.9 g/dL (3.5-5.0); Alkaline Phosphatase 130 U/L (39-117); Anion Gap 12 (12-20); Aspartate Amino Transferase 39 U/L (5-31); Bilirubin Total 0.4 mg/dL (0.0-1.0); Blood Urea Nitrogen 10 mg/dL (9-16); Calcium 9.2 mg/dL (8.4-10.2); Carbon Dioxide 29 mmol/L (22-29); Chloride 105 mmol/L (96-108); Creatinine Clr Calc Pharmacy 61.5; Estimated Glomerular Filt Rate > 60; Glucose Random 147 mg/dL (60-115); Potassium 3.3 mmol/L (3.3-5.1); Sodium 143 mmol/L (135-145); Total Protein 6.4 g/dL (6.5-8.0)
[2021-06-09 15:06] VITALS: BP 155/82; PULSE 111; O2SAT 94
[2021-06-09] MEDS: Acetaminophen 325 MG TABLET 650 MG PO (15:12)
[2021-06-09] MEDS: Atezolizumab 1,200 MG in 0.9 % Sodium Chloride 250 ML 540 MG IV (15:35)
[2021-06-09] MEDS: Heparin Sodium,Porcine Flush 500 UNIT/5 ML SYRINGE IVFLUSH (16:23)
--- NOTE | 2021-06-09 16:44 | MHC.HEMONC ---
Patient arrived for chemotherapy infusion. L chest port accessed with positive blood return. Patient tolerated infusion well. Blood return present post infusion. Port de-accessed. Next appointment scheduled for 06/30/21. Patient denied pain at the conclusion of the visit.
[2021-06-30 13:00] VITALS: BP 194/82; PULSE 89; RESP 18; TEMP 36.5; O2SAT 93; BMI 24.0
[2021-06-30 13:24] LABS: Basophils Absolute Auto 0.1 X10*3/uL (0.0-0.2); Basophils Percent Auto 1.1 % (0-2); Eosinophils Percent Auto 0.4 % (0-4); Hemoglobin 14.8 g/dl (12.0-16.0); Imm Gran Abs Auto 0.02 X10*3/uL (0.00-0.03); Imm Gran Pct Auto 0.4 % (0.0-0.4); Lymphocytes Absolute Auto 0.8 X10*3/uL (1.2-4.9); Lymphocytes Percent Auto 14.7 % (20-40); MANUAL DIFF FLAG NO; Mean Corpuscular HGB Conc 32.2 g/dl (31.0-35.0); Mean Corpuscular Hemoglobin 29.1 pg (27.0-33.0); Mean Corpuscular Volume 90.4 fL (80-98); Mean Platelet Volume 10.9 fL (9.4-12.3); Monocytes Absolute Auto 0.6 X10*3/uL (0.1-1.2); Monocytes Percent Auto 10.6 % (2-11); Neutrophils Absolute Auto 4.1 X10*3/uL (2.0-8.3); Neutrophils Percent Auto 72.8 % (45-73); Platelet Count 226 X10*3/uL (160-400); Red Blood Count 5.09 X10*6/uL (4.20-5.50); Red Cell Distribution Width 13.6 % (11.0-16.0); White Blood Count 5.7 X10*3/uL (4.8-10.8)
[2021-06-30 13:45] LABS: Alanine Aminotransferase 33 U/L (0-31); Albumin Level 4.1 g/dL (3.5-5.0); Alkaline Phosphatase 87 U/L (39-117); Anion Gap 16 (12-20); Aspartate Amino Transferase 40 U/L (5-31); Bilirubin Total 0.5 mg/dL (0.0-1.0); Blood Urea Nitrogen 8 mg/dL (9-16); Carbon Dioxide 30 mmol/L (22-29); Chloride 101 mmol/L (96-108); Creatinine Clr Calc Pharmacy 57.8; Estimated Glomerular Filt Rate > 60; Glucose Random 129 mg/dL (60-115); Potassium 3.7 mmol/L (3.3-5.1); Sodium 143 mmol/L (135-145); Total Protein 6.7 g/dL (6.5-8.0)
[2021-06-30] MEDS: Acetaminophen 325 MG TABLET 650 MG PO (13:55)
[2021-06-30] MEDS: Heparin Sodium,Porcine Flush 500 UNIT/5 ML SYRINGE IVFLUSH (13:55)
[2021-06-30] MEDS: diphenhydrAMINE HCL 50 MG/ML VIAL 25 MG IVPUSH (13:55)
[2021-06-30] MEDS: Atezolizumab 1,200 MG in 0.9 % Sodium Chloride 250 ML 540 MG IV (14:55)
--- NOTE | 2021-06-30 16:36 | MHC.HEMONC ---
Pt here for chemotherapy treatment. Reports to this grant writer she fell at home over the weekend. States she is able to move all extremities-however she is stiff and achey. States back pain has returned. Pt concerned about back pain and her inability to go to physical therapy. Dr Odom notified.
--- NOTE | 2021-07-13 12:05 | MHC.HEMONC ---
KYPHOPLASTY APPT. RESCHEDULETP 07/23 at 7:30am. Pt notified not to take ibuprofen 48 hours before kyphoplasty appointment
--- NOTE | 2021-07-17 14:48 | MHC.HEMONC ---
Pt called ask what pain relief rx she could take in place of Ibuprofen while she is in pain awaiting kyphoplasty later this month. I suggested she take XS Tylenol. She does have oxycodone prn but does not want to use it. She may request muscle relaxant for post procedure pain as she has been through this before.
[2021-07-21 12:59] VITALS: BMI 23.4
[2021-07-21 13:00] VITALS: BP 157/67; PULSE 112; TEMP 36.6
--- NOTE | 2021-07-21 13:08 | PM.HEMONCPN ---
Medical Summary - Medical Summary Date of Service: 07/21/21 Chief complaint: Follow-up for: Small cell carcinoma of the lung. Medical Summary: DIAGNOSIS: SMALL CELL CARCINOMA OF THE LUNG. CURRENT THERAPY: Carboplatin/Etoposide and Atezolizumab, here for cycle 4, day 3. Completed radiation 03/18. Received 33 sessions. To receive Atezolizumab, next week. Interval History Interval history: Lora Meadows is a pleasant 81 year old lady, here for a follow-up visit. She had not been doing too well. She has had ongoing pain in her mid back. A CT scan from June 09 revealed: 1. No evidence of pulmonary embolism. 2. There is a new compression deformity in the T10 vertebral body when compared with the thoracic spine CT following kyphoplasty on 05/11/2021. Some increased sclerosis suggests this may be subacute. Correlate with clinical exam to assess acuity. If clinically indicated, MRI could help to better assess acuity. 3. Mild bronchial wall thickening suggesting small airways disease. 4 Similar appearance to the mediastinal lymphadenopathy 5. Small hiatal hernia. Hepatic steatosis. She was scheduled for a kyphoplasty on Tuesday however she was told too late that she had to be off the Motrin. It has now been rescheduled to does . She is feeling somewhat fatigued. She has back pain especially towards the left side. No fever nor chills. She is sleeping well. She denies headaches. No dizziness. She denies chest pain. She is good while sitting however she gets shortness of breath on exertion. No cough nor sputum. She denies abdominal pain nausea vomiting heartburn indigestion. She has been bothered by constipation lately. She was rather bloated. She tried taking MiraLax and suppository. Mag citrate did not work too well. Finally Dulcolax tablets worked. She tells me she graduated from radiation. Her appetite is way too good. Her weight has been stable. Denies any focal weakness. Denies depression. She has noted some lower extremity edema. Previous History: 1. She had some low back pain, that started a month and a half weeks ago. She tried local heat and Motrin. It was localized to the lower back towards the left side, previously it would radiate to both sides. It was moderate in intensity. Level 5. CT scan of the chest from 04/22 revealed: CHEST: Interval decrease in mediastinal lymphadenopathy. New 2 mm peripheral or subpleural right upper lobe nodule adjacent to the major fissure probably representing a subpleural lymph node. New tiny right pleural effusion. Atherosclerotic disease and coronary artery calcification. ABDOMEN AND PELVIS: Fatty liver. Diverticulosis. No evidence of metastatic disease. New T11 vertebral body compression fracture. I reviewed with the radiologist to see if kyphoplasty would be possible. Proceeded with a bone scan, it was done on 05/01 and it revealed: Horizontal abnormal activity T11 vertebra consistent with acute compression fracture. Suspect early acute superior end plate fracture T12 vertebra. Post KYPHOPLASTY CT scan from 05/12: Adequate amount of cement occupying T11 and T12 compression fractures with no cement extravasation. There is no spinal canal compromise or neural foraminal narrowing. She had a more density on 05/22 which revealed: 1. DIAGNOSIS: Severe osteoporosis based on the lowest T-score value of -2.6 in the femoral neck and fracture history applying World Health Organization criteria. 2. She has a known history of COPD history of tobacco use in the past and quit 15 years ago. In September 2019, she started developing worsening shortness of breath and she went to an urgent care. She was found to be hypoxic and she was admitted to [facility] which was placed on oxygen. She also required BiPAP briefly.She was then given a diagnosis of COPD exacerbation. Patient has been followed closely there. She started pulmonary rehabilitation as an outpatient 3 times a week. She was able to get off the oxygen. Subsequently, COVID was discovered, in October. So looking back she must have had that infection. She had some lingering symptoms over the past year. She saw Dr. Gifford, for allergies/sinus infection. He referred her to Dr. Kohler. In May, she presented to Pulmonary with significant shortness of breath with minimal activity. She also feels significant palpitations. In the office, a brief walking oximetry was done. She maintain initially a pulse ox above 90% but then at the end of the walk she became very short of breath and dyspneic. She did desaturate below 88% and heart rate was 150 beats per minute. It appeared to be irregular. EKG revealed sinus tach with multiple PVCs along with what appears to be ST depressions in the precordial lateral leads and also in the inferior leads. The patient denied chest pain at the time, denied any palpitations at this time. ER referral was offered, with her abnormal EKG, but she did not want to do that. She was advised to take aspirin on a daily basis and was referred for urgent cardiac consultation. She was under the care of Dr. Suazo. 07/03/2020 she was seen by pulmonary. Overall she felt better. She seem to be responding to the inhaler. She stated that she does get episodes of the shortness of breath and tachycardia. She did undergo a CT scan of the chest which revealed: Mediastinal adenopathy. There is a 2.5 cm lymph node in the subcarina. There is an enlarged pretracheal retro vascular lymph node and a right pretracheal lymph node. 1.3 cm peripherally calcified nodule in the right lobe of thyroid. Impression: 1. No evidence of pulmonary embolism. 2. Mediastinal lymphadenopathy. Significant lymphadenopathy with a station 7 lymph node measuring more than 3 cm and station 4R lymph node measuring 2.5 cm. It was explained to her that this is concerning because of the size. She was recovering from her cardiac issues and was being worked up from a cardiac standpoint regarding the tachyarrhythmia. Therefore, it was deemed reasonable to wait. The plan was if the patient developed any constitutional symptoms of any concern or new symptom whatsoever she was to call back and then consider sampling this lymph nodes sooner rather later. To proceed with transbronchial needle aspiration via EBUS . 10/02/2020 the patient went for pulmonary follow-up. Overall she felt a lot better. Her respiratory status had improved dramatically. She was able to do the activities of daily living including laundry and going up and down the stairs. She would get a little winded but not much. Her pulse ox was stable. In the meantime she did have a repeat CT scan of the chest to assess her lymphadenopathy. It appeared that the lungs were expanding just fine. She had a small 2 mm calcified nodule still. However, she continued to have enlarged mediastinal lymph nodes. These were pretty much unchanged from 3 months prior. Therefore the differential including malignancy/ lymphoma, were discussed. At this point she was willing to undergo a endobronchial ultrasound bronchoscopy. However, because of the pandemic it was pushed out. 11/26/2020 the patient had a telephone visit. She is status post bronchoscopy with endobronchial ultrasound transbronchial needle aspirations. Initially sampling the station 4R and also station 7. Indeed she did have some lesional cells concerning for malignancy. We did call pathology to get further data but the immunohistochemical stainings are still pending. This point the patient has cancer within unclear primary. The immunohistochemical stainings are consistent with small cell cancer. I did talk to the patient she is aware of the findings. 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 She had the MRI of the brain which was negative. Unfortunately, the PET scan got resheduled, two weeks in a row, on account of the weather. . Review of Systems - Constitutional Reports no additional constitutional complaints - Eyes Reports no additional eye complaints - ENT Reports no additional ear, nose, mouth, and throat complaints - Cardiovascular Reports no additional cardiovascular complaints - Respiratory Reports no additional respiratory complaints - Gastrointestinal Reports no additional gastrointestinal complaints - Genitourinary Reports no additional female genitourinary complaints - Musculoskeletal Reports no additional musculoskeletal complaints - Integumentary/Breasts Skin/Breast: Reports no additional skin complaints - Neurologic Reports no additional neurologic complaints, Denies abnormal gait, Reports weakness - Psychiatric Reports no additional psychiatric complaints - Endocrine Reports no additional endocrine complaints - Hematologic/Lymphatic Reports no additional hematologic/lymphatic complaints - Allergic/Immunologic Reports no additional allergic/immunologic complaints [facility] Medical History: Medical History (Last Updated 07/20/21 @ 10:29 by Catrachita Mahajan RN) Atrial tachycardia Cancer Chronic obstructive pulmonary disease, unspecified Essential hypertension Hypothyroid Limb swelling Lymphadenopathy Macular degeneration PAC (premature atrial contraction) Pneumonia Port-A-Cath in place Pulmonary nodule PVC (premature ventricular contraction) Small cell carcinoma Functional capacity: independent ambulation Patient : No Family History: Family History (Last Reviewed 07/07/21 @ 13:26 by Dougie Suazo MD) Father Diabetes Mother Osteoporosis Surgical History: Surgical History (Last Updated 07/20/21 @ 10:29 by Catrachita Mahajan RN) History of kyphoplasty History of surgery History of tonsillectomy and adenoidectomy Hx of cataract extraction Social History: Social History (Last Reviewed 07/07/21 @ 13:26 by Dougie Suazo MD) Living Situation History: Household Members: None Housing: House Are you a primary child care supervisor to a significant other at home: No Do you presently have visiting nurse or other home services: No Alcohol History Details: Alcohol intake frequency: 0-2 drinks per day Tobacco History: Patient Tobacco Use Status: Former Tobacco user Cigarette Packs Per Day: 2 Years Smoked: 50 years Smoked in Last 30 Days: No Smoke Quit Date: about 20 years ago Second Hand Smoke Exposure: No Advance Directives: Advance Directives Date on File: 05/11/21 Nutrition Assessment: Patient : No Occupation Assessmet: service: No Oncology Screenings - ECOG Performance Status ECOG Performance Status: 1 Home Medications and Allergies Current Medications: Current Medications Acetaminophen (Acetaminophen 325 Mg Tablet) 650 mg PO ONCE EUGENIO Stop: 07/21/21 23:59 Heparin Sodium (Porcine) (Heparin Sodium,Porcine Flush 500 Unit/5 Ml Syringe) 500 unit IVFLUSH ONCE EUGENIO Stop: 07/21/21 23:59 Ondansetron HCl (Zofran) 16 mg in 50 mls @ 200 mls/hr IV ONCE EUGENIO Stop: 07/21/21 23:59 Home Medications Medication Instructions Recorded Confirmed Type albuterol sulfate 90 mcg/actuation 2 puff INHALATION Q4-6H PRN 10/02/20 07/20/21 History aerosol inhaler levothyroxine 50 mcg tablet 50 mcg PO DAILY 10/02/20 07/20/21 History cyclobenzaprine 10 mg tablet 1 tab PO TID PRN 06/09/21 07/20/21 History ibuprofen 200 mg tablet (Motrin IB) 400 mg PO TID 06/09/21 07/20/21 History vit C 250 mg-vit E 200 unit-zinc 1 tab PO BID 06/09/21 07/20/21 History 12.5 mg-copper 1 [id number] tablet (ICaps AREDS2 (copper citrate)) furosemide 20 mg tablet 20 mg PO DAILY 07/07/21 07/20/21 History Allergies Allergy/AdvReac Type Severity Reaction Status Date / Time peanut Allergy Severe Anaphylaxis Verified 07/07/21 12:51 Tetanus Vaccines and Toxoid Allergy Severe Anaphylaxis Verified 07/07/21 12:51 lovastatin AdvReac Severe Leg Cramps Verified 07/07/21 12:51 pravastatin AdvReac Severe Leg Cramps Verified 07/07/21 12:51 Exam Vital signs: Vital Signs Temp 97.9 F 07/21/21 13:00 Pulse 112 H 07/21/21 13:00 Resp 18 06/30/21 13:00 BP 157/67 H 07/21/21 13:00 Pulse Ox 93 06/30/21 13:00 Intake & Output 07/20/21 07/21/21 07/21/21 18:59 06:59 18:59 Other: Weight 62 kg Alexander Weight in Grams [id number] Weight 62 kg Body Mass Index 23.4 - Constitutional Present: no acute distress - Routine HEENT Exam Head: Present: normal inspection Eye: Present: normal appearance ENT: Present: mucous membranes moist - Routine Neck Exam Present: full ROM - Routine Respiratory Exam Present: CTAB - Routine Cardiovascular Exam Cardiovascular: Present: RRR, S1, S2 - Routine Abdominal Exam Present: normal bowel sounds, nontender - Routine Rectal Exam Patient deferred: digital exam - Routine Extremities Exam Present: nontender - Routine Back/Spine/Pelvis Exam Back/Spine: Present: full ROM - Routine Skin Exam Present: intact - Routine Neurological Exam Present: alert, oriented X3 - Detailed Neurological Exam: Coma Scale Eye Opening: Spontaneous (4) - Routine Psychiatric Exam Present: normal affect Data - Labs CBC & Chem 7: 07/21/21 13:31 07/21/21 13:31 Labs: 11/27/20 10:05 Complete Blood Count Auto Diff Routine Comprehensive Met. Panel Routine LDH [Lactate Dehydrogenase] Routine Laboratory Last Values WBC 8.0 X10*3/uL (4.8-10.8) 11/27/20 10:05 RBC 4.86 X10*6/uL (4.20-5.50) 11/27/20 10:05 Hgb 15.2 g/dl (12.0-16.0) 11/27/20 10:05 Hct 44.9 % (37-47) 11/27/20 10:05 MCV 92.4 fL (80-98) 11/27/20 10:05 MCH 31.3 pg (27.0-33.0) 11/27/20 10:05 MCHC 33.9 g/dl (31.0-35.0) 11/27/20 10:05 RDW 13.2 % (11.0-16.0) 11/27/20 10:05 Plt Count 233 X10*3/uL (160-400) 11/27/20 10:05 MPV 10.9 fL (9.4-12.3) 11/27/20 10:05 Immature Gran % (Auto) 0.4 % (0.0-0.4) 11/27/20 10:05 Neut % (Auto) 70.6 % (45-73) 11/27/20 10:05 Lymph % (Auto) 19.3 % (20-40) L 11/27/20 10:05 [place] % (Auto) 8.7 % (2-11) 11/27/20 10:05 Eos % (Auto) 0.4 % (0-4) 11/27/20 10:05 Baso % (Auto) 0.6 % (0-2) 11/27/20 10:05 Lymph # (Auto) 1.5 X10*3/uL (1.2-4.9) 11/27/20 10:05 [place] # (Auto) 0.7 X10*3/uL (0.1-1.2) 11/27/20 10:05 Eos # (Auto) 0.0 X10*3/uL (0.0-0.4) 11/27/20 10:05 Baso # (Auto) 0.1 X10*3/uL (0.0-0.2) 11/27/20 10:05 Abs Immat Gran (auto) 0.03 X10*3/uL (0.00-0.03) 11/27/20 10:05 Absolute Neuts (auto) 5.6 X10*3/uL (2.0-8.3) 11/27/20 10:05 Absolute Nucleated RBC 0.000 X10*3/uL (0.0-0.012) 11/27/20 10:05 Nucleated RBC % (auto) 0.0 /100WBC (0.0-0.2) 11/27/20 10:05 Sodium 139 mmol/L (135-145) 11/27/20 10:05 Potassium 4.1 mmol/L (3.3-5.1) 11/27/20 10:05 Chloride 101 mmol/L (96-108) 11/27/20 10:05 Carbon Dioxide 27 mmol/L (22-29) 11/27/20 10:05 Anion Gap 15 (12-20) 11/27/20 10:05 BUN 13 mg/dL (9-16) 11/27/20 10:05 Creatinine 0.70 mg/dL (0.5-1.4) 11/27/20 10:05 Estim Creat Clear Calc 64.4 11/27/20 10:05 Estimated GFR > 60 11/27/20 10:05 Random Glucose 125 mg/dL (60-115) H D 11/27/20 10:05 Calcium 9.4 mg/dL (8.4-10.2) 11/27/20 10:05 Total Bilirubin 0.6 mg/dL (0.0-1.0) 11/27/20 10:05 AST 36 U/L (5-31) H 11/27/20 10:05 ALT 54 U/L (0-31) H 11/27/20 10:05 Alkaline Phosphatase 69 U/L (39-117) 11/27/20 10:05 Lactate Dehydrogenase 199 U/L (122-220) 11/27/20 10:05 Total Protein 7.3 g/dL (6.5-8.0) 11/27/20 10:05 Albumin 4.3 g/dL (3.5-5.0) 11/27/20 10:05 Assessment and Plan Patient Active problem list reviewed?: Yes (1) Small cell carcinoma Status: Acute Assessment and plan: This is a pleasant 81 year-old lady, with recent diagnosis of small cell carcinoma of the lung. She underwent EBUS on November 19. Pathology: Station 4 lymph node: Negative. Station 7 lymph node: Positive for malignant cells consistent with small-cell carcinoma. Immuno stains: Positive for synaptophysin, chromogranin, CD 56 and ann cytokeratin. Negative for chromogranin and CD 45. I shared the details of the pathology with her. I went over the disease course and treatment options including systemic chemotherapy, with or without radiation based upon her exact stage. I proceeded with staging workup. I checked baseline labs including LDH: 199. Check a PET scan to see if there is any evidence of metastatic disease especially with history of chronic back and hip pain. (It had to postponed twice, due to the weather). This was done at [facility] on 12/22 and revealed: FDG avid mediastinal adenopathy, compatible with malignancy. There is no evidence of FDG avid lung cancer outside of the mediastinum. Possible right lower pole renal mass. Recommend correlation with outside imaging of the abdomen. If none is available consider renal ultrasound/dedicated renal mass MRI for further evaluation. 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 No underlying renal mass. l checked MRI of the brain, to look for any possible brain metastases. This revealed: No acute intracranial process seen. No abnormal enhancement seen to suspect any primary or metastatic lesion. Extensive chronic small vessel ischemic changes in both cerebral hemispheres with underlying mild cerebral volume loss. She was started on carbo etoposide and Atizolizumab.. She is tolerating it well. She has complete cycle 4.. She has completed radiation therapy. She is currently on atezolizumab. She had done well, up until now. She has recently noted back pain. In addition she has refractory constipation. I was concerned about cord compression however she does not have any neurological symptoms. No urinary complaints. Her back pain is actually better than before. I proceeded to re-stage her with imaging. She had a CT scan of the chest on 04/22, it revealed: CHEST: Interval decrease in mediastinal lymphadenopathy. New 2 mm peripheral or subpleural right upper lobe nodule adjacent to the major fissure probably representing a subpleural lymph node. New tiny right pleural effusion. Atherosclerotic disease and coronary artery calcification. ABDOMEN AND PELVIS: Fatty liver. Diverticulosis. No evidence of metastatic disease. New T11 vertebral body compression fracture. Proceeded with a bone scan, it was done on 05/01 and it revealed: Horizontal abnormal activity T11 vertebra consistent with acute compression fracture. Suspect early acute superior end plate fracture T12 vertebra. She was referred to the emergency room, by Dr. Kohler on 06/09 for: for abnormal labs including troponin, BNP, and D-dimer. Patient reports increasing bilateral LE edema and FARIAS x6 weeks. Also reports abdominal bloating. Denies CP, fever, chills, cough, abdominal pain, nausea/vomiting, COVID-19 exposure, recent travel, history of blood clots. CTA from June 09 revealed: 1. No evidence of pulmonary embolism. 2. There is a new compression deformity in the T10 vertebral body when compared with the thoracic spine CT following kyphoplasty on 05/11/2021. Some increased sclerosis suggests this may be subacute. Correlate with clinical exam to assess acuity. If clinically indicated, MRI could help to better assess acuity. 3. Mild bronchial wall thickening suggesting small airways disease. 4 Similar appearance to the mediastinal lymphadenopathy 5. Small hiatal hernia. Hepatic steatosis. She previously underwent kyphoplasty of T11 and T12 vertebrae on 05/11. Post KYPHOPLASTY CT scan from 05/12: Adequate amount of cement occupying T11 and T12 compression fractures with no cement extravasation. There is no spinal canal compromise or neural foraminal narrowing. She had a more density on 05/22 which revealed: 1. DIAGNOSIS: Severe osteoporosis based on the lowest T-score value of -2.6 in the femoral neck and fracture history applying World Health Organization criteria. I shared the above results with her. She has had more back pain. She has new compression fracture at T10 level. This is related to severe osteoporosis, S seen by bone mineral density done recently. She is scheduled for kyphoplasty for 07/23. PLAN: To proceed with kyphoplasty 07/23. She will be started on denosumab for treatment of her osteoporosis. She was given the information. She will review that. Will start her on it next week. Her K is low, this will be replaced. She will continue maintenance phase with Atizolizumab, q 2 weeks. He she is here for a dose today. Will continue to monitor labs. Thank you, CC: Dr. Ina Kc. Dr. Rik Kohler. - Time Spent With Patient Time Spent with Patient (in minutes): 35
[2021-07-21 13:44] LABS: MANUAL DIFF FLAG NO
[2021-07-21 13:57] LABS: Basophils Percent Auto 0.6 % (0-2); Eosinophils Percent Auto 0.1 % (0-4); Hematocrit 47.3 % (37-47); Hemoglobin 15.3 g/dl (12.0-16.0); Imm Gran Abs Auto 0.01 X10*3/uL (0.00-0.03); Imm Gran Pct Auto 0.1 % (0.0-0.4); Lymphocytes Absolute Auto 0.5 X10*3/uL (1.2-4.9); Lymphocytes Percent Auto 6.9 % (20-40); Mean Corpuscular HGB Conc 32.3 g/dl (31.0-35.0); Mean Corpuscular Hemoglobin 28.3 pg (27.0-33.0); Mean Corpuscular Volume 87.6 fL (80-98); Monocytes Absolute Auto 0.6 X10*3/uL (0.1-1.2); Monocytes Percent Auto 8.2 % (2-11); Neutrophils Absolute Auto 6.1 X10*3/uL (2.0-8.3); Neutrophils Percent Auto 84.1 % (45-73); Platelet Count 197 X10*3/uL (160-400); Red Cell Distribution Width 14.2 % (11.0-16.0); White Blood Count 7.2 X10*3/uL (4.8-10.8)
[2021-07-21 14:40] LABS: Alanine Aminotransferase 28 U/L (0-31); Albumin Level 3.8 g/dL (3.5-5.0); Alkaline Phosphatase 77 U/L (39-117); Anion Gap 15 (12-20); Aspartate Amino Transferase 30 U/L (5-31); Bilirubin Total 0.7 mg/dL (0.0-1.0); Blood Urea Nitrogen 9 mg/dL (9-16); Carbon Dioxide 30 mmol/L (22-29); Chloride 102 mmol/L (96-108); Creatinine Clr Calc Pharmacy 57.8; Estimated Glomerular Filt Rate > 60; Glucose Random 145 mg/dL (60-115); Lactate Dehydrogenase 237 U/L (122-220); Potassium 2.7 mmol/L (3.3-5.1); Sodium 144 mmol/L (135-145); Total Protein 6.5 g/dL (6.5-8.0)
[2021-07-21] MEDS: Acetaminophen 325 MG TABLET 650 MG PO (14:59)
[2021-07-21] MEDS: Potassium Chloride ER 20 MEQ TAB.ER.PRT PO (15:04)
[2021-07-21] MEDS: Atezolizumab 1,200 MG in 0.9 % Sodium Chloride 250 ML 540 MG IV (15:17)
[2021-07-21 15:26] LABS: Thyroid Stimulating Hormone 0.88 uIU/mL (0.32-4.0)
[2021-07-21] MEDS: Heparin Sodium,Porcine Flush 500 UNIT/5 ML SYRINGE IVFLUSH (16:01)
--- NOTE | 2021-07-21 16:23 | MHC.HEMONC ---
Patient arrived for Cycle 10 Day 1 Atezolizumab infusion. L chest port accessed with positive blood return. Labs drawn and reviewed - ok to treat. Patient tolerated infusion well. Patient received PO potassium for K+=2.7. Blood return present in port pre and post infusion. Port de-accessed. Denosumab injection scheduled for 07/29/21. Next infusion scheduled for 08/11/21. Patient departed the unit.
[2021-07-22 12:29] VITALS: BP 131/95; PULSE 96; RESP 18; TEMP 37; O2SAT 93; BMI 24.0
[2021-07-22] MEDS: Potassium Chloride/H20 20 MEQ/100 ML PIGGYBACK 100 MEQ IV (12:32)
[2021-07-22] MEDS: Potassium Chloride ER 20 MEQ TAB.ER.PRT PO ×2 (12:34→13:17)
--- NOTE | 2021-07-22 13:22 | MHC.HEMONC ---
jose from [facility] called to notify that kyphoplasty will need to be reschedeld potassium isnt improved. telephone order from dr sam to have pt come in for iv and additional potassium. [facility] will redraw lab tomorrow am
[2021-07-29 12:54] VITALS: BP 184/81; PULSE 88; RESP 18; TEMP 36.9; O2SAT 93; BMI 23.1
[2021-07-29] MEDS: Denosumab 60 MG/ML SYRINGE SUBCUT (13:19)
[2021-07-29 13:31] VITALS: BP 125/86; O2SAT 92
--- NOTE | 2021-07-29 14:27 | MHC.HEMONC ---
Prolia administered to right upper arm. Labs completed last week. Calcium was 9.0. Education provided on medication. Next Prolia dose due in January.
--- NOTE | 2021-08-04 08:16 | MHC.HEMONC ---
I called Dr Gifford's office on behalf of pt as she had been in our office last week and was inquiring about allergy shots that she usually gets at their office. She was wondering how she might get them as she is having increased breathing issues and pain issues. They will reach out to her and see what they can provide.
[2021-08-11 13:14] LABS: MANUAL DIFF FLAG NO
[2021-08-11 13:16] LABS: Basophils Percent Auto 0.5 % (0-2); Eosinophils Percent Auto 0.3 % (0-4); Hematocrit 47.5 % (37-47); Hemoglobin 15.6 g/dl (12.0-16.0); Imm Gran Abs Auto 0.01 X10*3/uL (0.00-0.03); Imm Gran Pct Auto 0.2 % (0.0-0.4); Lymphocytes Absolute Auto 0.6 X10*3/uL (1.2-4.9); Lymphocytes Percent Auto 10.4 % (20-40); Mean Corpuscular HGB Conc 32.8 g/dl (31.0-35.0); Mean Corpuscular Hemoglobin 29.3 pg (27.0-33.0); Mean Corpuscular Volume 89.1 fL (80-98); Mean Platelet Volume 11.2 fL (9.4-12.3); Monocytes Absolute Auto 0.7 X10*3/uL (0.1-1.2); Monocytes Percent Auto 11.2 % (2-11); Neutrophils Absolute Auto 4.6 X10*3/uL (2.0-8.3); Neutrophils Percent Auto 77.4 % (45-73); Platelet Count 177 X10*3/uL (160-400); Red Blood Count 5.33 X10*6/uL (4.20-5.50); Red Cell Distribution Width 16.1 % (11.0-16.0)
[2021-08-11 13:28] VITALS: BP 176/70; PULSE 80; RESP 18; TEMP 36.9; O2SAT 92; BMI 22.6
[2021-08-11 13:40] LABS: Alanine Aminotransferase 39 U/L (0-31); Albumin Level 4.1 g/dL (3.5-5.0); Alkaline Phosphatase 69 U/L (39-117); Anion Gap 15 (12-20); Aspartate Amino Transferase 41 U/L (5-31); Bilirubin Total 1.2 mg/dL (0.0-1.0); Blood Urea Nitrogen 8 mg/dL (9-16); Calcium 8.8 mg/dL (8.4-10.2); Carbon Dioxide 27 mmol/L (22-29); Chloride 102 mmol/L (96-108); Creatinine Clr Calc Pharmacy 65.6; Estimated Glomerular Filt Rate > 60; Glucose Random 135 mg/dL (60-115); Potassium 3.7 mmol/L (3.3-5.1); Sodium 140 mmol/L (135-145); Total Protein 6.7 g/dL (6.5-8.0)
--- NOTE | 2021-08-11 13:45 | HE.PHANOTE ---
SUDDEN JUMP IN PATIENT'S TOTAL BILI (1.2) LEVEL TODAY; CONTINUE TO MONITOR TOTAL BILI LEVELS >1.5 ULN COULD BE THE RESULT OF IMMUNE-MEDIATED HEPATITIS AND WOULD REQUIRE MED TO BE HELD AND TREATMENT WITH STEROIDS TO BE INITIATED.
[2021-08-11] MEDS: Acetaminophen 325 MG TABLET 650 MG PO (14:00)
[2021-08-11] MEDS: Heparin Sodium,Porcine Flush 500 UNIT/5 ML SYRINGE IVFLUSH (14:01)
[2021-08-11] MEDS: Atezolizumab 1,200 MG in 0.9 % Sodium Chloride 250 ML 540 MG IV (14:30)
--- NOTE | 2021-08-11 15:38 | MHC.HEMONC ---
Patient arrived for Cycle 11 Day 1 Atezolizumab infusion. L chest port accessed with positive blood return. Labs drawn and reviewed - ok to treat. Patient tolerated infusion well. Blood return present in port pre and post infusion. Port de-accessed. Denosumab injection scheduled for 01/28/22. Next infusion scheduled for 09/01/21. Patient to ask her hvac instructor on 08/14/21 if she should continue oral potassium as she reports that she is not taking furosemide any longer. Discharge packet provided. Patient departed the unit.
--- NOTE | 2021-08-21 16:38 | MHC.HEMONC ---
Pt called to c/o thoracic pain on left side. It does not hurt to breathe and her O2 sat is WNL. She said that it seemed to happen after a sneeze. It is not as bad a pain as in the past but she has already needed 2 kyphoplastys for fx. I spoke with Dr Odom and she will order a CT. This order was given to Adriana to enter and pt was informed.
--- NOTE | 2021-08-24 15:21 | MHC.HEMONC ---
Pt called to ask if her CT has been booked yet. I did not see it in [employer] so I gave it to Adriana again to enter so pt can be booked. Pt is aware of this. Pain has worsened and she is eager to get imaging.
[2021-09-01 12:51] VITALS: BP 149/75; PULSE 81; RESP 16; TEMP 37.1; O2SAT 94; BMI 22.3
[2021-09-01 13:37] LABS: MANUAL DIFF FLAG NO
[2021-09-01 13:43] LABS: Basophils Absolute Auto 0.1 X10*3/uL (0.0-0.2); Eosinophils Percent Auto 0.7 % (0-4); Hematocrit 47.5 % (37.0-47.0); Hemoglobin 15.3 g/dl (12.0-16.0); Imm Gran Abs Auto 0.01 X10*3/uL (0.00-0.03); Imm Gran Pct Auto 0.2 % (0.0-0.4); Lymphocytes Absolute Auto 0.8 X10*3/uL (1.2-4.9); Lymphocytes Percent Auto 13.4 % (20-40); Mean Corpuscular HGB Conc 32.2 g/dl (31.0-35.0); Monocytes Absolute Auto 0.6 X10*3/uL (0.1-1.2); Monocytes Percent Auto 9.8 % (2-11); Neutrophils Absolute Auto 4.4 x10*3/uL (2.0-8.3); Neutrophils Percent Auto 74.9 % (45-73); Platelet Count 291 X10*3/uL (160-400); Red Blood Count 5.28 X10*6/uL (4.20-5.50); Red Cell Distribution Width 16.5 % (11.0-16.0); White Blood Count 5.9 X10*3/uL (4.8-10.8)
[2021-09-01 13:55] LABS: Alanine Aminotransferase 62 U/L (0-31); Albumin Level 3.9 g/dL (3.5-5.0); Alkaline Phosphatase 80 U/L (39-117); Anion Gap 14 (12-20); Aspartate Amino Transferase 58 U/L (5-31); Bilirubin Total 0.7 mg/dL (0.0-1.0); Blood Urea Nitrogen 9 mg/dL (9-16); Calcium 8.4 mg/dL (8.4-10.2); Carbon Dioxide 27 mmol/L (22-29); Chloride 105 mmol/L (96-108); Creatinine Clr Calc Pharmacy 58.7; Estimated Glomerular Filt Rate > 60; Glucose Random 108 mg/dL (60-115); Potassium 3.7 mmol/L (3.3-5.1); Sodium 142 mmol/L (135-145); Total Protein 6.7 g/dL (6.5-8.0)
[2021-09-01] MEDS: Acetaminophen 325 MG TABLET 650 MG PO (14:19)
[2021-09-01] MEDS: diphenhydrAMINE HCL 50 MG/ML VIAL 25 MG IVPUSH (14:20)
[2021-09-01] MEDS: Atezolizumab 1,200 MG in 0.9 % Sodium Chloride 250 ML 540 MG IV (14:59)
[2021-09-01] MEDS: Heparin Sodium,Porcine Flush 500 UNIT/5 ML SYRINGE IVFLUSH (15:36)
--- NOTE | 2021-09-01 16:42 | MHC.HEMONC ---
Patient arrived for Cycle 12 Day 1 Atezolizumab infusion. L chest port accessed with positive blood return. Labs drawn and reviewed - ok to treat. Patient tolerated infusion well. Blood return present in port pre and post infusion. Port de-accessed. Denosumab injection scheduled for 01/28/22. Next infusion scheduled for 09/22/21. Discharge packet provided. Patient departed the unit.
--- NOTE | 2021-09-03 15:48 | MHC.HEMONC ---
PA for Veterbroplasty not needed per Kiya. Radiology is working on appt for procedure. I will call tomorrow to see if appt has been scheduled. .
[2021-09-22 13:07] VITALS: BP 193/86; PULSE 113; RESP 18; TEMP 36.6; O2SAT 95; BMI 22.5
[2021-09-22 13:51] LABS: MANUAL DIFF FLAG NO
[2021-09-22 13:54] LABS: Basophils Absolute Auto 0.1 X10*3/uL (0.0-0.2); Eosinophils Percent Auto 0.6 % (0-4); Hematocrit 46.1 % (37.0-47.0); Hemoglobin 15.1 g/dl (12.0-16.0); Imm Gran Abs Auto 0.01 X10*3/uL (0.00-0.03); Imm Gran Pct Auto 0.2 % (0.0-0.4); Lymphocytes Absolute Auto 0.6 X10*3/uL (1.2-4.9); Lymphocytes Percent Auto 12.2 % (20-40); Mean Corpuscular HGB Conc 32.8 g/dl (31.0-35.0); Mean Corpuscular Hemoglobin 29.8 pg (27.0-33.0); Mean Corpuscular Volume 91.1 fL (80.0-98.0); Mean Platelet Volume 10.3 fL (9.4-12.3); Monocytes Absolute Auto 0.6 X10*3/uL (0.1-1.2); Monocytes Percent Auto 12.6 % (2-11); Neutrophils Absolute Auto 3.5 x10*3/uL (2.0-8.3); Neutrophils Percent Auto 73.4 % (45-73); Platelet Count 211 X10*3/uL (160-400); Red Blood Count 5.06 X10*6/uL (4.20-5.50); Red Cell Distribution Width 16.2 % (11.0-16.0); White Blood Count 4.8 X10*3/uL (4.8-10.8)
[2021-09-22 14:09] LABS: Alanine Aminotransferase 39 U/L (0-31); Alkaline Phosphatase 81 U/L (39-117); Anion Gap 13 (12-20); Aspartate Amino Transferase 39 U/L (5-31); Bilirubin Total 0.6 mg/dL (0.0-1.0); Blood Urea Nitrogen 11 mg/dL (9-16); Calcium 9.7 mg/dL (8.4-10.2); Carbon Dioxide 28 mmol/L (22-29); Chloride 102 mmol/L (96-108); Creatinine Clr Calc Pharmacy 57.8; Estimated Glomerular Filt Rate > 60; Glucose Random 119 mg/dL (60-115); Potassium 4.1 mmol/L (3.3-5.1); Sodium 139 mmol/L (135-145); Total Protein 6.6 g/dL (6.5-8.0)
[2021-09-22] MEDS: Acetaminophen 325 MG TABLET 650 MG PO (14:25)
[2021-09-22] MEDS: Atezolizumab 1,200 MG in 0.9 % Sodium Chloride 250 ML 540 MG IV (14:36)
[2021-09-22] MEDS: Heparin Sodium,Porcine Flush 500 UNIT/5 ML SYRINGE IVFLUSH (15:15)
--- NOTE | 2021-09-22 16:30 | MHC.HEMONC ---
Patient arrived for Cycle 13 Day 1 Atezolizumab infusion. L chest port accessed with positive blood return. Labs drawn and reviewed - ok to treat. Patient tolerated infusion well. Blood return present in port pre and post infusion. Bendadryl held per patient request. Dr Odom aware. Port de-accessed. Denosumab injection scheduled for 01/28/22. Next infusion scheduled for 10/13/21. Discharge packet provided. Patient departed the unit.
[2021-10-13 12:54] LABS: MANUAL DIFF FLAG NO
[2021-10-13 13:19] LABS: Alanine Aminotransferase 37 U/L (0-31); Albumin Level 4.3 g/dL (3.5-5.0); Alkaline Phosphatase 64 U/L (39-117); Anion Gap 13 (12-20); Aspartate Amino Transferase 36 U/L (5-31); Bilirubin Total 0.7 mg/dL (0.0-1.0); Blood Urea Nitrogen 12 mg/dL (9-16); Calcium 9.2 mg/dL (8.4-10.2); Carbon Dioxide 30 mmol/L (22-29); Chloride 102 mmol/L (96-108); Creatinine Clr Calc Pharmacy 50.9; Estimated Glomerular Filt Rate > 60; Glucose Random 167 mg/dL (60-115); Potassium 3.5 mmol/L (3.3-5.1); Sodium 141 mmol/L (135-145); Total Protein 6.9 g/dL (6.5-8.0)
[2021-10-13 13:23] LABS: Basophils Percent Auto 0.8 % (0-2); Eosinophils Percent Auto 0.2 % (0-4); Hematocrit 50.1 % (37.0-47.0); Hemoglobin 16.1 g/dl (12.0-16.0); Imm Gran Abs Auto 0.02 X10*3/uL (0.00-0.03); Imm Gran Pct Auto 0.4 % (0.0-0.4); Lymphocytes Absolute Auto 0.6 X10*3/uL (1.2-4.9); Lymphocytes Percent Auto 12.8 % (20-40); Mean Corpuscular HGB Conc 32.1 g/dl (31.0-35.0); Mean Corpuscular Hemoglobin 29.8 pg (27.0-33.0); Mean Corpuscular Volume 92.8 fL (80.0-98.0); Mean Platelet Volume 10.9 fL (9.4-12.3); Monocytes Absolute Auto 0.5 X10*3/uL (0.1-1.2); Monocytes Percent Auto 10.7 % (2-11); Neutrophils Absolute Auto 3.6 x10*3/uL (2.0-8.3); Neutrophils Percent Auto 75.1 % (45-73); Platelet Count 219 X10*3/uL (160-400); Red Cell Distribution Width 15.6 % (11.0-16.0); White Blood Count 4.8 X10*3/uL (4.8-10.8)
[2021-10-13 13:25] VITALS: BP 180/70; PULSE 81; RESP 18; TEMP 36.8; O2SAT 95; BMI 22.5
[2021-10-13] MEDS: Famotidine 20 MG TABLET PO (14:10)
[2021-10-13] MEDS: diphenhydrAMINE HCL 50 MG/ML VIAL 25 MG IVPUSH (14:30)
[2021-10-13] MEDS: Atezolizumab 1,200 MG in 0.9 % Sodium Chloride 250 ML 540 MG IV (15:10)
[2021-10-13] MEDS: Heparin Sodium,Porcine Flush 500 UNIT/5 ML SYRINGE IVFLUSH (15:50)
--- NOTE | 2021-10-13 16:22 | MHC.HEMONC ---
Patient arrived for Cycle 14 Day 1 Atezolizumab infusion. L chest port accessed with positive blood return. Labs drawn and reviewed - ok to treat. Pepcid PO and Benadryl and Ondanestron IV administered. Atezolizumab infusion administered and patient tolerated it well. Blood return present in port pre and post infusion. Port de-accessed. Next infusion scheduled for 11/03/21. Discharge packet provided. Patient departed the unit.
[2021-10-20 15:34] LABS: Appearance Urine CLOUDY; Color Urine YELLOW; Glucose Urine UA NEG (NEG); Leukocyte Esterase Urine 2+ (NEG); Nitrite Urine POS (NEG); Specific Gravity - Urine >= 1.030 (1.005-1.025); UACC Culture Trigger YES; Urine Blood 2+ (NEG); Urine Ketones 5 MG/DL (NEG); Urine Protein 1+ MG/DL (NEG-TRACE)
[2021-10-20 15:47] LABS: Bacteria Urine 4+ /LPF
[2021-10-20 15:48] LABS: Calcium Oxalate Crystals Urine 1+ /LPF; UACC CULT YES; WBC Urine 50-75 /HPF (0-4)
--- NOTE | 2021-10-22 15:19 | MHC.HEMONC ---
Call from patient to report that she has nausea and dry heaves after the initiation of the Bactrim that it unrelieved with Zofran. Dr Saravia informed, Keflex ordered and patient instructed to go to the ER if the nausea continues and/or if she develops a fever, chills or difficulty breathing. Patient stated that she understood. She reported that she will contact the Oncologist automation qa lead if she needs assistance overnight.
--- NOTE | 2021-10-26 16:06 | MHC.HEMONC ---
Follow up call to patient. She reports that she stopped taking the Bactrim and started taking the Keflex. She reports that she is feeling better and that her urine is not as cloudy.
[2021-11-03 13:12] LABS: MANUAL DIFF FLAG NO
[2021-11-03 13:21] LABS: Basophils Percent Auto 0.9 % (0-2); Eosinophils Percent Auto 0.4 % (0-4); Hematocrit 50.1 % (37.0-47.0); Hemoglobin 16.1 g/dl (12.0-16.0); Imm Gran Abs Auto 0.01 X10*3/uL (0.00-0.03); Imm Gran Pct Auto 0.2 % (0.0-0.4); Lymphocytes Absolute Auto 0.5 X10*3/uL (1.2-4.9); Lymphocytes Percent Auto 10.5 % (20-40); Mean Corpuscular HGB Conc 32.1 g/dl (31.0-35.0); Mean Corpuscular Hemoglobin 30.3 pg (27.0-33.0); Mean Corpuscular Volume 94.2 fL (80.0-98.0); Mean Platelet Volume 10.4 fL (9.4-12.3); Monocytes Absolute Auto 0.6 X10*3/uL (0.1-1.2); Monocytes Percent Auto 12.3 % (2-11); Neutrophils Absolute Auto 3.4 x10*3/uL (2.0-8.3); Neutrophils Percent Auto 75.7 % (45-73); Platelet Count 208 X10*3/uL (160-400); Red Blood Count 5.32 X10*6/uL (4.20-5.50); Red Cell Distribution Width 15.2 % (11.0-16.0); White Blood Count 4.5 X10*3/uL (4.8-10.8)
[2021-11-03 13:34] LABS: Alanine Aminotransferase 45 U/L (0-31); Albumin Level 4.1 g/dL (3.5-5.0); Alkaline Phosphatase 77 U/L (39-117); Anion Gap 13 (12-20); Aspartate Amino Transferase 53 U/L (5-31); Bilirubin Total 0.6 mg/dL (0.0-1.0); Blood Urea Nitrogen 10 mg/dL (9-16); Calcium 9.2 mg/dL (8.4-10.2); Carbon Dioxide 31 mmol/L (22-29); Chloride 100 mmol/L (96-108); Estimated Glomerular Filt Rate > 60; Glucose Random 126 mg/dL (60-115); Potassium 4.2 mmol/L (3.3-5.1); Sodium 140 mmol/L (135-145); Total Protein 6.8 g/dL (6.5-8.0)
[2021-11-03] MEDS: Ondansetron ODT 8 MG TAB.RAPDIS TRANSLINGU (14:11)
[2021-11-03] MEDS: Acetaminophen 325 MG TABLET 650 MG PO (14:12)
[2021-11-03] MEDS: diphenhydrAMINE HCL 25 MG TABLET PO (14:12)
[2021-11-03] MEDS: Heparin Sodium,Porcine Flush 500 UNIT/5 ML SYRINGE IVFLUSH (14:13)
[2021-11-03] MEDS: Atezolizumab 1,200 MG in 0.9 % Sodium Chloride 250 ML 540 MG IV (14:26)
--- NOTE | 2021-11-03 16:10 | MHC.HEMONC ---
Patient arrived for Cycle 15 Day 1 Atezolizumab infusion. L chest port accessed with positive blood return. Labs drawn and reviewed - ok to treat. Tylenol, Benadryl, and Zofran PO administered. Atezolizumab infusion administered and patient tolerated it well. Blood return present in port pre and post infusion. Port de-accessed. Next infusion scheduled for 11/24/21. Discharge packet provided. Patient departed the unit.
[2021-11-24 12:54] LABS: MANUAL DIFF FLAG NO
[2021-11-24 13:02] LABS: Basophils Absolute Auto 0.1 X10*3/uL (0.0-0.2); Eosinophils Percent Auto 0.4 % (0-4); Hematocrit 50.4 % (37.0-47.0); Hemoglobin 16.2 g/dl (12.0-16.0); Imm Gran Abs Auto 0.01 X10*3/uL (0.00-0.03); Imm Gran Pct Auto 0.2 % (0.0-0.4); Lymphocytes Absolute Auto 0.6 X10*3/uL (1.2-4.9); Lymphocytes Percent Auto 10.8 % (20-40); Mean Corpuscular HGB Conc 32.1 g/dl (31.0-35.0); Mean Corpuscular Hemoglobin 30.6 pg (27.0-33.0); Mean Corpuscular Volume 95.3 fL (80.0-98.0); Monocytes Absolute Auto 0.4 X10*3/uL (0.1-1.2); Monocytes Percent Auto 8.7 % (2-11); Neutrophils Percent Auto 78.9 % (45-73); Platelet Count 204 X10*3/uL (160-400); Red Blood Count 5.29 X10*6/uL (4.20-5.50); Red Cell Distribution Width 14.7 % (11.0-16.0); White Blood Count 5.1 X10*3/uL (4.8-10.8)
[2021-11-24 13:06] VITALS: BP 143/86; PULSE 95; RESP 20; TEMP 36.8; O2SAT 95; BMI 22.7
[2021-11-24 13:49] LABS: Alanine Aminotransferase 34 U/L (0-31); Albumin Level 4.2 g/dL (3.5-5.0); Alkaline Phosphatase 69 U/L (39-117); Anion Gap 9 (12-20); Aspartate Amino Transferase 36 U/L (5-31); Bilirubin Total 0.5 mg/dL (0.0-1.0); Blood Urea Nitrogen 10 mg/dL (9-16); Calcium 9.5 mg/dL (8.4-10.2); Carbon Dioxide 34 mmol/L (22-29); Chloride 103 mmol/L (96-108); Creatinine Clr Calc Pharmacy 51.6; Estimated Glomerular Filt Rate > 60; Glucose Random 129 mg/dL (60-115); Potassium 4.4 mmol/L (3.3-5.1); Sodium 142 mmol/L (135-145); Total Protein 6.9 g/dL (6.5-8.0)
[2021-11-24] MEDS: Acetaminophen 325 MG TABLET 650 MG PO (14:29)
[2021-11-24] MEDS: diphenhydrAMINE HCL 50 MG/ML VIAL 25 MG IVPUSH (14:30)
[2021-11-24] MEDS: Heparin Sodium,Porcine Flush 500 UNIT/5 ML SYRINGE IVFLUSH (14:31)
[2021-11-24 14:56] LABS: Thyroid Stimulating Hormone 0.96 uIU/mL (0.32-4.0)
[2021-11-24] MEDS: Atezolizumab 1,200 MG in 0.9 % Sodium Chloride 250 ML 540 MG IV (15:22)
--- NOTE | 2021-11-24 16:09 | P.PNHO_ITS ---
Medical Summary - Medical Summary Date of Service: 11/24/21 Chief complaint: Follow-up for: Small cell carcinoma of the lung. Medical Summary: DIAGNOSIS: SMALL CELL CARCINOMA OF THE LUNG. CURRENT THERAPY: Carboplatin/Etoposide and Atezolizumab, completed cycle 4, day 3. Completed radiation 03/18. Received 33 sessions. To receive Atezolizumab, cycle 16 today. Interval History Interval history: Lora Meadows is a pleasant 81 year old lady, here for a follow-up visit. She had not been doing too well. She has had ongoing pain in her mid back. A CT scan from June 09 revealed: 1. No evidence of pulmonary embolism. 2. There is a new compression deformity in the T10 vertebral body when compared with the thoracic spine CT following kyphoplasty on 05/11/2021. Some increased sclerosis suggests this may be subacute. Correlate with clinical exam to assess acuity. If clinically indicated, MRI could help to better assess acuity. 3. Mild bronchial wall thickening suggesting small airways disease. 4 Similar appearance to the mediastinal lymphadenopathy 5. Small hiatal hernia. Hepatic steatosis. She was scheduled for a kyphoplasty on Tuesday however she was told too late that she had to be off the Motrin. It has now been rescheduled to does . She is feeling somewhat fatigued. She has back pain especially towards the left side. No fever nor chills. She is sleeping well. She denies headaches. No dizziness. She denies chest pain. She is good while sitting however she gets shortness of breath on exertion. No cough nor sputum. She denies abdominal pain nausea vomiting heartburn indigestion. She has been bothered by constipation lately. She was rather bloated. She tried taking MiraLax and suppository. Mag citrate did not work too well. Finally Dulcolax tablets worked. She tells me she graduated from radiation. Her appetite is way too good. Her weight has been stable. Denies any focal weakness. Denies depression. She has noted some lower extremity edema. Previous History: 1. She had some low back pain, that started a month and a half weeks ago. She tried local heat and Motrin. It was localized to the lower back towards the left side, previously it would radiate to both sides. It was moderate in intensity. Level 5. CT scan of the chest from 04/22 revealed: CHEST: Interval decrease in mediastinal lymphadenopathy. New 2 mm peripheral or subpleural right upper lobe nodule adjacent to the major fissure probably representing a subpleural lymph node. New tiny right pleural effusion. Atherosclerotic disease and coronary artery calcification. ABDOMEN AND PELVIS: Fatty liver. Diverticulosis. No evidence of metastatic disease. New T11 vertebral body compression fracture. I reviewed with the radiologist to see if kyphoplasty would be possible. Proceeded with a bone scan, it was done on 05/01 and it revealed: Horizontal abnormal activity T11 vertebra consistent with acute compression fracture. Suspect early acute superior end plate fracture T12 vertebra. Post KYPHOPLASTY CT scan from 05/12: Adequate amount of cement occupying T11 and T12 compression fractures with no cement extravasation. There is no spinal canal compromise or neural foraminal narrowing. She had a more density on 05/22 which revealed: 1. DIAGNOSIS: Severe osteoporosis based on the lowest T-score value of -2.6 in the femoral neck and fracture history applying World Health Organization criteria. 2. She has a known history of COPD history of tobacco use in the past and quit 15 years ago. In September 2019, she started developing worsening shortness of breath and she went to an urgent care. She was found to be hypoxic and she was admitted to [facility] which was placed on oxygen. She also required BiPAP briefly.She was then given a diagnosis of COPD exacerbation. Patient has been f ollowed closely there. She started pulmonary rehabilitation as an outpatient 3 times a week. She was able to get off the oxygen. Subsequently, COVID was discovered, in October. So looking back she must have had that infection. She had some lingering symptoms over the past year. She saw Dr. Gifford, for allergies/sinus infection. He referred her to Dr. Kohler. In May, she presented to Pulmonary with significant shortness of breath with minimal activity. She also feels significant palpitations. In the office, a brief walking oximetry was done. She maintain initially a pulse ox above 90% but then at the end of the walk she became very short of breath and dyspneic. She did desaturate below 88% and heart rate was 150 beats per minute. It appeared to be irregular. EKG revealed sinus tach with multiple PVCs along with what appears to be ST depressions in the precordial lateral leads and also in the inferior leads. The patient denied chest pain at the time, denied any palpitations at this time. ER referral was offered, with her abnormal EKG, but she did not want to do that. She was advised to take aspirin on a daily basis and was referred for urgent cardiac consultation. She was under the care of Dr. Suazo. 07/03/2020 she was seen by pulmonary. Overall she felt better. She seem to be responding to the inhaler. She stated that she does get episodes of the shortness of breath and tachycardia. She did undergo a CT scan of the chest which revealed: Mediastinal adenopathy. There is a 2.5 cm lymph node in the subcarina. There is an enlarged pretracheal retro vascular lymph node and a right pretracheal lymph node. 1.3 cm peripherally calcified nodule in the right lobe of thyroid. Impression: 1. No evidence of pulmonary embolism. 2. Mediastinal lymphadenopathy. Significant lymphadenopathy with a station 7 lymph node measuring more than 3 cm and station 4R lymph node measuring 2.5 cm. It was explained to her that this is concerning because of the size. She was recovering from her cardiac issues and was being worked up from a cardiac standpoint regarding the tachyarrhythmia. Therefore, it was deemed reasonable to wait. The plan was if the patient developed any constitutional symptoms of any concern or new symptom whatsoever she was to call back and then consider sampling this lymph nodes sooner rather later. To proceed with transbronchial needle as piration via EBUS . 10/02/2020 the patient went for pulmonary follow-up. Overall she felt a lot better. Her respiratory status had improved dramatically. She was able to do the activities of daily living including laundry and going up and down the stairs. She would get a little winded but not much. Her pulse ox was stable. In the meantime she did have a repeat CT scan of the chest to assess her lymphadenopathy. It appeared that the lungs were expanding just fine. She had a small 2 mm calcified nodule still. However, she continued to have enlarged mediastinal lymph nodes. These were pretty much unchanged from 3 months prior. Therefore the differential including malignancy/ lymphoma, were discussed. At this point she was willing to undergo a endobronchial ultrasound bronchoscopy. However, because of the pandemic it was pushed out. 11/26/2020 the patient had a telephone visit. She is status post bronchoscopy with endobronchial ultrasound transbronchial needle aspirations. Initially sampling the station 4R and also station 7. Indeed she did have some lesional cells concerning for malignancy. We did call pathology to get further data but the immunohistochemical stainings are still pending. This point the patient has cancer within unclear primary. The immunohistochemical stainings are consistent with small cell cancer. I did talk to the patient she is aware of the findings. 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 She had the MRI of the brain which was negative. Unfortunately, the PET scan got resheduled, two weeks in a row, on account of the weather. . Review of Systems - Constitutional Reports no additional constitutional complaints - Eyes Reports no additional eye complaints - ENT Reports no additional ear, nose, mouth, and throat complaints - Cardiovascular Reports no additional cardiovascular complaints - Respiratory Reports no additional respiratory complaints - Gastrointestinal Reports no additional gastrointestinal complaints - Genitourinary Reports no additional female genitourinary complaints - Musculoskeletal Reports no additional musculoskeletal complaints - Integumentary/Breasts Skin/Breast: Reports no additional skin complaints - Neurologic Reports no additional neurologic complaints, Denies abnormal gait, Reports weakness - Psychiatric Reports no additional psychiatric complaints - Endocrine Reports no additional endocrine complaints - Hematologic/Lymphatic Reports no additional hematologic/lymphatic complaints - Allergic/Immunologic Reports no additional allergic/immunologic complaints REPLACED BY [facility] Medical History: Medical History (Last Reviewed 10/08/21 @ 14:22 by Melissa Ocasio, BILLET SHEARER-C) Atrial tachycardia Cancer Chronic obstructive pulmonary disease, unspecified COPD (chronic obstructive pulmonary disease) Essential hypertension Hypothyroid Limb swelling Lymphadenopathy Macular degeneration PAC (premature atrial contraction) Pneumonia Port-A-Cath in place Pulmonary nodule PVC (premature ventricular contraction) Small cell carcinoma Functional capacity: independent ambulation Patient : No Family History: Family History (Last Reviewed 10/08/21 @ 14:22 by Melissa Ocasio, STEW-C) Father Diabetes Mother Osteoporosis Surgical History: Surgical History (Last Reviewed 10/08/21 @ 14:22 by Melissa Ocasio, STEW-C) History of kyphoplasty History of surgery History of tonsillectomy and adenoidectomy Hx of cataract extraction Social History: Social History (Last Reviewed 10/08/21 @ 14:22 by ARNULFO Sullivan) Living Situation History: Household Members: None Housing: House Are you a primary home visit field care manager to a significant other at home: No Do you presently have visiting nurse or other home services: No Tobacco History: Patient Tobacco Use Status: Former Tobacco user Cigarette Packs Per Day: 2 Years Smoked: 50 years Smoke Quit Date: 17 yrs ago Second Hand Smoke Exposure: No Advance Directives: Advance Directives Date on File: 05/11/21 Occupation Assessmet: service: No Oncology Screenings - ECOG Performance Status ECOG Performance Status: 0 Home Medications and Allergies Current Medications: Current Medications Acetaminophen (Acetaminophen 325 Mg Tablet) 650 mg PO ONCE EUGENIO Stop: 11/24/21 23:59 Last Admin: 11/24/21 14:29 Dose: 650 mg Documented by: Diphenhydramine HCl (Diphenhydramine Hcl 50 Mg/Ml Vial) 25 mg IVPUSH ONCE EUGENIO Stop: 11/24/21 23:59 Last Admin: 11/24/21 14:30 Dose: 25 mg Documented by: Heparin Sodium (Porcine) (Heparin Sodium,Porcine Flush 500 Unit/5 Ml Syringe) 500 unit IVFLUSH ONCE EUGENIO Stop: 11/24/21 23:59 Last Admin: 11/24/21 14:31 Dose: 500 unit Documented by: Ondansetron HCl (Zofran) 16 mg in 50 mls @ 200 mls/hr IV ONCE EUGENIO Stop: 11/24/21 23:59 Last Infusion: 11/24/21 14:45 Dose: Infused Documented by: Atezolizumab 1,200 mg/ Sodium (Chloride) 270 mls @ 540 mls/hr IV ONCE EUGENIO Stop: 11/24/21 23:59 Last Infusion: 11/24/21 15:55 Dose: Infused Documented by: Home Medications Medication Instructions Recorded Confirmed Type albuterol sulfate 90 2 puff INHALATION Q4-6H 10/02/20 11/03/21 History mcg/actuation PRN aerosol inhaler levothyroxine 50 mcg 50 mcg PO DAILY 10/02/20 11/03/21 History tablet ibuprofen 200 mg tablet 400 mg PO TID PRN 06/09/21 11/03/21 History (Motrin IB) vit C 250 mg-vit E 200 1 tab PO BID 06/09/21 11/03/21 History unit-zinc 12.5 mg-copper 1 [id number] tablet (ICaps AREDS2 (copper citrate)) diltiazem HCl 120 mg 120 mg PO BID cap 09/29/21 11/03/21 History capsule,extended release 12 hr Allergies Allergy/AdvReac Type Severity Reaction Status Date / Time peanut Allergy Severe Anaphylaxis Verified 10/08/21 12:47 Tetanus Vaccines Allergy Severe Anaphylaxis Verified 10/08/21 12:47 and Toxoid lovastatin AdvReac Severe Leg Cramps Verified 10/08/21 12:47 pravastatin AdvReac Severe Leg Cramps Verified 10/08/21 12:47 carvedilol AdvReac Intermediate Shortness Verified 10/08/21 12:47 of Breath digoxin AdvReac Intermediate Shortness Verified 10/08/21 12:47 of Breath Exam Vital signs: Vital Signs Temp 98.3 F 11/24/21 13:06 Pulse 95 11/24/21 13:06 Resp 20 11/24/21 13:06 BP 143/86 H 11/24/21 13:06 Pulse Ox 95 11/24/21 13:06 Intake & Output 11/23/21 11/24/21 11/24/21 18:59 06:59 18:59 Intake Total 320 / 320 Balance 320 / 320 Intake: Intake, IV Amount 320 / 320 Atezolizumab 1,200 mg In 0.9 % 270 / 270 Sodium Chloride 250 ml @ 540 mls/hr IV ONCE EUGENIO Rx#: [id number] Ondansetron HCL/NS 16 mg In 50 50 / 50 ml @ 200 mls/hr IV ONCE EUGENIO Rx# :[id number] Other: Weight 60.1 kg [employer] Weight in Grams 29277 Weight 60.1 kg BMI result Verdana 4d Body Mass Index 22.7 - Constitutional Present: no acute distress - Routine HEENT Exam Head: Present: normal inspection Eye: Present: normal appearance ENT: Present: mucous membranes moist - Routine Neck Exam Present: full ROM - Routine Respiratory Exam Present: CTAB - Routine Cardiovascular Exam Cardiovascular: Present: RRR, S1, S2 - Routine Abdominal Exam Present: normal bowel sounds, nontender - Routine Rectal Exam Patient deferred: digital exam - Routine Extremities Exam Present: nontender - Routine Back/Spine/Pelvis Exam Back/Spine: Present: full ROM - Routine Skin Exam Present: intact - Routine Neurological Exam Present: alert, oriented X3 - Detailed Neurological Exam: Coma Scale Eye Opening: Spontaneous (4) - Routine Psychiatric Exam Present: normal affect Data - Labs CBC & Chem 7: 11/24/21 12:52 11/24/21 12:52 Assessment and Plan Patient Active problem list reviewed?: Yes (1) Small cell carcinoma Status: Acute Assessment and plan: This is a pleasant 81 year-old lady, with recent diagnosis of Small Cell carcinoma of the lung. She underwent EBUS on November 19. Pathology: Station 4 lymph node: Negative. Station 7 lymph node: Positive for malignant cells consistent with small-cell carcinoma. Immuno stains: Positive for synaptophysin, chromogranin, CD 56 and ann cytokeratin. Negative for chromogranin and CD 45. I shared the details of the pathology with her. I went over the disease course and treatment options including systemic chemotherapy, with or without radiation based upon her exact stage. I proceeded with staging workup. I checked baseline labs including LDH: 199. Check a PET scan to see if there is any evidence of metastatic disease especially with history of chronic back and hip pain. (It had to postponed twice, due to the weather). This was done at [facility] on 12/22 and revealed: FDG avid mediastinal adenopathy, compatible with malignancy. There is no evidence of FDG avid lung cancer outside of the mediastinum. Possible right lower pole renal mass. Recommend correlation with outside imagi ng of the abdomen. If none is available consider renal ultrasound/dedicated renal mass MRI for further evaluation. 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 No underlying renal mass. l checked MRI of the brain, to look for any possible brain metastases. This revealed: No acute intracranial process seen. No abnormal enhancement seen to suspect any primary or metastatic lesion. Extensive chronic small vessel ischemic changes in both cerebral hemispheres with underlying mild cerebral volume loss. She was started on carbo etoposide and Atizolizumab.. She is tolerating it well. She has complete cycle 4.. She has completed radiation therapy. She is currently on atezolizumab. She had done well, up until now. She has recently noted back pain. In addition she has refractory constipation. I was concerned about cord compression however she does not have any neurological symptoms. No urinary complaints. Her back pain is actually better than before. I proceeded to re-stage her with imaging. She had a CT scan of the chest on 04/22, it revealed: CHEST: Interval decrease in mediastinal lymphadenopathy. New 2 mm peripheral or subpleural right upper lobe nodule adjacent to the major fissure probably representing a subpleural lymph node. New tiny right pleural effusion. Atherosclerotic disease and coronary artery calcification. ABDOMEN AND PELVIS: Fatty liver. Diverticulosis. No evidence of metastatic disease. New T11 vertebral body compression fracture. Proceeded with a bone scan, it was done on 05/01 and it revealed: Horizontal abnormal activity T11 vertebra consistent with acute compression fracture. Suspect early acute superior end plate fracture T12 vertebra. She was referred to the emergency room, by Dr. Kohler on 06/09 for: for abnormal labs including troponin, BNP, and D-dimer. Patient reports increasing bilateral LE edema and FARIAS x6 weeks. Also reports abdominal bloating. Denies CP, fever, chills, cough, abdominal pain, nausea/vomiting, COVID-19 exposure, recent travel, history of blood clots. CTA from June 09 revealed: 1. No evidence of pulmonary embolism. 2. There is a new compression deformity in the T10 vertebral body when compared with the thoracic spine CT following kyphoplasty on 05/11/2021. Some increased sclerosis suggests this may be subacute. Correlate with clinical exam to assess acuity. If clinically indicated, MRI cou ld help to better assess acuity. 3. Mild bronchial wall thickening suggesting small airways disease. 4 Similar appearance to the mediastinal lymphadenopathy 5. Small hiatal hernia. Hepatic steatosis. She previously underwent kyphoplasty of T11 and T12 vertebrae on 05/11. Post KYPHOPLASTY CT scan from 05/12: Adequate amount of cement occupying T11 and T12 compression fractures with no cement extravasation. There is no spinal canal compromise or neural foraminal narrowing. She had a more density on 05/22 which revealed: 1. DIAGNOSIS: Severe osteoporosis based on the lowest T-score value of -2.6 in the femoral neck and fracture history applying World Health Organization criteria. I shared the above results with her. She has had more back pain. She has new compression fracture at T10 level. This is related to severe osteoporosis, She had a bone mineral density done on 05/21/21: 1. DIAGNOSIS: Severe osteoporosis based on the lowest T-score value of -2.6 in the femoral neck and fracture history applying World Health Organization criteria. 2. 10-YEAR FRACTURE RISK PREDICTION, FRAX: Major osteoporotic fracture (clinical spine, forearm, hip or shoulder) 28.6%. Hip fracture 9.7%. She had a kyphoplasty on 07/23/21. She then developed an acute compression fracture at T6. She underwent a kyphoplasty on 09/10/2021. She was started on denosumab for treatment of her osteoporosis. PLAN: She will continue maintenance phase with Atizolizumab, q 2 weeks. She is here for a dose today. Will continue to monitor labs. Will proceed with a CT chest for restaging. Thank you, CC: Dr. Ina Kc. Dr. Rik Kohler. - Time Spent With Patient Time Spent with Patient (in minutes): 30
--- NOTE | 2021-11-24 16:35 | MHC.HEMONC ---
Addendum entered by Korina Zimmerman RN 11/24/21 16:38: CT of chest ordered by Dr Odom. Original Note: Patient arrived for Cycle 16 Day 1 Atezolizumab infusion. L chest port accessed with positive blood return. Labs drawn and reviewed - ok to treat. Tylenol PO, Benadryl and Zofran IV administered. Atezolizumab infusion administered and patient tolerated it well. Blood return present in port pre and post infusion. Port de-accessed. Next infusion scheduled for 12/15/21. Dr Odom in to see patient. Appointment with Dr Mccord scheduled for 03/07/22. Discharge packet provided. Patient departed the unit.
[2021-12-17 10:06] LABS: MANUAL DIFF FLAG NO
[2021-12-17 10:09] LABS: Basophils Percent Auto 0.7 % (0-2); Eosinophils Percent Auto 0.5 % (0-4); Hematocrit 51.1 % (37.0-47.0); Hemoglobin 16.4 g/dl (12.0-16.0); Imm Gran Abs Auto 0.01 X10*3/uL (0.00-0.03); Imm Gran Pct Auto 0.2 % (0.0-0.4); Lymphocytes Absolute Auto 0.4 X10*3/uL (1.2-4.9); Mean Corpuscular HGB Conc 32.1 g/dl (31.0-35.0); Mean Corpuscular Hemoglobin 30.4 pg (27.0-33.0); Mean Corpuscular Volume 94.8 fL (80.0-98.0); Mean Platelet Volume 10.8 fL (9.4-12.3); Monocytes Absolute Auto 0.6 X10*3/uL (0.1-1.2); Monocytes Percent Auto 10.1 % (2-11); Neutrophils Absolute Auto 4.4 x10*3/uL (2.0-8.3); Neutrophils Percent Auto 80.5 % (45-73); Platelet Count 196 X10*3/uL (160-400); Red Blood Count 5.39 X10*6/uL (4.20-5.50); Red Cell Distribution Width 14.4 % (11.0-16.0); White Blood Count 5.5 X10*3/uL (4.8-10.8)
[2021-12-17 10:10] VITALS: BP 148/65; PULSE 67; RESP 18; TEMP 37; O2SAT 93; BMI 22.6
[2021-12-17 10:23] LABS: Alanine Aminotransferase 28 U/L (0-31); Albumin Level 4.3 g/dL (3.5-5.0); Alkaline Phosphatase 68 U/L (39-117); Anion Gap 15 (12-20); Aspartate Amino Transferase 37 U/L (5-31); Bilirubin Total 0.8 mg/dL (0.0-1.0); Blood Urea Nitrogen 10 mg/dL (9-16); Carbon Dioxide 33 mmol/L (22-29); Chloride 97 mmol/L (96-108); Creatinine Clr Calc Pharmacy 51.6; Estimated Glomerular Filt Rate > 60; Glucose Random 113 mg/dL (60-115); Sodium 141 mmol/L (135-145); Total Protein 7.2 g/dL (6.5-8.0)
[2021-12-17] MEDS: Acetaminophen 325 MG TABLET 650 MG PO (10:45)
[2021-12-17] MEDS: Heparin Sodium,Porcine Flush 500 UNIT/5 ML SYRINGE IVFLUSH (10:46)
[2021-12-17] MEDS: diphenhydrAMINE HCL 50 MG/ML VIAL 25 MG IVPUSH (10:46)
[2021-12-17] MEDS: Atezolizumab 1,200 MG in 0.9 % Sodium Chloride 250 ML 540 MG IV (11:12)
--- NOTE | 2021-12-17 16:10 | MHC.HEMONC ---
Patient arrived for Cycle 17 Day 1 Atezolizumab infusion. L chest port accessed with positive blood return. Labs drawn and reviewed - ok to treat. Tylenol PO, and Benadryl IV administered. Atezolizumab infusion administered and patient tolerated it well. Blood return present in port pre and post infusion. Port flushed with Heparin and de-accessed. Next infusion scheduled for 01/07/22. Discharge packet provided. Patient departed the unit.
[2022-01-07 13:26] LABS: MANUAL DIFF FLAG NO
[2022-01-07 13:27] VITALS: BP 152/76; PULSE 107; RESP 16; TEMP 37.1; O2SAT 93; BMI 22.9
[2022-01-07 13:30] LABS: Basophils Absolute Auto 0.1 X10*3/uL (0.0-0.2); Basophils Percent Auto 0.8 % (0-2); Eosinophils Percent Auto 0.5 % (0-4); Hematocrit 49.2 % (37.0-47.0); Hemoglobin 15.5 g/dl (12.0-16.0); Imm Gran Abs Auto 0.03 X10*3/uL (0.00-0.03); Imm Gran Pct Auto 0.5 % (0.0-0.4); Lymphocytes Absolute Auto 0.6 X10*3/uL (1.2-4.9); Lymphocytes Percent Auto 9.5 % (20-40); Mean Corpuscular HGB Conc 31.5 g/dl (31.0-35.0); Mean Corpuscular Volume 95.3 fL (80.0-98.0); Mean Platelet Volume 10.9 fL (9.4-12.3); Monocytes Absolute Auto 0.7 X10*3/uL (0.1-1.2); Monocytes Percent Auto 11.7 % (2-11); Neutrophils Absolute Auto 4.9 x10*3/uL (2.0-8.3); Platelet Count 201 X10*3/uL (160-400); Red Blood Count 5.16 X10*6/uL (4.20-5.50); Red Cell Distribution Width 14.4 % (11.0-16.0); White Blood Count 6.3 X10*3/uL (4.8-10.8)
[2022-01-07 13:52] LABS: Alanine Aminotransferase 29 U/L (0-31); Albumin Level 4.2 g/dL (3.5-5.0); Alkaline Phosphatase 63 U/L (39-117); Anion Gap 12 (12-20); Aspartate Amino Transferase 29 U/L (5-31); Bilirubin Total 0.6 mg/dL (0.0-1.0); Blood Urea Nitrogen 10 mg/dL (9-16); Calcium 9.1 mg/dL (8.4-10.2); Carbon Dioxide 32 mmol/L (22-29); Chloride 102 mmol/L (96-108); Creatinine Clr Calc Pharmacy 57.7; Estimated Glomerular Filt Rate > 60; Glucose Random 105 mg/dL (60-115); Potassium 4.1 mmol/L (3.3-5.1); Sodium 142 mmol/L (135-145); Total Protein 6.8 g/dL (6.5-8.0)
[2022-01-07] MEDS: Acetaminophen 325 MG TABLET 650 MG PO (14:16)
[2022-01-07] MEDS: diphenhydrAMINE HCL 25 MG TABLET PO (14:18)
[2022-01-07] MEDS: dexAMETHasone sod phosphate/NS 12 MG/50 ML PIGGYBACK 200 MG IV (14:18)
[2022-01-07] MEDS: Atezolizumab 1,200 MG in 0.9 % Sodium Chloride 250 ML 540 MG IV (14:59)
[2022-01-07] MEDS: Heparin Sodium,Porcine Flush 500 UNIT/5 ML SYRINGE IVFLUSH (15:34)
--- NOTE | 2022-01-07 15:43 | MHC.HEMONCSW ---
MET WITH PT WHO IS KNOWN TO ME FROM PREVIOUS ENCOUNTERS. REMAINS ALERT, INDEPENDENT AND IS IN GOOD SPIRITS. RECEIVING CHEMOTHERAPY FOR LUNG CANCER. STATES SHE IS COPING FAIRLY WELL WITH ILLNESS AND ITS TREATMENT BUT ADMITS SHE GETS IN [place] LOW MOTIVATION, FATIGUE. DENIES SIGNS OF DEPRESSION AND STATES ONCE SPRING GETS HERE SHE WILL DO MORE AROUND HER PLACE. DISCUSSED [facility] HOME CARE SERVICES IF NEEDED IN THE FUTURE. GOOD SUPPORT SYSTEM...HAPPY THAT TODAY IS HER 82 [address] BIR[address]. SUPPORTIVE COUNSELING PROVIDED.
--- NOTE | 2022-01-07 16:19 | MHC.HEMONC ---
Patient arrived for Cycle 18 Day 1 Atezolizumab infusion. L chest port accessed with positive blood return. Labs drawn and reviewed - ok to treat. Tylenol PO, and Benadryl IV administered. Atezolizumab infusion administered and patient tolerated it well. Blood return present in port pre and post infusion. Port flushed with Heparin and de-accessed. Next infusion scheduled for 01/28/22. Discharge packet provided. Patient departed the unit.
[2022-01-28 12:56] LABS: MANUAL DIFF FLAG NO
[2022-01-28 13:01] LABS: Basophils Percent Auto 0.8 % (0-2); Eosinophils Absolute Auto 0.1 X10*3/uL (0.0-0.4); Eosinophils Percent Auto 1.1 % (0-4); Hematocrit 50.6 % (37.0-47.0); Hemoglobin 16.1 g/dl (12.0-16.0); Imm Gran Abs Auto 0.01 X10*3/uL (0.00-0.03); Imm Gran Pct Auto 0.2 % (0.0-0.4); Lymphocytes Absolute Auto 0.7 X10*3/uL (1.2-4.9); Lymphocytes Percent Auto 13.7 % (20-40); Mean Corpuscular HGB Conc 31.8 g/dl (31.0-35.0); Mean Corpuscular Hemoglobin 30.3 pg (27.0-33.0); Mean Corpuscular Volume 95.3 fL (80.0-98.0); Mean Platelet Volume 10.5 fL (9.4-12.3); Monocytes Absolute Auto 0.6 X10*3/uL (0.1-1.2); Neutrophils Absolute Auto 3.4 x10*3/uL (2.0-8.3); Neutrophils Percent Auto 72.2 % (45-73); Platelet Count 216 X10*3/uL (160-400); Red Blood Count 5.31 X10*6/uL (4.20-5.50); Red Cell Distribution Width 14.3 % (11.0-16.0); White Blood Count 4.8 X10*3/uL (4.8-10.8)
[2022-01-28 13:17] VITALS: BP 164/72; PULSE 89; TEMP 36.8; O2SAT 94; BMI 22.6
[2022-01-28 13:57] LABS: Alanine Aminotransferase 30 U/L (0-31); Albumin Level 4.1 g/dL (3.5-5.0); Alkaline Phosphatase 68 U/L (39-117); Anion Gap 13 (12-20); Aspartate Amino Transferase 30 U/L (5-31); Bilirubin Total 0.7 mg/dL (0.0-1.0); Blood Urea Nitrogen 10 mg/dL (9-16); Calcium 9.4 mg/dL (8.4-10.2); Carbon Dioxide 32 mmol/L (22-29); Chloride 100 mmol/L (96-108); Creatinine Clr Calc Pharmacy 54.4; Estimated Glomerular Filt Rate > 60; Glucose Random 109 mg/dL (60-115); Potassium 4.1 mmol/L (3.3-5.1); Sodium 141 mmol/L (135-145); Total Protein 6.9 g/dL (6.5-8.0)
[2022-01-28] MEDS: Heparin Sodium,Porcine Flush 500 UNIT/5 ML SYRINGE IVFLUSH (14:10)
[2022-01-28] MEDS: Acetaminophen 325 MG TABLET 650 MG PO (14:13)
[2022-01-28] MEDS: Ondansetron ODT 8 MG TAB.RAPDIS TRANSLINGU (14:13)
[2022-01-28] MEDS: diphenhydrAMINE HCL 25 MG TABLET PO (14:13)
[2022-01-28] MEDS: Atezolizumab 1,200 MG in 0.9 % Sodium Chloride 250 ML 540 MG IV (14:42)
[2022-01-28] MEDS: Denosumab 60 MG/ML SYRINGE SUBCUT (14:45)
--- NOTE | 2022-01-28 16:12 | MHC.HEMONC ---
Patient arrived for Cycle 19 Day 1 Atezolizumab infusion. L chest port accessed with positive blood return. Labs drawn and reviewed - ok to treat. Tylenol, Benadryl and Zofran PO given. Atezolizumab infusion administered and patient tolerated it well. Blood return present in port pre and post infusion. Prolia administered in STEFANI, Ca=9.4. Port flushed with Heparin and de-accessed. Next infusion scheduled for 02/18/22 and next Prolia 08/05/22. Discharge packet provided. Patient departed the unit.
[2022-02-18 13:01] VITALS: BMI 22.6
[2022-02-18 13:02] VITALS: BP 183/88; PULSE 119; RESP 18; TEMP 36.1; O2SAT 97
[2022-02-18 13:25] LABS: MANUAL DIFF FLAG NO
[2022-02-18 13:33] LABS: Basophils Percent Auto 0.5 % (0-2); Eosinophils Absolute Auto 0.1 X10*3/uL (0.0-0.4); Eosinophils Percent Auto 0.7 % (0-4); Hematocrit 47.8 % (37.0-47.0); Hemoglobin 15.6 g/dl (12.0-16.0); Imm Gran Abs Auto 0.03 X10*3/uL (0.00-0.03); Imm Gran Pct Auto 0.4 % (0.0-0.4); Lymphocytes Absolute Auto 0.5 X10*3/uL (1.2-4.9); Lymphocytes Percent Auto 6.2 % (20-40); Mean Corpuscular HGB Conc 32.6 g/dl (31.0-35.0); Mean Corpuscular Hemoglobin 30.6 pg (27.0-33.0); Mean Corpuscular Volume 93.9 fL (80.0-98.0); Mean Platelet Volume 10.3 fL (9.4-12.3); Monocytes Percent Auto 13.6 % (2-11); Neutrophils Absolute Auto 5.7 x10*3/uL (2.0-8.3); Neutrophils Percent Auto 78.6 % (45-73); Platelet Count 223 X10*3/uL (160-400); Red Blood Count 5.09 X10*6/uL (4.20-5.50); Red Cell Distribution Width 13.6 % (11.0-16.0); White Blood Count 7.3 X10*3/uL (4.8-10.8)
[2022-02-18 13:42] LABS: Alanine Aminotransferase 19 U/L (0-31); Albumin Level 3.8 g/dL (3.5-5.0); Alkaline Phosphatase 70 U/L (39-117); Anion Gap 12 (12-20); Aspartate Amino Transferase 23 U/L (5-31); Bilirubin Total 0.7 mg/dL (0.0-1.0); Blood Urea Nitrogen 11 mg/dL (9-16); Calcium 8.5 mg/dL (8.4-10.2); Carbon Dioxide 31 mmol/L (22-29); Chloride 101 mmol/L (96-108); Creatinine Clr Calc Pharmacy 61.4; Estimated Glomerular Filt Rate > 60; Glucose Random 113 mg/dL (60-115); Lactate Dehydrogenase 179 U/L (122-220); Potassium 3.9 mmol/L (3.3-5.1); Sodium 140 mmol/L (135-145); Total Protein 6.6 g/dL (6.5-8.0)
[2022-02-18] MEDS: Acetaminophen 325 MG TABLET 650 MG PO (14:05)
[2022-02-18] MEDS: Ondansetron ODT 8 MG TAB.RAPDIS TRANSLINGU (14:06)
[2022-02-18] MEDS: Heparin Sodium,Porcine Flush 500 UNIT/5 ML SYRINGE IVFLUSH (14:06)
[2022-02-18] MEDS: diphenhydrAMINE HCL 25 MG TABLET PO (14:09)
[2022-02-18] MEDS: Atezolizumab 1,200 MG in 0.9 % Sodium Chloride 250 ML 540 MG IV (14:39)
--- NOTE | 2022-02-18 15:23 | P.PNHO_ITS ---
Medical Summary - Medical Summary Date of Service: 02/18/22 Chief complaint: follow-up for: Small cell carcinoma of the lung. Medical Summary: DIAGNOSIS: SMALL CELL CARCINOMA OF THE LUNG. CURRENT THERAPY: Carboplatin/Etoposide and Atezolizumab, started 07/29/2021. Completed radiation 03/18. Received 33 sessions. Now on maintenance Atezolizumab, cycle 20, day 1, today. Interval History Interval history: Lora Meadows is a pleasant 82 year old lady, here for a follow-up visit. She is doing very well. There is no further back pain. She has had some difficulty with breathing and heart racing. She is under the care of Cardiology. They did not find any evidence of atrial fibrillation. She has been prescribed Cardizem and oxygen for activity. She has had some trouble with swallowing. She had a barium swallow done on 02/01 which revealed: Unremarkable upper GI exam. Unremarkable barium swallow with thick barium and barium-coated turkey. She is feeling somewhat fatigued. No fever nor chills. She is sleeping well. She denies headaches. No dizziness. She denies chest pain. She is good while sitting however she gets shortness of breath on exertion. No cough nor sputum. She denies abdominal pain nausea vomiting heartburn indigestion. She has been bothered by constipation. She tried taking MiraLax and suppository. Mag citrate did not work too well. Finally Dulcolax tablets worked. Her appetite is way too good. Her weight has been stable. Denies any focal weakness. Denies depression. She denies lower extremity edema. Interim history: A CT scan from June 09, revealed: 1. No evidence of pulmonary embolism. 2. There is a new compression deformity in the T10 vertebral body when compared with the thoracic spine CT following kyphoplasty on 05/11/2021. Some increased sclerosis suggests this may be subacute. Correlate with clinical exam to assess acuity. If clinically indicated, MRI could help to better assess acuity. 3. Mild bronchial wall thickening suggesting small airways disease. 4 Similar appearance to the mediastinal lymphadenopathy 5. Small hiatal hernia. Hepatic steatosis. She had a kyphoplasty done. S Previous History: 1. She had some low back pain, that started a month and a half weeks ago. She tried local heat and Motrin. It was localized to the lower back towards the left side, previously it would radiate to both sides. It was moderate in intensity. Level 5. CT scan of the chest from 04/22 revealed: CHEST: Interval decrease in mediastinal lymphadenopathy. New 2 mm peripheral or subpleural right upper lobe nodule adjacent to the major fissure probably representing a subpleural lymph node. New tiny right pleural effusion. Atherosclerotic disease and coronary artery calcification. ABDOMEN AND PELVIS: Fatty liver. Diverticulosis. No evidence of metastatic disease. New T11 vertebral body compression fracture. I reviewed with the radiologist to see if kyphoplasty would be possible. Proceeded with a bone scan, it was done on 05/01 and it revealed: Horizontal abnormal activity T11 vertebra consistent with acute compression fracture. Suspect early acute superior end plate fracture T12 vertebra. Post KYPHOPLASTY CT scan from 05/12: Adequate amount of cement occupying T11 and T12 compression fractures with no cement extravasation. There is no spinal canal compromise or neural foraminal narrowing. She had a more density on 05/22 which revealed: 1. DIAGNOSIS: Severe osteoporosis based on the lowest T-score value of -2.6 in the femoral neck and fracture history applying World Health Organization criteria. 2. She has a known history of COPD history of tobacco use in the past and quit 15 years ago. In September 2019, she started developing worsening shortness of breath and she went to an urgent care. She was found to be hypoxic and she was admitted to [facility] which was placed on oxygen. She also required BiPAP briefly.She was then given a diagnosis of COPD exacerbation. Patient has been followed closely there. She started pulmonary rehabilitation as an outpatient 3 times a week. She was able to get off the oxygen. Subsequently, COVID was discovered, in October. So looking back she must have had that infection. She had some lingering symptoms over the past year. She saw Dr. Gifford, for allergies/sinus infection. He referred her to Dr. Kohler. In May, she presented to Pulmonary with significant shortness of breath with minimal activity. She also feels significant palpitations. In the office, a brief walking oximetry was done. She maintain initially a pulse ox above 90% but then at the end of the walk she became very short of breath and dyspneic. She did desaturate below 88% and heart rate was 150 beats per minute. It appeared to be irregular. EKG revealed sinus tach with multiple PVCs along with what appears to be ST depressions in the precordial lateral leads and also in the inferior leads. The patient denied chest pain at the time, denied any palpitations at this time. ER referral was offered, with her abnormal EKG, but she did not want to do that. She was advised to take aspirin on a daily basis and was referred for urgent cardiac consultation. She was under the care of Dr. Suazo. 07/03/2020 she was seen by pulmonary. Overall she felt better. She seem to be responding to the inhaler. She stated that she does get episodes of the shortness of breath and tachycardia. She did undergo a CT scan of the chest which revealed: Mediastinal adenopathy. There is a 2.5 cm lymph node in the subcarina. There is an enlarged pretracheal retro vascular lymph node and a right pretracheal lymph node. 1.3 cm peripherally calcified nodule in the right lobe of thyroid. Impression: 1. No evidence of pulmonary embolism. 2. Mediastinal lymphadenopathy. Significant lymphadenopathy with a station 7 lymph node measuring more than 3 cm and station 4R lymph node measuring 2.5 cm. It was explained to her that this is concerning because of the size. She was recovering from her cardiac issues and was being worked up from a cardiac standpoint regarding the tachyarrhythmia. Therefore, it was deemed reasonable to wait. The plan was if the patient developed any constitutional symptoms of any concern or new symptom whatsoever she was to call back and then consider sampling this lymph nodes sooner rather later. To proceed with transbronchial needle aspiration via EBUS . 10/02/2020 the patient went for pulmonary follow-up. Overall she felt a lot better. Her respiratory status had improved dramatically. She was able to do the activities of daily living including laun dry and going up and down the stairs. She would get a little winded but not much. Her pulse ox was stable. In the meantime she did have a repeat CT scan of the chest to assess her lymphadenopathy. It appeared that the lungs were expanding just fine. She had a small 2 mm calcified nodule still. However, she continued to have enlarged mediastinal lymph nodes. These were pretty much unchanged from 3 months prior. Therefore the differential including malignancy/ lymphoma, were discussed. At this point she was willing to undergo a endobronchial ultrasound bronchoscopy. However, because of the pandemic it was pushed out. 11/26/2020 the patient had a telephone visit. She is status post bronchoscopy with endobronchial ultrasound transbronchial needle aspirations. Initially sampling the station 4R and also station 7. Indeed she did have some lesional cells concerning for malignancy. We did call pathology to get further data but the immunohistochemical stainings are still pending. This point the patient has cancer within unclear primary. The immunohistochemical stainings are consistent with small cell cancer. I did talk to the patient she is aware of the findings. 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 She had the MRI of the brain which was negative. Unfortunately, the PET scan got resheduled, two weeks in a row, on account of the weather. . Review of Systems - Constitutional Reports no additional constitutional complaints - Eyes Reports no additional eye complaints - ENT Reports no additional ear, nose, mouth, and throat complaints - Cardiovascular Reports no additional cardiovascular complaints - Respiratory Reports no additional respiratory complaints - Gastrointestinal Reports no additional gastrointestinal complaints - Genitourinary Reports no additional female genitourinary complaints - Musculoskeletal Reports no additional musculoskeletal complaints - Integumentary/Breasts Skin/Breast: Reports no additional skin complaints - Neurologic Reports no additional neurologic complaints, Denies abnormal gait, Reports weakness - Psychiatric Reports no additional psychiatric complaints - Endocrine Reports no additional endocrine complaints - Hematologic/Lymphatic Reports no additional hematologic/lymphatic complaints - Allergic/Immunologic Reports no additional allergic/immunologic complaints [facility] Medical History: Medical History (Last Reviewed 01/20/22 @ 12:02 by Melissa Ocasio NP-C) Atrial tachycardia Chronic obstructive pulmonary disease, unspecified COPD (chronic obstructive pulmonary disease) COPD (chronic obstructive pulmonary disease) Essential hypertension Hypothyroid Lymphadenopathy Macular degeneration PAC (premature atrial contraction) Pneumonia Port-A-Cath in place Pulmonary nodule PVC (premature ventricular contraction) Functional capacity: independent ambulation Patient : No Family History: Family History (Last Reviewed 01/20/22 @ 12:02 by Melissa Ocasio NP-C) Father Diabetes Mother Osteoporosis Surgical History: Surgical History (Last Reviewed 01/20/22 @ 12:02 by Melissa Ocasio NP-C) History of kyphoplasty History of surgery History of tonsillectomy and adenoidectomy Hx of cataract extraction Social History: Social History (Last Reviewed 01/20/22 @ 12:02 by ARNULFO Sullivan) Living Situation History: Household Members: None Housing: House Are you a primary care rep to a significant other at home: No Do you presently have visiting nurse or other home services: No Tobacco History: Patient Tobacco Use Status: Former Tobacco user Cigarette Packs Per Day: 2 Years Smoked: 50 yrs Smoked in Last 30 Days: No Smoke Quit Date: 17 yrs ago e-Cigarette/Vaping Use: Never Used Second Hand Smoke Exposure: No Advance Directives: Advance Directives Date on File: 05/11/21 Nutrition Assessment: Patient : No Occupation Assessmet: service: No Current occupational status: retired Oncology Screenings - ECOG Performance Status ECOG Performance Status: 1 Home Medications and Allergies Current Medications: Current Medications Acetaminophen (Acetaminophen 325 Mg Tablet) 650 mg PO ONCE EUGENIO Stop: 02/18/22 23:59 Last Admin: 02/18/22 14:05 Dose: 650 mg Documented by: Diphenhydramine HCl (Diphenhydramine Hcl 50 Mg/Ml Vial) 25 mg IVPUSH ONCE EUGENIO Stop: 02/18/22 23:59 Heparin Sodium (Porcine) (Heparin Sodium,Porcine Flush 500 Unit/5 Ml Syringe) 500 unit IVFLUSH ONCE EUGENIO Stop: 02/18/22 23:59 Last Admin: 02/18/22 14:06 Dose: 500 unit Documented by: Atezolizumab 1,200 mg/ Sodium (Chloride) 270 mls @ 540 mls/hr IV ONCE EUGENIO Stop: 02/18/22 23:59 Last Admin: 02/18/22 14:39 Dose: 540 mls/hr Documented by: Ondansetron HCl (Ondansetron Odt 8 Mg Tab.Rapdis) 8 mg TRANSLINGU ONCE EUGENIO Stop: 02/18/22 23:59 Last Admin: 02/18/22 14:06 Dose: 8 mg Documented by: Home Medications Medication Instructions Recorded Confirmed Type ibuprofen 200 mg tablet (Motrin IB) 400 mg PO TID PRN 06/09/21 02/18/22 History diphenhydramine HCl 25 mg tablet 25 mg PO BID PRN tab 01/19/22 02/18/22 History (Benadryl Allergy) Allergies Allergy/AdvReac Type Severity Reaction Status Date / Time peanut Allergy Severe Anaphylaxis Verified 02/16/22 10:48 Tetanus Vaccines and Toxoid Allergy Severe Anaphylaxis Verified 02/16/22 10:48 lovastatin AdvReac Severe Leg Cramps Verified 02/16/22 10:48 pravastatin AdvReac Severe Leg Cramps Verified 02/16/22 10:48 carvedilol AdvReac Intermediate Shortness Verified 02/16/22 10:48 of Breath digoxin AdvReac Intermediate Shortness Verified 02/16/22 10:48 of Breath amiodarone AdvReac Shortness Verified 02/16/22 10:48 of Breath Exam Vital signs: Vital Signs Temp 97.0 F 02/18/22 13:02 Pulse 119 H 02/18/22 13:02 Resp 18 02/18/22 13:02 BP 183/88 H 02/18/22 13:02 Pulse Ox 97 02/18/22 13:02 Intake & Output 02/17/22 02/18/22 02/18/22 18:59 06:59 18:59 Other: Weight 59.9 kg [place] Weight in Grams 45749 Weight 59.9 kg BMI result Body Mass Index 22.6 - Constitutional Present: no acute distress - Routine HEENT Exam Head: Present: normal inspection Eye: Present: normal appearance ENT: Present: mucous membranes moist - Routine Neck Exam Present: full ROM - Routine Respiratory Exam Present: CTAB - Routine Cardiovascular Exam Cardiovascular: Present: RRR, S1, S2 - Routine Abdominal Exam Present: normal bowel sounds, nontender - Routine Rectal Exam Patient deferred: digital exam - Routine Extremities Exam Present: nontender - Routine Back/Spine/Pelvis Exam Back/Spine: Present: full ROM - Routine Skin Exam Present: intact - Routine Neurological Exam Present: alert, oriented X3 - Detailed Neurological Exam: Coma Scale Eye Opening: Spontaneous (4) - Routine Psychiatric Exam Present: normal affect Data - Labs CBC & Chem 7: 02/18/22 13:20 02/18/22 13:20 Assessment and Plan Patient Active problem list reviewed?: Yes (1) Small cell carcinoma Status: Inactive Assessment and plan: This is a pleasant 81 year-old lady, with recent diagnosis of Small Cell carcinoma of the lung. She underwent EBUS on November 19. Pathology: Station 4 lymph node: Negative. Station 7 lymph node: Positive for malignant cells consistent with small-cell carcinoma. Immuno stains: Positive for synaptophysin, chromogranin, CD 56 and ann cytokeratin. Negative for chromogranin and CD 45. I shared the details of the pathology with her. I went over the disease course and treatment options including systemic chemotherapy, with or without radiation based upon her exact stage. I proceeded with staging workup. I checked baseline labs including LDH: 199. Check a PET scan to see if there is any evidence of metastatic disease especially with history of chronic back and hip pain. (It had to postponed twice, due to the weather). This was done at [facility] on 12/22 and revealed: FDG avid mediastinal adenopathy, compatible with malignancy. There is no evidence of FDG avid lung cancer outside of the mediastinum. Possible right lower pole renal mass. Recommend correlation with outside imaging of the abdomen. If none is available consider renal ultrasound/dedicated renal mass MRI for further evaluation. 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 No underlying renal mass. l checked MRI of the brain, to look for any possible brain metastases. This revealed: No acute intracranial process seen. No abnormal enhancement seen to suspect any primary or metastatic lesion. Extensive chronic small vessel ischemic changes in both cerebral hemispheres with underlying mild cerebral volume loss. She was started on carbo etoposide and Atizolizumab.. She is tolerating it well. She has complete cycle 4.. She has completed radiation therapy. She is currently on atezolizumab. She had done well, up until now. She has recently noted back pain. In addition she has refractory constipation. I was concerned about cord compression however she does not have any neurological symptoms. No urinary complaints. Her back pain is actually better than before. I proceeded to re-stage her with imaging. She had a CT scan of the chest on 04/22, it revealed: CHEST: Interval decrease in mediastinal lymphadenopathy. New 2 mm peripheral or subpleural right upper lobe nodule adjacent to the major fissure probably representing a subpleural lymph node. New tiny right pleural effusion. Atherosclerotic disease and coronary artery calcification. ABDOMEN AND PELVIS: Fatty liver. Diverticulosis. No evidence of metastatic disease. New T11 vertebral body compression fracture. Proceeded with a bone scan, it was done on 05/01 and it revealed: Horizontal abnormal activity T11 vertebra consistent with acute compression fracture. Suspect early acute superior end plate fracture T12 vertebra. She was referred to the emergency room, by Dr. Kohler on 06/09 for: for abnormal labs including troponin, BNP, and D-dimer. Patient reports increasing bilateral LE edema and FARIAS x6 weeks. Also reports abdominal bloating. Denies CP, fever, chills, cough, abdominal pain, nausea/vomiting, COVID-19 exposure, recent travel, history of blood clots. CTA from June 09 revealed: 1. No evidence of pulmonary embolism. 2. There is a new compression deformity in the T10 vertebral body when compared with the thoracic spine CT following kyphoplasty on 05/11/2021. Some increased sclerosis suggests this may be subacute. Correlate with clinical exam to assess acuity. If clinically indicated, MRI could help to better assess acuity. 3. Mild bronchial wall thickening suggesting small airways disease. 4 Similar appearance to the mediastinal lymphadenopathy 5. Small hiatal hernia. Hepatic steatosis. She previously underwent kyphoplasty of T11 and T12 vertebrae on 05/11. Post KYPHOPLASTY CT scan from 05/12: Adequate amount of cement occupying T11 and T12 compression fractures with no cement extravasation. There is no spinal canal compromise or neural foraminal narrowing. She had a more density on 05/22 which revealed: 1. DIAGNOSIS: Severe osteoporosis based on the lowest T-score value of -2.6 in the femoral neck and fracture history applying World Health Organization criteria. I shared the above results with her. She has had more back pain. She has new compression fracture at T10 level. This is related to severe osteoporosis, She had a bone mineral density done on 05/21/21: 1. DIAGNOSIS: Severe osteoporosis based on the lowest T-score value of -2.6 in the femoral neck and fracture history applying World Health Organization criteria. 2. 10-YEAR FRACTURE RISK PREDICTION, FRAX: Major osteoporotic fracture (clinical spine, forearm, hip or shoulder) 28.6%. Hip fracture 9.7%. She had a kyphoplasty on 07/23/21. She then developed an acute compression fracture at T6. She underwent a kyphoplasty on 09/10/2021. She was started on denosumab for treatment of her osteoporosis. She had a CT scan on 03/31 which revealed: No hilar or mediastinal adenopathy. Stable small left upper lobe nodules. Stable prominent soft tissue surrounding the right mainstem bronchus. Atherosclerotic disease. Stable small pericardial effusion. New small right pleural effusion. Multiple vertebral body compression fractures and kyphoplasty changes as described above. It is uncertain whether a new T7 vertebral body compression fracture could represent a pathologic fracture or represents a benign compression fracture.. She is holding her own. Imaging appears stable. PLAN: The plan is to continue maintenance phase with Atizolizumab, q 2 weeks. She is here for a dose today. Will continue to monitor labs. Will proceed with a CT chest for restaging, in 3 months time. She will be following up with Melissa cuellar next month. Thank you, CC: Dr. Ina Kc. Dr. Rik Kohler. - Time Spent With Patient Time Spent with Patient (in minutes): 30
--- NOTE | 2022-02-18 16:04 | MHC.HEMONC ---
C20 day1: Atezolizumab/ Port accessed- positive blood return. Labs reviewed. No complaints at this time. VSS. Exam with Dr. Odom today. Port- deaccessed with heparin. Patient to return in 3 weeks for next treatment.
--- NOTE | 2022-02-26 09:20 | MHC.HEMONCSW ---
on 02/23/2022.
== END 2022-02-23 | disposition home or self-care (01) ==
LOC: HO.ONC 13:00
PROVIDERS: PCP Internal Medicine; Visit Provider Internal Medicine Medical Oncology
DX: Z51.11 Encounter for antineoplastic chemotherapy (principal); C34.90 Malignant neoplasm of unspecified part of unspecified bronchus or lung; C77.9 Secondary and unspecified malignant neoplasm of lymph node, unspecified; M80.88XD Other osteoporosis with current pathological fracture, vertebra(e), subsequent encounter for fracture with routine healing; E03.9 Hypothyroidism, unspecified; Z87.891 Personal history of nicotine dependence; Z92.3 Personal history of irradiation
CPT/HCPCS: 36415; 36593; 80053; 81001; 82306; 83615; 83880; 84443; 85025; 87086; 96365; 96366; 96372; 96375; 96413; 96415; 96417; 99204; 99214; J0897; J1100; J1200; J1642; J2405; J2997; J8540; J9022; J9045; J9181; Q0163